=== PATIENT | female | born 1935 | race Caucasian/White ===

== ENCOUNTER 2016-09-06 08:51 | Inpatient (IN) | payer OTHER ==
[2016-09-06 09:07] VITALS: BMI 29.9
--- NOTE | 2016-09-06 09:55 | PDOC ---
History of Present Illness - General Chief Complaint: Shortness of Breath Stated Complaint: DIFFICULTY BREATHING Time Seen by Provider: 09/06/16 09:28 - History of Present Illness Initial Comments: 09/06/16 09:49 CHIEF COMPLAINT: shortness of breath HISTORY OF PRESENT ILLNESS: 81 yo F with hx of afib, CHF, cardiac stent x1, COPD , HTN, HLD, diabetes (now controlled, no meds), and kidney failure who presents to the ED for shortness of breath. Patient reports that she has had more "labored breathing" over the past 2 weeks. She denies any chest pain but reports feeling "some palpitations yesterday." She denies any fever, chills, nausea, vomiting, diarrhea, rectal bleeding. She also notes that she was previously told by her psychiatrist that she was being "underdosed on Zoloft" after having a few panic attacks, and her dosage increased approximately 2 months ago. No recent travel or sick contacts. PAST MEDICAL HISTORY: as per HPI SOCIAL HISTORY: Lives at assisted living home. Former smoker, quit 1998. alcohol, illicit drug use. SURGICAL HISTORY: Denies ALLERGIES: codeine REVIEW OF SYSTEMS General/Constitutional: Denies fever or chills. Denies weakness, weight change. HEENT: Denies change in vision. Denies ear pain or discharge. Denies sore throat. Cardiovascular: Shortness of breath x 2 weeks. Respiratory: Denies cough, wheezing, or hemoptysis. Gastrointestinal: Denies nausea, vomiting, diarrhea or constipation. Denies rectal bleeding. Genitourinary: Denies dysuria, frequency, or change in urination. Musculoskeletal: Denies joint or muscle swelling or pain. Denies neck or back pain. Skin and breasts: Denies rash or easy bruising. Neurologic: Denies headache, vertigo, loss of consciousness, or loss of sensation. Psychiatric: Denies depression or anxiety. PHYSICAL EXAM General Appearance: Well-appearing, appropriately dressed. No apparent distress. HEENT: EOMI, PERRLA, normal ENT inspection, normal voice, TMs normal, pharynx normal. No conjunctival pallor. No photophobia, scleral icterus. Neck: Supple. Trachea midline. No tenderness, rigidity, carotid bruit, stridor , lymphadenopathy, or thyromegaly. Respiratory/Chest: SOB, crackles to bases b/l. No chest tenderness, accessory muscle use. No stridor, wheezing, dullness. Cardiovascular: RRR. S1, S2. No JVD, murmur, bradycardia, tachycardia. Vascular Pulses: Dorsalis-Pedis (R): 2+, Dorsalis-Pedis (L): 2+ Gastrointestinal/Abdominal: Normal bowel sounds. Abdomen soft, non-distended. No tenderness or rebound tenderness. No organomegaly, pulsatile mass, guarding , hernia, hepatomegaly, splenomegaly. Lymphatic: No adenopathy, tenderness. Musculoskeletal/Extremities: Mild erythema to left lower leg. Normal inspection. FROM of all extremities, normal capillary refill. Pelvis Stable. No CVA tenderness. No tenderness to extremities, pedal edema, swelling, erythema or deformity. Integumentary: Appropriate color, dry, warm. 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 Fully oriented, alert. Appropriate mood/affect. Motor strength 5/5. No appreciable EOM palsy, facial droop or sensory deficit. 09/06/16 10:09 Past History - Past Medical History Allergies/Adverse Reactions: Allergies Allergy/AdvReac Type Severity Reaction Status Date / Time codeine AdvReac Intermediate Vaginal Verified 09/07/16 12:56 itch Home Medications: Ambulatory Orders Colchicine [Colcrys] 0.3 mg PO DAILY 01/07/16 Hydrocortisone 2.5% Topical Cr [Anusol-Hc -] 1 applic TP BID 09/06/16 Albuterol Sulfate [Proair Respiclick] 108 mcg IH Q4HWA PRN #0 inh 09/09/16 Albuterol Sulfate [Ventolin -] 2.5 mg PO QID PRN #0 inh 09/09/16 Alprazolam [Xanax] 0.5 mg PO TID PRN #0 tab 09/09/16 Amiodarone HCl 200 mg PO DAILY #0 tab 09/09/16 Apixaban [Eliquis -] 2.5 mg PO BID tablet 09/09/16 Aspirin [ASA -] 81 mg PO DAILY #0 tab 09/09/16 Ferrous Sulfate 325 mg PO DAILY #0 tab 09/09/16 Fluticasone/Salmeterol [Advair 250-50 Diskus] 1 each IH BID #0 inh 09/09/16 Furosemide [Lasix -] 40 mg PO DAILY #0 tab 09/09/16 Omeprazole 20 mg PO DAILY #0 tab 09/09/16 Polyethylene Glycol 3350 [Purelax] 17 gm PO ASDIR PRN #0 bottle 09/09/16 Roflumilast [Daliresp] 500 mcg PO DAILY #0 tab 09/09/16 Sertraline HCl [Zoloft -] 150 mg PO DAILY #0 tab 09/09/16 Simvastatin [Zocor -] 5 mg PO HS #0 tab 09/09/16 Umeclidinium [place] [Incruse Ellipta] 62.5 mcg IH DAILY #0 inh 09/09/16 Zolpidem Tartrate [Ambien] 10 mg PO HS #0 tab 09/09/16 Heparin - 5,000 unit SQ DAILY 09/10/16 Cardiac Disorders: Yes (AFIB) COPD: Yes (EMPHYSEMA) Diabetes: Yes Disorders: Yes (KIDNEY FAILURE) HTN: Yes Hypercholesterolemia: Yes Other medical history: chronic kidney dz - Surgical History Cardiac Surgery: Yes (x1 stent) Cholecystectomy: Yes - Immunization History Immunization Up to Date: Yes - Psycho/Social/Smoking Cessation Hx Anxiety: No Suicidal Ideation: No Smoking Status: Yes Smoking History: Never smoked Have you smoked in the past 12 months: No Number of Cigarettes Smoked Daily: 0 If you are a former smoker, when did you quit?: 2000 Cigars Per Day: 0 Information on smoking cessation initiated: No Hx Alcohol Use: No Drug/Substance Use Hx: No Substance Use Type: None Hx Substance Use Treatment: No *Physical Exam - Vital Signs Last Vital Signs Temp Pulse Resp BP Pulse Ox 97.6 F 70 18 164/65 99 09/06/16 09:04 09/06/16 09:04 09/06/16 09:04 09/06/16 09:04 09/06/16 09:04 ED Treatment Course - LABORATORY CBC & Chemistry Diagram: 09/09/16 05:40 09/09/16 05:40 - RADIOLOGY Radiology Studies Ordered: Category Date Time Status CHEST PA & LAT [RAD] Stat Radiology 09/06/16 09:43 Ordered Medical Decision Making - Medical Decision Making 09/21/16 10:41 81 yo F with hx of afib, CHF, cardiac stent x1, COPD, HTN, HLD, diabetes (now controlled, no meds), and kidney failure who presents to the ED for shortness of breath. -CXR, EKG -CBC, CMP, PT/INR, Mg, BNP, card profile Labs: Creatining 2.1, BNP 5900 Patient admitted for acute CHF exacerbation and MENA. *DC/Admit/Observation/Transfer Diagnosis at time of Disposition: MENA (acute kidney injury) CHF exacerbation Qualifiers: Congestive heart failure type: unspecified congestive heart failure type Qualified Code(s): I50.9 - Heart failure, unspecified - Discharge Dispostion Disposition: ASSISTED LIVING FACILITY Condition at time of disposition: Stable Admit: Yes - Referrals
[2016-09-06 10:35] LABS: BASOPHIL 0.6 % (0-2.0); EOSINOPHIL 1.3 % (0-4.5); MCH 26.4 pg (25.7-33.7); MCHC 31.7 g/dl (32.0-36.0); MEAN CELL VOLUME 83.4 fl (80-96); MEAN PLT VOLUME 7.8 fl (7.5-11.1); NEUTROPHILS 87.8 % (42.8-82.8); PLATELET COUNT 243 K/MM3 (134-434); RDW 16.8 % (11.6-15.6); WHITE BLOOD COUNT 9.2 K/mm3 (4.0-10.0)
[2016-09-06 10:39] LABS: ALBUMIN 2.8 g/dl (3.4-5.0); BILIRUBIN,TOTAL 0.2 mg/dL (0.2-1.0); CALCIUM 8.4 mg/dL (8.5-10.1); CO2 28 mmol/L (21-32); COCKROFT - GAULT 22.95; CREATININE 2.1 mg/dL (0.55-1.02); GLUCOSE,RANDOM 114 mg/dL (74-106); SGPT/ALT 23 U/L (12-78); TOT PROT 6.8 g/dl (6.4-8.2)
[2016-09-06 10:45] LABS: ALK PHOS 84 U/L (45-117); INR 1.09 (0.82-1.09); TROPONIN I < 0.02 ng/ml (0.00-0.05)
[2016-09-06 10:53] LABS: MAGNESIUM 2.4 mg/dL (1.8-2.4); SGOT/AST 26 U/L (15-37)
[2016-09-06 11:03] LABS: ANION GAP 9 (8-16)
[2016-09-06] MEDS ORDERED: FUROSEMIDE 40 MG/4 ML INJECTABLE VIAL IVPUSH ONE (11:20)
[2016-09-06] MEDS ORDERED: FUROSEMIDE 40 MG/4 ML INJECTABLE VIAL ONE ×2 (11:51→13:54)
--- NOTE | 2016-09-06 12:02 | EKG ---
Test Reason : Blood Pressure : / mmHG Vent. Rate : 070 BPM Atrial Rate : 070 BPM P-R Int : 174 ms QRS Dur : 104 ms QT Int : 448 ms P-R-T Axes : 075 002 083 degrees QTc Int : 483 ms NORMAL SINUS RHYTHM SEPTAL INFARCT , AGE UNDETERMINED T WAVE ABNORMALITY, CONSIDER LATERAL ISCHEMIA ABNORMAL ECG WHEN COMPARED WITH ECG OF 06-DEC-2012 17:26, SINUS RHYTHM HAS REPLACED ATRIAL FIBRILLATION VENT. RATE HAS DECREASED BY 54 BPM Confirmed by MD TIN, ABRAM ([id number]) on 09/06/2016 12:02:32 PM Referred By: Confirmed By:ABRAM CASTLE MD
--- NOTE | 2016-09-06 12:49 | HP ---
CHIEF COMPLAINT: PCP: Dr Machuca HISTORY OF PRESENT ILLNESS: 81 y/o F with c/o SOB for 3 weeks, with BARRETT and palpitations. Patient is on home oxygen 3L [place] . Patient lives at a assisted living facility and is reported to be compliant with her medications daily. daughter complains of mother having easy bruising. No h/o frequent falls. ER course was notable for: (1)Lasix (2) non rebreather (3) Recent Travel:no PAST MEDICAL HISTORY:Anxiety, depression, COPD, Emyphysema, CHF, CKD, CAD s/p stent PAST SURGICAL HISTORY: Cholecystectomy, Stent Social History: Smoking: quit 1998 Alcohol:none Drugs: none Family History: Allergies codeine Adverse Reaction (Verified 09/06/16 09:08) Itching HOME MEDICATIONS: Home Medications Medication Instructions Recorded Albuterol Sulfate [Proair 108 mcg IH Q4HWA PRN 01/07/16 Respiclick] Alprazolam [Xanax] 0.5 mg PO TID PRN 01/07/16 Amiodarone HCl 200 mg PO DAILY 01/07/16 Aspirin [ASA -] 81 mg PO DAILY 01/07/16 Colchicine [Colcrys] 0.3 mg PO DAILY 01/07/16 Ferrous Sulfate 325 mg PO DAILY 01/07/16 Fluticasone/Salmeterol [Advair 1 each IH BID 01/07/16 250-50 Diskus] Furosemide [Lasix -] 40 mg PO DAILY 01/07/16 Omeprazole 20 mg PO DAILY 01/07/16 Roflumilast [Daliresp] 500 mcg PO DAILY 01/07/16 Simvastatin [Zocor -] 5 mg PO HS 01/07/16 Umeclidinium [place] [Incruse 62.5 mcg IH DAILY 01/07/16 Ellipta] Zolpidem Tartrate [Ambien] 10 mg PO HS 01/07/16 Albuterol Sulfate [Ventolin -] 2.5 mg PO QID PRN 09/06/16 Hydrocortisone 2.5% Topical Cr 1 applic TP BID 09/06/16 [Anusol-Hc -] Polyethylene Glycol 3350 [Purelax] 17 gm PO ASDIR PRN 09/06/16 Sertraline HCl [Zoloft -] 150 mg PO DAILY 09/06/16 REVIEW OF SYSTEMS CONSTITUTIONAL: weight change, loss of appetite, Absent: fever, chills, diaphoresis, generalized weakness, malaise, HEENT: Absent: rhinorrhea, nasal congestion, throat pain, throat swelling, difficulty swallowing, mouth swelling, ear pain, eye pain, visual changes CARDIOVASCULAR: Absent: chest pain, syncope, palpitations, irregular heart rate, lightheadedness , peripheral edema RESPIRATORY: shortness of breath, dyspnea with exertion Absent: cough, , orthopnea, wheezing, stridor, hemoptysis GASTROINTESTINAL: Absent: abdominal pain, abdominal distension, nausea, vomiting, diarrhea, constipation, melena, hematochezia GENITOURINARY: Absent: dysuria, frequency, urgency, hesitancy, hematuria, flank pain, genital pain MUSCULOSKELETAL: Absent: myalgia, arthralgia, joint swelling, back pain, neck pain SKIN: Absent: rash, itching, pallor HEMATOLOGIC/IMMUNOLOGIC: Absent: easy bleeding, easy bruising, lymphadenopathy, frequent infections ENDOCRINE: Absent: unexplained weight gain, unexplained weight loss, heat intolerance, cold intolerance NEUROLOGIC: Absent: headache, focal weakness or paresthesias, dizziness, unsteady gait, seizure, mental status changes, bladder or bowel incontinence PSYCHIATRIC: Absent: anxiety, depression, suicidal or homicidal ideation, hallucinations. PHYSICAL EXAMINATION Vital Signs - 24 hr 09/06/16 09/06/16 09:04 09:05 Temperature 97.6 F Pulse Rate 70 Respiratory 18 Rate Blood Pressure 164/65 O2 Sat by Pulse 99 99 Oximetry (%) GENERAL: Awake, alert, and fully oriented, in no acute distress. HEAD: Normal with no signs of trauma. EYES: Pupils equal, round and reactive to light, extraocular movements intact, sclera anicteric, conjunctiva clear. No lid lag. EARS, NOSE, THROAT: Ears normal, nares patent, oropharynx clear without exudates. Moist mucous membranes. NECK: Normal range of motion, supple without lymphadenopathy, JVD +, or masses. LUNGS: Breath sounds equal, clear to auscultation bilaterally. No wheezes, and no crackles. No accessory muscle use. HEART: Regular rate and rhythm, normal S1 and S2 , regurgitation murmur mitral area, no rub or gallop. ABDOMEN: Soft, nontender, not distended, normoactive bowel sounds, no guarding, no rebound, no masses. No hepatomegaly or splenomegaly. MUSCULOSKELETAL: Normal range of motion at all joints. No bony deformities or tenderness. No CVA tenderness. UPPER EXTREMITIES: 2+ pulses, warm, well-perfused. No cyanosis. No clubbing. No peripheral edema. LOWER EXTREMITIES: 2+ pulses, warm, well-perfused. No calf tenderness. trace peripheral edema. NEUROLOGICAL: Cranial nerves II-XII intact. Normal speech. Normal gait. PSYCHIATRIC: Cooperative. Good eye contact. Appropriate mood and affect. SKIN: Warm, dry, normal turgor, no rashes or lesions noted, normal capillary refill. ecchymosis on hands Laboratory Results - last 24 hr 09/06/16 09/06/16 09/06/16 10:09 10:09 10:09 WBC RBC Hgb Hct MCV MCHC RDW Plt Count MPV Neutrophils % Lymphocytes % Monocytes % Eosinophils % Basophils % INR 1.09 D D-Dimer Cancelled Sodium 148 H Potassium 4.9 Chloride 111 H Carbon Dioxide 28 Anion Gap 9 BUN 39 H D Creatinine 2.1 H D Creat Clearance w eGFR 22.72 Random Glucose 114 H Calcium 8.4 L Magnesium 2.4 D Total Bilirubin 0.2 D AST 26 D ALT 23 D Alkaline Phosphatase 84 Creatine Kinase 89 Troponin I < 0.02 B-Natriuretic Peptide 5963.47 H Total Protein 6.8 Albumin 2.8 L 09/06/16 10:23 WBC 9.2 RBC 3.94 Hgb 10.4 L Hct 32.9 MCV 83.4 MCHC 31.7 L RDW 16.8 H Plt Count 243 MPV 7.8 Neutrophils % 87.8 H Lymphocytes % 4.8 L D Monocytes % 5.5 Eosinophils % 1.3 D Basophils % 0.6 INR D-Dimer Sodium Potassium Chloride Carbon Dioxide Anion Gap BUN Creatinine Creat Clearance w eGFR Random Glucose Calcium Magnesium Total Bilirubin AST ALT Alkaline Phosphatase Creatine Kinase Troponin I B-Natriuretic Peptide Total Protein Albumin ASSESSMENT/PLAN: CHF exacerbation Lasix 40 mg IVPB daily ECHO Continue home medications MENA or possible CKD Cardiorenal possibly Urine electrolytes Follow AM labs Visit type - Emergency Visit Emergency Visit: Yes ED Registration Date: 09/06/16 Care time: The patient presented to the Emergency Department on the above date and was hospitalized for further evaluation of their emergent condition. - New Patient This patient is new to me today: Yes Date on this admission: 09/25/16 - Critical Care Critical Care patient: No
[2016-09-06] MEDS ORDERED: FUROSEMIDE 40 MG/4 ML INJECTABLE VIAL IVPB ONE (12:50)
[2016-09-06] MEDS ORDERED: ALBUTEROL SO4 2 MG TABLET PO PRN (12:55)
[2016-09-06] MEDS ORDERED: POLYETHYLENE GLYCOL 3350 119 GM BTL PO PRN (12:55)
[2016-09-06 14:20] LABS: URINE APPEARANCE CLEAR; URINE BILIRUBIN NEGATIVE (NEGATIVE); URINE COLOR STRAW; URINE GLUCOSE (UA) NEGATIVE (NEGATIVE); URINE KETONE NEGATIVE (NEGATIVE); URINE LEUK ESTERASE NEGATIVE (NEGATIVE); URINE NITRITE NEGATIVE (NEGATIVE); URINE UROBILINOGEN NEGATIVE E.U./dl (0.2-1.0)
[2016-09-06 14:23] LABS: URINE BLOOD 1+ (NEGATIVE); URINE PROTEIN 2+ (NEGATIVE)
[2016-09-06 14:26] LABS: URINE BACTERIA MODERATE /hpf (NONE SEEN); URINE RBC 4 /hpf (0-3); URINE WBC 16 /hpf (3-5)
--- NOTE | 2016-09-06 15:03 | CON.CARD ---
Consult Consult Specialty:: Cardiology Referred by:: Hospitalist Reason for Consultation:: Cardiac evaluation - History of Present Illness Chief Complaint: Shortness of breath History of Present Illness: Patient is a 81 year old female well known to me with underlying history of oxygen dependent COPD with exacerbation, LV diastolic dysfunction with history of failure, CKD, type 2 diabetes mellitus, hypertension, hypercholesterolemia and paroxysmal atrial fibrillation. She presents to [facility] with increase in shortness of breath worsened over the past 2 weeks. She reports some palpitations. She denies chest pain. She denies paroxysmal nocturnal dyspnea or orthopnea. She denies fever or chills. She denies nausea, vomiting, diarrhea or abdominal pain. She denies headache or lightheadedness. - History Source History Provided By: Patient, Medical Record Limitations to Obtaining History: No Limitations - Past Medical History Cardio/Vascular: Yes: AFIB, HTN, Hyperlipdemia Pulmonary: Yes: COPD, O2 Dependent Renal/: Yes: Renal Inusuff Heme/Onc: Yes: Anemia Endocrine: Yes: Diabetes Mellitus - Alcohol/Substance Use Hx Alcohol Use: No - Smoking History Smoking history: Never smoked Have you smoked in the past 12 months: No Aproximately how many cigarettes per day: 0 If you are a former smoker, when did you quit?: 1999 Home Medications - Allergies Allergies/Adverse Reactions: Allergies Allergy/AdvReac Type Severity Reaction Status Date / Time codeine AdvReac Itching Verified 09/06/16 09:08 - Home Medications Home Medications: Ambulatory Orders Albuterol Sulfate [Proair Respiclick] 108 mcg IH Q4HWA PRN 01/07/16 Alprazolam [Xanax] 0.5 mg PO TID PRN 01/07/16 Amiodarone HCl 200 mg PO DAILY 01/07/16 Aspirin [ASA -] 81 mg PO DAILY 01/07/16 Colchicine [Colcrys] 0.3 mg PO DAILY 01/07/16 Ferrous Sulfate 325 mg PO DAILY 01/07/16 Fluticasone/Salmeterol [Advair 250-50 Diskus] 1 each IH BID 01/07/16 Furosemide [Lasix -] 40 mg PO DAILY 01/07/16 Omeprazole 20 mg PO DAILY 01/07/16 Roflumilast [Daliresp] 500 mcg PO DAILY 01/07/16 Simvastatin [Zocor -] 5 mg PO HS 01/07/16 Umeclidinium [place] [Incruse Ellipta] 62.5 mcg IH DAILY 01/07/16 Zolpidem Tartrate [Ambien] 10 mg PO HS 01/07/16 Albuterol Sulfate [Ventolin -] 2.5 mg PO QID PRN 09/06/16 Hydrocortisone 2.5% Topical Cr [Anusol-Hc -] 1 applic TP BID 09/06/16 Polyethylene Glycol 3350 [Purelax] 17 gm PO ASDIR PRN 09/06/16 Sertraline HCl [Zoloft -] 150 mg PO DAILY 09/06/16 Review of Systems - Review of Systems Constitutional: denies: Chills, Fever Cardiovascular: reports: Palpitations, Shortness of Breath. denies: Chest Pain Respiratory: reports: SOB, SOB on Exertion. denies: Cough, Hemoptysis, Orthopnea, PND Gastrointestinal: denies: Abdominal Pain, Constipation, Diarrhea, Melena, Nausea , Rectal Bleeding, Vomiting Musculoskeletal: denies: Joint Pain Neurological: reports: Weakness. denies: Dizziness, Headache, Numbness, Seizure , Syncope, Tremors Vital Signs: Vital Signs Temperature 97.6 F 09/06/16 09:04 Pulse Rate 68 09/06/16 14:00 Respiratory Rate 18 09/06/16 14:00 Blood Pressure 116/65 09/06/16 14:00 O2 Sat by Pulse Oximetry (%) 100 09/06/16 14:00 HENT: Yes: Atraumatic Neck: Yes: Supple Respiratory: Yes: Diminished, On Nasal O2 Gastrointestinal: Yes: Normal Bowel Sounds, Soft. No: Tenderness Cardiovascular: Yes: Regular Rate and Rhythm JVD: No Carotid Bruit: No PMI: Non-Displaced Heart Sounds: Yes: S1, S2. No: Gallop Murmur: No: Systolic Murmur Edema: No - Other Data Labs, Other Data: INR, PTT INR 1.09 (0.82-1.09) D 09/06/16 10:09 Laboratory Results - last 24 hr 09/06/16 09/06/16 09/06/16 10:09 10:09 10:09 WBC RBC Hgb Hct MCV MCHC RDW Plt Count MPV Neutrophils % Lymphocytes % Monocytes % Eosinophils % Basophils % INR 1.09 D D-Dimer Cancelled Sodium 148 H Potassium 4.9 Chloride 111 H Carbon Dioxide 28 Anion Gap 9 BUN 39 H D Creatinine 2.1 H D Creat Clearance w eGFR 22.72 Random Glucose 114 H Calcium 8.4 L Magnesium 2.4 D Total Bilirubin 0.2 D AST 26 D ALT 23 D Alkaline Phosphatase 84 Creatine Kinase 89 Troponin I < 0.02 B-Natriuretic Peptide 5963.47 H Total Protein 6.8 Albumin 2.8 L Urine Color Urine Appearance Urine pH Ur Specific [place] Urine Protein Urine Glucose (UA) Urine Ketones Urine Blood Urine Nitrite Urine Bilirubin Urine Urobilinogen Ur Leukocyte Esterase Urine RBC Urine WBC Ur Epithelial Cells Urine Bacteria Ur Random Sodium Ur Random Potassium Ur Random Chloride 09/06/16 09/06/16 09/06/16 10:23 12:04 14:10 WBC 9.2 RBC 3.94 Hgb 10.4 L Hct 32.9 MCV 83.4 MCHC 31.7 L RDW 16.8 H Plt Count 243 MPV 7.8 Neutrophils % 87.8 H Lymphocytes % 4.8 L D Monocytes % 5.5 Eosinophils % 1.3 D Basophils % 0.6 INR D-Dimer 539 H Sodium Potassium Chloride Carbon Dioxide Anion Gap BUN Creatinine Creat Clearance w eGFR Random Glucose Calcium Magnesium Total Bilirubin AST ALT Alkaline Phosphatase Creatine Kinase Troponin I B-Natriuretic Peptide Total Protein Albumin Urine Color Straw Urine Appearance Clear Urine pH 5.0 Ur Specific [place] 1.010 Urine Protein 2+ H Urine Glucose (UA) Negative Urine Ketones Negative Urine Blood 1+ H Urine Nitrite Negative Urine Bilirubin Negative Urine Urobilinogen Negative Ur Leukocyte Esterase Negative Urine RBC 4 Urine WBC 16 Ur Epithelial Cells Rare Urine Bacteria Moderate Ur Random Sodium Ur Random Potassium Ur Random Chloride 09/06/16 09/06/16 14:10 20:25 WBC RBC Hgb Hct MCV MCHC RDW Plt Count MPV Neutrophils % Lymphocytes % Monocytes % Eosinophils % Basophils % INR D-Dimer Sodium Potassium Chloride Carbon Dioxide Anion Gap BUN Creatinine Creat Clearance w eGFR Random Glucose Calcium Magnesium Total Bilirubin AST ALT Alkaline Phosphatase Creatine Kinase 44 Troponin I 0.02 B-Natriuretic Peptide Total Protein Albumin Urine Color Urine Appearance Urine pH Ur Specific [place] Urine Protein Urine Glucose (UA) Urine Ketones Urine Blood Urine Nitrite Urine Bilirubin Urine Urobilinogen Ur Leukocyte Esterase Urine RBC Urine WBC Ur Epithelial Cells Urine Bacteria Ur Random Sodium 124 Ur Random Potassium 13.4 Ur Random Chloride 138 Sinus rhythm with T wave abnormality Imaging - Results Chest X-ray: Report Reviewed (Cardiomegaly with congestion) Ultrasound: Report Reviewed (Renal US shows atrophy) EKG: Report Reviewed Problem List - Problems (1) Congestive heart failure with LV diastolic dysfunction, NYHA class 1 Code(s): I50.30 - UNSPECIFIED DIASTOLIC (CONGESTIVE) HEART FAILURE (2) HTN (hypertension) Code(s): I10 - ESSENTIAL (PRIMARY) HYPERTENSION Qualifiers: Hypertension type: essential hypertension Qualified Code(s): I10 - Essential (primary) hypertension (3) Hypercholesterolemia Code(s): E78.00 - PURE HYPERCHOLESTEROLEMIA, UNSPECIFIED (4) CKD (chronic kidney disease) Code(s): N18.9 - CHRONIC KIDNEY DISEASE, UNSPECIFIED (5) PAF (paroxysmal atrial fibrillation) Code(s): I48.0 - PAROXYSMAL ATRIAL FIBRILLATION Assessment/Plan 1. Dyspnea secondary to LV diastolic failure - acute on chronic vs. COPD exacerbation 2. O2 dependent COPD/emphysema 3. Paroxysmal atrial fibrillation currently in sinus rhythm 4. HTN/HCVD 5. Hypercholesterolemia 6. CKD PLAN: 1. Serial cardiac enzymes 2. Transthoracic echocardiography to assess LV and valvular function - compare with previous office records and prior echocardiography 3. Continue Amiodarone with caution. Check Amiodarone level. 4. Continue Statin 5. IV diuretics and monitor I/Os and daily weight. Monitor renal function and electrolytes 6. Currently not on anticoagulation for GI reason. If not contraindicated, anticoagulation is indicated in view of PAF with [id number] of 5. NOAC may be considered if not contraindicated 7. May use Cardizem if need rate control. Further plans are to follow Saurabh Posadas MD
[2016-09-06] MEDS: BUDESONIDE/FORMETEROL FUMARATE 80/4.5 mcg INHALER IH SCH ×2 (16:44→21:13)
[2016-09-06] MEDS ORDERED: ALBUTEROL SO4 2.5/IPRATROPIUM 0.5 INH SOL 3 ML VIAL.NEB. NEB PRN (17:39)
[2016-09-06] MEDS: ALBUTEROL SO4 2.5/IPRATROPIUM 0.5 INH SOL 3 ML VIAL.NEB. NEB SCH (18:55)
[2016-09-06] MEDS ORDERED: ALBUTEROL SO4 6.7 GM HFA INHALER IH PRN (19:13)
[2016-09-06] MEDS: HYDROCORTISONE 2.5% TOPICAL CREAM 30 GM TUBE TP SCH (21:10)
[2016-09-06] MEDS: ATORVASTATIN CA 10 MG TABLET (FP) PO SCH (21:10)
[2016-09-06 21:16] LABS: TROPONIN I 0.02 ng/ml (0.00-0.05)
[2016-09-06] MEDS: ZOLPIDEM TARTRATE 5 MG TABLET PO PRN (21:50)
[2016-09-06] MEDS ORDERED: HEPARIN NA (PORCINE) 5,000 UNITS/ML 1ML VIAL SQ SCH (22:00)
[2016-09-07] MEDS: ALBUTEROL SO4 2.5/IPRATROPIUM 0.5 INH SOL 3 ML VIAL.NEB. NEB SCH ×5 (00:16→23:59)
[2016-09-07] MEDS: ALPRAZolam 0.25 MG TABLET PO PRN ×2 (05:57→21:13)
--- NOTE | 2016-09-07 08:49 | PN ---
Progress Note (short form) - Note Progress Note: Subjective: no fever or chills, cont ot have SOB , but LE edema has improved. reports choosing to go off coumadin due to skin bruising due to supratherapeutic levels denies any h/o GI bleed , or serious internal bleed or ICH Objective: Vital Signs: Last Vital Signs Temp Pulse Resp BP Pulse Ox 98.5 F 87 18 142/82 94 L 09/07/16 06:00 09/07/16 06:00 09/07/16 06:00 09/07/16 06:00 09/06/16 19:54 I&O: Intake & Output 09/04/16 09/05/16 09/06/16 09/07/16 23:59 23:59 23:59 23:59 Intake Total 240 Output Total 200 900 Balance -200 -660 Weight 153 lb 150 lb 3.2 oz Laboratory Results - last 24 hr 09/06/16 09/06/16 09/06/16 10:09 10:09 10:09 WBC RBC Hgb Hct MCV MCHC RDW Plt Count MPV Neutrophils % Lymphocytes % Monocytes % Eosinophils % Basophils % INR 1.09 D D-Dimer Cancelled Sodium 148 H Potassium 4.9 Chloride 111 H Carbon Dioxide 28 Anion Gap 9 BUN 39 H D Creatinine 2.1 H D Creat Clearance w eGFR 22.72 Random Glucose 114 H Calcium 8.4 L Magnesium 2.4 D Total Bilirubin 0.2 D AST 26 D ALT 23 D Alkaline Phosphatase 84 Creatine Kinase 89 Troponin I < 0.02 B-Natriuretic Peptide 5963.47 H Total Protein 6.8 Albumin 2.8 L Urine Color Urine Appearance Urine pH Ur Specific [place] Urine Protein Urine Glucose (UA) Urine Ketones Urine Blood Urine Nitrite Urine Bilirubin Urine Urobilinogen Ur Leukocyte Esterase Urine RBC Urine WBC Ur Epithelial Cells Urine Bacteria Ur Random Sodium Ur Random Potassium Ur Random Chloride 09/06/16 09/06/16 09/06/16 10:23 12:04 14:10 WBC 9.2 RBC 3.94 Hgb 10.4 L Hct 32.9 MCV 83.4 MCHC 31.7 L RDW 16.8 H Plt Count 243 MPV 7.8 Neutrophils % 87.8 H Lymphocytes % 4.8 L D Monocytes % 5.5 Eosinophils % 1.3 D Basophils % 0.6 INR D-Dimer 539 H Sodium Potassium Chloride Carbon Dioxide Anion Gap BUN Creatinine Creat Clearance w eGFR Random Glucose Calcium Magnesium Total Bilirubin AST ALT Alkaline Phosphatase Creatine Kinase Troponin I B-Natriuretic Peptide Total Protein Albumin Urine Color Straw Urine Appearance Clear Urine pH 5.0 Ur Specific [place] 1.010 Urine Protein 2+ H Urine Glucose (UA) Negative Urine Ketones Negative Urine Blood 1+ H Urine Nitrite Negative Urine Bilirubin Negative Urine Urobilinogen Negative Ur Leukocyte Esterase Negative Urine RBC 4 Urine WBC 16 Ur Epithelial Cells Rare Urine Bacteria Moderate Ur Random Sodium Ur Random Potassium Ur Random Chloride 09/06/16 09/06/16 14:10 20:25 WBC RBC Hgb Hct MCV MCHC RDW Plt Count MPV Neutrophils % Lymphocytes % Monocytes % Eosinophils % Basophils % INR D-Dimer Sodium Potassium Chloride Carbon Dioxide Anion Gap BUN Creatinine Creat Clearance w eGFR Random Glucose Calcium Magnesium Total Bilirubin AST ALT Alkaline Phosphatase Creatine Kinase 44 Troponin I 0.02 B-Natriuretic Peptide Total Protein Albumin Urine Color Urine Appearance Urine pH Ur Specific [place] Urine Protein Urine Glucose (UA) Urine Ketones Urine Blood Urine Nitrite Urine Bilirubin Urine Urobilinogen Ur Leukocyte Esterase Urine RBC Urine WBC Ur Epithelial Cells Urine Bacteria Ur Random Sodium 124 Ur Random Potassium 13.4 Ur Random Chloride 138 Current Medications Generic Name Dose Route Start Last Admin Trade Name Freq PRN Reason Stop Dose Admin Albuterol Sulfate 2.5 mg 09/06/16 12:55 Ventolin - PO QID PRN ASTHMA Albuterol Sulfate 2 puff 09/06/16 19:13 Ventolin Hfa Inhaler - IH Q4H PRN ASTHMA Albuterol/Ipratropium 1 amp 09/06/16 17:39 Duoneb - NEB Q4H PRN SHORTNESS OF BREATH Albuterol/Ipratropium 1 amp 09/06/16 18:00 09/07/16 06:48 Duoneb - NEB 1 amp QIDR [facility] Administration Alprazolam 0.5 mg 09/06/16 12:55 09/07/16 05:57 Xanax - PO 0.5 mg TID PRN Administration ANXIETY Amiodarone HCl 200 mg 09/07/16 10:00 Cordarone - PO DAILY [facility] Aspirin 81 mg 09/07/16 10:00 Ecotrin - PO DAILY [facility] Atorvastatin Calcium 10 mg 09/06/16 22:00 09/06/16 21:10 Lipitor - PO 10 mg HS [facility]A Administration Budesonide/Formoterol Fumarate 2 puff 09/06/16 14:00 09/06/16 21:13 Symbicort 80/4.5mcg - IH 2 puff BID [facility]A Administration Ferrous Sulfate 325 mg 09/07/16 10:00 Feosol - PO DAILY [facility] Furosemide 40 mg 09/07/16 10:00 Lasix Injection - IVPUSH DAILY [facility] Heparin Sodium (Porcine) 5,000 unit 09/06/16 22:00 09/06/16 21:12 Heparin - SQ Not Given BID [facility] Hydrocortisone 1 applic 09/06/16 22:00 09/06/16 21:10 Anusol 2.5% Hc Cream - TP Not Given BID [facility] Pantoprazole Sodium 20 mg 09/07/16 10:00 Protonix - PO DAILY [facility] Polyethylene Glycol 17 gm 09/06/16 12:55 Miralax (For Daily Use) - PO DAILY PRN CONSTIPATION Roflumilast 500 mcg 09/07/16 10:00 Daliresp - PO DAILY [facility] Sertraline HCl 150 mg 09/07/16 10:00 Zoloft - PO DAILY [facility] Zolpidem Tartrate 5 mg 09/06/16 21:33 09/06/16 21:50 Ambien - PO 5 mg HS PRN Administration INSOMNIA Exam : NAD , AAox3 MMM, no JVD , wearing NC . CV: RRR, 3/6 SM At base best heard at RUSB. . Lungs: bibasilar crackles. no wheezing. good air entry Abd : soft, Minimal tenderness in RUQ and epigastric area, no rebound tenderness or guarding Ext : no edema over LE or upper ext. bruising on hands Imaging: cxray reviewed. previous echo and hOlter reviewed. Assessment/Plan: 81 y/o pleasant lady with h/o HTN, HLP , D CHF , COPD on 1-3 L of O2 at home, P AFIB, who presented with SOB and was found to have acute D CHF exacerbation 1- Acute D CHF exacerbation: with elevated BNP, congested xray, crackles on exam and LE edema . No evidence of Acute COPD exacerbation as there is no wheezing, and good air entry. has no recent URI. has no PNA . clinically slightly improved , with resolution of LE edema , and slilght improvement in SOB. still needs more diuresis - will give lasix IV 40 mg daily ( home dose 40 po daily ) - monitor I&O ( not acurately reported yesterday as she wa s in ER) - check echo tomorrow - monitor exam. no evidence of ACS . EKG reviewed. 2- P A fib: now in sinus rhythm. she chose to stp Coumadin in past due to supratheraputic INR which resulted in skin bruising. - CHADSVASC 5 . high risk for stroke. - D/W her risks and benefits of AC, she never had GI bleed, ICH, bleed or ICH. she hart snot have recurrent falls. She understands increased risk of bleed with any AC, even spontaneous bleed. She elected to go on AC , but not Coumadin. will start Eliquis 2.5 mg BID due to renal failure and age. - although aspirin with eliquis causes increased risk of bleed , but she has as tent and untreated CAD . - cont Amiodaron - tele reviewed. no events . Sinus rhythm 3- MENA: likely prerenal due to decreased TIMBER FELLER with heart failure - urine electrolytes were done , but will order U crea and urine Urea t o calculate Fe Urea. - expect renal function to improve with diuresis - renal US with no obstruction , but possible evidence of CKD - labs pending today 4- h/o COPD : not active . will cont home O2 and Nebs cont symbicort and daliresp 5- DVT px : eliquis HLOC Visit type - Emergency Visit Emergency Visit: Yes ED Registration Date: 09/06/16 Care time: The patient presented to the Emergency Department on the above date and was hospitalized for further evaluation of their emergent condition. - New Patient This patient is new to me today: No - Critical Care Critical Care patient: No
[2016-09-07 08:57] LABS: MCH 26.1 pg (25.7-33.7); MCHC 31.3 g/dl (32.0-36.0); MEAN CELL VOLUME 83.3 fl (80-96); MEAN PLT VOLUME 7.7 fl (7.5-11.1); PLATELET COUNT 213 K/MM3 (134-434); RDW 16.9 % (11.6-15.6); WHITE BLOOD COUNT 7.7 K/mm3 (4.0-10.0)
[2016-09-07 09:20] LABS: ALBUMIN 2.5 g/dl (3.4-5.0); CALCIUM 8.4 mg/dL (8.5-10.1)
--- NOTE | 2016-09-07 09:21 | PN ---
Progress Note, Physician Chief Complaint: Currently in sinus rhythm with occasional PVC Less SOB History of Present Illness: Patient was seen and examined. Awake and alert. Chart was reviewed Denies chest pain or palpitations at this time, but states that sometimes she gets brief palpitations Less SOB - Current Medication List Current Medications: Active Medications Albuterol/Ipratropium (Duoneb -) 1 amp NEB Q4H PRN PRN Reason: SHORTNESS OF BREATH Albuterol/Ipratropium (Duoneb -) 1 amp NEB QIDR [facility] Last Admin: 09/07/16 06:48 Dose: 1 amp Alprazolam (Xanax -) 0.5 mg PO TID PRN PRN Reason: ANXIETY Last Admin: 09/07/16 05:57 Dose: 0.5 mg Amiodarone HCl (Cordarone -) 200 mg PO DAILY [facility] Apixaban (Eliquis -) 2.5 mg PO BID [facility] Aspirin (Ecotrin -) 81 mg PO DAILY [facility] Atorvastatin Calcium (Lipitor -) 10 mg PO HS [facility] Last Admin: 09/06/16 21:10 Dose: 10 mg Budesonide/Formoterol Fumarate (Symbicort 80/4.5mcg -) 2 puff IH BID [facility] Last Admin: 09/06/16 21:13 Dose: 2 puff Ferrous Sulfate (Feosol -) 325 mg PO DAILY [facility] Furosemide (Lasix Injection -) 40 mg IVPUSH DAILY [facility] Hydrocortisone (Anusol 2.5% Hc Cream -) 1 applic TP BID [facility] Last Admin: 09/06/16 21:10 Dose: Not Given Pantoprazole Sodium (Protonix -) 20 mg PO DAILY [facility] Polyethylene Glycol (Miralax (For Daily Use) -) 17 gm PO DAILY PRN PRN Reason: CONSTIPATION Roflumilast (Daliresp -) 500 mcg PO DAILY [facility] Sertraline HCl (Zoloft -) 150 mg PO DAILY [facility] Zolpidem Tartrate (Ambien -) 5 mg PO HS PRN PRN Reason: INSOMNIA Last Admin: 09/06/16 21:50 Dose: 5 mg - Objective Vital Signs: Vital Signs Temperature 98.5 F 09/07/16 06:00 Pulse Rate 87 09/07/16 06:00 Respiratory Rate 18 09/07/16 06:00 Blood Pressure 142/82 09/07/16 06:00 O2 Sat by Pulse Oximetry (%) 94 L 09/06/16 19:54 HENT: Yes: Atraumatic Neck: Yes: Supple Cardiovascular: Yes: Regular Rate and Rhythm, S1, S2 Respiratory: Yes: Diminished Gastrointestinal: Yes: Normal Bowel Sounds, Soft. No: Tenderness Edema: No Additional Findings/Remarks: - Review of Systems Constitutional: denies: Chills, Fever Cardiovascular: reports: Palpitations, Shortness of Breath. denies: Chest Pain Respiratory: reports: SOB, SOB on Exertion. denies: Cough, Hemoptysis, Orthopnea, PND Gastrointestinal: denies: Abdominal Pain, Constipation, Diarrhea, Melena, Nausea , Rectal Bleeding, Vomiting Musculoskeletal: denies: Joint Pain Neurological: reports: Weakness. denies: Dizziness, Headache, Numbness, Seizure , Syncope, Tremors Labs: CBC, BMP 09/07/16 08:50 INR, PTT INR 1.09 (0.82-1.09) D 09/06/16 10:09 Problem List - Problems (1) Congestive heart failure with LV diastolic dysfunction, NYHA class 1 Code(s): I50.30 - UNSPECIFIED DIASTOLIC (CONGESTIVE) HEART FAILURE (2) HTN (hypertension) Code(s): I10 - ESSENTIAL (PRIMARY) HYPERTENSION Qualifiers: Hypertension type: essential hypertension Qualified Code(s): I10 - Essential (primary) hypertension (3) Hypercholesterolemia Code(s): E78.00 - PURE HYPERCHOLESTEROLEMIA, UNSPECIFIED (4) CKD (chronic kidney disease) Code(s): N18.9 - CHRONIC KIDNEY DISEASE, UNSPECIFIED (5) PAF (paroxysmal atrial fibrillation) Code(s): I48.0 - PAROXYSMAL ATRIAL FIBRILLATION Assessment/Plan 1. Dyspnea secondary to LV diastolic failure - acute on chronic vs. COPD exacerbation 2. O2 dependent COPD/emphysema 3. Paroxysmal atrial fibrillation currently in sinus rhythm 4. HTN/HCVD 5. Hypercholesterolemia 6. CKD PLAN: 1. Serial cardiac enzymes are negative 2. Transthoracic echocardiography to assess LV and valvular function - compare with previous office records and prior echocardiography 3. Continue Amiodarone with caution. Check Amiodarone level. 4. Continue Statin 5. IV diuretics and monitor I/Os and daily weight. Monitor renal function and electrolytes 6. Patient had stopped Coumadin on her own several years ago due to excessive bleed in her skin. She took ASA instead knowing the risk of stroke. She was explained again regarding the risk of stroke as her [id number] score is 5. She is willing to take NOAC - start Eliquis 2.5 mg BID 7. May use Cardizem if need rate control. Further plans are to follow Saurabh Posadas MD
[2016-09-07 09:22] LABS: BILIRUBIN,TOTAL 0.2 mg/dL (0.2-1.0); COCKROFT - GAULT 22.27; CREATININE 2.2 mg/dL (0.55-1.02)
[2016-09-07] MEDS ORDERED: PT OWN MED DRAWER 7, Y5N ONE ×2 (10:25→10:51)
[2016-09-07] MEDS: AMIODARONE HCL 200 MG TABLET (FP) PO SCH (10:47)
[2016-09-07] MEDS: HYDROCORTISONE 2.5% TOPICAL CREAM 30 GM TUBE TP SCH ×2 (10:47→21:12)
[2016-09-07] MEDS: ASPIRIN COATED 81 MG TABLET.EC PO SCH (10:48)
[2016-09-07] MEDS: FUROSEMIDE 40 MG/4 ML INJECTABLE VIAL IVPUSH SCH (10:48)
[2016-09-07] MEDS: APIXABAN 2.5 MG TABLET PO SCH ×2 (10:48→21:13)
[2016-09-07] MEDS: FERROUS SO4 325 MG TABLET (FP) PO SCH (10:48)
[2016-09-07] MEDS: PANTOPRAZOLE 20 MG TABLET (FP) PO SCH (10:49)
[2016-09-07] MEDS: BUDESONIDE/FORMETEROL FUMARATE 80/4.5 mcg INHALER IH SCH ×2 (10:49→21:13)
[2016-09-07] MEDS: SERTRALINE HCL 50 MG TABLET (FP) PO SCH (10:50)
[2016-09-07] MEDS: ROFLUMILAST 500 MCG TABLET PO SCH (10:52)
[2016-09-07] MEDS: ATORVASTATIN CA 10 MG TABLET (FP) PO SCH (21:13)
[2016-09-07] MEDS: ZOLPIDEM TARTRATE 5 MG TABLET PO PRN (21:13)
[2016-09-08] MEDS: ALBUTEROL SO4 2.5/IPRATROPIUM 0.5 INH SOL 3 ML VIAL.NEB. NEB SCH ×3 (06:45→17:42)
[2016-09-08 08:51] LABS: CALCIUM 8.4 mg/dL (8.5-10.1); COCKROFT - GAULT 21.25; CREATININE 2.3 mg/dL (0.55-1.02)
[2016-09-08] MEDS: SERTRALINE HCL 50 MG TABLET (FP) PO SCH (09:20)
[2016-09-08] MEDS: FERROUS SO4 325 MG TABLET (FP) PO SCH (09:20)
[2016-09-08] MEDS: FUROSEMIDE 40 MG/4 ML INJECTABLE VIAL IVPUSH SCH (09:20)
[2016-09-08] MEDS: PANTOPRAZOLE 20 MG TABLET (FP) PO SCH (09:20)
[2016-09-08] MEDS: ASPIRIN COATED 81 MG TABLET.EC PO SCH (09:20)
[2016-09-08] MEDS: APIXABAN 2.5 MG TABLET PO SCH ×2 (09:20→21:38)
[2016-09-08] MEDS: AMIODARONE HCL 200 MG TABLET (FP) PO SCH (09:20)
[2016-09-08] MEDS: HYDROCORTISONE 2.5% TOPICAL CREAM 30 GM TUBE TP SCH (09:21)
[2016-09-08] MEDS: BUDESONIDE/FORMETEROL FUMARATE 80/4.5 mcg INHALER IH SCH ×2 (09:21→22:00)
--- NOTE | 2016-09-08 10:37 | PN ---
Progress Note, Physician Chief Complaint: Currently in sinus rhythm Dyspnea at times History of Present Illness: Patient was seen and examined. Awake and alert. Chart was reviewed Denies chest pain or palpitation, dyspnea persists - Current Medication List Current Medications: Active Medications Albuterol/Ipratropium (Duoneb -) 1 amp NEB Q4H PRN PRN Reason: SHORTNESS OF BREATH Albuterol/Ipratropium (Duoneb -) 1 amp NEB QIDR [facility] Last Admin: 09/08/16 06:45 Dose: 1 amp Alprazolam (Xanax -) 0.5 mg PO TID PRN PRN Reason: ANXIETY Last Admin: 09/07/16 21:13 Dose: 0.5 mg Amiodarone HCl (Cordarone -) 200 mg PO DAILY [facility] Last Admin: 09/08/16 09:20 Dose: 200 mg Apixaban (Eliquis -) 2.5 mg PO BID [facility] Last Admin: 09/08/16 09:20 Dose: 2.5 mg Aspirin (Ecotrin -) 81 mg PO DAILY [facility] Last Admin: 09/08/16 09:20 Dose: 81 mg Atorvastatin Calcium (Lipitor -) 10 mg PO HS [facility] Last Admin: 09/07/16 21:13 Dose: 10 mg Budesonide/Formoterol Fumarate (Symbicort 80/4.5mcg -) 2 puff IH BID [facility] Last Admin: 09/08/16 09:21 Dose: 2 puff Ferrous Sulfate (Feosol -) 325 mg PO DAILY [facility] Last Admin: 09/08/16 09:20 Dose: 325 mg Furosemide (Lasix Injection -) 40 mg IVPUSH DAILY [facility] Last Admin: 09/08/16 09:20 Dose: 40 mg Hydrocortisone (Anusol 2.5% Hc Cream -) 1 applic TP BID [facility] Last Admin: 09/08/16 09:21 Dose: Not Given Pantoprazole Sodium (Protonix -) 20 mg PO DAILY [facility] Last Admin: 09/08/16 09:20 Dose: 20 mg Polyethylene Glycol (Miralax (For Daily Use) -) 17 gm PO DAILY PRN PRN Reason: CONSTIPATION Last Admin: 09/07/16 12:23 Dose: 17 gm Roflumilast (Daliresp -) 500 mcg PO DAILY [facility] Last Admin: 09/07/16 10:52 Dose: 500 mcg Sertraline HCl (Zoloft -) 150 mg PO DAILY [facility] Last Admin: 09/08/16 09:20 Dose: 150 mg Zolpidem Tartrate (Ambien -) 5 mg PO HS PRN PRN Reason: INSOMNIA Last Admin: 09/07/16 21:13 Dose: 5 mg - Objective Vital Signs: Vital Signs Temperature 97.7 F 09/08/16 06:00 Pulse Rate 74 09/08/16 06:00 Respiratory Rate 16 09/08/16 06:00 Blood Pressure 122/78 09/08/16 06:00 O2 Sat by Pulse Oximetry (%) 99 09/07/16 21:00 Neck: Yes: Supple Cardiovascular: Yes: Regular Rate and Rhythm, S1, S2 Respiratory: Yes: Diminished Gastrointestinal: Yes: Normal Bowel Sounds, Soft. No: Tenderness Edema: No Additional Findings/Remarks: - Review of Systems Constitutional: denies: Chills, Fever Cardiovascular: reports: Palpitations, Shortness of Breath. denies: Chest Pain Respiratory: reports: SOB, SOB on Exertion. denies: Cough, Hemoptysis, Orthopnea, PND Gastrointestinal: denies: Abdominal Pain, Constipation, Diarrhea, Melena, Nausea , Rectal Bleeding, Vomiting Musculoskeletal: denies: Joint Pain Neurological: reports: Weakness. denies: Dizziness, Headache, Numbness, Seizure , Syncope, Tremors Labs: CBC, BMP 09/07/16 08:50 09/08/16 05:35 INR, PTT INR 1.09 (0.82-1.09) D 09/06/16 10:09 Problem List - Problems (1) Congestive heart failure with LV diastolic dysfunction, NYHA class 1 Code(s): I50.30 - UNSPECIFIED DIASTOLIC (CONGESTIVE) HEART FAILURE (2) HTN (hypertension) Code(s): I10 - ESSENTIAL (PRIMARY) HYPERTENSION Qualifiers: Hypertension type: essential hypertension Qualified Code(s): I10 - Essential (primary) hypertension (3) Hypercholesterolemia Code(s): E78.00 - PURE HYPERCHOLESTEROLEMIA, UNSPECIFIED (4) CKD (chronic kidney disease) Code(s): N18.9 - CHRONIC KIDNEY DISEASE, UNSPECIFIED (5) PAF (paroxysmal atrial fibrillation) Code(s): I48.0 - PAROXYSMAL ATRIAL FIBRILLATION Assessment/Plan 1. Dyspnea secondary to LV diastolic failure - acute on chronic vs. COPD exacerbation 2. O2 dependent COPD/emphysema 3. Paroxysmal atrial fibrillation currently in sinus rhythm 4. HTN/HCVD 5. Hypercholesterolemia 6. CKD PLAN: 1. Transthoracic echocardiography to assess LV and valvular function - compare with previous office records and prior echocardiography 2. Continue Amiodarone with caution. Check Amiodarone level. 3. Continue Statin 4. IV diuretics and monitor I/Os and daily weight. Monitor renal function and electrolytes 5. Continue Eliquis 2.5 mg BID 6. May use Cardizem if need rate control. Further plans are to follow Saurabh Posadas MD
[2016-09-08] MEDS: ROFLUMILAST 500 MCG TABLET PO SCH (12:27)
--- NOTE | 2016-09-08 13:58 | PN ---
Physical Exam: SUBJECTIVE: Patient seen and examined at bedside. No overnight events. No new complaints. Breathing is better. Denies CP,RODRIGUEZ,palpitations, N/V. OBJECTIVE: Vital Signs Period Temp Pulse Resp BP Sys/Lovelace Pulse Ox Last 24 Hr 97.7 F-99 F 71-77 16-71 99-135/48-80 97-99 GENERAL: AAOx3 NAD HEAD: AT/NC EYES: PERRL, EOMI, sclera anicteric, conjunctiva clear. No ptosis. ENT: moist mucous membranes. NECK: supple no jvd LUNGS:CTAB , wheezing or rhonci HEART:RRR, 3/6 SM RSB ABDOMEN: Soft, nt, nd, bs+ EXTREMITIES: 2+ pulses, warm, well-perfused, no edema. NEUROLOGICAL: resting tremor, cogwheel regidity. PSYCH: Normal mood, normal affect. SKIN: bruising over bilat. upper ext. Laboratory Results - last 24 hr 09/08/16 09/08/16 05:35 07:13 Sodium 149 H Potassium 4.4 Chloride 110 H Carbon Dioxide 28 Anion Gap 11 BUN 40 H Creatinine 2.3 H Random Glucose 88 D Calcium 8.4 L Urine Creatinine 85.6 Active Medications Generic Name Dose Route Start Last Admin Trade Name Freq PRN Reason Stop Dose Admin Albuterol/Ipratropium 1 amp 09/06/16 17:39 Duoneb - NEB Q4H PRN SHORTNESS OF BREATH Albuterol/Ipratropium 1 amp 09/06/16 18:00 09/08/16 11:39 Duoneb - NEB 1 amp QIDR [facility]IRA Administration Alprazolam 0.5 mg 09/06/16 12:55 09/07/16 21:13 Xanax - PO 0.5 mg TID PRN Administration ANXIETY Amiodarone HCl 200 mg 09/07/16 10:00 09/08/16 09:20 Cordarone - PO 200 mg DAILY [facility] Administration Apixaban 2.5 mg 09/07/16 10:00 09/08/16 09:20 Eliquis - PO 2.5 mg BID [facility] Administration Aspirin 81 mg 09/07/16 10:00 09/08/16 09:20 Ecotrin - PO 81 mg DAILY [facility] Administration Atorvastatin Calcium 10 mg 09/06/16 22:00 09/07/16 21:13 Lipitor - PO 10 mg HS [facility] Administration Budesonide/Formoterol Fumarate 2 puff 09/06/16 14:00 09/08/16 09:21 Symbicort 80/4.5mcg - IH 2 puff BID [facility] Administration Ferrous Sulfate 325 mg 09/07/16 10:00 09/08/16 09:20 Feosol - PO 325 mg DAILY [facility] Administration Furosemide 40 mg 09/07/16 10:00 09/08/16 09:20 Lasix Injection - IVPUSH 40 mg DAILY [facility] Administration Hydrocortisone 1 applic 09/06/16 22:00 09/08/16 09:21 Anusol 2.5% Hc Cream - TP Not Given BID [facility] Pantoprazole Sodium 20 mg 09/07/16 10:00 09/08/16 09:20 Protonix - PO 20 mg DAILY [facility] Administration Polyethylene Glycol 17 gm 09/06/16 12:55 09/07/16 12:23 Miralax (For Daily Use) - PO 17 gm DAILY PRN Administration CONSTIPATION Roflumilast 500 mcg 09/07/16 10:00 09/08/16 12:27 Daliresp - PO 500 mcg DAILY [facility] Administration Sertraline HCl 150 mg 09/07/16 10:00 09/08/16 09:20 Zoloft - PO 150 mg DAILY [facility] Administration Zolpidem Tartrate 5 mg 09/06/16 21:33 09/07/16 21:13 Ambien - PO 5 mg HS PRN Administration INSOMNIA ASSESSMENT/PLAN: 81 y/o F with PMHx h/o HTN, HLD , Diastolic CHF , COPD O2 dependent , Parox.AFIB , admitted for acute exacerbation of diastolic CHF. Problem List - Problems (1) Congestive heart failure with LV diastolic dysfunction, NYHA class 1 Assessment/Plan: * Continue lasix 40mg IV daily * Neg fluid balance-1100cc; conitinue to monitor * Echo shows Normal LV size and function, no wma, mod ae, severe MAC, Mod MR, Mod TR, RVSP 50-60, Severe PH, mild , small pericardial effusion (<1cm), functional MS * daily weights. (2) MENA (acute kidney injury) Assessment/Plan: * Fe Urea 37% * Baseline Cr. 2.4 from PCP records 12/2015 * Renal US - no obstruction * continue to monitor. (3) PAF (paroxysmal atrial fibrillation) Assessment/Plan: * continue Eliquis 2.5mg * continue Amiodarone, level pending. * tele show NSR with occasional PVC * Continue to monitor (4) HTN (hypertension) (5) Hypercholesterolemia Assessment/Plan: * Continue Lipitor 10mg PO HS (6) COPD (chronic obstructive pulmonary disease) Assessment/Plan: * Not active. * continue Symbicort and Daliresp * Supplemental O2 maintain SpO2 >90% Visit type - Emergency Visit Emergency Visit: Yes ED Registration Date: 09/06/16 Care time: The patient presented to the Emergency Department on the above date and was hospitalized for further evaluation of their emergent condition. - New Patient This patient is new to me today: Yes Date on this admission: 09/08/16 - Critical Care Critical Care patient: No - Discharge Referral Referred to [facility] Med P.C.: No
--- NOTE | 2016-09-08 16:04 | PN ---
Teaching Attending Note Name of Resident: Shlomo Gregg ATTENDING PHYSICIAN STATEMENT I saw and evaluated the patient. I reviewed the resident's note and discussed the case with the resident. I agree with the resident's findings and plan as documented. SUBJECTIVE: no fever or chills, SOB is better, has tremor . OBJECTIVE: NAD, AAOx3 MMM, no JVD , wearing NC . CV: RRR, 3/6 SM At base best heard at RUSB. Lungs: clear today . no wheezing. good air entry Ext: no edema over LE or upper ext. bruising on hands. course resting tumor. cogwheeling at level of elbows Assessment/Plan: 81 y/o pleasant lady with h/o HTN, HLP , D CHF , COPD on 1-3 L of O2 at home, P AFIB, who presented with SOB and was found to have acute D CHF exacerbation 1- Acute D CHF exacerbation:SOB has improved. I&O net Neg 1100cc yesterday - cont lasix IV 40 mg daily - monitor I&O - echo reviewed. 2- P A fib: now in sinus rhythm. - cont eliquis at 2.5 - cont amio. amio level pending - tele with PVC - monitor Na level 3- MENA: - Fe Urea 37 %, don't know her baseline cr . will obtain labs from PCP's - renal US with no obstruction , but possible evidence of CKD 4- h/o COPD : not active . will cont home O2 and Nebs cont inhalers and Nebs 5- DVT px : eliquis HLOC
[2016-09-08] MEDS: ZOLPIDEM TARTRATE 5 MG TABLET PO PRN (21:38)
[2016-09-08] MEDS: ATORVASTATIN CA 10 MG TABLET (FP) PO SCH (21:38)
[2016-09-08] MEDS: ALPRAZolam 0.25 MG TABLET PO PRN (21:42)
[2016-09-09] MEDS ORDERED: ZOLPIDEM TARTRATE 5 MG TABLET PO ONE (00:42)
[2016-09-09] MEDS: HYDROCORTISONE 2.5% TOPICAL CREAM 30 GM TUBE TP SCH ×2 (01:40→09:42)
[2016-09-09 05:08] VITALS: TEMP 98.1
[2016-09-09] MEDS: ALBUTEROL SO4 2.5/IPRATROPIUM 0.5 INH SOL 3 ML VIAL.NEB. NEB SCH ×3 (06:35→11:30)
[2016-09-09 07:51] LABS: BASOPHIL 0.5 % (0-2.0); MCH 25.8 pg (25.7-33.7); MCHC 31.4 g/dl (32.0-36.0); MEAN CELL VOLUME 82.3 fl (80-96); MEAN PLT VOLUME 8.4 fl (7.5-11.1); NEUTROPHILS 74.3 % (42.8-82.8); PLATELET COUNT 208 K/MM3 (134-434); RDW 16.6 % (11.6-15.6); WHITE BLOOD COUNT 7.5 K/mm3 (4.0-10.0)
[2016-09-09 08:04] VITALS: BP 124/68
[2016-09-09 08:13] LABS: ALBUMIN 2.3 g/dl (3.4-5.0); CALCIUM 8.5 mg/dL (8.5-10.1); COCKROFT - GAULT 19.55; CREATININE 2.5 mg/dL (0.55-1.02)
[2016-09-09 08:15] LABS: BILIRUBIN,TOTAL 0.4 mg/dL (0.2-1.0); TOT PROT 5.4 g/dl (6.4-8.2)
[2016-09-09] MEDS ORDERED: PT OWN MED DRAWER 7, Y5N ONE (08:42)
[2016-09-09] MEDS: FUROSEMIDE 40 MG/4 ML INJECTABLE VIAL IVPUSH SCH (09:40)
[2016-09-09] MEDS: SERTRALINE HCL 50 MG TABLET (FP) PO SCH (09:41)
[2016-09-09] MEDS: FERROUS SO4 325 MG TABLET (FP) PO SCH (09:41)
[2016-09-09] MEDS: PANTOPRAZOLE 20 MG TABLET (FP) PO SCH (09:41)
[2016-09-09] MEDS: AMIODARONE HCL 200 MG TABLET (FP) PO SCH (09:41)
[2016-09-09] MEDS: APIXABAN 2.5 MG TABLET PO SCH (09:41)
[2016-09-09] MEDS: ASPIRIN COATED 81 MG TABLET.EC PO SCH (09:41)
[2016-09-09] MEDS: ROFLUMILAST 500 MCG TABLET PO SCH (09:41)
[2016-09-09] MEDS: BUDESONIDE/FORMETEROL FUMARATE 80/4.5 mcg INHALER IH SCH (09:44)
--- NOTE | 2016-09-09 12:52 | PN ---
Progress Note, Physician Chief Complaint: Currently in sinus rhythm Feels better and tolerating all therapy History of Present Illness: Patient was seen and examined. Awake and alert. Chart was reviewed Denies chest pain or palpitation, dyspnea improved - Current Medication List Current Medications: Active Medications Albuterol/Ipratropium (Duoneb -) 1 amp NEB Q4H PRN PRN Reason: SHORTNESS OF BREATH Albuterol/Ipratropium (Duoneb -) 1 amp NEB QIDR [facility] Last Admin: 09/09/16 11:30 Dose: 1 amp Alprazolam (Xanax -) 0.5 mg PO TID PRN PRN Reason: ANXIETY Last Admin: 09/08/16 21:42 Dose: 0.5 mg Amiodarone HCl (Cordarone -) 200 mg PO DAILY [facility] Last Admin: 09/09/16 09:41 Dose: 200 mg Apixaban (Eliquis -) 2.5 mg PO BID [facility] Last Admin: 09/09/16 09:41 Dose: 2.5 mg Aspirin (Ecotrin -) 81 mg PO DAILY [facility] Last Admin: 09/09/16 09:41 Dose: 81 mg Atorvastatin Calcium (Lipitor -) 10 mg PO HS [facility] Last Admin: 09/08/16 21:38 Dose: 10 mg Budesonide/Formoterol Fumarate (Symbicort 80/4.5mcg -) 2 puff IH BID [facility] Last Admin: 09/09/16 09:44 Dose: 2 puff Ferrous Sulfate (Feosol -) 325 mg PO DAILY [facility] Last Admin: 09/09/16 09:41 Dose: 325 mg Furosemide (Lasix Injection -) 40 mg IVPUSH DAILY [facility] Last Admin: 09/09/16 09:40 Dose: 40 mg Hydrocortisone (Anusol 2.5% Hc Cream -) 1 applic TP BID [facility] Last Admin: 09/09/16 09:42 Dose: Not Given Pantoprazole Sodium (Protonix -) 20 mg PO DAILY [facility] Last Admin: 09/09/16 09:41 Dose: 20 mg Polyethylene Glycol (Miralax (For Daily Use) -) 17 gm PO DAILY PRN PRN Reason: CONSTIPATION Last Admin: 09/07/16 12:23 Dose: 17 gm Roflumilast (Daliresp -) 500 mcg PO DAILY [facility] Last Admin: 09/09/16 09:41 Dose: 500 mcg Sertraline HCl (Zoloft -) 150 mg PO DAILY [facility] Last Admin: 09/09/16 09:41 Dose: 150 mg Zolpidem Tartrate (Ambien -) 5 mg PO HS PRN PRN Reason: INSOMNIA Last Admin: 09/08/16 21:38 Dose: 5 mg - Objective Vital Signs: Vital Signs Temperature 98.1 F 09/09/16 08:01 Pulse Rate 72 09/09/16 08:01 Respiratory Rate 20 09/09/16 08:03 Blood Pressure 124/68 09/09/16 08:01 O2 Sat by Pulse Oximetry (%) 96 09/09/16 08:03 Neck: Yes: Supple Cardiovascular: Yes: Regular Rate and Rhythm, Murmur (Soft SM at apex), S1, S2 Respiratory: Yes: Diminished Gastrointestinal: Yes: Normal Bowel Sounds, Soft. No: Tenderness Edema: No Additional Findings/Remarks: - Review of Systems Constitutional: denies: Chills, Fever Cardiovascular: reports: Palpitations, Shortness of Breath. denies: Chest Pain Respiratory: reports: SOB, SOB on Exertion. denies: Cough, Hemoptysis, Orthopnea, PND Gastrointestinal: denies: Abdominal Pain, Constipation, Diarrhea, Melena, Nausea , Rectal Bleeding, Vomiting Musculoskeletal: denies: Joint Pain Neurological: reports: Weakness. denies: Dizziness, Headache, Numbness, Seizure , Syncope, Tremors Labs: CBC, BMP 09/09/16 05:40 09/09/16 05:40 INR, PTT INR 1.09 (0.82-1.09) D 09/06/16 10:09 Problem List - Problems (1) Congestive heart failure with LV diastolic dysfunction, NYHA class 1 Code(s): I50.30 - UNSPECIFIED DIASTOLIC (CONGESTIVE) HEART FAILURE (2) HTN (hypertension) Code(s): I10 - ESSENTIAL (PRIMARY) HYPERTENSION Qualifiers: Hypertension type: essential hypertension Qualified Code(s): I10 - Essential (primary) hypertension (3) Hypercholesterolemia Code(s): E78.00 - PURE HYPERCHOLESTEROLEMIA, UNSPECIFIED (4) CKD (chronic kidney disease) Code(s): N18.9 - CHRONIC KIDNEY DISEASE, UNSPECIFIED (5) PAF (paroxysmal atrial fibrillation) Code(s): I48.0 - PAROXYSMAL ATRIAL FIBRILLATION (6) Pulmonary hypertension Code(s): I27.2 - OTHER SECONDARY PULMONARY HYPERTENSION (7) Mitral valve regurgitation Code(s): I34.0 - NONRHEUMATIC MITRAL (VALVE) INSUFFICIENCY Qualifiers: Cardiac valve disease etiology: nonrheumatic Qualified Code(s): I34.0 - Nonrheumatic mitral (valve) insufficiency (8) Tricuspid valve regurgitation Code(s): I07.1 - RHEUMATIC TRICUSPID INSUFFICIENCY Qualifiers: Cardiac valve disease etiology: nonrheumatic Qualified Code(s): I36.1 - Nonrheumatic tricuspid (valve) insufficiency Assessment/Plan 1. Dyspnea secondary to LV diastolic failure with the presence of moderate mitral valve and tricuspid valve regurgitation and severe pulmonary hypertenison - acute on chronic LV failure +/- COPD exacerbation 2. O2 dependent COPD/emphysema 3. Paroxysmal atrial fibrillation currently in sinus rhythm 4. HTN/HCVD 5. Hypercholesterolemia 6. CKD PLAN: 1. Transthoracic echocardiography reviewed - also cannot rule out functional mitral valve stenosis due to heavy annular calcification 2. Continue Amiodarone with caution. Check Amiodarone level. 3. Continue Statin 4. IV diuretics and monitor I/Os and daily weight. Monitor renal function and electrolytes 5. Continue Eliquis 2.5 mg BID 6. May use Cardizem if need rate control. Further plans are to follow Saurabh Posadas MD
[2016-09-09 13:10] VITALS: PULSE 93
--- NOTE | 2016-09-09 14:13 | DS ---
Physical Exam: SUBJECTIVE: Patient seen and examined at bedside. No new complaints. No overnight events. Breathing is at baseline. Denies CP, RODRIGUEZ , palpitations, abd.pain, N/V. OBJECTIVE: Vital Signs Period Temp Pulse Resp BP Sys/Lovelace Pulse Ox Last 24 Hr 98 F-99.3 F 69-93 - 102-159/44-76 90-97 PHYSICAL EXAM GENERAL: AAOx3 NAD HEAD: AT/NC EYES: PERRL, EOMI, sclera anicteric, conjunctiva clear. No ptosis. ENT: moist mucous membranes. NECK: supple no jvd LUNGS:CTAB , wheezing or rhonci HEART:RRR, 3/6 SM RSB ABDOMEN: Soft, nt, nd, bs+ EXTREMITIES: 2+ pulses, warm, well-perfused, no edema. NEUROLOGICAL: resting tremor, cogwheel regidity. PSYCH: Normal mood, normal affect. SKIN: bruising over bilat. upper ext. LABS Laboratory Results - last 24 hr 09/09/16 09/09/16 05:40 05:40 WBC 7.5 RBC 3.32 L Hgb 8.6 L Hct 27.3 L MCV 82.3 MCHC 31.4 L RDW 16.6 H Plt Count 208 MPV 8.4 Neutrophils % 74.3 Lymphocytes % 12.9 D Monocytes % 9.3 Eosinophils % 3.0 D Basophils % 0.5 Sodium 148 H * Potassium 3.9 Chloride 109 H Carbon Dioxide 27 Anion Gap 12 BUN 45 H Creatinine 2.5 H Creat Clearance w eGFR 18.58 Random Glucose 91 Calcium 8.5 Total Bilirubin 0.4 D AST 9 L D ALT 16 D Alkaline Phosphatase 67 Total Protein 5.4 L Albumin 2.3 L IMAGING: * Echo shows Normal LV size and function, no wma, mod ae, severe MAC, Mod MR, Mod TR, RVSP 50-60, Severe PH, mild , small pericardial effusion (<1cm), functional MS * RAD/CHEST - PA Chest: Chest pain Since 12/09/2012, again noted is a large heart with sclerotic knob and there is an apical lordotic projection. There are coarse changes compatible some mild congestion and possibly infiltrates at the bases, left greater than right, with some left pleural fluid. Follow-up recommended. Reported By: Jonah Okeefe MD 09/06/16 1105 * US/KIDNEY / RENAL US Renal ultrasound Clinical information: acute kidney injury There is no hydronephrosis. No definite interval change is identified in comparison to a previous ultrasound study of 2012. There is probable mild diffuse bilateral cortical atrophy. The right kidney appears unremarkable in overall size measuring 13.4 cm in length. The left kidney is borderline in size measuring 9 cm. No definite abnormal cortical echogenicity is seen. Several bilateral cortical cysts are noted the most prominent measuring 4 cm in diameter. There is no obvious mass lesion or calculus. No perirenal fluid collection is noted. Impression: No definite interval change is identified. Probable mild diffuse bilateral cortical atrophy. Reported By: Marcus Alcantara MD 09/06/16 5833 HOSPITAL COURSE: 81 y/o F with PMHx h/o HTN, HLD , Diastolic CHF , COPD O2 dependent , Parox.AFIB , admitted for acute exacerbation of diastolic CHF.For HF patient was diuresed with IV lasix and negative fluid balance was achieved. Seen by her coating mixer tender DR. Posadas. Echo was performed results as above show no significant change from previous 3 mo.prior. For paroxysmal afib patient was placed on tele , given her Amiodarone and maintained sinus rhythm throughout admission with occasional PVC's. CHADVASC2 score of 6 and patient started on Eliquis 2.5mg BID. MENA was monitored and renal US showed no obstruction. Patient returned to baseline Cr. Her COPD was not active and patient was given standing and PRN nebulizers. Also her home medications of symbicort and Daliresp were continued. Pre- and Post ambulatory pulse ox indicated need to increase home O2 to 4L. Breathing and clinical condition stabilized. Patient is being discharge back to assisted living facility in stable condition and instructed to follow up with her doctors in one week. Date of Admission:09/06/16 Date of Discharge: 09/09/16 Minutes to complete discharge: 33 Discharge Summary Reason For Visit: ACUTE KIDNEY INJURY, CHF EXACERBATION Current Active Problems CHF exacerbation (Acute) CKD (chronic kidney disease) (Chronic) COPD (chronic obstructive pulmonary disease) (Chronic) Congestive heart failure with LV diastolic dysfunction, NYHA class 1 (Chronic) HTN (hypertension) (Chronic) Hypercholesterolemia (Chronic) Mitral valve regurgitation (Chronic) PAF (paroxysmal atrial fibrillation) (Chronic) Pulmonary hypertension (Chronic) Tricuspid valve regurgitation (Chronic) Condition: Stable - Instructions Diet, Activity, Other Instructions: You have been treated for an acute exacerbation of your Congestive Heart Failure. Please follow up with your Secretary To The Vice President Dr. Posadas in one week. Also keep your appointment to see Dr. Smith your suit maker. Please resume all home medications. Also you have been started on a new blood thinner named ELIQUIS. please keep an eye for any signs of bleeding eg. stool, urine, cough and avoid falls. Low sodium diet and increase activity as tolerated. you can follow with Dr. garcia ( neurology ) to fro your tremors Referrals: Mejia Garcia DO [Staff Physician] - Terri Machuca MD [Primary Care Provider] - Saurabh Posadas MD [Staff Physician] - Disposition: INTERMEDIATE FACILITY - Home Medications Comprehensive Discharge Medication List: Ambulatory Orders Colchicine [Colcrys] 0.3 mg PO DAILY 01/07/16 Hydrocortisone 2.5% Topical Cr [Anusol-Hc -] 1 applic TP BID 09/06/16 Albuterol Sulfate [Proair Respiclick] 108 mcg IH Q4HWA PRN #0 inh 09/09/16 Albuterol Sulfate [Ventolin -] 2.5 mg PO QID PRN #0 inh 09/09/16 Alprazolam [Xanax] 0.5 mg PO TID PRN #0 tab 09/09/16 Amiodarone HCl 200 mg PO DAILY #0 tab 09/09/16 Apixaban [Eliquis -] 2.5 mg PO BID tablet 09/09/16 Aspirin [ASA -] 81 mg PO DAILY #0 tab 09/09/16 Ferrous Sulfate 325 mg PO DAILY #0 tab 09/09/16 Fluticasone/Salmeterol [Advair 250-50 Diskus] 1 each IH BID #0 inh 09/09/16 Furosemide [Lasix -] 40 mg PO DAILY #0 tab 09/09/16 Omeprazole 20 mg PO DAILY #0 tab 09/09/16 Polyethylene Glycol 3350 [Purelax] 17 gm PO ASDIR PRN #0 bottle 09/09/16 Roflumilast [Daliresp] 500 mcg PO DAILY #0 tab 09/09/16 Sertraline HCl [Zoloft -] 150 mg PO DAILY #0 tab 09/09/16 Simvastatin [Zocor -] 5 mg PO HS #0 tab 09/09/16 Umeclidinium [place] [Incruse Ellipta] 62.5 mcg IH DAILY #0 inh 09/09/16 Zolpidem Tartrate [Ambien] 10 mg PO HS #0 tab 09/09/16 Problem List - Problems (1) Congestive heart failure with LV diastolic dysfunction, NYHA class 1 (2) MENA (acute kidney injury) (3) PAF (paroxysmal atrial fibrillation) (4) HTN (hypertension) (5) Hypercholesterolemia (6) COPD (chronic obstructive pulmonary disease) This patient is new to me today: No Emergency Visit: Yes ED Registration Date: 09/06/16 Care time: The patient presented to the Emergency Department on the above date and was hospitalized for further evaluation of their emergent condition. Critical Care patient: No - Discharge Referral Referred to [facility] No
--- NOTE | 2016-09-09 15:26 | PN ---
Teaching Attending Note Name of Resident: Shlomo Gregg ATTENDING PHYSICIAN STATEMENT I saw and evaluated the patient. I reviewed the resident's note and discussed the case with the resident. I agree with the resident's findings and plan as documented. SUBJECTIVE: no fever or chills, no abd pain , SOB at baseline . no CP OBJECTIVE: NAD, AAOx3 MMM, no JVD , wearing NC . CV: RRR, 3/6 SM At base best heard at RUSB. Lungs: clear today. no wheezing. good air entry Ext: no edema over LE or upper ext. bruising on hands. course resting tumor. cogwheeling at level of elbows Assessment/Plan: 81 y/o pleasant lady with h/o HTN, HLP , D CHF , COPD on 1-3 L of O2 at home, P AFIB, who presented with SOB and was found to have acute D CHF exacerbation 1- Acute D CHF exacerbation: SOB has improved. I&O net Neg 600cc in past 24 hr - sx has improved, and cr /Na started to trend up. the patient sx are at base line . will resume her home dose po lasix - f/u with card in 1 week 2- P A fib: now in sinus rhythm. - cont eliquis at 2.5 - cont amio. amio level pending 3- CKD , base line is 2.4 . 4- H/o COPD: not active. will cont home O2 and Nebs pre-poet.
[2016-09-09] MEDS ORDERED: ZOLPIDEM TARTRATE 5 MG TABLET PO PRN (22:00)
[2016-09-10] MEDS ORDERED: FUROSEMIDE 40 MG TABLET (FP) PO SCH (10:00)
[2016-09-10] MEDS ORDERED: COLCHICINE 0.6 MG TABLET (FP) PO SCH (10:00)
[2016-09-10] MEDS ORDERED: ASPIRIN 81 MG CHEWABLE TABLETS PO SCH (10:00)
[2016-09-10] MEDS ORDERED: PATIENT'S OWN MEDICATION (NON-FORMULARY) (Umeclidinium Bromide [Incruse Ellipta] 62.5 MCG) IH SCH (10:00)
== END 2016-09-09 15:43 | disposition home or self-care (01) | DRG 291 ==
LOC: JER 08:51 → JERBED 12:33 → J4W 14:33
PROVIDERS: ADMIT Internal Medicine; ATTEND Internal Medicine
PROC: 3E0F7GC Introduction of Other Therapeutic Substance into Respiratory Tract, Via Natural or Artificial Opening (ICD-10-PCS; principal; 2016-09-06)
DX: I13.0 Hypertensive heart and chronic kidney disease with heart failure and stage 1 through stage 4 chronic kidney disease, or unspecified chronic kidney disease (principal); I50.33 Acute on chronic diastolic (congestive) heart failure; N17.9 Acute kidney failure, unspecified; I48.0 Paroxysmal atrial fibrillation; N18.9 Chronic kidney disease, unspecified; E78.5 Hyperlipidemia, unspecified; I27.2 Other secondary pulmonary hypertension; I34.0 Nonrheumatic mitral (valve) insufficiency; I36.1 Nonrheumatic tricuspid (valve) insufficiency; Z99.81 Dependence on supplemental oxygen; I25.10 Atherosclerotic heart disease of native coronary artery without angina pectoris; Z98.61 Coronary angioplasty status; J44.9 Chronic obstructive pulmonary disease, unspecified
CPT/HCPCS: 36415; 71010-TC; 76775-TC; 80048; 80053; 80299; 81003; 81015; 82436; 82550; 82570; 83735; 83880; 84133; 84300; 84484; 84540; 85025; 85027; 85379; 85610; 93005; 93010; 93306-TC; 94640; 94761; 99283-25

== ENCOUNTER 2016-09-10 12:39 | Emergency (ER) | payer OTHER ==
[2016-09-10 12:49] VITALS: BMI 29.2
--- NOTE | 2016-09-10 13:12 | PDOC ---
History of Present Illness - General History Source: Patient, Old Records Exam Limitations: No Limitations - History of Present Illness Initial Comments: 09/10/16 13:15 The patient is a 81-year-old woman, from [facility], accompanied by her daughter, with a significant past medical history of hypertension, hypercholesterolemia, paroxysmal atrial fibrillation, diastolic congestive heart failure, chronic obstructive pulmonary disease (O2 dependent), renal insufficiency and diabetes mellitus (now diet controlled; not on any medications) who was recently admitted for acute exacerbation of diastolic congestive heart failure discharged yesterday presents to the emergency department today for further evaluation of epistaxis. During admission, she was placed on Telemetry, secondary to her history of paroxysmal atrial fibrillation. She was noted to have occasional PVCs and she was evaluated by Packing Line Operator, Dr. Saurabh Posadas who started the patient on Eliquis (2.5 mg BID). Patient took her Eliquis yesterday and not today. This morning, the patient was getting ready to start her day when she walked to the bathroom sink and noted that she was bleeding from both nares. She initially attempted to stop the bleeding on her own and placed cotton balls and vaseline in both nares. She continues to bleed and EMS was activated. Upon ED arrival, patient's cotton balls were removed with a noted clot. Patient denies experiencing lightheaded, dizziness, weakness, nausea, chest pain, short of breath, throat discomfort, headache, visual changes. Allergies: Codeine Past Surgical History: Cardiac stent placement. Cholecystectomy. Social History: No tobacco, EtOH and recreational drug use. Primary Care Physician: Dr. Christie Machuca <Sena Browning - Last Filed: 09/10/16 14:16> <Augustus Valdez - Last Filed: 09/10/16 14:27> - General Chief Complaint: Nasal Bleeding Stated Complaint: NOSE BLEED Time Seen by Provider: 09/10/16 12:48 Past History <Sena Browning - Last Filed: 09/10/16 14:16> - Past Medical History Cardiac Disorders: Yes (AFIB) COPD: Yes (EMPHYSEMA) Diabetes: Yes Disorders: Yes (KIDNEY FAILURE) HTN: Yes Hypercholesterolemia: Yes - Surgical History Cardiac Surgery: Yes (x1 stent) Cholecystectomy: Yes - Immunization History Immunization Up to Date: Yes - Psycho/Social/Smoking Cessation Hx Anxiety: No Suicidal Ideation: No Smoking Status: Yes Smoking History: Never smoked Have you smoked in the past 12 months: No Number of Cigarettes Smoked Daily: 0 If you are a former smoker, when did you quit?: 2000 Cigars Per Day: 0 Information on smoking cessation initiated: No Hx Alcohol Use: No Drug/Substance Use Hx: No Substance Use Type: None Hx Substance Use Treatment: No <Augustus Valdez - Last Filed: 09/10/16 14:27> - Past Medical History Allergies/Adverse Reactions: Allergies Allergy/AdvReac Type Severity Reaction Status Date / Time codeine AdvReac Intermediate Vaginal Verified 09/10/16 12:44 itch Home Medications: Ambulatory Orders Colchicine [Colcrys] 0.3 mg PO DAILY 01/07/16 Hydrocortisone 2.5% Topical Cr [Anusol-Hc -] 1 applic TP BID 09/06/16 Albuterol Sulfate [Proair Respiclick] 108 mcg IH Q4HWA PRN #0 inh 09/09/16 Albuterol Sulfate [Ventolin -] 2.5 mg PO QID PRN #0 inh 09/09/16 Alprazolam [Xanax] 0.5 mg PO TID PRN #0 tab 09/09/16 Amiodarone HCl 200 mg PO DAILY #0 tab 09/09/16 Apixaban [Eliquis -] 2.5 mg PO BID tablet 09/09/16 Aspirin [ASA -] 81 mg PO DAILY #0 tab 09/09/16 Ferrous Sulfate 325 mg PO DAILY #0 tab 09/09/16 Fluticasone/Salmeterol [Advair 250-50 Diskus] 1 each IH BID #0 inh 09/09/16 Furosemide [Lasix -] 40 mg PO DAILY #0 tab 09/09/16 Omeprazole 20 mg PO DAILY #0 tab 09/09/16 Polyethylene Glycol 3350 [Purelax] 17 gm PO ASDIR PRN #0 bottle 09/09/16 Roflumilast [Daliresp] 500 mcg PO DAILY #0 tab 09/09/16 Sertraline HCl [Zoloft -] 150 mg PO DAILY #0 tab 09/09/16 Simvastatin [Zocor -] 5 mg PO HS #0 tab 09/09/16 Umeclidinium [place] [Incruse Ellipta] 62.5 mcg IH DAILY #0 inh 09/09/16 Zolpidem Tartrate [Ambien] 10 mg PO HS #0 tab 09/09/16 Heparin - 5,000 unit SQ DAILY 09/10/16 Review of Systems - Review of Systems Constitutional: No: Chills, Fever HEENTM: Yes: Nose Bleeding. No: Nose Congestion, Dental Problems, Difficulty Swallowing, Mouth Swelling Respiratory: Yes: Shortness of Breath (chronic). No: Cough Cardiac (ROS): No: Chest Pain Integumentary: No: Bruising <Augustus Valdez - Last Filed: 09/10/16 14:27> *Physical Exam - Vital Signs Last Vital Signs Temp Pulse Resp BP Pulse Ox 98.7 F 71 20 158/64 97 09/10/16 12:45 09/10/16 12:45 09/10/16 12:45 09/10/16 12:45 09/10/16 12:45 - Physical Exam Comments: 09/10/16 13:26 GENERAL: The patient is awake, alert, and fully oriented, in no acute distress. HEAD: Normal with no signs of trauma. EYES: Pupils equal, round and reactive to light, extraocular movements intact, sclera anicteric, conjunctiva clear with no pallor. ENT: Ears normal. Resolving bleeding of the left nare. oropharynx clear without exudates. Dry mucous membranes. NECK: Normal range of motion, supple without lymphadenopathy, JVD, or masses. LUNGS: Breath sounds equal, clear to auscultation bilaterally. No wheeze/ crackles. HEART: Irregularly but regular sheppard and rhythm without murmur or rub. ABDOMEN: Soft/nontender/nondistended. BS wnl. No guarding or rebound. No palpable masses. No hepatosplenomegaly. EXTREMITIES: Normal range of motion, no edema. No clubbing or cyanosis. No cords, erythema, or tenderness. NEUROLOGICAL: Cranial nerves II through XII grossly intact. Normal speech. PSYCH: Normal mood, normal affect. SKIN: Warm, Dry, normal turgor, no rashes or lesions noted. <Sena Browning - Last Filed: 09/10/16 14:16> - Vital Signs Last Vital Signs Temp Pulse Resp BP Pulse Ox 98.7 F 71 20 158/64 97 09/10/16 12:45 09/10/16 12:45 09/10/16 12:45 09/10/16 12:45 09/10/16 12:45 <RoelantoniodionnaAugustus - Last Filed: 09/10/16 14:27> ED Treatment Course - LABORATORY CBC & Chemistry Diagram: 09/10/16 13:12 09/10/16 13:12 <BrowningSena - Last Filed: 09/10/16 14:16> - LABORATORY CBC & Chemistry Diagram: 09/10/16 13:12 09/10/16 13:12 <RoelantoniodionnaAugustus - Last Filed: 09/10/16 14:27> Medical Decision Making - Medical Decision Making 09/10/16 14:[address] Saurabh Posadas. <BrowningSena - Last Filed: 09/10/16 14:16> - Medical Decision Making 09/10/16 13:07 A portion of this note was documented by scribe services under my direction. I have reviewed the details of the note, within reason, and agree with the documentation with the following case summary and management plan written by me. 81-year-old female with multiple medical problems including history of epistaxis just discharged yesterday for CHF exacerbation, started on Eliquis requests for paroxysmal atrial fibrillation presents with atraumatic epistaxis this morning. Resolved after reportedly 2 hours, she placed cotton gauze with Vaseline, and then pressure by EMS. No lightheadedness or syncope, no other bleeding. Vital signs normal. Well-appearing, speaking full sentences, airway patent Resolved bleeding in the left naris, oropharynx clear Skin without extensive bruising or bleeding 81-year-old female with another episode of epistaxis in the setting of recently starting eliquis, resolved after applying pressure. HD stable, airway patent. check platelets and coags monitor, pt requesting discussion with Dr. Posadas reassess/dispo 09/10/16 14:13 Baseline hemoglobin of 9.3, baseline creatinine of 2.3, BUN at baseline 50. Platelets are normal, coags are pending. No further bleeding. Case discussed with Dr. Posadas, recommends continuing Eliquis 2/2 risk, will f/u in office on Thursday. Recommends pt also see ENT , but she has had extensive evaluation with Dr. Dexter. Agrees with d/c plan, will f/u Thursday, understands return criteria. <Augustus Valdez - Last Filed: 09/10/16 14:27> *DC/Admit/Observation/Transfer <Sena Browning - Last Filed: 09/10/16 14:16> <Augustus Valdez - Last Filed: 09/10/16 14:27> Diagnosis at time of Disposition: Epistaxis, PAF (paroxysmal atrial fibrillation) - Discharge Dispostion Disposition: HOME Condition at time of disposition: Stable - Referrals Referrals: Terri Machuca MD [Primary Care Provider] - Saurabh Posadas MD [Staff Physician] - Stanford Piña MD [Staff Physician] - - Patient Instructions Printed Discharge Instructions: DI for Nosebleed Additional Instructions: Activity as tolerated. Stay hydrated. Your blood levels are at your baseline. We discussed your case with Dr. Posadas, and it is still recommended that you take the Eliquis because of the risks associated with your atrial fibrillation. Continue using the humidied oxygen, avoid any foreign body to the nose. Continue your medications as previously prescribed by your physician, inclusing eliquis. You should follow up with Dr. Posadas on Thursday and Dr. Piña as needed regarding today's emergency department visit. Return to the emergency department for any new or concerning symptoms, particularly uncontrollable bleeding from any site, pain or lightheadedness, weakness.
[2016-09-10 13:24] LABS: BASOPHIL 0.5 % (0-2.0); EOSINOPHIL 2.1 % (0-4.5); MCH 25.6 pg (25.7-33.7); MCHC 30.8 g/dl (32.0-36.0); MEAN PLT VOLUME 7.6 fl (7.5-11.1); NEUTROPHILS 80.1 % (42.8-82.8); PLATELET COUNT 222 K/MM3 (134-434); RDW 16.8 % (11.6-15.6); WHITE BLOOD COUNT 7.9 K/mm3 (4.0-10.0)
[2016-09-10 13:42] LABS: INR 1.2 (0.82-1.09); PROTHROMBIN TIME (PATIENT) 13.3 SEC (9.98-11.88)
[2016-09-10 13:55] LABS: ALBUMIN 2.6 g/dl (3.4-5.0); BILIRUBIN,TOTAL 0.2 mg/dL (0.2-1.0); CALCIUM 8.5 mg/dL (8.5-10.1); COCKROFT - GAULT 21.301; CREATININE 2.3 mg/dL (0.55-1.02); TOT PROT 6.2 g/dl (6.4-8.2)
[2016-09-10 14:50] VITALS: BP 160/67; PULSE 90; TEMP 98
== END 2016-09-10 14:50 | disposition home or self-care (01) ==
LOC: JER 12:39
DX: D68.32 Hemorrhagic disorder due to extrinsic circulating anticoagulants (principal); R04.0 Epistaxis; T45.515A Adverse effect of anticoagulants, initial encounter; Y92.128 Other place in nursing home as the place of occurrence of the external cause; I48.0 Paroxysmal atrial fibrillation; Z79.01 Long term (current) use of anticoagulants; I25.10 Atherosclerotic heart disease of native coronary artery without angina pectoris; I13.10 Hypertensive heart and chronic kidney disease without heart failure, with stage 1 through stage 4 chronic kidney disease, or unspecified chronic kidney disease; N18.9 Chronic kidney disease, unspecified; Z95.5 Presence of coronary angioplasty implant and graft; E11.9 Type 2 diabetes mellitus without complications; E78.00 Pure hypercholesterolemia, unspecified; J43.8 Other emphysema
CPT/HCPCS: 36415; 80053; 85025; 85610; 85730; 99283-25

== ENCOUNTER 2016-09-25 08:45 | Inpatient (IN) | payer OTHER ==
--- NOTE | 2016-09-25 09:08 | PDOC ---
History of Present Illness - General History Source: Patient Exam Limitations: No Limitations - History of Present Illness Initial Comments: 09/25/16 10:19 The patient is a 81 year old female, resident of [facility], with a significant past medical history of HTN, HCL, paroxysmal atrial fibrillation, diastolic CHF , COPD (O2 dependent), renal insufficiency, and DM, who presents to the ER with progressive difficulty breathing for six days. Patient reports she is short of breath only on exertion, when she shifts positions or walks. She says she is able to lie flat. Patient reports Dr. Smith recommended patient should continue her 40 mg of Lasix and referred patient to the ER as symptoms persisted. Patient states she has had difficulty breathing since May. Patient states she visited Dr. Leal and Dr. Smith two weeks ago for the shortness of breath and was prescribed an increase dosage of Advair and oxygen to 4L. For the past week, patient noticed her oxygen machine was not putting out enough oxygen. Patient also reports nausea and heaviness in the chest for the past two days. She states she had urinary frequency yesterday and voided 12-15 times. Patient reports she did not eat or take her daily medications this morning. PCP: Dr. Christie Machuca Denies bilateral leg edema Denies vomiting, abdominal pain Denies chest pain, heart palpitations Denies headache <Swapna Astorga - Last Filed: 09/25/16 12:03> - General History Source: Patient Exam Limitations: No Limitations <Madie Rios - Last Filed: 09/25/16 12:55> - General Chief Complaint: Shortness of Breath Stated Complaint: Shortness of Breath Time Seen by Provider: 09/25/16 08:54 Past History <Swapna Astorga - Last Filed: 09/25/16 12:03> - Past Medical History Cardiac Disorders: Yes (AFIB) COPD: Yes (EMPHYSEMA) Diabetes: Yes Disorders: Yes (KIDNEY FAILURE) HTN: Yes Hypercholesterolemia: Yes - Surgical History Cardiac Surgery: Yes (x1 stent) Cholecystectomy: Yes - Immunization History Immunization Up to Date: Yes - Psycho/Social/Smoking Cessation Hx Anxiety: No Suicidal Ideation: No Smoking Status: Yes Smoking History: Never smoked Have you smoked in the past 12 months: No Number of Cigarettes Smoked Daily: 0 If you are a former smoker, when did you quit?: 2000 Cigars Per Day: 0 Information on smoking cessation initiated: No Hx Alcohol Use: No Drug/Substance Use Hx: No Substance Use Type: None Hx Substance Use Treatment: No <Madie Rios - Last Filed: 09/25/16 12:55> - Past Medical History Allergies/Adverse Reactions: Allergies Allergy/AdvReac Type Severity Reaction Status Date / Time codeine AdvReac Intermediate Vaginal Verified 09/10/16 12:44 itch Home Medications: Ambulatory Orders Colchicine [Colcrys] 0.3 mg PO DAILY 01/07/16 Hydrocortisone 2.5% Topical Cr [Anusol-Hc -] 1 applic TP BID 09/06/16 Albuterol Sulfate [Proair Respiclick] 108 mcg IH Q4HWA PRN #0 inh 09/09/16 Albuterol Sulfate [Ventolin -] 2.5 mg PO QID PRN #0 inh 09/09/16 Alprazolam [Xanax] 0.5 mg PO TID PRN #0 tab 09/09/16 Amiodarone HCl 200 mg PO DAILY #0 tab 09/09/16 Apixaban [Eliquis -] 2.5 mg PO BID tablet 09/09/16 Aspirin [ASA -] 81 mg PO DAILY #0 tab 09/09/16 Ferrous Sulfate 325 mg PO DAILY #0 tab 09/09/16 Fluticasone/Salmeterol [Advair 250-50 Diskus] 1 each IH BID #0 inh 09/09/16 Furosemide [Lasix -] 40 mg PO DAILY #0 tab 09/09/16 Omeprazole 20 mg PO DAILY #0 tab 09/09/16 Polyethylene Glycol 3350 [Purelax] 17 gm PO ASDIR PRN #0 bottle 09/09/16 Roflumilast [Daliresp] 500 mcg PO DAILY #0 tab 09/09/16 Sertraline HCl [Zoloft -] 150 mg PO DAILY #0 tab 09/09/16 Simvastatin [Zocor -] 5 mg PO HS #0 tab 09/09/16 Umeclidinium [place] [Incruse Ellipta] 62.5 mcg IH DAILY #0 inh 09/09/16 Zolpidem Tartrate [Ambien] 10 mg PO HS #0 tab 09/09/16 Heparin - 5,000 unit SQ DAILY 09/10/16 Salmeterol/Fluticasone [Advair 500Mcg/50Mcg] 1 inh PO BID 09/25/16 Review of Systems - Review of Systems Able to Perform ROS?: Yes Comments:: 09/25/16 10:19 GENERAL/CONSTITUTIONAL: No: fever, chills, weakness, loss of appetite. HEAD, EYES, EARS, NOSE AND THROAT: No: change in vision, ear pain, discharge, sore throat, throat swelling. CARDIOVASCULAR: No: chest pain, lightheadedness, palpitations, syncope RESPIRATORY: (+) shortness of breath (+) dyspnea on exertion. No: cough, wheezing, hemoptysis, stridor. GASTROINTESTINAL: (+) nausea No: vomiting, abdominal cramping, diarrhea, rectal bleeding, constipation. GENITOURINARY: No: dysuria, hematuria, frequency, urgency, flank pain. MUSCULOSKELETAL: No: back pain, neck pain, joint pain, muscle swelling or pain SKIN AND BREASTS: No: lesions, pallor, rash or easy bruising. NEUROLOGIC: No: headache, vertigo, paresthesias, weakness ENDOCRINE: No: unexplained weight gain or loss HEMATOLOGIC/LYMPHATIC: No: anemia, easy bleeding, swelling nodes <Uts,Swapna - Last Filed: 09/25/16 12:03> *Physical Exam - Vital Signs Last Vital Signs Temp Pulse Resp BP Pulse Ox 98.8 F 78 18 108/59 99 09/25/16 08:48 09/25/16 09:26 09/25/16 08:48 09/25/16 08:48 09/25/16 09:26 - Physical Exam Comments: 09/25/16 10:24 GENERAL: The patient is in no acute distress. HEAD: Normal with no signs of trauma. EYES: PERRLA, EOMI, sclera anicteric, conjunctiva clear. ENT: Ears normal, nares patent, oropharynx clear without exudates. Moist mucous membranes. NECK: Normal range of motion, supple without lymphadenopathy, JVD, or masses. LUNGS: Crackles at the base. No wheezing. HEART:Regular rate and rhythm, normal S1 and S2 without murmur, rub or gallop. ABDOMEN: Soft, nontender, normoactive bowel sounds. No guarding, no rebound. EXTREMITIES: No leg edema. Normal range of motion, no edema. No clubbing or cyanosis. No erythema, or tenderness. NEUROLOGICAL: Cranial nerves II through XII grossly intact. Normal speech. No focal neurological deficits. MUSCULOSKELETAL: Back non-tender to palpation, no CVA tenderness SKIN: Warm, Dry, normal turgor, no rashes or lesions noted. <Swapna Astorga - Last Filed: 09/25/16 12:03> - Vital Signs Last Vital Signs Temp Pulse Resp BP Pulse Ox 98.8 F 80 18 108/59 100 09/25/16 08:48 09/25/16 08:48 09/25/16 08:48 09/25/16 08:48 09/25/16 08:48 <Madie Rios - Last Filed: 09/25/16 12:55> Heart Score/ECG Review #1 ECG reviewed & interpreted by me at: 09:14 09/25/16 09:14 Twelve-lead EKG was performed and reviewed by me. There is normal sinus rhythm with a normal rate of 77 bpm. The axis is normal. The intervals are normal - pr: 162ms, QRS:102ms, QTc:482ms. T wave inversions I, AVL, v4-v6 Prominent ST segments Vi, V2 <Madie Rios - Last Filed: 09/25/16 12:55> ED Treatment Course - LABORATORY CBC & Chemistry Diagram: 09/25/16 09:10 09/25/16 09:10 - ADDITIONAL ORDERS Additional order review: Laboratory Results 09/25/16 09/25/16 09:13 09:10 INR 1.45 H Sodium 142 Potassium 4.1 Chloride 106 Carbon Dioxide 27 Anion Gap 9 BUN 50 H Creatinine 2.4 H Creat Clearance w eGFR 19.47 Random Glucose 90 Calcium 8.2 L Total Bilirubin 0.3 D AST 23 D ALT 24 D Alkaline Phosphatase 72 Creatine Kinase 39 Troponin I 0.11 H B-Natriuretic Peptide 9558.37 H Total Protein 6.4 Albumin 2.6 L 09/25/16 09:10 RBC 3.58 L MCV 81.1 MCHC 31.7 L RDW 16.9 H MPV 8.1 Neutrophils % 79.8 Lymphocytes % 10.2 Monocytes % 9.4 Eosinophils % 0.2 D Basophils % 0.4 - RADIOLOGY Radiograph Interpretation: 09/25/16 12:03 Chest XR impression reported by Dr. Fito Maria: Cardiomegaly, chronic lung disease, and probably mild congestion <RizwanLebrona - Last Filed: 09/25/16 12:03> - LABORATORY CBC & Chemistry Diagram: 09/25/16 09:10 09/25/16 09:10 <Madie Rios - Last Filed: 09/25/16 12:55> Medical Decision Making - Medical Decision Making A portion of this note was documented by scribe services under my direction. I have reviewed the details of the note, within reason, and agree with the documentation with the following case summary and management plan written by me. Nursing documentation reviewed and incorporated into medical decision making 09/25/16 09:08 81 y/o F with PMHx h/o HTN, HLD , Diastolic CHF , COPD O2 dependent , Parox.AFIB , recently admitted for acute exacerbation of diastolic CHF. After leaving the hospital, she noted that she felt a bit better for 2 days but then her symptoms resumed Pt states that she has noted a gradual worsening of her shortness of breath She is well when she is not exerting herself, but with any exertion, she notes profound dyspnea A few days ago, she developed chest tightness/heaviness This resolve Over the past 3 days, she had had nausea No diaphoresis No fevers or chills Differential includes cardiac ischemia, pe, asthma exacerbation, pneumonia, pneumothorax, pleural effusion will do labs will do portable cxr Will re assess 09/25/16 10:43 Laboratory Tests 09/10/16 09/25/16 09/25/16 13:12 09:10 09:10 WBC 7.9 6.2 Hgb 9.3 L 9.2 L Plt Count 222 168 D Creatine Kinase 39 Troponin I 0.11 H B-Natriuretic Peptide 9558.37 H 09/25/16 10:47 CXR: cardiomegaly, mild congestion 09/25/16 11:04 Awaiting call back from Dr Posadas 09/25/16 12:36 Pt being seen in the ER now by Dr Posadas 09/25/16 12:50 Will admit to telemetry Given Lasix 40mg IV now Case reviewed with dr Kelley who is on service today <Madie Rios - Last Filed: 09/25/16 12:55> *DC/Admit/Observation/Transfer - Attestations Scribe Attestion: 09/25/16 10:25 Documentation prepared by Swapna Astorga, acting as certified medical coder for Madie Rios MD. <Swapna Astorga - Last Filed: 09/25/16 12:03> - Discharge Dispostion Admit: Yes <Madie Rios - Last Filed: 09/25/16 12:55> Diagnosis at time of Disposition: Congestive heart failure Qualifiers: Congestive heart failure type: unspecified congestive heart failure type Congestive heart failure chronicity: unspecified congestive heart failure chronicity Qualified Code(s): I50.9 - Heart failure, unspecified - Discharge Dispostion Condition at time of disposition: Stable - Referrals Referrals: Terri Machuca MD [Primary Care Provider] -
[2016-09-25 09:33] LABS: BASOPHIL 0.4 % (0-2.0); EOSINOPHIL 0.2 % (0-4.5); MCH 25.7 pg (25.7-33.7); MCHC 31.7 g/dl (32.0-36.0); MEAN CELL VOLUME 81.1 fl (80-96); MEAN PLT VOLUME 8.1 fl (7.5-11.1); NEUTROPHILS 79.8 % (42.8-82.8); PLATELET COUNT 168 K/MM3 (134-434); RDW 16.9 % (11.6-15.6); WHITE BLOOD COUNT 6.2 K/mm3 (4.0-10.0)
[2016-09-25 09:46] LABS: ALBUMIN 2.6 g/dl (3.4-5.0); BILIRUBIN,TOTAL 0.3 mg/dL (0.2-1.0); CALCIUM 8.2 mg/dL (8.5-10.1); COCKROFT - GAULT 20.4085; CREATININE 2.4 mg/dL (0.55-1.02); TOT PROT 6.4 g/dl (6.4-8.2)
[2016-09-25 09:48] LABS: TROPONIN I 0.11 ng/ml (0.00-0.05)
[2016-09-25 09:52] LABS: INR 1.45 (0.82-1.09); PROTHROMBIN TIME (PATIENT) 16.1 SEC (9.98-11.88)
--- NOTE | 2016-09-25 10:28 | EKG ---
Test Reason : Blood Pressure : / mmHG Vent. Rate : 077 BPM Atrial Rate : 077 BPM P-R Int : 162 ms QRS Dur : 102 ms QT Int : 426 ms P-R-T Axes : 061 020 110 degrees QTc Int : 482 ms NORMAL SINUS RHYTHM T WAVE ABNORMALITY, CONSIDER LATERAL ISCHEMIA PROLONGED QT ABNORMAL ECG WHEN COMPARED WITH ECG OF 06-SEP-2016 10:24, CRITERIA FOR SEPTAL INFARCT ARE NO LONGER PRESENT T WAVE INVERSION MORE EVIDENT IN LATERAL LEADS Confirmed by DIANE RAGLAND MD ([id number]) on 09/25/2016 10:28:32 AM Referred By: Confirmed By:DIANE RAGLAND MD
[2016-09-25] MEDS ORDERED: FUROSEMIDE 40 MG/4 ML INJECTABLE VIAL IVPB ONE (12:38)
[2016-09-25] MEDS ORDERED: FUROSEMIDE 40 MG/4 ML INJECTABLE VIAL ONE (12:42)
--- NOTE | 2016-09-25 12:46 | CON.CARD ---
Consult Consult Specialty:: Cardiology Referred by:: Dr. Rios in ER Reason for Consultation:: Cardiac evaluation - History of Present Illness Chief Complaint: Shortness of breath History of Present Illness: Patient is a 81 year old female well known to me with underlying history of oxygen dependent COPD with history of exacerbation, LV diastolic dysfunction with history of failure, CAD with history of PCI, CKD, type 2 diabetes mellitus , hypertension, hypercholesterolemia, PAF who presents with increase in shortness of breath. She denies fever or chills. She denies headache or lightheadedness. She denies nausea, vomiting, diarrhea or abdominal pain. She was recently hospitalized in end of August and was seen in the office for a follow up. - History Source History Provided By: Patient, Medical Record Limitations to Obtaining History: No Limitations - Past Medical History Cardio/Vascular: Yes: AFIB, CAD, HTN, Hyperlipdemia Pulmonary: Yes: COPD, O2 Dependent Renal/: Yes: Renal Inusuff Endocrine: Yes: Diabetes Mellitus - Past Surgical History Past Surgical History: Yes: Stent - Alcohol/Substance Use Hx Alcohol Use: No - Smoking History Smoking history: Never smoked Have you smoked in the past 12 months: No Aproximately how many cigarettes per day: 0 If you are a former smoker, when did you quit?: 1999 Home Medications - Allergies Allergies/Adverse Reactions: Allergies Allergy/AdvReac Type Severity Reaction Status Date / Time codeine AdvReac Intermediate Vaginal Verified 09/10/16 12:44 itch - Home Medications Home Medications: Ambulatory Orders Colchicine [Colcrys] 0.3 mg PO DAILY 01/07/16 Hydrocortisone 2.5% Topical Cr [Anusol-Hc -] 1 applic TP BID 09/06/16 Albuterol Sulfate [Proair Respiclick] 108 mcg IH Q4HWA PRN #0 inh 09/09/16 Albuterol Sulfate [Ventolin -] 2.5 mg PO QID PRN #0 inh 09/09/16 Alprazolam [Xanax] 0.5 mg PO TID PRN #0 tab 09/09/16 Amiodarone HCl 200 mg PO DAILY #0 tab 09/09/16 Apixaban [Eliquis -] 2.5 mg PO BID tablet 09/09/16 Aspirin [ASA -] 81 mg PO DAILY #0 tab 09/09/16 Ferrous Sulfate 325 mg PO DAILY #0 tab 09/09/16 Fluticasone/Salmeterol [Advair 250-50 Diskus] 1 each IH BID #0 inh 09/09/16 Furosemide [Lasix -] 40 mg PO DAILY #0 tab 09/09/16 Omeprazole 20 mg PO DAILY #0 tab 09/09/16 Polyethylene Glycol 3350 [Purelax] 17 gm PO ASDIR PRN #0 bottle 09/09/16 Roflumilast [Daliresp] 500 mcg PO DAILY #0 tab 09/09/16 Sertraline HCl [Zoloft -] 150 mg PO DAILY #0 tab 09/09/16 Simvastatin [Zocor -] 5 mg PO HS #0 tab 09/09/16 Umeclidinium [place] [Incruse Ellipta] 62.5 mcg IH DAILY #0 inh 09/09/16 Zolpidem Tartrate [Ambien] 10 mg PO HS #0 tab 09/09/16 Heparin - 5,000 unit SQ DAILY 09/10/16 Salmeterol/Fluticasone [Advair 500Mcg/50Mcg] 1 inh PO BID 09/25/16 Review of Systems - Review of Systems Constitutional: denies: Chills, Fever Cardiovascular: reports: Shortness of Breath. denies: Chest Pain, Palpitations Respiratory: reports: Cough, SOB, SOB on Exertion. denies: Hemoptysis, Orthopnea, PND, Wheezing Gastrointestinal: denies: Abdominal Pain, Constipation, Diarrhea, Melena, Nausea , Rectal Bleeding, Vomiting Musculoskeletal: denies: Joint Pain Neurological: denies: Dizziness, Headache, Seizure, Syncope Vital Signs: Vital Signs Temperature 98.8 F 09/25/16 08:48 Pulse Rate 78 09/25/16 09:26 Respiratory Rate 18 09/25/16 08:48 Blood Pressure 108/59 09/25/16 08:48 O2 Sat by Pulse Oximetry (%) 99 09/25/16 09:26 Neck: Yes: Supple Respiratory: Yes: Diminished, Rhonchi Gastrointestinal: Yes: Normal Bowel Sounds, Soft. No: Tenderness Cardiovascular: Yes: Regular Rate and Rhythm JVD: No Carotid Bruit: No PMI: Non-Displaced Heart Sounds: Yes: S1, S2 Murmur: No: Systolic Murmur Edema: No - Other Data Labs, Other Data: CBC, BMP 09/25/16 09:10 09/25/16 09:10 INR, PTT INR 1.45 (0.82-1.09) H 09/25/16 09:13 Troponin, BNP 09/25/16 09:10 Troponin I 0.11 H B-Natriuretic Peptide 9558.37 H NSR, T abnormality lateral leads Imaging - Results Chest X-ray: Report Reviewed (Cardiomegaly, chronic lung disease) EKG: Report Reviewed Problem List - Problems (1) Acute on chronic diastolic heart failure Code(s): I50.33 - ACUTE ON CHRONIC DIASTOLIC (CONGESTIVE) HEART FAILURE (2) Acute on chronic respiratory failure with hypoxemia Code(s): J96.21 - ACUTE AND CHRONIC RESPIRATORY FAILURE WITH HYPOXIA (3) [id number] kidney injury Code(s): N17.9 - ACUTE KIDNEY FAILURE, UNSPECIFIED N18.9 - CHRONIC KIDNEY DISEASE, UNSPECIFIED Qualifiers: Acute renal failure type: unspecified Chronic kidney disease stage: stage 3 (moderate) Qualified Code(s): N17.9 - Acute kidney failure, unspecified; N18.9 - Chronic kidney disease, unspecified (4) CHF (congestive heart failure) Code(s): I50.9 - HEART FAILURE, UNSPECIFIED Qualifiers: Congestive heart failure type: unspecified congestive heart failure type Congestive heart failure chronicity: unspecified congestive heart failure chronicity Qualified Code(s): I50.9 - Heart failure, unspecified (5) Dyspnea Code(s): R06.00 - DYSPNEA, UNSPECIFIED Qualifiers: Dyspnea type: unspecified Qualified Code(s): R06.00 - Dyspnea, unspecified (6) History of amiodarone therapy Code(s): Z92.29 - PERSONAL HISTORY OF OTHER DRUG THERAPY (7) Epistaxis Code(s): R04.0 - EPISTAXIS (8) COPD (chronic obstructive pulmonary disease) Code(s): J44.9 - CHRONIC OBSTRUCTIVE PULMONARY DISEASE, UNSPECIFIED Qualifiers : COPD type: unspecified COPD Qualified Code(s): J44.9 - Chronic obstructive pulmonary disease, unspecified (9) HTN (hypertension) Code(s): I10 - ESSENTIAL (PRIMARY) HYPERTENSION Qualifiers: Hypertension type: essential hypertension Qualified Code(s): I10 - Essential (primary) hypertension (10) Hypercholesterolemia Code(s): E78.00 - PURE HYPERCHOLESTEROLEMIA, UNSPECIFIED (11) Mitral valve regurgitation Code(s): I34.0 - NONRHEUMATIC MITRAL (VALVE) INSUFFICIENCY Qualifiers: Cardiac valve disease etiology: nonrheumatic Qualified Code(s): I34.0 - Nonrheumatic mitral (valve) insufficiency (12) PAF (paroxysmal atrial fibrillation) Code(s): I48.0 - PAROXYSMAL ATRIAL FIBRILLATION (13) Pulmonary hypertension Code(s): I27.2 - OTHER SECONDARY PULMONARY HYPERTENSION (14) Tricuspid valve regurgitation Code(s): I07.1 - RHEUMATIC TRICUSPID INSUFFICIENCY Qualifiers: Cardiac valve disease etiology: nonrheumatic Qualified Code(s): I36.1 - Nonrheumatic tricuspid (valve) insufficiency Assessment/Plan 1. Dyspnea secondary to acute on chronic LV diastolic failure, further etiology to be determined 2. CAD post PCI/stent angina pectoris rule out demand ischemic injury 3. O2 dependent COPD/emphysema 4. Rule out Amiodarone-associated pulmonary toxicity 5. Paroxysmal atrial fibrillation currently in sinus rhythm 6. HTN/HCVD 7. Hypercholesterolemia 8. Moderate mitral valve and tricuspid valve regurgitation with severe pulmonary hypertension 9. Acute on CKD 10. Anemia PLAN: 1. Continue Eliquis as tolerated 2. Continue Toprol XL with caution. Serial cardiac enzymes 3. Continue Imdur and Ranexa 4. Continue Zocor 5. Bronchodilators, Daliresp and steroids 6. Further cardiac evaluation to be determined Further plans are to follow Saurabh Posadas MD
[2016-09-25 13:29] VITALS: BMI 28.3
--- NOTE | 2016-09-25 22:11 | HP ---
Admitting History and Physical - Admission History of Present Illness: Pt is a 81 y/o female w/ PMH significant for HTN, HCL, paroxysmal atrial fibrillation, diastolic CHF , COPD (O2 dependent), renal insufficiency, and diabetes. Pt presented to the ER with progressive dyspnea for the past 6 days. The dyspnea is mostly on exertion. For the past week, patient noticed her oxygen machine was not putting out enough oxygen. - Past Medical History Cardiovascular: Yes: AFIB, HTN, Hyperlipdemia Pulmonary: Yes: COPD, O2 Dependent Renal/: Yes: Renal Inusuff ...: No Heme/Onc: Yes: Anemia Endocrine: Yes: Diabetes Mellitus - Advance Directives Advance Directives: Yes: Health Care Proxy - Smoking History Smoking history: Former smoker Have you smoked in the past 12 months: No Aproximately how many cigarettes per day: 0 If you are a former smoker, when did you quit?: 1999 - Alcohol/Substance Use Hx Alcohol Use: No Home Medications - Allergies Allergies/Adverse Reactions: Allergies Allergy/AdvReac Type Severity Reaction Status Date / Time codeine AdvReac Intermediate Vaginal Verified 09/10/16 12:44 itch - Home Medications Home Medications: Ambulatory Orders Colchicine [Colcrys] 0.3 mg PO DAILY 01/07/16 Hydrocortisone 2.5% Topical Cr [Anusol-Hc -] 1 applic TP BID 09/06/16 Albuterol Sulfate [Proair Respiclick] 108 mcg IH Q4HWA PRN #0 inh 09/09/16 Albuterol Sulfate [Ventolin -] 2.5 mg PO QID PRN #0 inh 09/09/16 Alprazolam [Xanax] 0.5 mg PO TID PRN #0 tab 09/09/16 Amiodarone HCl 200 mg PO DAILY #0 tab 09/09/16 Apixaban [Eliquis -] 2.5 mg PO BID tablet 09/09/16 Aspirin [ASA -] 81 mg PO DAILY #0 tab 09/09/16 Ferrous Sulfate 325 mg PO DAILY #0 tab 09/09/16 Fluticasone/Salmeterol [Advair 250-50 Diskus] 1 each IH BID #0 inh 09/09/16 Furosemide [Lasix -] 40 mg PO DAILY #0 tab 09/09/16 Omeprazole 20 mg PO DAILY #0 tab 09/09/16 Polyethylene Glycol 3350 [Purelax] 17 gm PO ASDIR PRN #0 bottle 09/09/16 Roflumilast [Daliresp] 500 mcg PO DAILY #0 tab 09/09/16 Sertraline HCl [Zoloft -] 150 mg PO DAILY #0 tab 09/09/16 Simvastatin [Zocor -] 5 mg PO HS #0 tab 09/09/16 Umeclidinium [place] [Incruse Ellipta] 62.5 mcg IH DAILY #0 inh 09/09/16 Zolpidem Tartrate [Ambien] 10 mg PO HS #0 tab 09/09/16 Heparin - 5,000 unit SQ DAILY 09/10/16 Salmeterol/Fluticasone [Advair 500Mcg/50Mcg] 1 inh PO BID 09/25/16 Family Disease History - Family Disease History Family History: Unremarkable Review of Systems - Review of Systems Constitutional: reports: Weakness Eyes: reports: No Symptoms HENT: reports: No Symptoms Neck: reports: No Symptoms Cardiovascular: reports: Shortness of Breath Respiratory: reports: No Symptoms, Orthopnea, SOB on Exertion Gastrointestinal: reports: Nausea Genitourinary: reports: No Symptoms Physical Examination Vital Signs: Vital Signs Temperature 98.5 F 09/25/16 21:01 Pulse Rate 68 09/25/16 21:01 Respiratory Rate 20 09/25/16 21:01 Blood Pressure 136/61 09/25/16 21:01 O2 Sat by Pulse Oximetry (%) 94 L 09/25/16 21:00 Constitutional: Yes: Well Nourished Eyes: Yes: WNL HENT: Yes: WNL Neck: Yes: Supple Cardiovascular: Yes: WNL, Regular Rate and Rhythm Respiratory: Yes: Rales Gastrointestinal: Yes: WNL, Normal Bowel Sounds, Soft Breast(s): Yes: WNL Musculoskeletal: Yes: WNL Edema: Yes Edema: LLE: 1+, RLE: 1+ Neurological: Yes: WNL, Alert, Oriented ...Motor Strength: WNL Problem List - Problems (1) Dyspnea Assessment/Plan: COPD vs CHF Monitor on tele Cardio/pulmonary consults Code(s): R06.00 - DYSPNEA, UNSPECIFIED (2) COPD (chronic obstructive pulmonary disease) Assessment/Plan: COPD exacerbation Cont IV steroids Cont inhalers Code(s): J44.9 - CHRONIC OBSTRUCTIVE PULMONARY DISEASE, UNSPECIFIED Qualifiers : COPD type: unspecified COPD Qualified Code(s): J44.9 - Chronic obstructive pulmonary disease, unspecified (3) Acute on chronic diastolic heart failure Assessment/Plan: Cont IV lasix Check Echo Serial cpk/troponin to r/o ACS Monitor electrolytes Code(s): I50.33 - ACUTE ON CHRONIC DIASTOLIC (CONGESTIVE) HEART FAILURE (4) [id number] kidney injury Assessment/Plan: Cont to monitor labs Code(s): N17.9 - ACUTE KIDNEY FAILURE, UNSPECIFIED N18.9 - CHRONIC KIDNEY DISEASE, UNSPECIFIED Qualifiers: Acute renal failure type: unspecified Chronic kidney disease stage: stage 3 (moderate) Qualified Code(s): N17.9 - Acute kidney failure, unspecified; N18.9 - Chronic kidney disease, unspecified (5) Anemia Code(s): D64.9 - ANEMIA, UNSPECIFIED Qualifiers: Anemia type: due to chronic kidney disease (6) HTN (hypertension) Code(s): I10 - ESSENTIAL (PRIMARY) HYPERTENSION Qualifiers: Hypertension type: essential hypertension Qualified Code(s): I10 - Essential (primary) hypertension (7) Hypercholesterolemia Code(s): E78.00 - PURE HYPERCHOLESTEROLEMIA, UNSPECIFIED (8) PAF (paroxysmal atrial fibrillation) Code(s): I48.0 - PAROXYSMAL ATRIAL FIBRILLATION
[2016-09-25] MEDS: ALPRAZolam 0.25 MG TABLET PO PRN (23:25)
[2016-09-25] MEDS: ZOLPIDEM TARTRATE 5 MG TABLET PO PRN (23:25)
[2016-09-25] MEDS: ALBUTEROL SO4 2.5/IPRATROPIUM 0.5 INH SOL 3 ML VIAL.NEB. NEB PRN (23:27)
[2016-09-25] MEDS: APIXABAN 2.5 MG TABLET PO SCH (23:33)
[2016-09-26 00:41] LABS: TROPONIN I 0.26 ng/ml (0.00-0.05)
[2016-09-26] MEDS: ALBUTEROL SO4 2.5/IPRATROPIUM 0.5 INH SOL 3 ML VIAL.NEB. NEB PRN (06:50)
[2016-09-26 07:40] LABS: BASOPHIL 0.6 % (0-2.0); EOSINOPHIL 1.5 % (0-4.5); MCH 25.3 pg (25.7-33.7); MCHC 31.2 g/dl (32.0-36.0); MEAN PLT VOLUME 8.5 fl (7.5-11.1); NEUTROPHILS 69.5 % (42.8-82.8); PLATELET COUNT 166 K/MM3 (134-434); RDW 17.3 % (11.6-15.6); WHITE BLOOD COUNT 5.4 K/mm3 (4.0-10.0)
[2016-09-26 08:01] LABS: CALCIUM 7.9 mg/dL (8.5-10.1)
[2016-09-26 08:06] LABS: TROPONIN I 0.17 ng/ml (0.00-0.05)
[2016-09-26 08:07] LABS: ALBUMIN 2.4 g/dl (3.4-5.0); BILIRUBIN,TOTAL 0.2 mg/dL (0.2-1.0); CREATININE 2.7 mg/dL (0.55-1.02); TOT PROT 5.7 g/dl (6.4-8.2)
[2016-09-26 08:22] LABS: COCKROFT - GAULT 17.5865
[2016-09-26] MEDS ORDERED: APIXABAN 2.5 MG TABLET PO SCH (10:00)
[2016-09-26] MEDS ORDERED: AMIODARONE HCL 200 MG TABLET (FP) PO SCH (10:00)
[2016-09-26] MEDS ORDERED: PATIENT'S OWN MEDICATION (NON-FORMULARY) (Salmeterol/Fluticasone [Advair 500mcg/50mcg -] 1 PO SCH (10:00)
[2016-09-26] MEDS ORDERED: ASPIRIN 81 MG CHEWABLE TABLETS PO SCH (10:00)
[2016-09-26] MEDS ORDERED: PATIENT'S OWN MEDICATION (NON-FORMULARY) (Umeclidinium Bromide [Incruse Ellipta] 62.5 MCG) IH SCH (10:00)
[2016-09-26] MEDS: APIXABAN 2.5 MG TABLET PO SCH ×2 (10:38→22:13)
[2016-09-26] MEDS: PANTOPRAZOLE 20 MG TABLET (FP) PO SCH (10:38)
[2016-09-26] MEDS: SERTRALINE HCL 50 MG TABLET (FP) PO SCH (10:38)
[2016-09-26] MEDS: FERROUS SO4 325 MG TABLET (FP) PO SCH (10:39)
[2016-09-26] MEDS: ALPRAZolam 0.25 MG TABLET PO PRN ×2 (10:39→22:15)
[2016-09-26] MEDS: ROFLUMILAST 500 MCG TABLET PO SCH (10:39)
[2016-09-26] MEDS: FUROSEMIDE 40 MG/4 ML INJECTABLE VIAL IVPUSH SCH (10:39)
--- NOTE | 2016-09-26 11:33 | PN ---
Progress Note, Physician History of Present Illness: Continued dyspnea on exertion, orthopnea, maintained in SR. - Current Medication List Current Medications: Active Medications Albuterol/Ipratropium (Duoneb -) 1 amp NEB Q6H PRN PRN Reason: SHORTNESS OF BREATH Last Admin: 09/26/16 06:50 Dose: 1 amp Alprazolam (Xanax -) 0.5 mg PO Q8H PRN PRN Reason: ANXIETY Last Admin: 09/26/16 10:39 Dose: 0.5 mg Amiodarone HCl (Cordarone -) 200 mg PO DAILY [facility] Last Admin: 09/26/16 10:39 Dose: 200 mg Apixaban (Eliquis -) 2.5 mg PO BID [facility] Last Admin: 09/26/16 10:38 Dose: 2.5 mg Aspirin (Asa -) 81 mg PO DAILY [facility] Last Admin: 09/26/16 10:39 Dose: 81 mg Ferrous Sulfate (Feosol -) 325 mg PO DAILY [facility] Last Admin: 09/26/16 10:39 Dose: 325 mg Furosemide (Lasix Injection -) 40 mg IVPUSH DAILY [facility] Last Admin: 09/26/16 10:39 Dose: 40 mg Non-Formulary Medication (Fluticasone/Salmeterol [Advair 250-50 Diskus]) 1 each IH BID [facility] Non-Formulary Medication (Polyethylene Glycol 3350 [Purelax]) 17 gm PO ASDIR PRN PRN Reason: CONSTIPATION Non-Formulary Medication (Salmeterol/Fluticasone [Advair 500mcg/50mcg -]) 1 inh PO BID [facility] Non-Formulary Medication (Simvastatin) 5 mg PO HS [facility] Non-Formulary Medication (Umeclidinium [place] [Incruse Ellipta]) 62.5 mcg IH DAILY [facility] Pantoprazole Sodium (Protonix -) 20 mg PO DAILY [facility] Last Admin: 09/26/16 10:38 Dose: 20 mg Roflumilast (Daliresp -) 500 mcg PO DAILY [facility] Last Admin: 09/26/16 10:39 Dose: 500 mcg Sertraline HCl (Zoloft -) 150 mg PO DAILY [facility] Last Admin: 09/26/16 10:38 Dose: 150 mg Zolpidem Tartrate (Ambien -) 5 mg PO HS PRN Last Admin: 09/25/16 23:25 Dose: 5 mg - Objective Vital Signs: Vital Signs Temperature 98 F 09/26/16 05:57 Pulse Rate 77 09/26/16 09:59 Respiratory Rate 20 09/26/16 05:57 Blood Pressure 111/45 09/26/16 05:57 O2 Sat by Pulse Oximetry (%) 97 09/26/16 09:59 Constitutional: Yes: No Distress, Calm, Thin Neck: Yes: Supple Cardiovascular: Yes: Regular Rate and Rhythm Respiratory: Yes: Regular, On Nasal O2, Rales Gastrointestinal: Yes: Normal Bowel Sounds, Soft, Abdomen, Obese Edema: No Labs: CBC, BMP 09/26/16 05:38 09/26/16 05:38 INR, PTT INR 1.45 (0.82-1.09) H 09/25/16 09:13 - ....Imaging Chest X-ray: Report Reviewed (Mild congestion) EKG: Report Reviewed (SR @ 77) Problem List - Problems (1) COPD (chronic obstructive pulmonary disease) Code(s): J44.9 - CHRONIC OBSTRUCTIVE PULMONARY DISEASE, UNSPECIFIED Qualifiers : COPD type: unspecified COPD Qualified Code(s): J44.9 - Chronic obstructive pulmonary disease, unspecified (2) HTN (hypertension) Code(s): I10 - ESSENTIAL (PRIMARY) HYPERTENSION Qualifiers: Hypertension type: essential hypertension Qualified Code(s): I10 - Essential (primary) hypertension (3) Hypercholesterolemia Code(s): E78.00 - PURE HYPERCHOLESTEROLEMIA, UNSPECIFIED (4) PAF (paroxysmal atrial fibrillation) Code(s): I48.0 - PAROXYSMAL ATRIAL FIBRILLATION (5) Pulmonary hypertension Code(s): I27.2 - OTHER SECONDARY PULMONARY HYPERTENSION (6) Kystj-pq-pvqxbah kidney injury Code(s): N17.9 - ACUTE KIDNEY FAILURE, UNSPECIFIED N18.9 - CHRONIC KIDNEY DISEASE, UNSPECIFIED Qualifiers: Acute renal failure type: unspecified Chronic kidney disease stage: stage 3 (moderate) Qualified Code(s): N17.9 - Acute kidney failure, unspecified; N18.9 - Chronic kidney disease, unspecified (7) Acute on chronic diastolic heart failure Code(s): I50.33 - ACUTE ON CHRONIC DIASTOLIC (CONGESTIVE) HEART FAILURE (8) History of amiodarone therapy Code(s): Z92.29 - PERSONAL HISTORY OF OTHER DRUG THERAPY (9) Anemia Code(s): D64.9 - ANEMIA, UNSPECIFIED Qualifiers: Anemia type: due to chronic kidney disease Assessment/Plan 09/08/2016 Normal LV size and fxn, mod LAE, mild HERNANDEZ, mod MR, TR, RVSP 50-60 mmHg , 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 Dyspnea secondary to acute on chronic LV diastolic failure and subendocardial ischemia with the presence of moderate mitral valve and tricuspid valve regurgitation and severe pulmonary hypertension 2. O2 dependent COPD/emphysema, r/o amiodarone-associated pulm toxicity 3. Paroxysmal atrial fibrillation currently in sinus rhythm 4. HTN/HCVD 5. Hypercholesterolemia 6. Acute on CKD 7. Anemia PLAN: 1. D/c Amiodarone 200 qd, start Cardizem CD 120 qd, Zocor 5 qhs 2. IV diuretics with monitor diuretic response, renal function and electrolytes 3. Continue Eliquis 2.5 mg BID, d/c ASA 81 qd 4. BD, Daliresp, O2 as needed, trial of steroids, f/u chest CT, repeat echo, outpatient PFTs
--- NOTE | 2016-09-26 12:05 | PN ---
Progress Note (short form) - Note Progress Note: PULMONARY CONSULTATION DICTATED 09/26/16 IMP ACUTE ON CHRONIC HYPOXEMIC RESPIRATORY FAILURE DECOMPENSATED CHF DIASTOLIC COPD EXACERBATION R/O AMIODARONE LUNG TOXICITY PULMONARY HTN MITRAL STENOSIS ASHD S/P STENT PAF ACUTE ON CHRONIC RENAL FAILURE DM HTN PLAN LASIX INHALED BRONCHODILATORS SUPPLEMENTAL O2 SHORT COURSE OF STEROIDS CHEST CT DAILY [facility] MONITOR LYTES ECHO DR GAITAN Problem List - Problems (1) Acute on chronic diastolic heart failure Code(s): I50.33 - ACUTE ON CHRONIC DIASTOLIC (CONGESTIVE) HEART FAILURE (2) Rtulg-vw-hkmxpuw kidney injury Code(s): N17.9 - ACUTE KIDNEY FAILURE, UNSPECIFIED N18.9 - CHRONIC KIDNEY DISEASE, UNSPECIFIED Qualifiers: Acute renal failure type: unspecified Chronic kidney disease stage: stage 3 (moderate) Qualified Code(s): N17.9 - Acute kidney failure, unspecified; N18.9 - Chronic kidney disease, unspecified (3) CHF (congestive heart failure) Code(s): I50.9 - HEART FAILURE, UNSPECIFIED Qualifiers: Congestive heart failure type: unspecified congestive heart failure type Congestive heart failure chronicity: unspecified congestive heart failure chronicity Qualified Code(s): I50.9 - Heart failure, unspecified (4) History of amiodarone therapy Code(s): Z92.29 - PERSONAL HISTORY OF OTHER DRUG THERAPY (5) CHF exacerbation Code(s): I50.9 - HEART FAILURE, UNSPECIFIED Qualifiers: Congestive heart failure type: unspecified congestive heart failure type Qualified Code(s): I50.9 - Heart failure, unspecified (6) COPD (chronic obstructive pulmonary disease) Code(s): J44.9 - CHRONIC OBSTRUCTIVE PULMONARY DISEASE, UNSPECIFIED Qualifiers : COPD type: unspecified COPD Qualified Code(s): J44.9 - Chronic obstructive pulmonary disease, unspecified (7) HTN (hypertension) Code(s): I10 - ESSENTIAL (PRIMARY) HYPERTENSION Qualifiers: Hypertension type: essential hypertension Qualified Code(s): I10 - Essential (primary) hypertension (8) Hypercholesterolemia Code(s): E78.00 - PURE HYPERCHOLESTEROLEMIA, UNSPECIFIED (9) PAF (paroxysmal atrial fibrillation) Code(s): I48.0 - PAROXYSMAL ATRIAL FIBRILLATION (10) Pulmonary hypertension Code(s): I27.2 - OTHER SECONDARY PULMONARY HYPERTENSION (11) Acute on chronic respiratory failure with hypoxemia Code(s): J96.21 - ACUTE AND CHRONIC RESPIRATORY FAILURE WITH HYPOXIA
[2016-09-26] MEDS: methylPREDNISolone NA SUCC 40 MG/1 ML VIAL IVPB SCH ×2 (12:35→17:15)
[2016-09-26] MEDS: BUDESONIDE/FORMETEROL FUMARATE 160/4.5 mcg INHALER IH SCH ×2 (13:03→22:12)
[2016-09-26] MEDS: TIOTROPIUM BROMIDE 18 MCG/INH (DEVICE W/ 5 CAPSULES) IH SCH (13:03)
[2016-09-26] MEDS: ALBUTEROL SO4 0.083% IH SOL 2.5 MG/3 ML VIAL.NEB. NEB PRN ×2 (14:18→21:38)
[2016-09-26] MEDS ORDERED: FUROSEMIDE 40 MG/4 ML INJECTABLE VIAL IVPB ONE (18:00)
--- NOTE | 2016-09-26 20:01 | PN ---
Progress Note, Physician - Current Medication List Current Medications: Active Medications Albuterol Sulfate (Ventolin 0.083% Nebulizer Soln -) 1 amp NEB Q4H PRN PRN Reason: SHORT OF BREATH/WHEEZING Last Admin: 09/26/16 14:18 Dose: 1 amp Alprazolam (Xanax -) 0.5 mg PO Q8H PRN PRN Reason: ANXIETY Last Admin: 09/26/16 10:39 Dose: 0.5 mg Apixaban (Eliquis -) 2.5 mg PO BID [facility] Last Admin: 09/26/16 10:38 Dose: 2.5 mg Budesonide/Formoterol Fumarate (Symbicort 160/4.5mcg -) 2 puff IH BID [facility] Last Admin: 09/26/16 13:03 Dose: 2 puff Diltiazem HCl (Cardizem Cd -) 120 mg PO DAILY [facility] Last Admin: 09/26/16 14:19 Dose: 120 mg Ferrous Sulfate (Feosol -) 325 mg PO DAILY [facility] Last Admin: 09/26/16 10:39 Dose: 325 mg Furosemide (Lasix Injection -) 40 mg IVPUSH DAILY [facility] Last Admin: 09/26/16 10:39 Dose: 40 mg Methylprednisolone Sodium Succinate (Solu-Medrol -) 40 mg IVPB Q8H-IV [facility] Last Admin: 09/26/16 17:15 Dose: 40 mg Non-Formulary Medication (Polyethylene Glycol 3350 [Purelax]) 17 gm PO ASDIR PRN PRN Reason: CONSTIPATION Non-Formulary Medication (Simvastatin) 5 mg PO HS [facility] Pantoprazole Sodium (Protonix -) 20 mg PO DAILY [facility] Last Admin: 09/26/16 10:38 Dose: 20 mg Roflumilast (Daliresp -) 500 mcg PO DAILY [facility] Last Admin: 09/26/16 10:39 Dose: 500 mcg Sertraline HCl (Zoloft -) 150 mg PO DAILY [facility] Last Admin: 09/26/16 10:38 Dose: 150 mg Tiotropium [place] (Spiriva -) 1 puff IH DAILY [facility] Last Admin: 09/26/16 13:03 Dose: 1 puff Zolpidem Tartrate (Ambien -) 5 mg PO HS PRN Last Admin: 09/25/16 23:25 Dose: 5 mg - Objective Vital Signs: Vital Signs Temperature 98.5 F 09/26/16 18:00 Pulse Rate 80 09/26/16 18:00 Respiratory Rate 20 09/26/16 18:00 Blood Pressure 120/61 09/26/16 18:00 O2 Sat by Pulse Oximetry (%) 95 09/26/16 10:00 Constitutional: Yes: Well Nourished Eyes: Yes: WNL Neck: Yes: Supple Cardiovascular: Yes: WNL, Regular Rate and Rhythm Respiratory: Yes: Diminished Gastrointestinal: Yes: WNL, Normal Bowel Sounds, Soft Labs: CBC, BMP 09/26/16 05:38 09/26/16 05:38 INR, PTT INR 1.45 (0.82-1.09) H 09/25/16 09:13 Problem List - Problems (1) Acute on chronic diastolic heart failure Assessment/Plan: Cont IV lasix Monitor electrolytes Code(s): I50.33 - ACUTE ON CHRONIC DIASTOLIC (CONGESTIVE) HEART FAILURE (2) COPD (chronic obstructive pulmonary disease) Assessment/Plan: COPD exacerbation Cont IV steroids Cont inhalers Code(s): J44.9 - CHRONIC OBSTRUCTIVE PULMONARY DISEASE, UNSPECIFIED Qualifiers : COPD type: unspecified COPD Qualified Code(s): J44.9 - Chronic obstructive pulmonary disease, unspecified (3) Pshrw-bv-hcszvqu kidney injury Code(s): N17.9 - ACUTE KIDNEY FAILURE, UNSPECIFIED N18.9 - CHRONIC KIDNEY DISEASE, UNSPECIFIED Qualifiers: Acute renal failure type: unspecified Chronic kidney disease stage: stage 3 (moderate) Qualified Code(s): N17.9 - Acute kidney failure, unspecified; N18.9 - Chronic kidney disease, unspecified (4) Anemia Code(s): D64.9 - ANEMIA, UNSPECIFIED Qualifiers: Anemia type: due to chronic kidney disease (5) HTN (hypertension) Code(s): I10 - ESSENTIAL (PRIMARY) HYPERTENSION Qualifiers: Hypertension type: essential hypertension Qualified Code(s): I10 - Essential (primary) hypertension (6) Hypercholesterolemia Code(s): E78.00 - PURE HYPERCHOLESTEROLEMIA, UNSPECIFIED
[2016-09-26] MEDS: ZOLPIDEM TARTRATE 5 MG TABLET PO PRN (22:15)
[2016-09-27] MEDS: methylPREDNISolone NA SUCC 40 MG/1 ML VIAL IVPB SCH ×3 (02:37→17:25)
[2016-09-27] MEDS: ALBUTEROL SO4 0.083% IH SOL 2.5 MG/3 ML VIAL.NEB. NEB PRN ×3 (06:15→22:00)
--- NOTE | 2016-09-27 07:22 | CONS ---
DATE OF CONSULTATION: 09/26/2016 REFERRING PHYSICIAN: Archana Kelley MD HISTORY: The patient is a 81-year-old white female with a past medical history of advanced COPD on home O2 for many years, history of paroxysmal atrial fibrillation, diastolic heart failure, hypertension, chronic kidney disease, diabetes, history of mitral stenosis admitted to [facility] with complaint of a [id number] of increasing shortness of breath and dyspnea on exertion. The patient says for the past couple of weeks she started noticing increasing shortness of breath. At the time, she states that she get short of breath walking minimal distance as well as shifting positions. She states that her symptoms are less when she sits up and has been having increasing orthopnea. She apparently started on an increasing dose of Lasix without any improvement. She was also advised to have increased O2 flow rate to 2 L. The patient's symptoms continued to worsen at which time she presented to the emergency room. On admission, she was felt to have possible CHF, COPD. She was admitted to the telemetry unit and started on diuretics without any significant improvement. She denies any chest pain, nausea, vomiting, or diaphoresis. She does have a cough productive of yellow-green sputum. Denies hemoptysis. Denies any recent travel. There is no history of occupational exposure or chemicals of abuse. Of note, she has been on amiodarone for approximately 5 years. She denies any chest pain, although complains of chest heaviness. PAST MEDICAL HISTORY: Again includes paroxysmal atrial fibrillation, COPD on home O2, chronic kidney disease, ASHD status post stent, cholecystectomy, diabetes mellitus, mitral stenosis, hypertension, hypercholesterolemia. REVIEW OF SYSTEMS: Positive orthopnea, positive dyspnea, positive cough, positive chest heaviness. No chest pain. Positive palpitations. No fever, no chills, no hemoptysis, no abdominal pain, no lower extremity edema. CURRENT MEDICATIONS: Include Advair, , Incruse Ellipta, Eliquis, Zoloft, Ambien, Xanax, DuoNeb, Cardizem CD, Theosol, Lasix, Protonix, Daliresp. PHYSICAL EXAMINATION: General: The patient is an elderly white female. Well developed, well nourished, awake, alert. Mildly dyspneic but in no acute distress. Vital Signs: She is currently afebrile. Blood pressure 111/45, respiratory rate 20, O2 saturation 97% on 4 L. HEENT: Normocephalic and atraumatic. Neck: Supple. Heart: Irregular with normal S1, S2. Chest: Bilateral crackles. Abdomen: Soft. Bowel sounds are positive. Extremities: No cyanosis or edema. LABORATORIES: BUN 62, creatinine 2.7, BNP 9558. WBC 5.4, hemoglobin 8.7, hematocrit 28, platelet count 166,000, INR 1.45. DIAGNOSTIC DATA: Chest x-ray reveals cardiomegaly with chronic changes bilaterally probably mild congestion. IMPRESSION: 1. Acute on chronic hypoxemic respiratory failure, multiple factors, rule out possible mild decompensated congestive heart failure. 2. Likely underlying chronic obstructive pulmonary disease exacerbation. 3. Progressive dyspnea secondary to rule out possible amiodarone-induced lung toxicity. 4. Chronic kidney disease. 5. Hypertension. 6. Mitral stenosis. 7. Arteriosclerotic heart disease status post stents. 8. Diabetes. PLAN: Continue Lasix, supplemental O2, inhaled bronchodilators. Discontinue amiodarone. Obtain CT scan of the chest to further evaluate pulmonary parenchyma. A short course of steroids in 24-48 hours. Daily weights. Follow up echocardiogram. Thank you. We will follow with you. REYNA GAITAN M.D. [facility]/[id number]
[2016-09-27] MEDS ORDERED: PT OWN MED DRAWER 7, Y5N ONE (08:11)
[2016-09-27] MEDS: FUROSEMIDE 40 MG/4 ML INJECTABLE VIAL IVPUSH SCH (09:08)
[2016-09-27] MEDS: ROFLUMILAST 500 MCG TABLET PO SCH (09:13)
[2016-09-27] MEDS: ALPRAZolam 0.25 MG TABLET PO PRN ×2 (09:13→21:19)
[2016-09-27] MEDS: SERTRALINE HCL 50 MG TABLET (FP) PO SCH (09:13)
[2016-09-27] MEDS: FERROUS SO4 325 MG TABLET (FP) PO SCH (09:14)
[2016-09-27] MEDS: BUDESONIDE/FORMETEROL FUMARATE 160/4.5 mcg INHALER IH SCH ×2 (09:14→21:15)
[2016-09-27] MEDS: APIXABAN 2.5 MG TABLET PO SCH ×2 (09:14→21:15)
[2016-09-27] MEDS: PANTOPRAZOLE 20 MG TABLET (FP) PO SCH (09:14)
[2016-09-27] MEDS: TIOTROPIUM BROMIDE 18 MCG/INH (DEVICE W/ 5 CAPSULES) IH SCH (09:15)
--- NOTE | 2016-09-27 13:20 | PN ---
Progress Note (short form) - Note Progress Note: PULMONARY Breathing slightly improving but still dyspneic with minimal exertion. Some anterior chest soreness. Last Vital Signs Temp Pulse Resp BP Pulse Ox 97.8 F 72 18 130/55 93 L 09/27/16 10:00 09/27/16 10:00 09/27/16 10:00 09/27/16 10:00 09/27/16 10:00 Gen: tachypneic at rest Heart: RRR, +systolic murmur RUSB, base Lung: bibasilar rales Abd: soft, nontender Ext: no edema CBC, BMP 09/26/16 05:38 09/26/16 05:38 Active Medications Albuterol Sulfate (Ventolin 0.083% Nebulizer Soln -) 1 amp NEB Q4H PRN PRN Reason: SHORT OF BREATH/WHEEZING Last Admin: 09/27/16 06:15 Dose: 1 amp Alprazolam (Xanax -) 0.5 mg PO Q8H PRN PRN Reason: ANXIETY Last Admin: 09/27/16 09:13 Dose: 0.5 mg Apixaban (Eliquis -) 2.5 mg PO BID [facility] Last Admin: 09/27/16 09:14 Dose: 2.5 mg Budesonide/Formoterol Fumarate (Symbicort 160/4.5mcg -) 2 puff IH BID [facility] Last Admin: 09/27/16 09:14 Dose: 2 puff Diltiazem HCl (Cardizem Cd -) 120 mg PO DAILY [facility] Last Admin: 09/27/16 09:14 Dose: 120 mg Ferrous Sulfate (Feosol -) 325 mg PO DAILY [facility] Last Admin: 09/27/16 09:14 Dose: 325 mg Furosemide (Lasix Injection -) 40 mg IVPUSH DAILY [facility] Last Admin: 09/27/16 09:08 Dose: 40 mg Methylprednisolone Sodium Succinate (Solu-Medrol -) 40 mg IVPB Q8H-IV [facility] Last Admin: 09/27/16 09:07 Dose: 40 mg Non-Formulary Medication (Polyethylene Glycol 3350 [Purelax]) 17 gm PO ASDIR PRN PRN Reason: CONSTIPATION Non-Formulary Medication (Simvastatin) 5 mg PO HS [facility] Pantoprazole Sodium (Protonix -) 20 mg PO DAILY [facility] Last Admin: 09/27/16 09:14 Dose: 20 mg Roflumilast (Daliresp -) 500 mcg PO DAILY [facility] Last Admin: 09/27/16 09:13 Dose: 500 mcg Sertraline HCl (Zoloft -) 150 mg PO DAILY [facility] Last Admin: 09/27/16 09:13 Dose: 150 mg Tiotropium [place] (Spiriva -) 1 puff IH DAILY [facility] Last Admin: 09/27/16 09:15 Dose: 1 puff Zolpidem Tartrate (Ambien -) 5 mg PO HS [facility]N Last Admin: 09/26/16 22:15 Dose: 5 mg A/P Acute on Chronic Diastolic heart Failure Mitral Regurgitation Pulmonary HTN COPD Chronic Hypoxic Respiratory Failure Paroxysmal Atrial Fibrillation HTN Acute on Chronic Renal Failure - continue lasix - monitor urine output, creatinine - daily weights, I/Os - inhaled bronchodilators - can taper medrol, less likely COPD exacerbation - O2 to keep SpO2 >90% - rate controlled - continue anticoagulation - offered BiPAP to assist in work of breathing but pt declining at this time
--- NOTE | 2016-09-27 14:16 | PN ---
Progress Note (short form) - Note Progress Note: Chief Complaint: Events noted, notes reviewed, complaining of persistent dyspnea and chest discomfort which is exacerbated with physical exertion History of Present Illness: Seen and examined on telemetry. Events noted, notes reviewed, complaining of persistent dyspnea and chest discomfort which is exacerbated with physical exertion Echocardiography dated 09/08/2016 revealed normal LV size and function, mod LAE, mild HERNANDEZ, mod MR and TR with RVSP 50-60 mmHg, functional MS due to MAC - Current Medication List Current Medications Albuterol Sulfate (Ventolin 0.083% Nebulizer Soln -) 1 amp NEB Q4H PRN PRN Reason: SHORT OF BREATH/WHEEZING Last Admin: 09/27/16 06:15 Dose: 1 amp Alprazolam (Xanax -) 0.5 mg PO Q8H PRN PRN Reason: ANXIETY Last Admin: 09/27/16 09:13 Dose: 0.5 mg Apixaban (Eliquis -) 2.5 mg PO BID [facility] Last Admin: 09/27/16 09:14 Dose: 2.5 mg Budesonide/Formoterol Fumarate (Symbicort 160/4.5mcg -) 2 puff IH BID [facility] Last Admin: 09/27/16 09:14 Dose: 2 puff Diltiazem HCl (Cardizem Cd -) 120 mg PO DAILY [facility] Last Admin: 09/27/16 09:14 Dose: 120 mg Ferrous Sulfate (Feosol -) 325 mg PO DAILY [facility] Last Admin: 09/27/16 09:14 Dose: 325 mg Furosemide (Lasix Injection -) 40 mg IVPUSH DAILY [facility] Last Admin: 09/27/16 09:08 Dose: 40 mg Methylprednisolone Sodium Succinate (Solu-Medrol -) 40 mg IVPB Q8H-IV [facility] Last Admin: 09/27/16 09:07 Dose: 40 mg Non-Formulary Medication (Polyethylene Glycol 3350 [Purelax]) 17 gm PO ASDIR PRN PRN Reason: CONSTIPATION Non-Formulary Medication (Simvastatin) 5 mg PO HS [facility] Pantoprazole Sodium (Protonix -) 20 mg PO DAILY [facility] Last Admin: 09/27/16 09:14 Dose: 20 mg Roflumilast (Daliresp -) 500 mcg PO DAILY [facility] Last Admin: 09/27/16 09:13 Dose: 500 mcg Sertraline HCl (Zoloft -) 150 mg PO DAILY [facility] Last Admin: 09/27/16 09:13 Dose: 150 mg Tiotropium [place] (Spiriva -) 1 puff IH DAILY [facility] Last Admin: 09/27/16 09:15 Dose: 1 puff Zolpidem Tartrate (Ambien -) 5 mg PO HS PRN Last Admin: 09/26/16 22:15 Dose: 5 mg - Objective Vital Signs: Last Vital Signs Temp Pulse Resp BP Pulse Ox 97.8 F 72 18 130/55 93 L 09/27/16 10:00 09/27/16 10:00 09/27/16 10:00 09/27/16 10:00 09/27/16 10:00 Constitutional: No Distress, Calm, Thin Neck: Supple Negative JVD No Bruit Cardiovascular: S1 S2 Regular Rate and Rhythm Respiratory: Bilateral Scattered Gastrointestinal: Soft Benign Normal Bowel Sounds Ext: No Edema Labs: CBC, BMP 09/26/16 05:38 09/26/16 05:38 Assessment/Plan ASSESSMENT: 1. Dyspnea secondary to acute on chronic LV diastolic failure and sub- endocardial ischemia 2. CAD post PCI/stent angina pectoris with evidence of demand ischemic injury 3. O2 dependent COPD/emphysema 4. R/O Amiodarone-associated pulmonary toxicity 5. Paroxysmal atrial fibrillation currently in sinus rhythm 6. HTN/HCVD 7. Hypercholesterolemia 8. Moderate mitral valve and tricuspid valve regurgitation with severe pulmonary hypertension 9. Acute on CKD 10. Anemia PLAN: 1. Continue Eliquis 2. Attempt B-Blockers with caution 3. D/C Cardizem CD 4. Attempt Ranexa +/- Nitrates 5. Continue Zocor 6. Bronchodilators, Daliresp and steroids as per the primary team Mayur Prasad MD
--- NOTE | 2016-09-27 15:38 | PN ---
Progress Note, Physician History of Present Illness: No new complaints - Current Medication List Current Medications: Active Medications Albuterol Sulfate (Ventolin 0.083% Nebulizer Soln -) 1 amp NEB Q4H PRN PRN Reason: SHORT OF BREATH/WHEEZING Last Admin: 09/27/16 06:15 Dose: 1 amp Alprazolam (Xanax -) 0.5 mg PO Q8H PRN PRN Reason: ANXIETY Last Admin: 09/27/16 09:13 Dose: 0.5 mg Apixaban (Eliquis -) 2.5 mg PO BID [facility] Last Admin: 09/27/16 09:14 Dose: 2.5 mg Budesonide/Formoterol Fumarate (Symbicort 160/4.5mcg -) 2 puff IH BID [facility] Last Admin: 09/27/16 09:14 Dose: 2 puff Ferrous Sulfate (Feosol -) 325 mg PO DAILY [facility] Last Admin: 09/27/16 09:14 Dose: 325 mg Furosemide (Lasix Injection -) 40 mg IVPUSH DAILY [facility] Last Admin: 09/27/16 09:08 Dose: 40 mg Isosorbide Mononitrate (Imdur -) 30 mg PO DAILY [facility] Methylprednisolone Sodium Succinate (Solu-Medrol -) 40 mg IVPB Q8H-IV [facility] Last Admin: 09/27/16 09:07 Dose: 40 mg Metoprolol Succinate (Toprol Xl -) 25 mg PO DAILY [facility] Non-Formulary Medication (Polyethylene Glycol 3350 [Purelax]) 17 gm PO ASDIR PRN PRN Reason: CONSTIPATION Non-Formulary Medication (Simvastatin) 5 mg PO HS [facility] Pantoprazole Sodium (Protonix -) 20 mg PO DAILY [facility] Last Admin: 09/27/16 09:14 Dose: 20 mg Ranolazine (Ranexa -) 500 mg PO BID [facility] Roflumilast (Daliresp -) 500 mcg PO DAILY [facility] Last Admin: 09/27/16 09:13 Dose: 500 mcg Sertraline HCl (Zoloft -) 150 mg PO DAILY [facility] Last Admin: 09/27/16 09:13 Dose: 150 mg Tiotropium [place] (Spiriva -) 1 puff IH DAILY [facility] Last Admin: 09/27/16 09:15 Dose: 1 puff Zolpidem Tartrate (Ambien -) 5 mg PO HS PRN Last Admin: 09/26/16 22:15 Dose: 5 mg - Objective Vital Signs: Vital Signs Temperature 97.8 F 09/27/16 10:00 Pulse Rate 72 09/27/16 10:00 Respiratory Rate 18 09/27/16 10:00 Blood Pressure 130/55 09/27/16 10:00 O2 Sat by Pulse Oximetry (%) 93 L 09/27/16 10:00 Constitutional: Yes: Well Nourished HENT: Yes: WNL Neck: Yes: Supple Cardiovascular: Yes: WNL, Regular Rate and Rhythm Respiratory: Yes: WNL, Regular, CTA Bilaterally Gastrointestinal: Yes: WNL, Normal Bowel Sounds, Soft Labs: CBC, BMP 09/26/16 05:38 09/26/16 05:38 INR, PTT INR 1.45 (0.82-1.09) H 09/25/16 09:13 Problem List - Problems (1) Acute on chronic diastolic heart failure Code(s): I50.33 - ACUTE ON CHRONIC DIASTOLIC (CONGESTIVE) HEART FAILURE (2) Iaspg-cf-nshyfbi kidney injury Code(s): N17.9 - ACUTE KIDNEY FAILURE, UNSPECIFIED N18.9 - CHRONIC KIDNEY DISEASE, UNSPECIFIED Qualifiers: Acute renal failure type: unspecified Chronic kidney disease stage: stage 3 (moderate) Qualified Code(s): N17.9 - Acute kidney failure, unspecified; N18.9 - Chronic kidney disease, unspecified (3) Anemia Code(s): D64.9 - ANEMIA, UNSPECIFIED Qualifiers: Anemia type: due to chronic kidney disease (4) COPD (chronic obstructive pulmonary disease) Code(s): J44.9 - CHRONIC OBSTRUCTIVE PULMONARY DISEASE, UNSPECIFIED Qualifiers : COPD type: unspecified COPD Qualified Code(s): J44.9 - Chronic obstructive pulmonary disease, unspecified (5) HTN (hypertension) Code(s): I10 - ESSENTIAL (PRIMARY) HYPERTENSION Qualifiers: Hypertension type: essential hypertension Qualified Code(s): I10 - Essential (primary) hypertension (6) Hypercholesterolemia Code(s): E78.00 - PURE HYPERCHOLESTEROLEMIA, UNSPECIFIED (7) PAF (paroxysmal atrial fibrillation) Code(s): I48.0 - PAROXYSMAL ATRIAL FIBRILLATION
[2016-09-27] MEDS: RANOLAZINE E.R. 500 MG TABLET (FP) PO SCH (21:15)
[2016-09-27] MEDS: ZOLPIDEM TARTRATE 5 MG TABLET PO PRN (21:19)
[2016-09-28] MEDS: methylPREDNISolone NA SUCC 40 MG/1 ML VIAL IVPB SCH ×3 (01:56→17:10)
[2016-09-28] MEDS: SERTRALINE HCL 50 MG TABLET (FP) PO SCH (09:26)
[2016-09-28] MEDS: ROFLUMILAST 500 MCG TABLET PO SCH (09:26)
[2016-09-28] MEDS: ISOSORBIDE MONONITRATE 30 MG TAB.SR.24H (FP) PO SCH (09:26)
[2016-09-28] MEDS: METOPROLOL SUCCINATE 25 MG TAB.SR.24H (FP) PO SCH (09:26)
[2016-09-28] MEDS: RANOLAZINE E.R. 500 MG TABLET (FP) PO SCH ×2 (09:26→21:32)
[2016-09-28] MEDS: APIXABAN 2.5 MG TABLET PO SCH ×2 (09:26→21:31)
[2016-09-28] MEDS: PANTOPRAZOLE 20 MG TABLET (FP) PO SCH (09:26)
[2016-09-28] MEDS: BUDESONIDE/FORMETEROL FUMARATE 160/4.5 mcg INHALER IH SCH ×2 (09:27→21:32)
[2016-09-28] MEDS: FUROSEMIDE 40 MG/4 ML INJECTABLE VIAL IVPUSH SCH (09:27)
[2016-09-28] MEDS: TIOTROPIUM BROMIDE 18 MCG/INH (DEVICE W/ 5 CAPSULES) IH SCH (09:27)
[2016-09-28] MEDS: FERROUS SO4 325 MG TABLET (FP) PO SCH (09:29)
[2016-09-28] MEDS: ALBUTEROL SO4 0.083% IH SOL 2.5 MG/3 ML VIAL.NEB. NEB PRN ×2 (11:52→15:52)
--- NOTE | 2016-09-28 12:27 | PN ---
Progress Note (short form) - Note Progress Note: Chief Complaint: Events noted, notes reviewed, continues to complain of persistent dyspnea and chest discomfort which is exacerbated with physical exertion History of Present Illness: Seen and examined on telemetry. 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 - Current Medication List Current Medications Albuterol Sulfate (Ventolin 0.083% Nebulizer Soln -) 1 amp NEB Q4H PRN PRN Reason: SHORT OF BREATH/WHEEZING Last Admin: 09/28/16 11:52 Dose: 1 amp Alprazolam (Xanax -) 0.5 mg PO Q8H PRN PRN Reason: ANXIETY Last Admin: 09/27/16 21:19 Dose: 0.5 mg Apixaban (Eliquis -) 2.5 mg PO BID [facility] Last Admin: 09/28/16 09:26 Dose: 2.5 mg Atorvastatin Calcium (Lipitor -) 10 mg PO [facility] Budesonide/Formoterol Fumarate (Symbicort 160/4.5mcg -) 2 puff IH BID [facility] Last Admin: 09/28/16 09:27 Dose: 2 puff Ferrous Sulfate (Feosol -) 325 mg PO DAILY [facility] Last Admin: 09/28/16 09:29 Dose: 325 mg Furosemide (Lasix Injection -) 40 mg IVPUSH DAILY [facility] Last Admin: 09/28/16 09:27 Dose: 40 mg Isosorbide Mononitrate (Imdur -) 30 mg PO DAILY [facility] Last Admin: 09/28/16 09:26 Dose: 30 mg Methylprednisolone Sodium Succinate (Solu-Medrol -) 40 mg IVPB Q8H-IV [facility] Last Admin: 09/28/16 09:26 Dose: 40 mg Metoprolol Succinate (Toprol Xl -) 25 mg PO DAILY [facility] Last Admin: 09/28/16 09:26 Dose: 25 mg Pantoprazole Sodium (Protonix -) 20 mg PO DAILY [facility] Last Admin: 09/28/16 09:26 Dose: 20 mg Polyethylene Glycol (Miralax (For Daily Use) -) 17 gm PO DAILY PRN PRN Reason: CONSTIPATION Ranolazine (Ranexa -) 500 mg PO BID [facility] Last Admin: 09/28/16 09:26 Dose: 500 mg Roflumilast (Daliresp -) 500 mcg PO DAILY [facility] Last Admin: 09/28/16 09:26 Dose: 500 mcg Sertraline HCl (Zoloft -) 150 mg PO DAILY [facility] Last Admin: 09/28/16 09:26 Dose: 150 mg Tiotropium [place] (Spiriva -) 1 puff IH DAILY [facility] Last Admin: 09/28/16 09:27 Dose: 1 puff Zolpidem Tartrate (Ambien -) 5 mg PO HS PRN Last Admin: 09/27/16 21:19 Dose: 5 mg Review of Systems Cardiovascular: As noted above Respiratory: denies: Cough or Sputum Production Gastrointestinal: denies: Nausea, Vomiting, Diarrhea, Constipation or Abdominal Discomfort Musculoskeletal: No symptoms reported Genitourinary: No symptoms reported - Objective Vital Signs: Last Vital Signs Temp Pulse Resp BP Pulse Ox 98 F 65 22 116/50 96 09/28/16 10:00 09/28/16 10:00 09/28/16 10:00 09/28/16 10:00 09/28/16 09:00 Constitutional: No Distress, Calm, Thin Neck: Supple Negative JVD No Bruit Cardiovascular: S1 S2 Regular Rate and Rhythm Respiratory: Bilateral Scattered Rhonchi Gastrointestinal: Soft Benign Normal Bowel Sounds Ext: No Edema Labs: CBC, BMP 09/26/16 05:38 09/26/16 05:38 Assessment/Plan ASSESSMENT: 1. Dyspnea secondary to acute on chronic LV diastolic failure, resolving 2. CAD post PCI/stent angina pectoris with evidence of demand ischemic injury 3. O2 dependent COPD/emphysema 4. R/O Amiodarone-associated pulmonary toxicity 5. Paroxysmal atrial fibrillation currently in sinus rhythm 6. HTN/HCVD 7. Hypercholesterolemia 8. Moderate mitral valve and tricuspid valve regurgitation with severe pulmonary hypertension 9. Acute on CKD 10. Anemia PLAN: 1. Continue Eliquis 2. Continue Toprol XL with caution 3. Continue Imdur 4. Continue Ranexa 5. Continue Zocor 6. Bronchodilators, Daliresp and steroids as per the primary team 7. Additional cardiovascular evaluation is recommended pending resolution of CHF and COPD exacerbation including MPI study if not performed recently Mayur Prasad MD
[2016-09-28] MEDS: POLYETHYLENE GLYCOL 3350 119 GM BTL PO PRN (12:38)
--- NOTE | 2016-09-28 14:09 | PN ---
Progress Note (short form) - Note Progress Note: PULMONARY Breathing slightly improving but still dyspneic with minimal exertion. Last Vital Signs Temp Pulse Resp BP Pulse Ox 98 F 65 22 116/50 96 09/28/16 10:00 09/28/16 10:00 09/28/16 10:00 09/28/16 10:00 09/28/16 09:00 Gen: tachypneic at rest Heart: RRR, +systolic murmur RUSB, base Lung: bibasilar rales Abd: soft, nontender Ext: no edema CBC, BMP 09/26/16 05:38 09/26/16 05:38 Active Medications Albuterol Sulfate (Ventolin 0.083% Nebulizer Soln -) 1 amp NEB Q4H PRN PRN Reason: SHORT OF BREATH/WHEEZING Last Admin: 09/28/16 11:52 Dose: 1 amp Alprazolam (Xanax -) 0.5 mg PO Q8H PRN PRN Reason: ANXIETY Last Admin: 09/27/16 21:19 Dose: 0.5 mg Apixaban (Eliquis -) 2.5 mg PO BID [facility] Last Admin: 09/28/16 09:26 Dose: 2.5 mg Atorvastatin Calcium (Lipitor -) 10 mg PO HS [facility] Budesonide/Formoterol Fumarate (Symbicort 160/4.5mcg -) 2 puff IH BID [facility] Last Admin: 09/28/16 09:27 Dose: 2 puff Ferrous Sulfate (Feosol -) 325 mg PO DAILY [facility] Last Admin: 09/28/16 09:29 Dose: 325 mg Furosemide (Lasix Injection -) 40 mg IVPUSH DAILY [facility] Last Admin: 09/28/16 09:27 Dose: 40 mg Isosorbide Mononitrate (Imdur -) 30 mg PO DAILY [facility] Last Admin: 09/28/16 09:26 Dose: 30 mg Methylprednisolone Sodium Succinate (Solu-Medrol -) 40 mg IVPB Q8H-IV [facility] Last Admin: 09/28/16 09:26 Dose: 40 mg Metoprolol Succinate (Toprol Xl -) 25 mg PO DAILY [facility] Last Admin: 09/28/16 09:26 Dose: 25 mg Pantoprazole Sodium (Protonix -) 20 mg PO DAILY [facility] Last Admin: 09/28/16 09:26 Dose: 20 mg Polyethylene Glycol (Miralax (For Daily Use) -) 17 gm PO DAILY PRN PRN Reason: CONSTIPATION Last Admin: 09/28/16 12:38 Dose: 17 gm Ranolazine (Ranexa -) 500 mg PO BID [facility] Last Admin: 09/28/16 09:26 Dose: 500 mg Roflumilast (Daliresp -) 500 mcg PO DAILY [facility] Last Admin: 09/28/16 09:26 Dose: 500 mcg Sertraline HCl (Zoloft -) 150 mg PO DAILY [facility] Last Admin: 09/28/16 09:26 Dose: 150 mg Tiotropium [place] (Spiriva -) 1 puff IH DAILY [facility] Last Admin: 09/28/16 09:27 Dose: 1 puff Zolpidem Tartrate (Ambien -) 5 mg PO HS PRN Last Admin: 09/27/16 21:19 Dose: 5 mg A/P Acute on Chronic Diastolic heart Failure Mitral Regurgitation Pulmonary HTN COPD Chronic Hypoxic Respiratory Failure Paroxysmal Atrial Fibrillation HTN Acute on Chronic Renal Failure - continue lasix - monitor urine output, creatinine - daily weights, I/Os - inhaled bronchodilators - can taper medrol, less likely COPD exacerbation - O2 to keep SpO2 >90% - rate controlled - continue anticoagulation - offered BiPAP to assist in work of breathing but pt declining at this time
--- NOTE | 2016-09-28 17:51 | PN ---
Progress Note, Physician History of Present Illness: No new complaints - Current Medication List Current Medications: Active Medications Albuterol Sulfate (Ventolin 0.083% Nebulizer Soln -) 1 amp NEB Q4H PRN PRN Reason: SHORT OF BREATH/WHEEZING Last Admin: 09/28/16 15:52 Dose: 1 amp Alprazolam (Xanax -) 0.5 mg PO Q8H PRN PRN Reason: ANXIETY Last Admin: 09/27/16 21:19 Dose: 0.5 mg Apixaban (Eliquis -) 2.5 mg PO BID [facility] Last Admin: 09/28/16 09:26 Dose: 2.5 mg Atorvastatin Calcium (Lipitor -) 10 mg PO HS [facility] Budesonide/Formoterol Fumarate (Symbicort 160/4.5mcg -) 2 puff IH BID [facility] Last Admin: 09/28/16 09:27 Dose: 2 puff Ferrous Sulfate (Feosol -) 325 mg PO DAILY [facility] Last Admin: 09/28/16 09:29 Dose: 325 mg Furosemide (Lasix Injection -) 40 mg IVPUSH DAILY [facility] Last Admin: 09/28/16 09:27 Dose: 40 mg Isosorbide Mononitrate (Imdur -) 30 mg PO DAILY [facility] Last Admin: 09/28/16 09:26 Dose: 30 mg Methylprednisolone Sodium Succinate (Solu-Medrol -) 40 mg IVPB Q8H-IV [facility] Last Admin: 09/28/16 17:10 Dose: 40 mg Metoprolol Succinate (Toprol Xl -) 25 mg PO DAILY [facility] Last Admin: 09/28/16 09:26 Dose: 25 mg Pantoprazole Sodium (Protonix -) 20 mg PO DAILY [facility] Last Admin: 09/28/16 09:26 Dose: 20 mg Polyethylene Glycol (Miralax (For Daily Use) -) 17 gm PO DAILY PRN PRN Reason: CONSTIPATION Last Admin: 09/28/16 12:38 Dose: 17 gm Ranolazine (Ranexa -) 500 mg PO BID [facility] Last Admin: 09/28/16 09:26 Dose: 500 mg Roflumilast (Daliresp -) 500 mcg PO DAILY [facility] Last Admin: 09/28/16 09:26 Dose: 500 mcg Sertraline HCl (Zoloft -) 150 mg PO DAILY [facility] Last Admin: 09/28/16 09:26 Dose: 150 mg Tiotropium [place] (Spiriva -) 1 puff IH DAILY [facility] Last Admin: 09/28/16 09:27 Dose: 1 puff Zolpidem Tartrate (Ambien -) 5 mg PO HS PRN Last Admin: 09/27/16 21:19 Dose: 5 mg - Objective Vital Signs: Vital Signs Temperature 98.2 F 09/28/16 14:38 Pulse Rate 70 09/28/16 14:38 Respiratory Rate 19 09/28/16 14:38 Blood Pressure 135/56 09/28/16 14:38 O2 Sat by Pulse Oximetry (%) 96 09/28/16 09:00 Eyes: Yes: WNL HENT: Yes: WNL Neck: Yes: Supple Cardiovascular: Yes: WNL, Regular Rate and Rhythm Respiratory: Yes: Diminished Gastrointestinal: Yes: WNL, Normal Bowel Sounds, Soft Labs: CBC, BMP 09/26/16 05:38 09/26/16 05:38 INR, PTT INR 1.45 (0.82-1.09) H 09/25/16 09:13 Problem List - Problems (1) Acute on chronic diastolic heart failure Code(s): I50.33 - ACUTE ON CHRONIC DIASTOLIC (CONGESTIVE) HEART FAILURE (2) Xghzw-do-krilkps kidney injury Code(s): N17.9 - ACUTE KIDNEY FAILURE, UNSPECIFIED N18.9 - CHRONIC KIDNEY DISEASE, UNSPECIFIED Qualifiers: Acute renal failure type: unspecified Chronic kidney disease stage: stage 3 (moderate) Qualified Code(s): N17.9 - Acute kidney failure, unspecified; N18.9 - Chronic kidney disease, unspecified (3) Anemia Code(s): D64.9 - ANEMIA, UNSPECIFIED Qualifiers: Anemia type: due to chronic kidney disease (4) Dyspnea Code(s): R06.00 - DYSPNEA, UNSPECIFIED (5) COPD (chronic obstructive pulmonary disease) Code(s): J44.9 - CHRONIC OBSTRUCTIVE PULMONARY DISEASE, UNSPECIFIED Qualifiers : COPD type: unspecified COPD Qualified Code(s): J44.9 - Chronic obstructive pulmonary disease, unspecified (6) HTN (hypertension) Code(s): I10 - ESSENTIAL (PRIMARY) HYPERTENSION Qualifiers: Hypertension type: essential hypertension Qualified Code(s): I10 - Essential (primary) hypertension (7) Hypercholesterolemia Code(s): E78.00 - PURE HYPERCHOLESTEROLEMIA, UNSPECIFIED (8) PAF (paroxysmal atrial fibrillation) Code(s): I48.0 - PAROXYSMAL ATRIAL FIBRILLATION
[2016-09-28] MEDS: ATORVASTATIN CA 10 MG TABLET (FP) PO SCH (21:31)
[2016-09-28] MEDS: ZOLPIDEM TARTRATE 5 MG TABLET PO PRN (21:34)
[2016-09-28] MEDS: ALPRAZolam 0.25 MG TABLET PO PRN (21:35)
[2016-09-29] MEDS: methylPREDNISolone NA SUCC 40 MG/1 ML VIAL IVPB SCH ×3 (01:00→17:23)
[2016-09-29] MEDS: ALBUTEROL SO4 0.083% IH SOL 2.5 MG/3 ML VIAL.NEB. NEB PRN ×4 (05:42→21:29)
[2016-09-29] MEDS ORDERED: PT OWN MED DRAWER 7, Y5N ONE (08:52)
[2016-09-29] MEDS: METOPROLOL SUCCINATE 25 MG TAB.SR.24H (FP) PO SCH (09:13)
[2016-09-29] MEDS: APIXABAN 2.5 MG TABLET PO SCH ×2 (09:13→21:39)
[2016-09-29] MEDS: FERROUS SO4 325 MG TABLET (FP) PO SCH (09:13)
[2016-09-29] MEDS: FUROSEMIDE 40 MG/4 ML INJECTABLE VIAL IVPUSH SCH (09:13)
[2016-09-29] MEDS: ROFLUMILAST 500 MCG TABLET PO SCH (09:13)
[2016-09-29] MEDS: ISOSORBIDE MONONITRATE 30 MG TAB.SR.24H (FP) PO SCH (09:13)
[2016-09-29] MEDS: SERTRALINE HCL 50 MG TABLET (FP) PO SCH (09:13)
[2016-09-29] MEDS: RANOLAZINE E.R. 500 MG TABLET (FP) PO SCH ×2 (09:13→21:39)
[2016-09-29] MEDS: PANTOPRAZOLE 20 MG TABLET (FP) PO SCH (09:14)
[2016-09-29] MEDS: TIOTROPIUM BROMIDE 18 MCG/INH (DEVICE W/ 5 CAPSULES) IH SCH (09:14)
[2016-09-29] MEDS: BUDESONIDE/FORMETEROL FUMARATE 160/4.5 mcg INHALER IH SCH ×2 (09:14→21:39)
--- NOTE | 2016-09-29 10:53 | PN ---
Progress Note, Physician Chief Complaint: Events noted Dyspnea persists and appears worsened today History of Present Illness: Patient was seen and examined. Awake and alert. Chart was reviewed Persistent dyspnea and cough Denies chest pain - Current Medication List Current Medications: Active Medications Albuterol Sulfate (Ventolin 0.083% Nebulizer Soln -) 1 amp NEB Q4H PRN PRN Reason: SHORT OF BREATH/WHEEZING Last Admin: 09/29/16 05:42 Dose: 1 amp Apixaban (Eliquis -) 2.5 mg PO BID [facility] Last Admin: 09/29/16 09:13 Dose: 2.5 mg Atorvastatin Calcium (Lipitor -) 10 mg PO HS [facility] Last Admin: 09/28/16 21:31 Dose: 10 mg Budesonide/Formoterol Fumarate (Symbicort 160/4.5mcg -) 2 puff IH BID [facility] Last Admin: 09/29/16 09:14 Dose: 2 puff Ferrous Sulfate (Feosol -) 325 mg PO DAILY [facility] Last Admin: 09/29/16 09:13 Dose: 325 mg Furosemide (Lasix Injection -) 40 mg IVPUSH DAILY [facility] Last Admin: 09/29/16 09:13 Dose: 40 mg Isosorbide Mononitrate (Imdur -) 30 mg PO DAILY [facility] Last Admin: 09/29/16 09:13 Dose: 30 mg Methylprednisolone Sodium Succinate (Solu-Medrol -) 40 mg IVPB Q8H-IV [facility] Last Admin: 09/29/16 09:13 Dose: 40 mg Metoprolol Succinate (Toprol Xl -) 25 mg PO DAILY [facility] Last Admin: 09/29/16 09:13 Dose: 25 mg Pantoprazole Sodium (Protonix -) 20 mg PO DAILY [facility] Last Admin: 09/29/16 09:14 Dose: 20 mg Polyethylene Glycol (Miralax (For Daily Use) -) 17 gm PO DAILY PRN PRN Reason: CONSTIPATION Last Admin: 09/28/16 12:38 Dose: 17 gm Ranolazine (Ranexa -) 500 mg PO BID [facility] Last Admin: 09/29/16 09:13 Dose: 500 mg Roflumilast (Daliresp -) 500 mcg PO DAILY [facility] Last Admin: 09/29/16 09:13 Dose: 500 mcg Sertraline HCl (Zoloft -) 150 mg PO DAILY [facility] Last Admin: 09/29/16 09:13 Dose: 150 mg Tiotropium [place] (Spiriva -) 1 puff IH DAILY [facility] Last Admin: 09/29/16 09:14 Dose: 1 puff - Objective Vital Signs: Vital Signs Temperature 98 F 09/29/16 08:24 Pulse Rate 77 09/29/16 08:24 Respiratory Rate 22 09/29/16 08:24 Blood Pressure 132/66 09/29/16 08:24 O2 Sat by Pulse Oximetry (%) 95 09/28/16 21:00 Neck: Yes: Supple Cardiovascular: Yes: Regular Rate and Rhythm, S1, S2. No: Murmur Respiratory: Yes: Diminished, Rhonchi (Scattered) Gastrointestinal: Yes: Normal Bowel Sounds, Soft. No: Tenderness Edema: No Additional Findings/Remarks: Review of Systems Cardiovascular: As noted above Respiratory: (+) shortness of breath, Cough (-) Sputum Production Gastrointestinal: denies: Nausea, Vomiting, Diarrhea, Constipation or Abdominal Discomfort Musculoskeletal: No symptoms reported Genitourinary: No symptoms reported Problem List - Problems (1) Acute on chronic diastolic heart failure Code(s): I50.33 - ACUTE ON CHRONIC DIASTOLIC (CONGESTIVE) HEART FAILURE (2) Acute on chronic respiratory failure with hypoxemia Code(s): J96.21 - ACUTE AND CHRONIC RESPIRATORY FAILURE WITH HYPOXIA (3) Pmsuy-eu-exgdram kidney injury Code(s): N17.9 - ACUTE KIDNEY FAILURE, UNSPECIFIED N18.9 - CHRONIC KIDNEY DISEASE, UNSPECIFIED Qualifiers: Acute renal failure type: unspecified Chronic kidney disease stage: stage 3 (moderate) Qualified Code(s): N17.9 - Acute kidney failure, unspecified; N18.9 - Chronic kidney disease, unspecified (4) Anemia Code(s): D64.9 - ANEMIA, UNSPECIFIED Qualifiers: Anemia type: due to chronic kidney disease (5) History of amiodarone therapy Code(s): Z92.29 - PERSONAL HISTORY OF OTHER DRUG THERAPY (6) Epistaxis Code(s): R04.0 - EPISTAXIS (7) HTN (hypertension) Code(s): I10 - ESSENTIAL (PRIMARY) HYPERTENSION Qualifiers: Hypertension type: essential hypertension Qualified Code(s): I10 - Essential (primary) hypertension (8) Hypercholesterolemia Code(s): E78.00 - PURE HYPERCHOLESTEROLEMIA, UNSPECIFIED (9) Mitral valve regurgitation Code(s): I34.0 - NONRHEUMATIC MITRAL (VALVE) INSUFFICIENCY Qualifiers: Cardiac valve disease etiology: nonrheumatic Qualified Code(s): I34.0 - Nonrheumatic mitral (valve) insufficiency (10) PAF (paroxysmal atrial fibrillation) Code(s): I48.0 - PAROXYSMAL ATRIAL FIBRILLATION (11) Pulmonary hypertension Code(s): I27.2 - OTHER SECONDARY PULMONARY HYPERTENSION (12) Tricuspid valve regurgitation Code(s): I07.1 - RHEUMATIC TRICUSPID INSUFFICIENCY Qualifiers: Cardiac valve disease etiology: nonrheumatic Qualified Code(s): I36.1 - Nonrheumatic tricuspid (valve) insufficiency Assessment/Plan 1. Dyspnea secondary to acute on chronic LV diastolic failure 2. CAD post PCI/stent angina pectoris with evidence of demand ischemic injury 3. O2 dependent COPD/emphysema 4. Rule out Amiodarone-associated pulmonary toxicity 5. Paroxysmal atrial fibrillation currently in sinus rhythm 6. HTN/HCVD 7. Hypercholesterolemia 8. Moderate mitral valve and tricuspid valve regurgitation with severe pulmonary hypertension 9. Acute on CKD 10. Anemia PLAN: 1. Continue Eliquis as tolerated 2. Continue Toprol XL with caution 3. Continue Imdur and Ranexa 4. Continue Zocor 5. Bronchodilators, Daliresp and steroids 6. Further cardiac evaluation is to be considered (i.e. Nuclear perfusion imaging or cardiac catheterization) once patient is hemodyamically and clinically stable Further plans are to follow Saurabh Posadas MD
--- NOTE | 2016-09-29 12:58 | PN ---
Progress Note, Physician History of Present Illness: PULMONARY ALERT,C/O INCREASED SOB,ON VENTI-MASK - Current Medication List Current Medications: Active Medications Albuterol Sulfate (Ventolin 0.083% Nebulizer Soln -) 1 amp NEB Q4H PRN PRN Reason: SHORT OF BREATH/WHEEZING Last Admin: 09/29/16 05:42 Dose: 1 amp Apixaban (Eliquis -) 2.5 mg PO BID [facility] Last Admin: 09/29/16 09:13 Dose: 2.5 mg Atorvastatin Calcium (Lipitor -) 10 mg PO HS [facility] Last Admin: 09/28/16 21:31 Dose: 10 mg Budesonide/Formoterol Fumarate (Symbicort 160/4.5mcg -) 2 puff IH BID [facility] Last Admin: 09/29/16 09:14 Dose: 2 puff Ferrous Sulfate (Feosol -) 325 mg PO DAILY [facility] Last Admin: 09/29/16 09:13 Dose: 325 mg Furosemide (Lasix Injection -) 40 mg IVPUSH DAILY [facility] Last Admin: 09/29/16 09:13 Dose: 40 mg Isosorbide Mononitrate (Imdur -) 30 mg PO DAILY [facility] Last Admin: 09/29/16 09:13 Dose: 30 mg Methylprednisolone Sodium Succinate (Solu-Medrol -) 40 mg IVPB Q8H-IV [facility] Last Admin: 09/29/16 09:13 Dose: 40 mg Metoprolol Succinate (Toprol Xl -) 25 mg PO DAILY [facility] Last Admin: 09/29/16 09:13 Dose: 25 mg Pantoprazole Sodium (Protonix -) 20 mg PO DAILY [facility] Last Admin: 09/29/16 09:14 Dose: 20 mg Polyethylene Glycol (Miralax (For Daily Use) -) 17 gm PO DAILY PRN PRN Reason: CONSTIPATION Last Admin: 09/28/16 12:38 Dose: 17 gm Ranolazine (Ranexa -) 500 mg PO BID [facility] Last Admin: 09/29/16 09:13 Dose: 500 mg Roflumilast (Daliresp -) 500 mcg PO DAILY [facility] Last Admin: 09/29/16 09:13 Dose: 500 mcg Sertraline HCl (Zoloft -) 150 mg PO DAILY [facility] Last Admin: 09/29/16 09:13 Dose: 150 mg Tiotropium [place] (Spiriva -) 1 puff IH DAILY [facility] Last Admin: 09/29/16 09:14 Dose: 1 puff - Objective Vital Signs: Vital Signs Temperature 98 F 09/29/16 08:24 Pulse Rate 77 09/29/16 08:24 Respiratory Rate 22 09/29/16 08:24 Blood Pressure 132/66 09/29/16 08:24 O2 Sat by Pulse Oximetry (%) 97 09/29/16 08:00 Constitutional: Yes: Well Nourished, Mild Distress Eyes: Yes: WNL HENT: Yes: WNL Neck: Yes: WNL Cardiovascular: Yes: Pulse Irregular, S1, S2 Respiratory: Yes: Rhonchi (BILATERAL RHONCHI) Gastrointestinal: Yes: Normal Bowel Sounds, Soft Extremities: Yes: WNL Edema: No Labs: CBC, BMP 09/26/16 05:38 09/26/16 05:38 INR, PTT INR 1.45 (0.82-1.09) H 09/25/16 09:13 - ....Imaging Chest X-ray: Report Reviewed, Image Reviewed Problem List - Problems (1) Acute on chronic diastolic heart failure Code(s): I50.33 - ACUTE ON CHRONIC DIASTOLIC (CONGESTIVE) HEART FAILURE (2) Ixres-bl-lsaygrf kidney injury Code(s): N17.9 - ACUTE KIDNEY FAILURE, UNSPECIFIED N18.9 - CHRONIC KIDNEY DISEASE, UNSPECIFIED Qualifiers: Acute renal failure type: unspecified Chronic kidney disease stage: stage 3 (moderate) Qualified Code(s): N17.9 - Acute kidney failure, unspecified; N18.9 - Chronic kidney disease, unspecified (3) CHF (congestive heart failure) Code(s): I50.9 - HEART FAILURE, UNSPECIFIED Qualifiers: Congestive heart failure type: unspecified congestive heart failure type Congestive heart failure chronicity: unspecified congestive heart failure chronicity Qualified Code(s): I50.9 - Heart failure, unspecified (4) History of amiodarone therapy Code(s): Z92.29 - PERSONAL HISTORY OF OTHER DRUG THERAPY (5) CHF exacerbation Code(s): I50.9 - HEART FAILURE, UNSPECIFIED Qualifiers: Congestive heart failure type: unspecified congestive heart failure type Qualified Code(s): I50.9 - Heart failure, unspecified (6) COPD (chronic obstructive pulmonary disease) Code(s): J44.9 - CHRONIC OBSTRUCTIVE PULMONARY DISEASE, UNSPECIFIED Qualifiers : COPD type: unspecified COPD Qualified Code(s): J44.9 - Chronic obstructive pulmonary disease, unspecified (7) HTN (hypertension) Code(s): I10 - ESSENTIAL (PRIMARY) HYPERTENSION Qualifiers: Hypertension type: essential hypertension Qualified Code(s): I10 - Essential (primary) hypertension (8) Hypercholesterolemia Code(s): E78.00 - PURE HYPERCHOLESTEROLEMIA, UNSPECIFIED (9) PAF (paroxysmal atrial fibrillation) Code(s): I48.0 - PAROXYSMAL ATRIAL FIBRILLATION (10) Pulmonary hypertension Code(s): I27.2 - OTHER SECONDARY PULMONARY HYPERTENSION (11) Acute on chronic respiratory failure with hypoxemia Code(s): J96.21 - ACUTE AND CHRONIC RESPIRATORY FAILURE WITH HYPOXIA Assessment/Plan IMP ACUTE ON CHRONIC HYPOXEMIC RESPIRATORY FAILURE DECOMPENSATED CHF DIASTOLIC COPD EXACERBATION R/O AMIODARONE LUNG TOXICITY PULMONARY HTN MITRAL STENOSIS ASHD S/P STENT PAF ACUTE ON CHRONIC RENAL FAILURE DM HTN PLAN LASIX IV INHALED BRONCHODILATORS SUPPLEMENTAL O2 STEROIDS DAILY WTS MONITOR LYTES BIPAP IF PT ALLOWED DR GAITAN Problem List - Problems (1) Acute on chronic diastolic heart failure Code(s): I50.33 - ACUTE ON CHRONIC DIASTOLIC (CONGESTIVE) HEART FAILURE (2) Qqdfx-rm-immmlnv kidney injury Code(s): N17.9 - ACUTE KIDNEY FAILURE, UNSPECIFIED N18.9 - CHRONIC KIDNEY DISEASE, UNSPECIFIED Qualifiers: Acute renal failure type: unspecified Chronic kidney disease stage: stage 3 (moderate) Qualified Code(s): N17.9 - Acute kidney failure, unspecified; N18.9 - Chronic kidney disease, unspecified (3) CHF (congestive heart failure) Code(s): I50.9 - HEART FAILURE, UNSPECIFIED Qualifiers: Congestive heart failure type: unspecified congestive heart failure type Congestive heart failure chronicity: unspecified congestive heart failure chronicity Qualified Code(s): I50.9 - Heart failure, unspecified (4) History of amiodarone therapy Code(s): Z92.29 - PERSONAL HISTORY OF OTHER DRUG THERAPY (5) CHF exacerbation Code(s): I50.9 - HEART FAILURE, UNSPECIFIED Qualifiers: Congestive heart failure type: unspecified congestive heart failure type Qualified Code(s): I50.9 - Heart failure, unspecified (6) COPD (chronic obstructive pulmonary disease) Code(s): J44.9 - CHRONIC OBSTRUCTIVE PULMONARY DISEASE, UNSPECIFIED Qualifiers : COPD type: unspecified COPD Qualified Code(s): J44.9 - Chronic obstructive pulmonary disease, unspecified (7) HTN (hypertension) Code(s): I10 - ESSENTIAL (PRIMARY) HYPERTENSION Qualifiers: Hypertension type: essential hypertension Qualified Code(s): I10 - Essential (primary) hypertension (8) Hypercholesterolemia Code(s): E78.00 - PURE HYPERCHOLESTEROLEMIA, UNSPECIFIED (9) PAF (paroxysmal atrial fibrillation) Code(s): I48.0 - PAROXYSMAL ATRIAL FIBRILLATION (10) Pulmonary hypertension Code(s): I27.2 - OTHER SECONDARY PULMONARY HYPERTENSION (11) Acute on chronic respiratory failure with hypoxemia Code(s): J96.21 - ACUTE AND CHRONIC RESPIRATORY FAILURE WITH HYPOXIA
[2016-09-29 14:35] LABS: MCH 24.7 pg (25.7-33.7); MCHC 30.6 g/dl (32.0-36.0); MEAN PLT VOLUME 8.1 fl (7.5-11.1); NEUTROPHILS 95.3 % (42.8-82.8); PLATELET COUNT 201 K/MM3 (134-434); RDW 16.9 % (11.6-15.6); WHITE BLOOD COUNT 14.8 K/mm3 (4.0-10.0)
[2016-09-29 14:59] LABS: CALCIUM 8.2 mg/dL (8.5-10.1)
[2016-09-29 15:05] LABS: ALBUMIN 2.5 g/dl (3.4-5.0); BILIRUBIN,TOTAL 0.4 mg/dL (0.2-1.0); COCKROFT - GAULT 16.388; CREATININE 2.9 mg/dL (0.55-1.02); TOT PROT 5.9 g/dl (6.4-8.2)
[2016-09-29] MEDS: ATORVASTATIN CA 10 MG TABLET (FP) PO SCH (21:39)
--- NOTE | 2016-09-29 23:11 | PN ---
Progress Note, Physician History of Present Illness: Pt was SOB today and using ventimask - Current Medication List Current Medications: Active Medications Albuterol Sulfate (Ventolin 0.083% Nebulizer Soln -) 1 amp NEB Q4H PRN PRN Reason: SHORT OF BREATH/WHEEZING Last Admin: 09/29/16 21:29 Dose: 1 amp Apixaban (Eliquis -) 2.5 mg PO BID [facility] Last Admin: 09/29/16 21:39 Dose: 2.5 mg Atorvastatin Calcium (Lipitor -) 10 mg PO HS [facility] Last Admin: 09/29/16 21:39 Dose: 10 mg Budesonide/Formoterol Fumarate (Symbicort 160/4.5mcg -) 2 puff IH BID [facility] Last Admin: 09/29/16 21:39 Dose: 2 puff Ferrous Sulfate (Feosol -) 325 mg PO DAILY [facility] Last Admin: 09/29/16 09:13 Dose: 325 mg Furosemide (Lasix Injection -) 40 mg IVPUSH DAILY [facility] Last Admin: 09/29/16 09:13 Dose: 40 mg Isosorbide Mononitrate (Imdur -) 30 mg PO DAILY [facility] Last Admin: 09/29/16 09:13 Dose: 30 mg Methylprednisolone Sodium Succinate (Solu-Medrol -) 40 mg IVPB Q8H-IV [facility] Last Admin: 09/29/16 17:23 Dose: 40 mg Metoprolol Succinate (Toprol Xl -) 25 mg PO DAILY [facility] Last Admin: 09/29/16 09:13 Dose: 25 mg Pantoprazole Sodium (Protonix -) 20 mg PO DAILY [facility] Last Admin: 09/29/16 09:14 Dose: 20 mg Polyethylene Glycol (Miralax (For Daily Use) -) 17 gm PO DAILY PRN PRN Reason: CONSTIPATION Last Admin: 09/28/16 12:38 Dose: 17 gm Ranolazine (Ranexa -) 500 mg PO BID [facility] Last Admin: 09/29/16 21:39 Dose: 500 mg Roflumilast (Daliresp -) 500 mcg PO DAILY [facility] Last Admin: 09/29/16 09:13 Dose: 500 mcg Sertraline HCl (Zoloft -) 150 mg PO DAILY [facility] Last Admin: 09/29/16 09:13 Dose: 150 mg Tiotropium [place] (Spiriva -) 1 puff IH DAILY [facility] Last Admin: 09/29/16 09:14 Dose: 1 puff - Objective Vital Signs: Vital Signs Temperature 98.3 F 09/29/16 18:00 Pulse Rate 63 09/29/16 18:00 Respiratory Rate 20 09/29/16 18:00 Blood Pressure 136/43 09/29/16 18:00 O2 Sat by Pulse Oximetry (%) 97 09/29/16 10:25 Constitutional: Yes: Well Nourished HENT: Yes: WNL Neck: Yes: Supple Cardiovascular: Yes: WNL, Regular Rate and Rhythm Respiratory: Yes: Diminished Gastrointestinal: Yes: WNL, Normal Bowel Sounds, Soft Labs: CBC, BMP 09/29/16 14:15 09/29/16 14:15 INR, PTT INR 1.45 (0.82-1.09) H 09/25/16 09:13 Problem List - Problems (1) Acute on chronic diastolic heart failure Assessment/Plan: Cont IV lasix Monitor electrolytes Further w/u as per cardio Possible stress test once more stable Code(s): I50.33 - ACUTE ON CHRONIC DIASTOLIC (CONGESTIVE) HEART FAILURE (2) COPD (chronic obstructive pulmonary disease) Assessment/Plan: COPD exacerbation Pt still requiring same dose of IV steroids Cont inhalers/nebulizers BIPAP wc pt has been refusing Code(s): J44.9 - CHRONIC OBSTRUCTIVE PULMONARY DISEASE, UNSPECIFIED Qualifiers : COPD type: unspecified COPD Qualified Code(s): J44.9 - Chronic obstructive pulmonary disease, unspecified (3) [id number]-wtxlsik kidney injury Assessment/Plan: Cont to monitor labs Will get renal consult Check renal US Cont ranexa Code(s): N17.9 - ACUTE KIDNEY FAILURE, UNSPECIFIED N18.9 - CHRONIC KIDNEY DISEASE, UNSPECIFIED Qualifiers: Acute renal failure type: unspecified Chronic kidney disease stage: stage 3 (moderate) Qualified Code(s): N17.9 - Acute kidney failure, unspecified; N18.9 - Chronic kidney disease, unspecified (4) Anemia Assessment/Plan: Multifactorial Cont feso4 Code(s): D64.9 - ANEMIA, UNSPECIFIED Qualifiers: Anemia type: due to chronic kidney disease (5) HTN (hypertension) Assessment/Plan: BP stable Cont toprol/imdur Code(s): I10 - ESSENTIAL (PRIMARY) HYPERTENSION Qualifiers: Hypertension type: essential hypertension Qualified Code(s): I10 - Essential (primary) hypertension (6) Hypercholesterolemia Assessment/Plan: Cont lipitor Code(s): E78.00 - PURE HYPERCHOLESTEROLEMIA, UNSPECIFIED (7) PAF (paroxysmal atrial fibrillation) Assessment/Plan: Cont eliquis Heart rate controlled Code(s): I48.0 - PAROXYSMAL ATRIAL FIBRILLATION (8) Dyspnea Code(s): R06.00 - DYSPNEA, UNSPECIFIED
[2016-09-30] MEDS: ALBUTEROL SO4 0.083% IH SOL 2.5 MG/3 ML VIAL.NEB. NEB PRN ×4 (02:00→22:45)
[2016-09-30] MEDS: methylPREDNISolone NA SUCC 40 MG/1 ML VIAL IVPB SCH ×3 (02:30→17:35)
[2016-09-30 06:58] LABS: BASOPHIL 0.1 % (0-2.0); MCH 25.1 pg (25.7-33.7); MEAN PLT VOLUME 8.6 fl (7.5-11.1); NEUTROPHILS 95.1 % (42.8-82.8); PLATELET COUNT 207 K/MM3 (134-434); RDW 17.1 % (11.6-15.6); WHITE BLOOD COUNT 11.6 K/mm3 (4.0-10.0)
[2016-09-30 07:34] LABS: ALBUMIN 2.5 g/dl (3.4-5.0)
[2016-09-30 07:38] LABS: BILIRUBIN,TOTAL 0.3 mg/dL (0.2-1.0)
[2016-09-30 07:45] LABS: COCKROFT - GAULT 26.4945
[2016-09-30] MEDS: ISOSORBIDE MONONITRATE 30 MG TAB.SR.24H (FP) PO SCH (09:40)
[2016-09-30] MEDS: FUROSEMIDE 40 MG/4 ML INJECTABLE VIAL IVPUSH SCH (09:40)
[2016-09-30] MEDS: METOPROLOL SUCCINATE 25 MG TAB.SR.24H (FP) PO SCH (09:40)
[2016-09-30] MEDS: FERROUS SO4 325 MG TABLET (FP) PO SCH (09:40)
[2016-09-30] MEDS: APIXABAN 2.5 MG TABLET PO SCH ×2 (09:40→22:03)
[2016-09-30] MEDS: SERTRALINE HCL 50 MG TABLET (FP) PO SCH (09:40)
[2016-09-30] MEDS: RANOLAZINE E.R. 500 MG TABLET (FP) PO SCH ×2 (09:40→22:04)
[2016-09-30] MEDS: PANTOPRAZOLE 20 MG TABLET (FP) PO SCH (09:40)
[2016-09-30] MEDS: BUDESONIDE/FORMETEROL FUMARATE 160/4.5 mcg INHALER IH SCH ×2 (09:43→22:03)
[2016-09-30] MEDS: TIOTROPIUM BROMIDE 18 MCG/INH (DEVICE W/ 5 CAPSULES) IH SCH (09:43)
[2016-09-30] MEDS: POLYETHYLENE GLYCOL 3350 119 GM BTL PO PRN (09:43)
[2016-09-30] MEDS: ROFLUMILAST 500 MCG TABLET PO SCH (09:43)
--- NOTE | 2016-09-30 11:17 | PN ---
Progress Note, Physician History of Present Illness: PULMONARY ALERT,STILL DYSPNEIC,COGESTED,+ COUGH - Current Medication List Current Medications: Active Medications Albuterol Sulfate (Ventolin 0.083% Nebulizer Soln -) 1 amp NEB Q4H PRN PRN Reason: SHORT OF BREATH/WHEEZING Last Admin: 09/30/16 06:35 Dose: 1 amp Apixaban (Eliquis -) 2.5 mg PO BID [facility] Last Admin: 09/30/16 09:40 Dose: 2.5 mg Atorvastatin Calcium (Lipitor -) 10 mg PO HS [facility] Last Admin: 09/29/16 21:39 Dose: 10 mg Budesonide/Formoterol Fumarate (Symbicort 160/4.5mcg -) 2 puff IH BID [facility] Last Admin: 09/30/16 09:43 Dose: 2 puff Ferrous Sulfate (Feosol -) 325 mg PO DAILY [facility] Last Admin: 09/30/16 09:40 Dose: 325 mg Furosemide (Lasix Injection -) 40 mg IVPUSH DAILY [facility] Last Admin: 09/30/16 09:40 Dose: 40 mg Isosorbide Mononitrate (Imdur -) 30 mg PO DAILY [facility] Last Admin: 09/30/16 09:40 Dose: 30 mg Methylprednisolone Sodium Succinate (Solu-Medrol -) 40 mg IVPB Q8H-IV [facility] Last Admin: 09/30/16 09:40 Dose: 40 mg Metoprolol Succinate (Toprol Xl -) 25 mg PO DAILY [facility] Last Admin: 09/30/16 09:40 Dose: 25 mg Pantoprazole Sodium (Protonix -) 20 mg PO DAILY [facility] Last Admin: 09/30/16 09:40 Dose: 20 mg Polyethylene Glycol (Miralax (For Daily Use) -) 17 gm PO DAILY PRN PRN Reason: CONSTIPATION Last Admin: 09/30/16 09:43 Dose: 17 gm Ranolazine (Ranexa -) 500 mg PO BID [facility] Last Admin: 09/30/16 09:40 Dose: 500 mg Roflumilast (Daliresp -) 500 mcg PO DAILY [facility] Last Admin: 09/30/16 09:43 Dose: 500 mcg Sertraline HCl (Zoloft -) 150 mg PO DAILY [facility] Last Admin: 09/30/16 09:40 Dose: 150 mg Tiotropium [place] (Spiriva -) 1 puff IH DAILY [facility] Last Admin: 09/30/16 09:43 Dose: 1 puff - Objective Vital Signs: Vital Signs Temperature 98 F 09/30/16 08:10 Pulse Rate 68 09/30/16 08:10 Respiratory Rate 20 09/30/16 08:10 Blood Pressure 157/68 09/30/16 08:10 O2 Sat by Pulse Oximetry (%) 100 09/29/16 21:00 Constitutional: Yes: Well Nourished, Calm Eyes: Yes: WNL HENT: Yes: WNL Neck: Yes: WNL Cardiovascular: Yes: Pulse Irregular, S1, S2 Respiratory: Yes: Rhonchi (SCATTERED MAICOL RHONCHI) Extremities: Yes: WNL Edema: Yes Labs: CBC, BMP 09/30/16 05:35 09/30/16 05:35 INR, PTT INR 1.45 (0.82-1.09) H 09/25/16 09:13 Problem List - Problems (1) Acute on chronic diastolic heart failure Code(s): I50.33 - ACUTE ON CHRONIC DIASTOLIC (CONGESTIVE) HEART FAILURE (2) Jfbil-ya-vkqliag kidney injury Code(s): N17.9 - ACUTE KIDNEY FAILURE, UNSPECIFIED N18.9 - CHRONIC KIDNEY DISEASE, UNSPECIFIED Qualifiers: Acute renal failure type: unspecified Chronic kidney disease stage: stage 3 (moderate) Qualified Code(s): N17.9 - Acute kidney failure, unspecified; N18.9 - Chronic kidney disease, unspecified (3) CHF (congestive heart failure) Code(s): I50.9 - HEART FAILURE, UNSPECIFIED Qualifiers: Congestive heart failure type: unspecified congestive heart failure type Congestive heart failure chronicity: unspecified congestive heart failure chronicity Qualified Code(s): I50.9 - Heart failure, unspecified (4) History of amiodarone therapy Code(s): Z92.29 - PERSONAL HISTORY OF OTHER DRUG THERAPY (5) CHF exacerbation Code(s): I50.9 - HEART FAILURE, UNSPECIFIED Qualifiers: Congestive heart failure type: unspecified congestive heart failure type Qualified Code(s): I50.9 - Heart failure, unspecified (6) COPD (chronic obstructive pulmonary disease) Code(s): J44.9 - CHRONIC OBSTRUCTIVE PULMONARY DISEASE, UNSPECIFIED Qualifiers : COPD type: unspecified COPD Qualified Code(s): J44.9 - Chronic obstructive pulmonary disease, unspecified (7) HTN (hypertension) Code(s): I10 - ESSENTIAL (PRIMARY) HYPERTENSION Qualifiers: Hypertension type: essential hypertension Qualified Code(s): I10 - Essential (primary) hypertension (8) Hypercholesterolemia Code(s): E78.00 - PURE HYPERCHOLESTEROLEMIA, UNSPECIFIED (9) PAF (paroxysmal atrial fibrillation) Code(s): I48.0 - PAROXYSMAL ATRIAL FIBRILLATION (10) Pulmonary hypertension Code(s): I27.2 - OTHER SECONDARY PULMONARY HYPERTENSION (11) Acute on chronic respiratory failure with hypoxemia Code(s): J96.21 - ACUTE AND CHRONIC RESPIRATORY FAILURE WITH HYPOXIA Assessment/Plan IMP ACUTE ON CHRONIC HYPOXEMIC RESPIRATORY FAILURE DECOMPENSATED CHF DIASTOLIC COPD EXACERBATION R/O AMIODARONE LUNG TOXICITY PULMONARY HTN MITRAL STENOSIS ASHD S/P STENT PAF ACUTE ON CHRONIC RENAL FAILURE DM HTN PLAN LASIX IV INHALED BRONCHODILATORS SUPPLEMENTAL O2 STEROIDS SAME DOSE DAILY WTS MONITOR STEVEN GAITAN Problem List - Problems (1) Acute on chronic diastolic heart failure Code(s): I50.33 - ACUTE ON CHRONIC DIASTOLIC (CONGESTIVE) HEART FAILURE (2) Vkcfb-zl-gvggoip kidney injury Code(s): N17.9 - ACUTE KIDNEY FAILURE, UNSPECIFIED N18.9 - CHRONIC KIDNEY DISEASE, UNSPECIFIED Qualifiers: Acute renal failure type: unspecified Chronic kidney disease stage: stage 3 (moderate) Qualified Code(s): N17.9 - Acute kidney failure, unspecified; N18.9 - Chronic kidney disease, unspecified (3) CHF (congestive heart failure) Code(s): I50.9 - HEART FAILURE, UNSPECIFIED Qualifiers: Congestive heart failure type: unspecified congestive heart failure type Congestive heart failure chronicity: unspecified congestive heart failure chronicity Qualified Code(s): I50.9 - Heart failure, unspecified (4) History of amiodarone therapy Code(s): Z92.29 - PERSONAL HISTORY OF OTHER DRUG THERAPY (5) CHF exacerbation Code(s): I50.9 - HEART FAILURE, UNSPECIFIED Qualifiers: Congestive heart failure type: unspecified congestive heart failure type Qualified Code(s): I50.9 - Heart failure, unspecified (6) COPD (chronic obstructive pulmonary disease) Code(s): J44.9 - CHRONIC OBSTRUCTIVE PULMONARY DISEASE, UNSPECIFIED Qualifiers : COPD type: unspecified COPD Qualified Code(s): J44.9 - Chronic obstructive pulmonary disease, unspecified (7) HTN (hypertension) Code(s): I10 - ESSENTIAL (PRIMARY) HYPERTENSION Qualifiers: Hypertension type: essential hypertension Qualified Code(s): I10 - Essential (primary) hypertension (8) Hypercholesterolemia Code(s): E78.00 - PURE HYPERCHOLESTEROLEMIA, UNSPECIFIED (9) PAF (paroxysmal atrial fibrillation) Code(s): I48.0 - PAROXYSMAL ATRIAL FIBRILLATION (10) Pulmonary hypertension Code(s): I27.2 - OTHER SECONDARY PULMONARY HYPERTENSION (11) Acute on chronic respiratory failure with hypoxemia Code(s): J96.21 - ACUTE AND CHRONIC RESPIRATORY FAILURE WITH HYPOXIA
--- NOTE | 2016-09-30 12:11 | PN ---
Progress Note (short form) - Note Progress Note: Chief Complaint: Events noted, notes reviewed, continues to complain of persistent dyspnea and chest discomfort which is exacerbated with physical exertion although severity has decreased History of Present Illness: Seen and examined on telemetry. 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 - Current Medication List Current Medications Albuterol Sulfate (Ventolin 0.083% Nebulizer Soln -) 1 amp NEB Q4H PRN PRN Reason: SHORT OF BREATH/WHEEZING Last Admin: 09/30/16 06:35 Dose: 1 amp Apixaban (Eliquis -) 2.5 mg PO BID [facility] Last Admin: 09/30/16 09:40 Dose: 2.5 mg Atorvastatin Calcium (Lipitor -) 10 mg PO HS [facility] Last Admin: 09/29/16 21:39 Dose: 10 mg Budesonide/Formoterol Fumarate (Symbicort 160/4.5mcg -) 2 puff IH BID [facility] Last Admin: 09/30/16 09:43 Dose: 2 puff Ferrous Sulfate (Feosol -) 325 mg PO DAILY [facility] Last Admin: 09/30/16 09:40 Dose: 325 mg Furosemide (Lasix Injection -) 40 mg IVPUSH DAILY [facility] Last Admin: 09/30/16 09:40 Dose: 40 mg Isosorbide Mononitrate (Imdur -) 30 mg PO DAILY [facility] Last Admin: 09/30/16 09:40 Dose: 30 mg Methylprednisolone Sodium Succinate (Solu-Medrol -) 40 mg IVPB Q8H-IV [facility] Last Admin: 09/30/16 09:40 Dose: 40 mg Metoprolol Succinate (Toprol Xl -) 25 mg PO DAILY [facility] Last Admin: 09/30/16 09:40 Dose: 25 mg Pantoprazole Sodium (Protonix -) 20 mg PO DAILY [facility] Last Admin: 09/30/16 09:40 Dose: 20 mg Polyethylene Glycol (Miralax (For Daily Use) -) 17 gm PO DAILY PRN PRN Reason: CONSTIPATION Last Admin: 09/30/16 09:43 Dose: 17 gm Ranolazine (Ranexa -) 500 mg PO BID [facility] Last Admin: 09/30/16 09:40 Dose: 500 mg Roflumilast (Daliresp -) 500 mcg PO DAILY [facility] Last Admin: 09/30/16 09:43 Dose: 500 mcg Sertraline HCl (Zoloft -) 150 mg PO DAILY [facility] Last Admin: 09/30/16 09:40 Dose: 150 mg Tiotropium [place] (Spiriva -) 1 puff IH DAILY [facility] Last Admin: 09/30/16 09:43 Dose: 1 puff Review of Systems Cardiovascular: As noted above Respiratory: denies: Cough or Sputum Production Gastrointestinal: denies: Nausea, Vomiting, Diarrhea, Constipation or Abdominal Discomfort Musculoskeletal: No symptoms reported Genitourinary: No symptoms reported - Objective Vital Signs: Last Vital Signs Temp Pulse Resp BP Pulse Ox 98 F 68 20 157/68 96 09/30/16 08:10 09/30/16 08:10 09/30/16 08:10 09/30/16 08:10 09/30/16 08:00 Constitutional: No Distress, Calm, Thin Neck: Supple Negative JVD No Bruit Cardiovascular: S1 S2 Regular Rate and Rhythm Respiratory: Bilateral Scattered Rhonchi Gastrointestinal: Soft Benign Normal Bowel Sounds Ext: No Edema Labs: CBC, BMP 09/30/16 05:35 09/30/16 05:35 Assessment/Plan ASSESSMENT: 1. Dyspnea secondary to acute on chronic LV diastolic failure, resolving 2. CAD post PCI/stent angina pectoris with evidence of demand ischemic injury, persistent exertional chest discomfort 3. Oxygen dependent COPD/emphysema 4. R/O Amiodarone-associated pulmonary toxicity 5. Paroxysmal atrial fibrillation currently in sinus rhythm 6. HTN 7. Hypercholesterolemia 8. Moderate mitral valve and tricuspid valve regurgitation with severe pulmonary hypertension 9. Acute on CKD 10. Anemia PLAN: 1. Continue Eliquis 2. Continue Toprol XL with caution 3. Continue Imdur 4. Continue Ranexa 5. Continue Zocor 6. Bronchodilators, Daliresp and steroids as per the primary team 7. As outlined in prior note additional cardiovascular evaluation is recommended pending resolution of CHF and COPD exacerbation including MPI study if not performed recently (attempt to defer left heart cardiac catheterization coronary angiography considering the above-noted progressive renal insufficiency ) Mayur Prasad MD
--- NOTE | 2016-09-30 16:33 | CONSULT ---
Consult - text type - Consultation Consultation Note: Renal Consult for MENA on CKD This is a 81 year old woman with PMhx of CKD (baseline Cr unclear, in 2012 Cr peaked at 3.7 but was discharged with Cr of 1.3), DM2, COPD, CAD s/p Stenting, Afib not on Coumadin (pt decision) who presented with SOB and found to have acute diastolic HF with worsening of renal function with diuresis. Pt states that she has known about her CKD for some time. Denies any CP now, SOB persists but is improved, no LE edema. No N/V/D. Reports good urine output. No flank pain. PMhx: as above Allergies: NKDA Family hx: [place] Social Hx: former smoker ROS: as per HPI, all other pertinent ros negative Home Meds: Home Medications Medication Instructions Recorded Colchicine [Colcrys] 0.3 mg PO DAILY 01/07/16 Hydrocortisone 2.5% Topical Cr 1 applic TP BID 09/06/16 [Anusol-Hc -] Albuterol Sulfate [Proair 108 mcg IH Q4HWA PRN #0 inh 09/09/16 Respiclick] Albuterol Sulfate [Ventolin -] 2.5 mg PO QID PRN #0 inh 09/09/16 Alprazolam [Xanax] 0.5 mg PO TID PRN #0 tab 09/09/16 Amiodarone HCl 200 mg PO DAILY #0 tab 09/09/16 Apixaban [Eliquis -] 2.5 mg PO BID tablet 09/09/16 Aspirin [ASA -] 81 mg PO DAILY #0 tab 09/09/16 Ferrous Sulfate 325 mg PO DAILY #0 tab 09/09/16 Fluticasone/Salmeterol [Advair 1 each IH BID #0 inh 09/09/16 250-50 Diskus] Furosemide [Lasix -] 40 mg PO DAILY #0 tab 09/09/16 Omeprazole 20 mg PO DAILY #0 tab 09/09/16 Polyethylene Glycol 3350 [Purelax] 17 gm PO ASDIR PRN #0 bottle 09/09/16 Roflumilast [Daliresp] 500 mcg PO DAILY #0 tab 09/09/16 Sertraline HCl [Zoloft -] 150 mg PO DAILY #0 tab 09/09/16 Simvastatin [Zocor -] 5 mg PO HS #0 tab 09/09/16 Umeclidinium [place] [Incruse 62.5 mcg IH DAILY #0 inh 09/09/16 Ellipta] Zolpidem Tartrate [Ambien] 10 mg PO HS #0 tab 09/09/16 Heparin - 5,000 unit SQ DAILY 09/10/16 Salmeterol/Fluticasone [Advair 1 inh PO BID 09/25/16 500Mcg/50Mcg] Vital Signs Temperature 98.0 F 09/30/16 15:00 Pulse Rate 62 09/30/16 15:00 Respiratory Rate 20 09/30/16 15:00 Blood Pressure 137/59 09/30/16 15:00 O2 Sat by Pulse Oximetry (%) 96 09/30/16 08:00 Intake & Output 09/27/16 09/28/16 09/29/16 09/30/16 23:59 23:59 23:59 23:59 Intake Total 670 700 720 500 Output Total 9233 856 6076 50 Balance -430 0 -530 450 Weight 141 lb 145 lb 8 oz 243 lb 6 oz Gen: NAD, on NC HEENT: NC/AT, MMM, No JVD CVS: irregular, No M/R Lungs: Dec BS throughout the lugn gilbert Ext: No edema, clubbing or cyanosis : No bladder distension CBC, BMP 09/30/16 05:35 09/30/16 05:35 Current Medications Albuterol Sulfate (Ventolin 0.083% Nebulizer Soln -) 1 amp NEB Q4H PRN PRN Reason: SHORT OF BREATH/WHEEZING Last Admin: 09/30/16 06:35 Dose: 1 amp Apixaban (Eliquis -) 2.5 mg PO BID [facility] Last Admin: 09/30/16 09:40 Dose: 2.5 mg Atorvastatin Calcium (Lipitor -) 10 mg PO HS [facility] Last Admin: 09/29/16 21:39 Dose: 10 mg Budesonide/Formoterol Fumarate (Symbicort 160/4.5mcg -) 2 puff IH BID [facility] Last Admin: 09/30/16 09:43 Dose: 2 puff Ferrous Sulfate (Feosol -) 325 mg PO DAILY [facility] Last Admin: 09/30/16 09:40 Dose: 325 mg Furosemide (Lasix Injection -) 40 mg IVPUSH DAILY [facility] Last Admin: 09/30/16 09:40 Dose: 40 mg Isosorbide Mononitrate (Imdur -) 30 mg PO DAILY [facility] Last Admin: 09/30/16 09:40 Dose: 30 mg Methylprednisolone Sodium Succinate (Solu-Medrol -) 40 mg IVPB Q8H-IV [facility] Last Admin: 09/30/16 09:40 Dose: 40 mg Metoprolol Succinate (Toprol Xl -) 25 mg PO DAILY [facility] Last Admin: 09/30/16 09:40 Dose: 25 mg Pantoprazole Sodium (Protonix -) 20 mg PO DAILY [facility] Last Admin: 09/30/16 09:40 Dose: 20 mg Polyethylene Glycol (Miralax (For Daily Use) -) 17 gm PO DAILY PRN PRN Reason: CONSTIPATION Last Admin: 09/30/16 09:43 Dose: 17 gm Ranolazine (Ranexa -) 500 mg PO BID [facility] Last Admin: 09/30/16 09:40 Dose: 500 mg Roflumilast (Daliresp -) 500 mcg PO DAILY [facility] Last Admin: 09/30/16 09:43 Dose: 500 mcg Sertraline HCl (Zoloft -) 150 mg PO DAILY [facility] Last Admin: 09/30/16 09:40 Dose: 150 mg Tiotropium [place] (Spiriva -) 1 puff IH DAILY [facility] Last Admin: 09/30/16 09:43 Dose: 1 puff A/P 81 year old woman with PMhx of CKD (baseline Cr unclear, in 2012 Cr peaked at 3.7 but was discharged with Cr of 1.3), DM2, COPD, CAD s/p Stenting, Afib not on Coumadin (pt decision) who presented with SOB and found to have acute diastolic HF with worsening of renal function with diuresis #MENA on CKD likely secondary to intravascular volume depletion in setting of diuresis check FeUrea, UA, UPCR Renal Us showed atrophic kidneys w/o evidence of obstruction no acute indication for COORDINATOR OF EVALUATION if BUN/Cr continues to rise would consider holding/decreasing lasix Trend BUN/Cr will need to obtain outpatient labs for baseline renal function #Diastolic HF Cardiology following titrate diuretics to achieve evolemia low salt diet #COPD Continue Nebs and supplemental O2 Pulmonary follow up #Afib on Eliquis #Anemia Check iron stuides no acute indication for transfusion #Hypernatremia free water intake as tolerated thank you Andrew Mcclellan DO
--- NOTE | 2016-09-30 20:32 | PN ---
Progress Note, Physician - Current Medication List Current Medications: Active Medications Albuterol Sulfate (Ventolin 0.083% Nebulizer Soln -) 1 amp NEB Q4H PRN PRN Reason: SHORT OF BREATH/WHEEZING Last Admin: 09/30/16 17:15 Dose: 1 amp Apixaban (Eliquis -) 2.5 mg PO BID [facility] Last Admin: 09/30/16 09:40 Dose: 2.5 mg Atorvastatin Calcium (Lipitor -) 10 mg PO HS [facility] Last Admin: 09/29/16 21:39 Dose: 10 mg Budesonide/Formoterol Fumarate (Symbicort 160/4.5mcg -) 2 puff IH BID [facility] Last Admin: 09/30/16 09:43 Dose: 2 puff Ferrous Sulfate (Feosol -) 325 mg PO DAILY [facility] Last Admin: 09/30/16 09:40 Dose: 325 mg Furosemide (Lasix Injection -) 40 mg IVPUSH DAILY [facility] Last Admin: 09/30/16 09:40 Dose: 40 mg Isosorbide Mononitrate (Imdur -) 30 mg PO DAILY [facility] Last Admin: 09/30/16 09:40 Dose: 30 mg Methylprednisolone Sodium Succinate (Solu-Medrol -) 40 mg IVPB Q8H-IV [facility] Last Admin: 09/30/16 17:35 Dose: 40 mg Metoprolol Succinate (Toprol Xl -) 25 mg PO DAILY [facility] Last Admin: 09/30/16 09:40 Dose: 25 mg Pantoprazole Sodium (Protonix -) 20 mg PO DAILY [facility] Last Admin: 09/30/16 09:40 Dose: 20 mg Polyethylene Glycol (Miralax (For Daily Use) -) 17 gm PO DAILY PRN PRN Reason: CONSTIPATION Last Admin: 09/30/16 09:43 Dose: 17 gm Ranolazine (Ranexa -) 500 mg PO BID [facility] Last Admin: 09/30/16 09:40 Dose: 500 mg Roflumilast (Daliresp -) 500 mcg PO DAILY [facility] Last Admin: 09/30/16 09:43 Dose: 500 mcg Sertraline HCl (Zoloft -) 150 mg PO DAILY [facility] Last Admin: 09/30/16 09:40 Dose: 150 mg Tiotropium [place] (Spiriva -) 1 puff IH DAILY [facility] Last Admin: 09/30/16 09:43 Dose: 1 puff - Objective Vital Signs: Vital Signs Temperature 98.0 F 09/30/16 17:00 Pulse Rate 71 09/30/16 17:15 Respiratory Rate 20 09/30/16 17:00 Blood Pressure 144/60 09/30/16 17:00 O2 Sat by Pulse Oximetry (%) 97 09/30/16 17:15 Labs: CBC, BMP 09/30/16 05:35 09/30/16 05:35 INR, PTT INR 1.45 (0.82-1.09) H 09/25/16 09:13 Problem List - Problems (1) Acute on chronic diastolic heart failure Code(s): I50.33 - ACUTE ON CHRONIC DIASTOLIC (CONGESTIVE) HEART FAILURE (2) COPD (chronic obstructive pulmonary disease) Code(s): J44.9 - CHRONIC OBSTRUCTIVE PULMONARY DISEASE, UNSPECIFIED Qualifiers : COPD type: unspecified COPD Qualified Code(s): J44.9 - Chronic obstructive pulmonary disease, unspecified (3) Evoom-zb-hvduceo kidney injury Code(s): N17.9 - ACUTE KIDNEY FAILURE, UNSPECIFIED N18.9 - CHRONIC KIDNEY DISEASE, UNSPECIFIED Qualifiers: Acute renal failure type: unspecified Chronic kidney disease stage: stage 3 (moderate) Qualified Code(s): N17.9 - Acute kidney failure, unspecified; N18.9 - Chronic kidney disease, unspecified (4) Anemia Code(s): D64.9 - ANEMIA, UNSPECIFIED Qualifiers: Anemia type: due to chronic kidney disease (5) HTN (hypertension) Code(s): I10 - ESSENTIAL (PRIMARY) HYPERTENSION Qualifiers: Hypertension type: essential hypertension Qualified Code(s): I10 - Essential (primary) hypertension (6) Hypercholesterolemia Code(s): E78.00 - PURE HYPERCHOLESTEROLEMIA, UNSPECIFIED (7) PAF (paroxysmal atrial fibrillation) Code(s): I48.0 - PAROXYSMAL ATRIAL FIBRILLATION (8) Dyspnea Code(s): R06.00 - DYSPNEA, UNSPECIFIED Qualifiers: Dyspnea type: unspecified Qualified Code(s): R06.00 - Dyspnea, unspecified
[2016-09-30] MEDS: ATORVASTATIN CA 10 MG TABLET (FP) PO SCH (22:03)
[2016-10-01 00:18] LABS: URINE APPEARANCE CLEAR; URINE BILIRUBIN NEGATIVE (NEGATIVE); URINE COLOR LTYELLOW; URINE GLUCOSE (UA) 1+ (NEGATIVE); URINE KETONE NEGATIVE (NEGATIVE); URINE LEUK ESTERASE NEGATIVE (NEGATIVE); URINE NITRITE NEGATIVE (NEGATIVE); URINE UROBILINOGEN NEGATIVE E.U./dl (0.2-1.0)
[2016-10-01 00:21] LABS: URINE BLOOD 1+ (NEGATIVE); URINE PROTEIN 3+ (NEGATIVE)
[2016-10-01 00:23] LABS: URINE BACTERIA MODERATE /hpf (NONE SEEN); URINE HYALINE CAST 3 /lpf; URINE MUCUS RARE; URINE RBC <1 /hpf (0-3); URINE WBC 4 /hpf (3-5)
[2016-10-01] MEDS: methylPREDNISolone NA SUCC 40 MG/1 ML VIAL IVPB SCH ×3 (03:05→17:06)
[2016-10-01] MEDS: ALBUTEROL SO4 0.083% IH SOL 2.5 MG/3 ML VIAL.NEB. NEB PRN ×4 (06:15→22:20)
[2016-10-01 07:32] LABS: BASOPHIL 0.1 % (0-2.0); MCHC 30.8 g/dl (32.0-36.0); MEAN CELL VOLUME 80.9 fl (80-96); MEAN PLT VOLUME 8.6 fl (7.5-11.1); NEUTROPHILS 93.7 % (42.8-82.8); PLATELET COUNT 252 K/MM3 (134-434); RDW 16.8 % (11.6-15.6); WHITE BLOOD COUNT 11.5 K/mm3 (4.0-10.0)
[2016-10-01 08:17] LABS: ALBUMIN 2.7 g/dl (3.4-5.0); BILIRUBIN,TOTAL 0.4 mg/dL (0.2-1.0); CALCIUM 8.1 mg/dL (8.5-10.1); COCKROFT - GAULT 16.218; CREATININE 2.9 mg/dL (0.55-1.02); FERRITIN 136.956 ng/ml (6.9-282.5); MAGNESIUM 2.6 mg/dL (1.8-2.4); TOT PROT 6.2 g/dl (6.4-8.2)
--- NOTE | 2016-10-01 09:20 | PN ---
Progress Note, Physician History of Present Illness: Continued dyspnea on exertion, maintained in SR. - Current Medication List Current Medications: Active Medications Albuterol Sulfate (Ventolin 0.083% Nebulizer Soln -) 1 amp NEB Q4H PRN PRN Reason: SHORT OF BREATH/WHEEZING Last Admin: 10/01/16 06:15 Dose: 1 amp Apixaban (Eliquis -) 2.5 mg PO BID [facility] Last Admin: 09/30/16 22:03 Dose: 2.5 mg Atorvastatin Calcium (Lipitor -) 10 mg PO HS [facility] Last Admin: 09/30/16 22:03 Dose: 10 mg Budesonide/Formoterol Fumarate (Symbicort 160/4.5mcg -) 2 puff IH BID [facility] Last Admin: 09/30/16 22:03 Dose: 2 puff Ferrous Sulfate (Feosol -) 325 mg PO DAILY [facility] Last Admin: 09/30/16 09:40 Dose: 325 mg Furosemide (Lasix Injection -) 40 mg IVPUSH DAILY [facility] Last Admin: 09/30/16 09:40 Dose: 40 mg Isosorbide Mononitrate (Imdur -) 30 mg PO DAILY [facility] Last Admin: 09/30/16 09:40 Dose: 30 mg Methylprednisolone Sodium Succinate (Solu-Medrol -) 40 mg IVPB Q8H-IV [facility] Last Admin: 10/01/16 03:05 Dose: 40 mg Metoprolol Succinate (Toprol Xl -) 25 mg PO DAILY [facility] Last Admin: 09/30/16 09:40 Dose: 25 mg Pantoprazole Sodium (Protonix -) 20 mg PO DAILY [facility] Last Admin: 09/30/16 09:40 Dose: 20 mg Polyethylene Glycol (Miralax (For Daily Use) -) 17 gm PO DAILY PRN PRN Reason: CONSTIPATION Last Admin: 09/30/16 09:43 Dose: 17 gm Ranolazine (Ranexa -) 500 mg PO BID [facility] Last Admin: 09/30/16 22:04 Dose: 500 mg Roflumilast (Daliresp -) 500 mcg PO DAILY [facility] Last Admin: 09/30/16 09:43 Dose: 500 mcg Sertraline HCl (Zoloft -) 150 mg PO DAILY [facility] Last Admin: 09/30/16 09:40 Dose: 150 mg Tiotropium [place] (Spiriva -) 1 puff IH DAILY [facility] Last Admin: 09/30/16 09:43 Dose: 1 puff - Objective Vital Signs: Vital Signs Temperature 98 F 10/01/16 06:00 Pulse Rate 71 10/01/16 06:00 Respiratory Rate 20 10/01/16 06:00 Blood Pressure 149/63 10/01/16 06:00 O2 Sat by Pulse Oximetry (%) 97 09/30/16 21:00 Constitutional: Yes: No Distress, Calm Neck: Yes: Supple Cardiovascular: Yes: Regular Rate and Rhythm Respiratory: Yes: Regular, On Nasal O2 Gastrointestinal: Yes: Normal Bowel Sounds, Soft Edema: No Labs: CBC, BMP 10/01/16 05:10 10/01/16 05:10 INR, PTT INR 1.45 (0.82-1.09) H 09/25/16 09:13 - ....Imaging EKG: Report Reviewed (Tele: NSR) Problem List - Problems (1) COPD (chronic obstructive pulmonary disease) Code(s): J44.9 - CHRONIC OBSTRUCTIVE PULMONARY DISEASE, UNSPECIFIED Qualifiers : COPD type: unspecified COPD Qualified Code(s): J44.9 - Chronic obstructive pulmonary disease, unspecified (2) HTN (hypertension) Code(s): I10 - ESSENTIAL (PRIMARY) HYPERTENSION Qualifiers: Hypertension type: essential hypertension Qualified Code(s): I10 - Essential (primary) hypertension (3) Hypercholesterolemia Code(s): E78.00 - PURE HYPERCHOLESTEROLEMIA, UNSPECIFIED (4) PAF (paroxysmal atrial fibrillation) Code(s): I48.0 - PAROXYSMAL ATRIAL FIBRILLATION (5) Pulmonary hypertension Code(s): I27.2 - OTHER SECONDARY PULMONARY HYPERTENSION (6) Hyird-hz-mloosfr kidney injury Code(s): N17.9 - ACUTE KIDNEY FAILURE, UNSPECIFIED N18.9 - CHRONIC KIDNEY DISEASE, UNSPECIFIED Qualifiers: Acute renal failure type: unspecified Chronic kidney disease stage: stage 3 (moderate) Qualified Code(s): N17.9 - Acute kidney failure, unspecified; N18.9 - Chronic kidney disease, unspecified (7) Acute on chronic diastolic heart failure Code(s): I50.33 - ACUTE ON CHRONIC DIASTOLIC (CONGESTIVE) HEART FAILURE (8) History of amiodarone therapy Code(s): Z92.29 - PERSONAL HISTORY OF OTHER DRUG THERAPY (9) Anemia Code(s): D64.9 - ANEMIA, UNSPECIFIED Qualifiers: Anemia type: due to chronic kidney disease Assessment/Plan Echocardiography dated 09/08/2016 revealed normal LV size and function, mod LAE, mild HERNANDEZ, mod MR and TR with RVSP 50-60 mmHg, 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 Dyspnea secondary to acute on chronic LV diastolic failure 2. CAD post PCI/stent angina pectoris with evidence of demand ischemic injury, persistent exertional chest discomfort 3. Oxygen dependent COPD/emphysema 4. R/O Amiodarone-associated pulmonary toxicity 5. Paroxysmal atrial fibrillation currently in sinus rhythm 6. HTN 7. Hypercholesterolemia 8. Moderate mitral valve and tricuspid valve regurgitation with severe pulmonary hypertension 9. Acute on CKD 10. Anemia PLAN: 1. Continue Eliquis 2.5 bid 2. Continue Toprol XL 25 qd 3. Continue Imdur 30 qd 4. Continue Ranexa 500 bid 5. Continue Lipitor 10 qhs 6. IV diuresis with monitor diuretic response, renal fxn and electrolytes 7 .Bronchodilators, Daliresp and IV steroids with GI protection as per the primary team 8. As outlined in prior note additional cardiovascular evaluation is recommended pending resolution of CHF and COPD exacerbation including MPI study if not performed recently (attempt to defer left heart cardiac catheterization coronary angiography considering the above-noted progressive renal insufficiency )
[2016-10-01] MEDS: FERROUS SO4 325 MG TABLET (FP) PO SCH (09:40)
[2016-10-01] MEDS: ISOSORBIDE MONONITRATE 30 MG TAB.SR.24H (FP) PO SCH (09:40)
[2016-10-01] MEDS: PANTOPRAZOLE 20 MG TABLET (FP) PO SCH (09:40)
[2016-10-01] MEDS: APIXABAN 2.5 MG TABLET PO SCH ×2 (09:40→21:24)
[2016-10-01] MEDS: TIOTROPIUM BROMIDE 18 MCG/INH (DEVICE W/ 5 CAPSULES) IH SCH (09:40)
[2016-10-01] MEDS: RANOLAZINE E.R. 500 MG TABLET (FP) PO SCH ×2 (09:40→21:24)
[2016-10-01] MEDS: SERTRALINE HCL 50 MG TABLET (FP) PO SCH (09:40)
[2016-10-01] MEDS: FUROSEMIDE 40 MG/4 ML INJECTABLE VIAL IVPUSH SCH (09:40)
[2016-10-01] MEDS: METOPROLOL SUCCINATE 25 MG TAB.SR.24H (FP) PO SCH (09:40)
[2016-10-01] MEDS: BUDESONIDE/FORMETEROL FUMARATE 160/4.5 mcg INHALER IH SCH ×2 (09:41→21:24)
[2016-10-01] MEDS: ROFLUMILAST 500 MCG TABLET PO SCH (09:41)
--- NOTE | 2016-10-01 10:58 | PN ---
Progress Note, Physician History of Present Illness: pulmonary alert,c/o sob,+cough,-cp - Current Medication List Current Medications: Active Medications Albuterol Sulfate (Ventolin 0.083% Nebulizer Soln -) 1 amp NEB Q4H PRN PRN Reason: SHORT OF BREATH/WHEEZING Last Admin: 10/01/16 10:16 Dose: 1 amp Apixaban (Eliquis -) 2.5 mg PO BID [facility] Last Admin: 10/01/16 09:40 Dose: 2.5 mg Atorvastatin Calcium (Lipitor -) 10 mg PO HS [facility] Last Admin: 09/30/16 22:03 Dose: 10 mg Budesonide/Formoterol Fumarate (Symbicort 160/4.5mcg -) 2 puff IH BID [facility] Last Admin: 10/01/16 09:41 Dose: 2 puff Ferrous Sulfate (Feosol -) 325 mg PO DAILY [facility] Last Admin: 10/01/16 09:40 Dose: 325 mg Furosemide (Lasix Injection -) 40 mg IVPUSH DAILY [facility] Last Admin: 10/01/16 09:40 Dose: 40 mg Furosemide (Lasix Injection -) 80 mg IVPB ONCE ONE Stop: 10/01/16 18:01 Isosorbide Mononitrate (Imdur -) 30 mg PO DAILY [facility] Last Admin: 10/01/16 09:40 Dose: 30 mg Methylprednisolone Sodium Succinate (Solu-Medrol -) 40 mg IVPB Q8H-IV [facility] Last Admin: 10/01/16 09:40 Dose: 40 mg Metoprolol Succinate (Toprol Xl -) 25 mg PO DAILY [facility] Last Admin: 10/01/16 09:40 Dose: 25 mg Pantoprazole Sodium (Protonix -) 20 mg PO DAILY [facility] Last Admin: 10/01/16 09:40 Dose: 20 mg Polyethylene Glycol (Miralax (For Daily Use) -) 17 gm PO DAILY PRN PRN Reason: CONSTIPATION Last Admin: 09/30/16 09:43 Dose: 17 gm Ranolazine (Ranexa -) 500 mg PO BID [facility] Last Admin: 10/01/16 09:40 Dose: 500 mg Roflumilast (Daliresp -) 500 mcg PO DAILY [facility] Last Admin: 10/01/16 09:41 Dose: 500 mcg Sertraline HCl (Zoloft -) 150 mg PO DAILY [facility] Last Admin: 10/01/16 09:40 Dose: 150 mg Tiotropium [place] (Spiriva -) 1 puff IH DAILY [facility] Last Admin: 10/01/16 09:40 Dose: 1 puff - Objective Vital Signs: Vital Signs Temperature 98.0 F 10/01/16 08:00 Pulse Rate 70 10/01/16 10:16 Respiratory Rate 20 10/01/16 08:00 Blood Pressure 156/74 10/01/16 08:00 O2 Sat by Pulse Oximetry (%) 99 10/01/16 10:16 Constitutional: Yes: Well Nourished, Calm Eyes: Yes: WNL HENT: Yes: WNL Neck: Yes: WNL Cardiovascular: Yes: Regular Rate and Rhythm, S1, S2 Respiratory: Yes: Rhonchi (few scattered hallie rhonchi) Gastrointestinal: Yes: Normal Bowel Sounds, Soft Extremities: Yes: WNL Edema: No Labs: CBC, BMP 10/01/16 05:10 10/01/16 05:10 INR, PTT INR 1.45 (0.82-1.09) H 09/25/16 09:13 Problem List - Problems (1) Acute on chronic diastolic heart failure Code(s): I50.33 - ACUTE ON CHRONIC DIASTOLIC (CONGESTIVE) HEART FAILURE (2) Rxfho-bo-tmontvq kidney injury Code(s): N17.9 - ACUTE KIDNEY FAILURE, UNSPECIFIED N18.9 - CHRONIC KIDNEY DISEASE, UNSPECIFIED Qualifiers: Acute renal failure type: unspecified Chronic kidney disease stage: stage 3 (moderate) Qualified Code(s): N17.9 - Acute kidney failure, unspecified; N18.9 - Chronic kidney disease, unspecified (3) CHF (congestive heart failure) Code(s): I50.9 - HEART FAILURE, UNSPECIFIED Qualifiers: Congestive heart failure type: unspecified congestive heart failure type Congestive heart failure chronicity: unspecified congestive heart failure chronicity Qualified Code(s): I50.9 - Heart failure, unspecified (4) History of amiodarone therapy Code(s): Z92.29 - PERSONAL HISTORY OF OTHER DRUG THERAPY (5) CHF exacerbation Code(s): I50.9 - HEART FAILURE, UNSPECIFIED Qualifiers: Congestive heart failure type: unspecified congestive heart failure type Qualified Code(s): I50.9 - Heart failure, unspecified (6) COPD (chronic obstructive pulmonary disease) Code(s): J44.9 - CHRONIC OBSTRUCTIVE PULMONARY DISEASE, UNSPECIFIED Qualifiers : COPD type: unspecified COPD Qualified Code(s): J44.9 - Chronic obstructive pulmonary disease, unspecified (7) HTN (hypertension) Code(s): I10 - ESSENTIAL (PRIMARY) HYPERTENSION Qualifiers: Hypertension type: essential hypertension Qualified Code(s): I10 - Essential (primary) hypertension (8) Hypercholesterolemia Code(s): E78.00 - PURE HYPERCHOLESTEROLEMIA, UNSPECIFIED (9) PAF (paroxysmal atrial fibrillation) Code(s): I48.0 - PAROXYSMAL ATRIAL FIBRILLATION (10) Pulmonary hypertension Code(s): I27.2 - OTHER SECONDARY PULMONARY HYPERTENSION (11) Acute on chronic respiratory failure with hypoxemia Code(s): J96.21 - ACUTE AND CHRONIC RESPIRATORY FAILURE WITH HYPOXIA Assessment/Plan IMP ACUTE ON CHRONIC HYPOXEMIC RESPIRATORY FAILURE DECOMPENSATED CHF DIASTOLIC COPD EXACERBATION R/O AMIODARONE LUNG TOXICITY PULMONARY HTN MITRAL STENOSIS ASHD S/P STENT PAF ACUTE ON CHRONIC RENAL FAILURE DM HTN PLAN LASIX IV INHALED BRONCHODILATORS SUPPLEMENTAL O2 CONT STEROIDS SAME DOSE DAILY WTS MONITOR LYTES,RENAL FUNCTION DR GAITAN Problem List - Problems (1) Acute on chronic diastolic heart failure Code(s): I50.33 - ACUTE ON CHRONIC DIASTOLIC (CONGESTIVE) HEART FAILURE (2) Ngrnj-dr-bsdqpqn kidney injury Code(s): N17.9 - ACUTE KIDNEY FAILURE, UNSPECIFIED N18.9 - CHRONIC KIDNEY DISEASE, UNSPECIFIED Qualifiers: Acute renal failure type: unspecified Chronic kidney disease stage: stage 3 (moderate) Qualified Code(s): N17.9 - Acute kidney failure, unspecified; N18.9 - Chronic kidney disease, unspecified (3) CHF (congestive heart failure) Code(s): I50.9 - HEART FAILURE, UNSPECIFIED Qualifiers: Congestive heart failure type: unspecified congestive heart failure type Congestive heart failure chronicity: unspecified congestive heart failure chronicity Qualified Code(s): I50.9 - Heart failure, unspecified (4) History of amiodarone therapy Code(s): Z92.29 - PERSONAL HISTORY OF OTHER DRUG THERAPY (5) CHF exacerbation Code(s): I50.9 - HEART FAILURE, UNSPECIFIED Qualifiers: Congestive heart failure type: unspecified congestive heart failure type Qualified Code(s): I50.9 - Heart failure, unspecified (6) COPD (chronic obstructive pulmonary disease) Code(s): J44.9 - CHRONIC OBSTRUCTIVE PULMONARY DISEASE, UNSPECIFIED Qualifiers : COPD type: unspecified COPD Qualified Code(s): J44.9 - Chronic obstructive pulmonary disease, unspecified (7) HTN (hypertension) Code(s): I10 - ESSENTIAL (PRIMARY) HYPERTENSION Qualifiers: Hypertension type: essential hypertension Qualified Code(s): I10 - Essential (primary) hypertension (8) Hypercholesterolemia Code(s): E78.00 - PURE HYPERCHOLESTEROLEMIA, UNSPECIFIED (9) PAF (paroxysmal atrial fibrillation) Code(s): I48.0 - PAROXYSMAL ATRIAL FIBRILLATION (10) Pulmonary hypertension Code(s): I27.2 - OTHER SECONDARY PULMONARY HYPERTENSION (11) Acute on chronic respiratory failure with hypoxemia Code(s): J96.21 - ACUTE AND CHRONIC RESPIRATORY FAILURE WITH HYPOXIA
--- NOTE | 2016-10-01 12:37 | PN ---
Progress Note (short form) - Note Progress Note: Renal Follow up for MENA on CKD Pt seen and examined at the bedside continues to report dypnea no cough no chest pain no LE swelling good urine output Vital Signs Temperature 98.0 F 10/01/16 08:00 Pulse Rate 70 10/01/16 10:16 Respiratory Rate 20 10/01/16 08:00 Blood Pressure 156/74 10/01/16 08:00 O2 Sat by Pulse Oximetry (%) 99 10/01/16 10:16 Intake & Output 09/28/16 09/29/16 09/30/16 10/01/16 23:59 23:59 23:59 23:59 Intake Total 700 720 810 10 Output Total 700 1250 50 Balance 0 -530 760 10 Weight 145 lb 8 oz 143 lb 6 oz 144 lb Gen: NAD, on NC CVS: irregular, No M/R Lungs: Dec BS throughout the lung gilbert, no rales Ext: No edema, clubbing or cyanosis CBC, BMP 10/01/16 05:10 10/01/16 05:10 Current Medications Apixaban (Eliquis -) 2.5 mg PO BID [facility] Last Admin: 10/01/16 09:40 Dose: 2.5 mg Atorvastatin Calcium (Lipitor -) 10 mg PO HS [facility] Last Admin: 09/30/16 22:03 Dose: 10 mg Budesonide/Formoterol Fumarate (Symbicort 160/4.5mcg -) 2 puff IH BID [facility] Last Admin: 10/01/16 09:41 Dose: 2 puff Ferrous Sulfate (Feosol -) 325 mg PO DAILY [facility] Last Admin: 10/01/16 09:40 Dose: 325 mg Furosemide (Lasix Injection -) 40 mg IVPUSH DAILY [facility] Last Admin: 10/01/16 09:40 Dose: 40 mg Furosemide (Lasix Injection -) 80 mg IVPB ONCE ONE Stop: 10/01/16 18:01 Isosorbide Mononitrate (Imdur -) 30 mg PO DAILY [facility] Last Admin: 10/01/16 09:40 Dose: 30 mg Methylprednisolone Sodium Succinate (Solu-Medrol -) 40 mg IVPB Q8H-IV [facility] Last Admin: 10/01/16 09:40 Dose: 40 mg Metoprolol Succinate (Toprol Xl -) 25 mg PO DAILY [facility] Last Admin: 10/01/16 09:40 Dose: 25 mg Pantoprazole Sodium (Protonix -) 20 mg PO DAILY [facility] Last Admin: 10/01/16 09:40 Dose: 20 mg Polyethylene Glycol (Miralax (For Daily Use) -) 17 gm PO DAILY PRN PRN Reason: CONSTIPATION Last Admin: 09/30/16 09:43 Dose: 17 gm Ranolazine (Ranexa -) 500 mg PO BID [facility] Last Admin: 10/01/16 09:40 Dose: 500 mg Roflumilast (Daliresp -) 500 mcg PO DAILY [facility] Last Admin: 10/01/16 09:41 Dose: 500 mcg Sertraline HCl (Zoloft -) 150 mg PO DAILY [facility] Last Admin: 10/01/16 09:40 Dose: 150 mg Tiotropium [place] (Spiriva -) 1 puff IH DAILY [facility] Last Admin: 10/01/16 09:40 Dose: 1 puff A/P 81 year old woman with PMhx of CKD (baseline Cr unclear, in 2012 Cr peaked at 3.7 but was discharged with Cr of 1.3), DM2, COPD, CAD s/p Stenting, Afib not on Coumadin (pt decision) who presented with SOB and found to have acute diastolic HF with worsening of renal function with diuresis #MENA on CKD in setting of CHF Exacerbation and IV diuresis Renal function without significant change yesterday today FeUrea was 55% and UPCR was 7.2 on Lasix 40mg IV Daily, may need to titrate down if BUN/cr rises no uremic symptoms no acute indication for [employer] Will check BELIA, SPEP, Hgb A1C, RPR, HIV to r/o secondary causes of nephrotic syndrome #Diastolic HF Cardiology following titrate diuretics to achieve evolemia low salt diet #COPD Continue Nebs and supplemental O2 Pulmonary follow up #Afib on Eliquis #Anemia Iron studies are pending will check SPEP given CKD/Proteinuria #Hypernatremia free water intake as tolerated Andrew Mcclellan DO
[2016-10-01] MEDS: ALPRAZolam 0.25 MG TABLET PO PRN (12:57)
[2016-10-01] MEDS ORDERED: FUROSEMIDE 40 MG/4 ML INJECTABLE VIAL IVPB ONE (18:00)
[2016-10-01] MEDS: ATORVASTATIN CA 10 MG TABLET (FP) PO SCH (21:24)
--- NOTE | 2016-10-01 23:37 | PN ---
Progress Note, Physician - Current Medication List Current Medications: Active Medications Albuterol Sulfate (Ventolin 0.083% Nebulizer Soln -) 1 amp NEB Q4H PRN PRN Reason: SHORT OF BREATH/WHEEZING Last Admin: 10/01/16 18:18 Dose: 1 amp Alprazolam (Xanax -) 0.25 mg PO BID [facility] Last Admin: 10/01/16 12:57 Dose: 0.25 mg Apixaban (Eliquis -) 2.5 mg PO BID [facility] Last Admin: 10/01/16 21:24 Dose: 2.5 mg Atorvastatin [place] (Lipitor -) 10 mg PO HS [facility] Last Admin: 10/01/16 21:24 Dose: 10 mg Budesonide/Formoterol Fumarate (Symbicort 160/4.5mcg -) 2 puff IH BID [facility] Last Admin: 10/01/16 21:24 Dose: 2 puff Ferrous Sulfate (Feosol -) 325 mg PO DAILY [facility] Last Admin: 10/01/16 09:40 Dose: 325 mg Furosemide (Lasix Injection -) 40 mg IVPUSH DAILY [facility] Last Admin: 10/01/16 09:40 Dose: 40 mg Isosorbide Mononitrate (Imdur -) 30 mg PO DAILY [facility] Last Admin: 10/01/16 09:40 Dose: 30 mg Methylprednisolone Sodium Succinate (Solu-Medrol -) 40 mg IVPB Q8H-IV [facility] Last Admin: 10/01/16 17:06 Dose: 40 mg Metoprolol Succinate (Toprol Xl -) 25 mg PO DAILY [facility] Last Admin: 10/01/16 09:40 Dose: 25 mg Pantoprazole Sodium (Protonix -) 20 mg PO DAILY [facility] Last Admin: 10/01/16 09:40 Dose: 20 mg Polyethylene Glycol (Miralax (For Daily Use) -) 17 gm PO DAILY PRN PRN Reason: CONSTIPATION Last Admin: 09/30/16 09:43 Dose: 17 gm Ranolazine (Ranexa -) 500 mg PO BID [facility] Last Admin: 10/01/16 21:24 Dose: 500 mg Roflumilast (Daliresp -) 500 mcg PO DAILY [facility] Last Admin: 10/01/16 09:41 Dose: 500 mcg Sertraline HCl (Zoloft -) 150 mg PO DAILY [facility] Last Admin: 10/01/16 09:40 Dose: 150 mg Tiotropium [place] (Spiriva -) 1 puff IH DAILY [facility] Last Admin: 10/01/16 09:40 Dose: 1 puff - Objective Vital Signs: Vital Signs Temperature 98.4 F 10/01/16 21:00 Pulse Rate 64 10/01/16 21:00 Respiratory Rate 20 10/01/16 21:00 Blood Pressure 138/60 10/01/16 21:00 O2 Sat by Pulse Oximetry (%) 97 10/01/16 21:00 Labs: CBC, BMP 10/01/16 05:10 10/01/16 05:10 INR, PTT INR 1.45 (0.82-1.09) H 09/25/16 09:13 Problem List - Problems (1) Acute on chronic diastolic heart failure Code(s): I50.33 - ACUTE ON CHRONIC DIASTOLIC (CONGESTIVE) HEART FAILURE (2) COPD (chronic obstructive pulmonary disease) Code(s): J44.9 - CHRONIC OBSTRUCTIVE PULMONARY DISEASE, UNSPECIFIED Qualifiers : COPD type: unspecified COPD Qualified Code(s): J44.9 - Chronic obstructive pulmonary disease, unspecified (3) Xufqx-ww-lldoliv kidney injury Code(s): N17.9 - ACUTE KIDNEY FAILURE, UNSPECIFIED N18.9 - CHRONIC KIDNEY DISEASE, UNSPECIFIED Qualifiers: Acute renal failure type: unspecified Chronic kidney disease stage: stage 3 (moderate) Qualified Code(s): N17.9 - Acute kidney failure, unspecified; N18.9 - Chronic kidney disease, unspecified (4) Anemia Code(s): D64.9 - ANEMIA, UNSPECIFIED Qualifiers: Anemia type: due to chronic kidney disease (5) HTN (hypertension) Code(s): I10 - ESSENTIAL (PRIMARY) HYPERTENSION Qualifiers: Hypertension type: essential hypertension Qualified Code(s): I10 - Essential (primary) hypertension (6) Hypercholesterolemia Code(s): E78.00 - PURE HYPERCHOLESTEROLEMIA, UNSPECIFIED (7) PAF (paroxysmal atrial fibrillation) Code(s): I48.0 - PAROXYSMAL ATRIAL FIBRILLATION (8) Dyspnea Code(s): R06.00 - DYSPNEA, UNSPECIFIED Qualifiers: Dyspnea type: unspecified Qualified Code(s): R06.00 - Dyspnea, unspecified
[2016-10-02] MEDS: methylPREDNISolone NA SUCC 40 MG/1 ML VIAL IVPB SCH ×4 (01:31→17:05)
[2016-10-02 06:06] LABS: SERUM IRON 22 ug/dL (27-139); TOTAL IRON BINDING CAPACITY 212 ug/dL (250-450); UIBC 190 ug/dL (118-369)
[2016-10-02] MEDS: ALBUTEROL SO4 0.083% IH SOL 2.5 MG/3 ML VIAL.NEB. NEB PRN (06:17)
[2016-10-02] MEDS ORDERED: PT OWN MED DRAWER 7, Y5N ONE (08:33)
[2016-10-02 09:24] LABS: CALCIUM 8.5 mg/dL (8.5-10.1); COCKROFT - GAULT 15.878; CREATININE 2.9 mg/dL (0.55-1.02); MAGNESIUM 2.6 mg/dL (1.8-2.4); PHOSPHOROUS 5.6 mg/dL (2.5-4.9)
[2016-10-02] MEDS: PANTOPRAZOLE 20 MG TABLET (FP) PO SCH (10:26)
[2016-10-02] MEDS: ROFLUMILAST 500 MCG TABLET PO SCH (10:26)
[2016-10-02] MEDS: RANOLAZINE E.R. 500 MG TABLET (FP) PO SCH ×2 (10:26→22:02)
[2016-10-02] MEDS: SERTRALINE HCL 50 MG TABLET (FP) PO SCH (10:26)
[2016-10-02] MEDS: METOPROLOL SUCCINATE 25 MG TAB.SR.24H (FP) PO SCH (10:26)
[2016-10-02] MEDS: ISOSORBIDE MONONITRATE 30 MG TAB.SR.24H (FP) PO SCH (10:26)
[2016-10-02] MEDS: POLYETHYLENE GLYCOL 3350 119 GM BTL PO PRN (10:27)
[2016-10-02] MEDS: ALPRAZolam 0.25 MG TABLET PO PRN (10:27)
[2016-10-02] MEDS: FERROUS SO4 325 MG TABLET (FP) PO SCH (10:27)
[2016-10-02] MEDS: APIXABAN 2.5 MG TABLET PO SCH ×2 (10:27→22:02)
[2016-10-02] MEDS: TIOTROPIUM BROMIDE 18 MCG/INH (DEVICE W/ 5 CAPSULES) IH SCH (10:29)
[2016-10-02] MEDS: BUDESONIDE/FORMETEROL FUMARATE 160/4.5 mcg INHALER IH SCH ×2 (10:31→22:02)
[2016-10-02] MEDS: FUROSEMIDE 40 MG/4 ML INJECTABLE VIAL IVPUSH SCH (10:40)
--- NOTE | 2016-10-02 11:37 | PN ---
Progress Note, Physician History of Present Illness: Continued dyspnea on exertion despite diuresis, maintained in SR. - Current Medication List Current Medications: Active Medications Albuterol Sulfate (Ventolin 0.083% Nebulizer Soln -) 1 amp NEB Q4H PRN PRN Reason: SHORT OF BREATH/WHEEZING Last Admin: 10/02/16 06:17 Dose: 1 amp Alprazolam (Xanax -) 0.25 mg PO BID PRN Last Admin: 10/02/16 10:27 Dose: 0.25 mg Apixaban (Eliquis -) 2.5 mg PO BID [facility] Last Admin: 10/02/16 10:27 Dose: 2.5 mg Atorvastatin Calcium (Lipitor -) 10 mg PO HS [facility] Last Admin: 10/01/16 21:24 Dose: 10 mg Budesonide/Formoterol Fumarate (Symbicort 160/4.5mcg -) 2 puff IH BID [facility] Last Admin: 10/02/16 10:31 Dose: 2 puff Ferrous Sulfate (Feosol -) 325 mg PO DAILY [facility] Last Admin: 10/02/16 10:27 Dose: 325 mg Furosemide (Lasix Injection -) 40 mg IVPUSH DAILY [facility] Last Admin: 10/02/16 10:40 Dose: Not Given Isosorbide Mononitrate (Imdur -) 30 mg PO DAILY [facility] Last Admin: 10/02/16 10:26 Dose: 30 mg Methylprednisolone Sodium Succinate (Solu-Medrol -) 40 mg IVPB Q8H-IV [facility] Last Admin: 10/02/16 10:29 Dose: 40 mg Metoprolol Succinate (Toprol Xl -) 25 mg PO DAILY [facility] Last Admin: 10/02/16 10:26 Dose: 25 mg Pantoprazole Sodium (Protonix -) 20 mg PO DAILY [facility] Last Admin: 10/02/16 10:26 Dose: 20 mg Polyethylene Glycol (Miralax (For Daily Use) -) 17 gm PO DAILY PRN PRN Reason: CONSTIPATION Last Admin: 10/02/16 10:27 Dose: 17 gm Ranolazine (Ranexa -) 500 mg PO BID [facility] Last Admin: 10/02/16 10:26 Dose: 500 mg Roflumilast (Daliresp -) 500 mcg PO DAILY [facility] Last Admin: 10/02/16 10:26 Dose: 500 mcg Sertraline HCl (Zoloft -) 150 mg PO DAILY [facility] Last Admin: 10/02/16 10:26 Dose: 150 mg Tiotropium [place] (Spiriva -) 1 puff IH DAILY [facility] Last Admin: 10/02/16 10:29 Dose: 1 puff - Objective Vital Signs: Vital Signs Temperature 98.6 F 10/02/16 06:00 Pulse Rate 58 L 10/02/16 10:20 Respiratory Rate 20 10/02/16 06:00 Blood Pressure 146/69 10/02/16 06:00 O2 Sat by Pulse Oximetry (%) 98 10/02/16 10:20 Constitutional: Yes: No Distress, Calm Neck: Yes: Supple Cardiovascular: Yes: Regular Rate and Rhythm Respiratory: Yes: Regular, Diminished, On Nasal O2 Gastrointestinal: Yes: Normal Bowel Sounds, Soft Edema: No Labs: CBC, BMP 10/01/16 05:10 10/02/16 05:48 INR, PTT INR 1.45 (0.82-1.09) H 09/25/16 09:13 Problem List - Problems (1) COPD (chronic obstructive pulmonary disease) Code(s): J44.9 - CHRONIC OBSTRUCTIVE PULMONARY DISEASE, UNSPECIFIED Qualifiers : COPD type: unspecified COPD Qualified Code(s): J44.9 - Chronic obstructive pulmonary disease, unspecified (2) HTN (hypertension) Code(s): I10 - ESSENTIAL (PRIMARY) HYPERTENSION Qualifiers: Hypertension type: essential hypertension Qualified Code(s): I10 - Essential (primary) hypertension (3) Hypercholesterolemia Code(s): E78.00 - PURE HYPERCHOLESTEROLEMIA, UNSPECIFIED (4) PAF (paroxysmal atrial fibrillation) Code(s): I48.0 - PAROXYSMAL ATRIAL FIBRILLATION (5) Pulmonary hypertension Code(s): I27.2 - OTHER SECONDARY PULMONARY HYPERTENSION (6) Hbrhk-rp-olibgkz kidney injury Code(s): N17.9 - ACUTE KIDNEY FAILURE, UNSPECIFIED N18.9 - CHRONIC KIDNEY DISEASE, UNSPECIFIED Qualifiers: Acute renal failure type: unspecified Chronic kidney disease stage: stage 3 (moderate) Qualified Code(s): N17.9 - Acute kidney failure, unspecified; N18.9 - Chronic kidney disease, unspecified (7) Acute on chronic diastolic heart failure Code(s): I50.33 - ACUTE ON CHRONIC DIASTOLIC (CONGESTIVE) HEART FAILURE (8) History of amiodarone therapy Code(s): Z92.29 - PERSONAL HISTORY OF OTHER DRUG THERAPY (9) Anemia Code(s): D64.9 - ANEMIA, UNSPECIFIED Qualifiers: Anemia type: due to chronic kidney disease Assessment/Plan Echocardiography dated 09/08/2016 revealed normal LV size and function, mod LAE, mild HERNANDEZ, mod MR and TR with RVSP 50-60 mmHg, 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 Acute on chronic hypoxemic respiratory failure referable to 2. 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 Acute on chronic LV diastolic failure resolving 2. CAD post PCI/stent angina pectoris with evidence of demand ischemic injury 4. R/O Amiodarone-associated pulmonary toxicity 5. Paroxysmal atrial fibrillation currently in sinus rhythm 6. HTN 7. Hypercholesterolemia 8. Moderate mitral valve and tricuspid valve regurgitation with severe pulmonary hypertension 9. Acute on CKD 10. Anemia PLAN: 1. Continue Eliquis 2.5 bid 2. Continue Toprol XL 25 qd 3. Continue Imdur 30 qd 4. Continue Ranexa 500 bid 5. Continue Lipitor 10 qhs 6. Resume oral diuresis with monitor diuretic response, renal fxn and electrolytes 7. Bronchodilators, Daliresp and IV steroids with GI protection as per the primary team 8. As outlined in prior note additional cardiovascular evaluation is recommended pending resolution of CHF and COPD exacerbation including MPI study if not performed recently (attempt to defer left heart cardiac catheterization coronary angiography considering the above-noted progressive renal insufficiency )
--- NOTE | 2016-10-02 13:18 | PN ---
Progress Note (short form) - Note Progress Note: Breathing has improved but reports significant BARRETT even with minimal exertion. (+) productive cough. Intake & Output 09/29/16 09/30/16 10/01/16 10/02/16 23:59 23:59 23:59 23:59 Intake Total 720 810 970 10 Output Total 1250 50 Balance -530 760 970 10 Weight 145 lb 8 oz 143 lb 6 oz 144 lb 141 lb Last Vital Signs Temp Pulse Resp BP Pulse Ox 98.6 F 58 L 20 146/69 98 10/02/16 06:00 10/02/16 10:20 10/02/16 06:00 10/02/16 06:00 10/02/16 10:20 Active Medications Albuterol Sulfate (Ventolin 0.083% Nebulizer Soln -) 1 amp NEB Q4H PRN PRN Reason: SHORT OF BREATH/WHEEZING Last Admin: 10/02/16 06:17 Dose: 1 amp Alprazolam (Xanax -) 0.25 mg PO BID PRN Last Admin: 10/02/16 10:27 Dose: 0.25 mg Apixaban (Eliquis -) 2.5 mg PO BID [facility] Last Admin: 10/02/16 10:27 Dose: 2.5 mg Atorvastatin Calcium (Lipitor -) 10 mg PO HS [facility] Last Admin: 10/01/16 21:24 Dose: 10 mg Budesonide/Formoterol Fumarate (Symbicort 160/4.5mcg -) 2 puff IH BID [facility] Last Admin: 10/02/16 10:31 Dose: 2 puff Ferrous Sulfate (Feosol -) 325 mg PO DAILY [facility] Last Admin: 10/02/16 10:27 Dose: 325 mg Furosemide (Lasix -) 40 mg PO DAILY [facility] Isosorbide Mononitrate (Imdur -) 30 mg PO DAILY [facility] Last Admin: 10/02/16 10:26 Dose: 30 mg Methylprednisolone Sodium Succinate (Solu-Medrol -) 40 mg IVPB Q8H-IV [facility] Last Admin: 10/02/16 10:29 Dose: 40 mg Metoprolol Succinate (Toprol Xl -) 25 mg PO DAILY [facility] Last Admin: 10/02/16 10:26 Dose: 25 mg Pantoprazole Sodium (Protonix -) 20 mg PO DAILY [facility] Last Admin: 10/02/16 10:26 Dose: 20 mg Polyethylene Glycol (Miralax (For Daily Use) -) 17 gm PO DAILY PRN PRN Reason: CONSTIPATION Last Admin: 10/02/16 10:27 Dose: 17 gm Ranolazine (Ranexa -) 500 mg PO BID [facility] Last Admin: 10/02/16 10:26 Dose: 500 mg Roflumilast (Daliresp -) 500 mcg PO DAILY [facility] Last Admin: 10/02/16 10:26 Dose: 500 mcg Sertraline HCl (Zoloft -) 150 mg PO DAILY [facility] Last Admin: 10/02/16 10:26 Dose: 150 mg Tiotropium [place] (Spiriva -) 1 puff IH DAILY [facility] Last Admin: 10/02/16 10:29 Dose: 1 puff Constitutional: Yes: NAD Eyes: Yes: WNL HENT: Yes: WNL Neck: Yes: WNL Cardiovascular: Yes: Regular Rate and Rhythm, S1, S2 Respiratory: Yes: Few scattered basilar Rhonchi, no wheezing Gastrointestinal: Yes: Normal Bowel Sounds, Soft Extremities: Yes: WNL Edema: No Labs: Laboratory Results - last 24 hr 10/01/16 10/02/16 10/02/16 05:10 05:48 05:48 Sodium 146 H Potassium 4.4 Chloride 108 H Carbon Dioxide 27 Anion Gap 11 BUN 99 H Creatinine 2.9 H Random Glucose 121 H Hemoglobin A1c % 5.3 Calcium 8.5 Phosphorus 5.6 H Magnesium 2.6 H Iron 22 L TIBC 212 L Iron Saturation 10 L Problem List - Problems (1) Acute on chronic diastolic heart failure Code(s): I50.33 - ACUTE ON CHRONIC DIASTOLIC (CONGESTIVE) HEART FAILURE (2) Xakoj-os-oeuicao kidney injury Code(s): N17.9 - ACUTE KIDNEY FAILURE, UNSPECIFIED N18.9 - CHRONIC KIDNEY DISEASE, UNSPECIFIED Qualifiers: Acute renal failure type: unspecified Chronic kidney disease stage: stage 3 (moderate) Qualified Code(s): N17.9 - Acute kidney failure, unspecified; N18.9 - Chronic kidney disease, unspecified (3) CHF (congestive heart failure) Code(s): I50.9 - HEART FAILURE, UNSPECIFIED Qualifiers: Congestive heart failure type: unspecified congestive heart failure type Congestive heart failure chronicity: unspecified congestive heart failure chronicity Qualified Code(s): I50.9 - Heart failure, unspecified (4) History of amiodarone therapy Code(s): Z92.29 - PERSONAL HISTORY OF OTHER DRUG THERAPY (5) CHF exacerbation Code(s): I50.9 - HEART FAILURE, UNSPECIFIED Qualifiers: Congestive heart failure type: unspecified congestive heart failure type Qualified Code(s): I50.9 - Heart failure, unspecified (6) COPD (chronic obstructive pulmonary disease) Code(s): J44.9 - CHRONIC OBSTRUCTIVE PULMONARY DISEASE, UNSPECIFIED Qualifiers : COPD type: unspecified COPD Qualified Code(s): J44.9 - Chronic obstructive pulmonary disease, unspecified (7) HTN (hypertension) Code(s): I10 - ESSENTIAL (PRIMARY) HYPERTENSION Qualifiers: Hypertension type: essential hypertension Qualified Code(s): I10 - Essential (primary) hypertension (8) Hypercholesterolemia Code(s): E78.00 - PURE HYPERCHOLESTEROLEMIA, UNSPECIFIED (9) PAF (paroxysmal atrial fibrillation) Code(s): I48.0 - PAROXYSMAL ATRIAL FIBRILLATION (10) Pulmonary hypertension Code(s): I27.2 - OTHER SECONDARY PULMONARY HYPERTENSION (11) Acute on chronic respiratory failure with hypoxemia Code(s): J96.21 - ACUTE AND CHRONIC RESPIRATORY FAILURE WITH HYPOXIA Assessment/Plan IMP ACUTE ON CHRONIC HYPOXEMIC RESPIRATORY FAILURE DECOMPENSATED CHF DIASTOLIC COPD EXACERBATION R/O AMIODARONE LUNG TOXICITY PULMONARY HTN MITRAL STENOSIS ASHD S/P STENT PAF ACUTE ON CHRONIC RENAL FAILURE DM HTN PLAN LASIX INHALED BRONCHODILATORS SUPPLEMENTAL O2 TAPER STEROIDS DAILY WTS MONITOR LYTES,RENAL FUNCTION I SUSPECT THAT BARRETT MAY BE LARGELY DUE TO SEVERE PAH DR KEBEED
--- NOTE | 2016-10-02 14:47 | PN ---
Progress Note (short form) - Note Progress Note: Renal Follow up for MENA on CKD Pt seen and examined at the bedside pt states that she feels the same, continues to have some dyspnea no chest pain Vital Signs Temperature 98.6 F 10/02/16 06:00 Pulse Rate 58 L 10/02/16 10:20 Respiratory Rate 20 10/02/16 10:00 Blood Pressure 146/69 10/02/16 06:00 O2 Sat by Pulse Oximetry (%) 98 10/02/16 10:20 Intake & Output 09/29/16 09/30/16 10/01/16 10/02/16 23:59 23:59 23:59 23:59 Intake Total 720 810 970 460 Output Total 1250 50 Balance -530 760 970 460 Weight 145 lb 8 oz 143 lb 6 oz 144 lb 141 lb Gen: NAD, on NC CVS: irregular, No M/R Lungs: Dec BS throughout the lung gilbert, no rales Ext: No edema, clubbing or cyanosis CBC, BMP 10/01/16 05:10 10/02/16 05:48 Current Medications Albuterol Sulfate (Ventolin 0.083% Nebulizer Soln -) 1 amp NEB Q4H PRN PRN Reason: SHORT OF BREATH/WHEEZING Last Admin: 10/02/16 06:17 Dose: 1 amp Alprazolam (Xanax -) 0.25 mg PO BID PRN Last Admin: 10/02/16 10:27 Dose: 0.25 mg Apixaban (Eliquis -) 2.5 mg PO BID [facility] Last Admin: 10/02/16 10:27 Dose: 2.5 mg Atorvastatin Calcium (Lipitor -) 10 mg PO HS [facility] Last Admin: 10/01/16 21:24 Dose: 10 mg Budesonide/Formoterol Fumarate (Symbicort 160/4.5mcg -) 2 puff IH BID [facility] Last Admin: 10/02/16 10:31 Dose: 2 puff Ferrous Sulfate (Feosol -) 325 mg PO DAILY [facility] Last Admin: 10/02/16 10:27 Dose: 325 mg Furosemide (Lasix -) 40 mg PO DAILY [facility] Isosorbide Mononitrate (Imdur -) 30 mg PO DAILY [facility] Last Admin: 10/02/16 10:26 Dose: 30 mg Methylprednisolone Sodium Succinate (Solu-Medrol -) 40 mg IVPB Q8H-IV [facility] Last Admin: 10/02/16 10:29 Dose: 40 mg Metoprolol Succinate (Toprol Xl -) 25 mg PO DAILY [facility] Last Admin: 10/02/16 10:26 Dose: 25 mg Pantoprazole Sodium (Protonix -) 20 mg PO DAILY [facility] Last Admin: 10/02/16 10:26 Dose: 20 mg Polyethylene Glycol (Miralax (For Daily Use) -) 17 gm PO DAILY PRN PRN Reason: CONSTIPATION Last Admin: 10/02/16 10:27 Dose: 17 gm Ranolazine (Ranexa -) 500 mg PO BID [facility] Last Admin: 10/02/16 10:26 Dose: 500 mg Roflumilast (Daliresp -) 500 mcg PO DAILY [facility] Last Admin: 10/02/16 10:26 Dose: 500 mcg Sertraline HCl (Zoloft -) 150 mg PO DAILY [facility] Last Admin: 10/02/16 10:26 Dose: 150 mg Tiotropium [place] (Spiriva -) 1 puff IH DAILY [facility] Last Admin: 10/02/16 10:29 Dose: 1 puff A/P 81 year old woman with PMhx of CKD (baseline Cr unclear, in 2012 Cr peaked at 3.7 but was discharged with Cr of 1.3), DM2, COPD, CAD s/p Stenting, Afib not on Coumadin (pt decision) who presented with SOB and found to have acute diastolic HF with worsening of renal function with diuresis #MENA on CKD in setting of CHF Exacerbation and IV diuresis Renal function is stable no signs of uremia despite high BUN Lasix reduced to 40mg PO once daily Serologic work up sent for evalulation of nephrotic proteinuria no ACEi or ARB for now #Diastolic HF Cardiology following titrate diuretics to achieve evolemia low salt diet #COPD Continue Nebs and supplemental O2 Pulmonary follow up #Afib on Eliquis #Anemia Iron saturation is low, start PO iron SPEP is pending #Hypernatremia free water intake as tolerated Andrew Mcclellan DO
[2016-10-02] MEDS: ATORVASTATIN CA 10 MG TABLET (FP) PO SCH (22:02)
--- NOTE | 2016-10-02 23:08 | PN ---
Progress Note, Physician - Current Medication List Current Medications: Active Medications Albuterol Sulfate (Ventolin 0.083% Nebulizer Soln -) 1 amp NEB Q4H PRN PRN Reason: SHORT OF BREATH/WHEEZING Last Admin: 10/02/16 06:17 Dose: 1 amp Alprazolam (Xanax -) 0.25 mg PO BID [facility] Last Admin: 10/02/16 10:27 Dose: 0.25 mg Apixaban (Eliquis -) 2.5 mg PO BID [facility] Last Admin: 10/02/16 22:02 Dose: 2.5 mg Atorvastatin Calcium (Lipitor -) 10 mg PO HS [facility] Last Admin: 10/02/16 22:02 Dose: 10 mg Budesonide/Formoterol Fumarate (Symbicort 160/4.5mcg -) 2 puff IH BID [facility] Last Admin: 10/02/16 22:02 Dose: 2 puff Ferrous Sulfate (Feosol -) 325 mg PO DAILY [facility] Last Admin: 10/02/16 10:27 Dose: 325 mg Furosemide (Lasix -) 40 mg PO DAILY [facility] Isosorbide Mononitrate (Imdur -) 30 mg PO DAILY [facility] Last Admin: 10/02/16 10:26 Dose: 30 mg Methylprednisolone Sodium Succinate (Solu-Medrol -) 40 mg IVPB Q8H-IV [facility] Last Admin: 10/02/16 17:05 Dose: Not Given Metoprolol Succinate (Toprol Xl -) 25 mg PO DAILY [facility] Last Admin: 10/02/16 10:26 Dose: 25 mg Pantoprazole Sodium (Protonix -) 20 mg PO DAILY [facility] Last Admin: 10/02/16 10:26 Dose: 20 mg Polyethylene Glycol (Miralax (For Daily Use) -) 17 gm PO DAILY PRN PRN Reason: CONSTIPATION Last Admin: 10/02/16 10:27 Dose: 17 gm Ranolazine (Ranexa -) 500 mg PO BID [facility] Last Admin: 10/02/16 22:02 Dose: 500 mg Roflumilast (Daliresp -) 500 mcg PO DAILY [facility] Last Admin: 10/02/16 10:26 Dose: 500 mcg Sertraline HCl (Zoloft -) 150 mg PO DAILY [facility] Last Admin: 10/02/16 10:26 Dose: 150 mg Tiotropium [place] (Spiriva -) 1 puff IH DAILY [facility] Last Admin: 10/02/16 10:29 Dose: 1 puff - Objective Vital Signs: Vital Signs Temperature 99 F 10/02/16 18:00 Pulse Rate 66 10/02/16 18:00 Respiratory Rate 20 10/02/16 18:00 Blood Pressure 156/73 10/02/16 18:00 O2 Sat by Pulse Oximetry (%) 98 10/02/16 10:20 Labs: CBC, BMP 10/01/16 05:10 10/02/16 05:48 INR, PTT INR 1.45 (0.82-1.09) H 09/25/16 09:13 Problem List - Problems (1) Acute on chronic diastolic heart failure Code(s): I50.33 - ACUTE ON CHRONIC DIASTOLIC (CONGESTIVE) HEART FAILURE (2) COPD (chronic obstructive pulmonary disease) Code(s): J44.9 - CHRONIC OBSTRUCTIVE PULMONARY DISEASE, UNSPECIFIED Qualifiers : COPD type: unspecified COPD Qualified Code(s): J44.9 - Chronic obstructive pulmonary disease, unspecified (3) Emhkb-oi-zyktbzv kidney injury Code(s): N17.9 - ACUTE KIDNEY FAILURE, UNSPECIFIED N18.9 - CHRONIC KIDNEY DISEASE, UNSPECIFIED Qualifiers: Acute renal failure type: unspecified Chronic kidney disease stage: stage 3 (moderate) Qualified Code(s): N17.9 - Acute kidney failure, unspecified; N18.9 - Chronic kidney disease, unspecified (4) Anemia Code(s): D64.9 - ANEMIA, UNSPECIFIED Qualifiers: Anemia type: due to chronic kidney disease (5) HTN (hypertension) Code(s): I10 - ESSENTIAL (PRIMARY) HYPERTENSION Qualifiers: Hypertension type: essential hypertension Qualified Code(s): I10 - Essential (primary) hypertension (6) Hypercholesterolemia Code(s): E78.00 - PURE HYPERCHOLESTEROLEMIA, UNSPECIFIED (7) PAF (paroxysmal atrial fibrillation) Code(s): I48.0 - PAROXYSMAL ATRIAL FIBRILLATION (8) Dyspnea Code(s): R06.00 - DYSPNEA, UNSPECIFIED Qualifiers: Dyspnea type: unspecified Qualified Code(s): R06.00 - Dyspnea, unspecified
[2016-10-03] MEDS: methylPREDNISolone NA SUCC 40 MG/1 ML VIAL IVPB SCH ×4 (03:43→23:14)
[2016-10-03 07:54] LABS: ANION GAP 9 (8-16); CO2 29 mmol/L (21-32); CREATININE 2.7 mg/dL (0.55-1.02); GLUCOSE,RANDOM 109 mg/dL (74-106); MAGNESIUM 2.5 mg/dL (1.8-2.4); PHOSPHOROUS 4.8 mg/dL (2.5-4.9)
[2016-10-03] MEDS: SERTRALINE HCL 50 MG TABLET (FP) PO SCH (09:38)
[2016-10-03] MEDS: APIXABAN 2.5 MG TABLET PO SCH ×2 (09:38→22:21)
[2016-10-03] MEDS: METOPROLOL SUCCINATE 25 MG TAB.SR.24H (FP) PO SCH (09:38)
[2016-10-03] MEDS: ROFLUMILAST 500 MCG TABLET PO SCH (09:38)
[2016-10-03] MEDS: RANOLAZINE E.R. 500 MG TABLET (FP) PO SCH ×2 (09:39→22:21)
[2016-10-03] MEDS: ISOSORBIDE MONONITRATE 30 MG TAB.SR.24H (FP) PO SCH (09:39)
[2016-10-03] MEDS: ALPRAZolam 0.25 MG TABLET PO PRN ×2 (09:39→23:27)
[2016-10-03] MEDS: FERROUS SO4 325 MG TABLET (FP) PO SCH (09:39)
[2016-10-03] MEDS: PANTOPRAZOLE 20 MG TABLET (FP) PO SCH (09:39)
[2016-10-03] MEDS: TIOTROPIUM BROMIDE 18 MCG/INH (DEVICE W/ 5 CAPSULES) IH SCH (09:40)
[2016-10-03] MEDS: BUDESONIDE/FORMETEROL FUMARATE 160/4.5 mcg INHALER IH SCH ×2 (09:40→22:23)
[2016-10-03] MEDS: FUROSEMIDE 40 MG TABLET (FP) PO SCH (09:41)
[2016-10-03] MEDS: ALBUTEROL SO4 0.083% IH SOL 2.5 MG/3 ML VIAL.NEB. NEB PRN ×2 (10:00→21:50)
--- NOTE | 2016-10-03 10:39 | PN ---
Progress Note (short form) - Note Progress Note: S: The patient is a 81 year old female with history of COPD, oxygen dependent, history of paroxysmal atrial fibrillation, hypercholesterolemia, hypertension, history of CKD, mitral and tricuspid regurgitation, history of pulmonary hypertension. Patient continues to complain of dyspnea both at rest and with minimal activity. No chest pain or discomfort reported. Intermittent cough with expectoration. No history of hemoptysis. Active Medications Generic Name Dose Route Start Last Admin Trade Name Freq PRN Reason Stop Dose Admin Albuterol Sulfate 1 amp 10/01/16 16:54 10/02/16 06:17 Ventolin 0.083% Nebulizer Soln - NEB 1 amp Q4H PRN Administration SHORT OF BREATH/WHEEZING Alprazolam 0.25 mg 10/01/16 12:50 10/03/16 09:39 Xanax - PO 0.25 mg BID PRN Administration Apixaban 2.5 mg 09/25/16 23:30 10/03/16 09:38 Eliquis - PO 2.5 mg BID [facility] Administration Atorvastatin Calcium 10 mg 09/26/16 22:00 10/02/16 22:02 Lipitor - PO 10 mg HS [facility] Administration Budesonide/Formoterol Fumarate 2 puff 09/26/16 14:00 10/03/16 09:40 Symbicort 160/4.5mcg - IH 2 puff BID [facility] Administration Ferrous Sulfate 325 mg 09/26/16 10:00 10/03/16 09:39 Feosol - PO 325 mg DAILY [facility] Administration Furosemide 40 mg 10/03/16 10:00 10/03/16 09:41 Lasix - PO 40 mg DAILY [facility] Administration Isosorbide Mononitrate 30 mg 09/28/16 10:00 10/03/16 09:39 Imdur - PO 30 mg DAILY [facility] Administration Methylprednisolone Sodium Succinate 40 mg 09/26/16 12:45 10/03/16 09:39 Solu-Medrol - IVPB 40 mg Q8H-IV [facility] Administration Metoprolol Succinate 25 mg 09/28/16 10:00 10/03/16 09:38 Toprol Xl - PO 25 mg DAILY [facility] Administration Pantoprazole Sodium 20 mg 09/26/16 10:00 10/03/16 09:39 Protonix - PO 20 mg DAILY [facility] Administration Polyethylene Glycol 17 gm 09/25/16 22:53 10/02/16 10:27 Miralax (For Daily Use) - PO 17 gm DAILY PRN Administration CONSTIPATION Ranolazine 500 mg 09/27/16 22:00 10/03/16 09:39 Ranexa - PO 500 mg BID [facility] Administration Roflumilast 500 mcg 09/26/16 10:00 10/03/16 09:38 Daliresp - PO 500 mcg DAILY [facility] Administration Sertraline HCl 150 mg 09/26/16 10:00 10/03/16 09:38 Zoloft - PO 150 mg DAILY [facility] Administration Tiotropium [place] 1 puff 09/26/16 14:00 10/03/16 09:40 Spiriva - IH 1 puff DAILY [facility] Administration O: 81 year old female was in no acute distress. No pallor, cyanosis, clubbing, or jaundice. Last Vital Signs Temp Pulse Resp BP Pulse Ox 98.6 F 84 20 136/52 98 10/03/16 09:54 10/03/16 09:54 10/03/16 09:54 10/03/16 09:54 10/02/16 21:00 NECK: Supple, no JVD, slightly positive HJR, carotids were equal and upstrokes were normal, no thyromegaly appreciated. HEART: PMI was in the 5th intercostal space, no heaves or thrills, S1 and S2 were normal. Faint grade I/ systolic murmur heard along the lower left sternal border. No gallops were appreciated. LUNGS: Bilaterally decreased breath sounds at the bases. Fine crepitations at the left base. ABDOMEN: Soft, nontender, no hepatosplenomegaly appreciated, and no palpable masses were felt. EXTREMITIES: No calf tenderness or dependent edema. Pulses are normal. CBC, BMP 10/01/16 05:10 10/03/16 05:35 Laboratory Results - last 24 hr 10/02/16 10/03/16 05:48 05:35 Sodium 146 H Potassium 4.3 Chloride 108 H Carbon Dioxide 29 Anion Gap 9 BUN 91 H Creatinine 2.7 H Random Glucose 109 H Calcium 8.0 L Phosphorus 4.8 Magnesium 2.5 H RPR Titer Nonreactive Chest CT Impression: 1. Mildly distended lymphadenopathy 2. Cardiomegaly and small right pleural effusion 3. Patchy pulmonary opacity throughout both lungs with small pleural effusions. Diagnostic possibilities would include a diffuse pneumonia and/or congestion. Clinical coordination and follow up recommendations. Echocardiogram Report: Interpretation summary: There is moderate concentric left ventricular hypertrophy. Left ventricular systolic function is normal. The left atrium is mildly dilated. There is moderate to severe mitral annular calcification. There is moderate to severe mitral regurgitation. There is mild tricuspid regurgitation. Right ventricular systolic pressure is elevated at 50-60 mmHg. There is moderate aortic sclerosis. Small pericardial effusion (< 1cm). Impression: 1. History of oxygen dependent COPD. 2. Congestive heart failure. 3. History of paroxysmal atrial fibrillation. 4. Acute on chronic kidney disease. 5. Moderate to severe mitral regurgitation. 6. Hypertension/ hypertensive cardiovascular disease. 7. History of paroxysmal atrial fibrillation. 8. Pulmonary hypertension. Recommendations: 1. Follow up CT scan of the chest. 2. BNP. 3. Once pulmonary status is stable, consider PFT to check for decrease in diffusion capacity. 4. Continue current cardiac therapy. Prognosis: Guarded Documentation prepared by Tawnya Quezada, acting as a director of graduate medical education for Don You MD.
--- NOTE | 2016-10-03 11:41 | PN ---
Progress Note, Physician History of Present Illness: pulmonary alert,c/o sob at rest,+hart min exertion - Current Medication List Current Medications: Active Medications Albuterol Sulfate (Ventolin 0.083% Nebulizer Soln -) 1 amp NEB Q4H PRN PRN Reason: SHORT OF BREATH/WHEEZING Last Admin: 10/03/16 10:00 Dose: 1 amp Alprazolam (Xanax -) 0.25 mg PO BID PRN Last Admin: 10/03/16 09:39 Dose: 0.25 mg Apixaban (Eliquis -) 2.5 mg PO BID [facility] Last Admin: 10/03/16 09:38 Dose: 2.5 mg Atorvastatin Calcium (Lipitor -) 10 mg PO HS [facility] Last Admin: 10/02/16 22:02 Dose: 10 mg Budesonide/Formoterol Fumarate (Symbicort 160/4.5mcg -) 2 puff IH BID [facility] Last Admin: 10/03/16 09:40 Dose: 2 puff Ferrous Sulfate (Feosol -) 325 mg PO DAILY [facility] Last Admin: 10/03/16 09:39 Dose: 325 mg Furosemide (Lasix -) 40 mg PO DAILY [facility] Last Admin: 10/03/16 09:41 Dose: 40 mg Isosorbide Mononitrate (Imdur -) 30 mg PO DAILY [facility] Last Admin: 10/03/16 09:39 Dose: 30 mg Methylprednisolone Sodium Succinate (Solu-Medrol -) 40 mg IVPB Q8H-IV [facility] Last Admin: 10/03/16 09:39 Dose: 40 mg Metoprolol Succinate (Toprol Xl -) 25 mg PO DAILY [facility] Last Admin: 10/03/16 09:38 Dose: 25 mg Pantoprazole Sodium (Protonix -) 20 mg PO DAILY [facility] Last Admin: 10/03/16 09:39 Dose: 20 mg Polyethylene Glycol (Miralax (For Daily Use) -) 17 gm PO DAILY PRN PRN Reason: CONSTIPATION Last Admin: 10/02/16 10:27 Dose: 17 gm Ranolazine (Ranexa -) 500 mg PO BID [facility] Last Admin: 10/03/16 09:39 Dose: 500 mg Roflumilast (Daliresp -) 500 mcg PO DAILY [facility] Last Admin: 10/03/16 09:38 Dose: 500 mcg Sertraline HCl (Zoloft -) 150 mg PO DAILY [facility] Last Admin: 10/03/16 09:38 Dose: 150 mg Tiotropium [place] (Spiriva -) 1 puff IH DAILY [facility] Last Admin: 10/03/16 09:40 Dose: 1 puff - Objective Vital Signs: Vital Signs Temperature 98.6 F 10/03/16 09:54 Pulse Rate 84 10/03/16 09:54 Respiratory Rate 20 10/03/16 09:54 Blood Pressure 136/52 10/03/16 09:54 O2 Sat by Pulse Oximetry (%) 98 10/02/16 21:00 Constitutional: Yes: Calm, Thin Eyes: Yes: WNL HENT: Yes: WNL Neck: Yes: WNL Cardiovascular: Yes: Pulse Irregular, S1, S2 Respiratory: Yes: Rhonchi (few scattered rhonchi) Gastrointestinal: Yes: Normal Bowel Sounds, Soft Extremities: Yes: WNL Edema: Yes Labs: CBC, BMP 10/01/16 05:10 10/03/16 05:35 INR, PTT INR 1.45 (0.82-1.09) H 09/25/16 09:13 Problem List - Problems (1) Acute on chronic diastolic heart failure Code(s): I50.33 - ACUTE ON CHRONIC DIASTOLIC (CONGESTIVE) HEART FAILURE (2) Eklic-hq-ziqhzcv kidney injury Code(s): N17.9 - ACUTE KIDNEY FAILURE, UNSPECIFIED N18.9 - CHRONIC KIDNEY DISEASE, UNSPECIFIED Qualifiers: Acute renal failure type: unspecified Chronic kidney disease stage: stage 3 (moderate) Qualified Code(s): N17.9 - Acute kidney failure, unspecified; N18.9 - Chronic kidney disease, unspecified (3) CHF (congestive heart failure) Code(s): I50.9 - HEART FAILURE, UNSPECIFIED Qualifiers: Congestive heart failure type: unspecified congestive heart failure type Congestive heart failure chronicity: unspecified congestive heart failure chronicity Qualified Code(s): I50.9 - Heart failure, unspecified (4) History of amiodarone therapy Code(s): Z92.29 - PERSONAL HISTORY OF OTHER DRUG THERAPY (5) CHF exacerbation Code(s): I50.9 - HEART FAILURE, UNSPECIFIED Qualifiers: Congestive heart failure type: unspecified congestive heart failure type Qualified Code(s): I50.9 - Heart failure, unspecified (6) COPD (chronic obstructive pulmonary disease) Code(s): J44.9 - CHRONIC OBSTRUCTIVE PULMONARY DISEASE, UNSPECIFIED Qualifiers : COPD type: unspecified COPD Qualified Code(s): J44.9 - Chronic obstructive pulmonary disease, unspecified (7) HTN (hypertension) Code(s): I10 - ESSENTIAL (PRIMARY) HYPERTENSION Qualifiers: Hypertension type: essential hypertension Qualified Code(s): I10 - Essential (primary) hypertension (8) Hypercholesterolemia Code(s): E78.00 - PURE HYPERCHOLESTEROLEMIA, UNSPECIFIED (9) PAF (paroxysmal atrial fibrillation) Code(s): I48.0 - PAROXYSMAL ATRIAL FIBRILLATION (10) Pulmonary hypertension Code(s): I27.2 - OTHER SECONDARY PULMONARY HYPERTENSION (11) Acute on chronic respiratory failure with hypoxemia Code(s): J96.21 - ACUTE AND CHRONIC RESPIRATORY FAILURE WITH HYPOXIA Assessment/Plan IMP ACUTE ON CHRONIC HYPOXEMIC RESPIRATORY FAILURE DECOMPENSATED CHF DIASTOLIC COPD EXACERBATION R/O AMIODARONE LUNG TOXICITY SEVERE PULMONARY HTN MITRAL STENOSIS ASHD S/P STENT VALVULAR HD PAF ACUTE ON CHRONIC RENAL FAILURE DM HTN PLAN LASIX INHALED BRONCHODILATORS SUPPLEMENTAL O2 STEROID TAPER DAILY WTS MONITOR LYTES,RENAL FUNCTION DR GAITAN Problem List - Problems (1) Acute on chronic diastolic heart failure Code(s): I50.33 - ACUTE ON CHRONIC DIASTOLIC (CONGESTIVE) HEART FAILURE (2) Xyhum-bj-bmjavkh kidney injury Code(s): N17.9 - ACUTE KIDNEY FAILURE, UNSPECIFIED N18.9 - CHRONIC KIDNEY DISEASE, UNSPECIFIED Qualifiers: Acute renal failure type: unspecified Chronic kidney disease stage: stage 3 (moderate) Qualified Code(s): N17.9 - Acute kidney failure, unspecified; N18.9 - Chronic kidney disease, unspecified (3) CHF (congestive heart failure) Code(s): I50.9 - HEART FAILURE, UNSPECIFIED Qualifiers: Congestive heart failure type: unspecified congestive heart failure type Congestive heart failure chronicity: unspecified congestive heart failure chronicity Qualified Code(s): I50.9 - Heart failure, unspecified (4) History of amiodarone therapy Code(s): Z92.29 - PERSONAL HISTORY OF OTHER DRUG THERAPY (5) CHF exacerbation Code(s): I50.9 - HEART FAILURE, UNSPECIFIED Qualifiers: Congestive heart failure type: unspecified congestive heart failure type Qualified Code(s): I50.9 - Heart failure, unspecified (6) COPD (chronic obstructive pulmonary disease) Code(s): J44.9 - CHRONIC OBSTRUCTIVE PULMONARY DISEASE, UNSPECIFIED Qualifiers : COPD type: unspecified COPD Qualified Code(s): J44.9 - Chronic obstructive pulmonary disease, unspecified (7) HTN (hypertension) Code(s): I10 - ESSENTIAL (PRIMARY) HYPERTENSION Qualifiers: Hypertension type: essential hypertension Qualified Code(s): I10 - Essential (primary) hypertension (8) Hypercholesterolemia Code(s): E78.00 - PURE HYPERCHOLESTEROLEMIA, UNSPECIFIED (9) PAF (paroxysmal atrial fibrillation) Code(s): I48.0 - PAROXYSMAL ATRIAL FIBRILLATION (10) Pulmonary hypertension Code(s): I27.2 - OTHER SECONDARY PULMONARY HYPERTENSION (11) Acute on chronic respiratory failure with hypoxemia Code(s): J96.21 - ACUTE AND CHRONIC RESPIRATORY FAILURE WITH HYPOXIA
--- NOTE | 2016-10-03 11:51 | PN ---
Progress Note (short form) - Note Progress Note: Renal Follow up for MENA on CKD Pt seen and examined at the bedside states that she feels the same has a cough with productive sputum no chest pain, leg swelling Vital Signs Temperature 98.6 F 10/03/16 09:54 Pulse Rate 84 10/03/16 09:54 Respiratory Rate 20 10/03/16 09:54 Blood Pressure 136/52 10/03/16 09:54 O2 Sat by Pulse Oximetry (%) 98 10/02/16 21:00 Intake & Output 09/30/16 10/01/16 10/02/16 10/03/16 23:59 23:59 23:59 23:59 Intake Total 810 970 460 250 Output Total 50 Balance 760 970 460 250 Weight 143 lb 6 oz 144 lb 141 lb 141 lb 4 oz Gen: NAD, on NC CVS: irregular, No M/R Lungs: Dec BS throughout the lung gilbert, no rales Ext: No edema, clubbing or cyanosis CBC, BMP 10/01/16 05:10 10/03/16 05:35 Current Medications Albuterol Sulfate (Ventolin 0.083% Nebulizer Soln -) 1 amp NEB Q4H PRN PRN Reason: SHORT OF BREATH/WHEEZING Last Admin: 10/03/16 10:00 Dose: 1 amp Alprazolam (Xanax -) 0.25 mg PO BID PRN Last Admin: 10/03/16 09:39 Dose: 0.25 mg Apixaban (Eliquis -) 2.5 mg PO BID [facility] Last Admin: 10/03/16 09:38 Dose: 2.5 mg Atorvastatin Calcium (Lipitor -) 10 mg PO HS [facility] Last Admin: 10/02/16 22:02 Dose: 10 mg Budesonide/Formoterol Fumarate (Symbicort 160/4.5mcg -) 2 puff IH BID [facility] Last Admin: 10/03/16 09:40 Dose: 2 puff Ferrous Sulfate (Feosol -) 325 mg PO DAILY [facility] Last Admin: 10/03/16 09:39 Dose: 325 mg Furosemide (Lasix -) 40 mg PO DAILY [facility] Last Admin: 10/03/16 09:41 Dose: 40 mg Isosorbide Mononitrate (Imdur -) 30 mg PO DAILY [facility] Last Admin: 10/03/16 09:39 Dose: 30 mg Methylprednisolone Sodium Succinate (Solu-Medrol -) 40 mg IVPB Q12H [facility] Metoprolol Succinate (Toprol Xl -) 25 mg PO DAILY [facility] Last Admin: 10/03/16 09:38 Dose: 25 mg Pantoprazole Sodium (Protonix -) 20 mg PO DAILY [facility] Last Admin: 10/03/16 09:39 Dose: 20 mg Polyethylene Glycol (Miralax (For Daily Use) -) 17 gm PO DAILY PRN PRN Reason: CONSTIPATION Last Admin: 10/02/16 10:27 Dose: 17 gm Ranolazine (Ranexa -) 500 mg PO BID [facility] Last Admin: 10/03/16 09:39 Dose: 500 mg Roflumilast (Daliresp -) 500 mcg PO DAILY [facility] Last Admin: 10/03/16 09:38 Dose: 500 mcg Sertraline HCl (Zoloft -) 150 mg PO DAILY [facility] Last Admin: 10/03/16 09:38 Dose: 150 mg Tiotropium [place] (Spiriva -) 1 puff IH DAILY [facility] Last Admin: 10/03/16 09:40 Dose: 1 puff A/P 81 year old woman with PMhx of CKD (baseline Cr unclear, in 2012 Cr peaked at 3.7 but was discharged with Cr of 1.3), DM2, COPD, CAD s/p Stenting, Afib not on Coumadin (pt decision) who presented with SOB and found to have acute diastolic HF with worsening of renal function with diuresis #MENA on CKD in setting of CHF Exacerbation and IV diuresis Cr improving on lower dose of lasix BUN high secondary to steroids and renal hypoperfusion but no signs of uremia Trend BUN/Cr avoid SEE/ARB/NSAIDS for now #Diastolic HF Cardiology following titrate diuretics to achieve evolemia low salt diet #COPD Continue steroids, Nebs, O2 as needed pulmonary following #Afib on Eliquis #Anemia Iron saturation is low, start PO iron SPEP is pending #Hypernatremia free water intake as tolerated Andrew Mcclellan DO
[2016-10-03] MEDS: ATORVASTATIN CA 10 MG TABLET (FP) PO SCH (22:21)
--- NOTE | 2016-10-03 23:26 | PN ---
Progress Note, Physician - Current Medication List Current Medications: Active Medications Albuterol Sulfate (Ventolin 0.083% Nebulizer Soln -) 1 amp NEB Q4H PRN PRN Reason: SHORT OF BREATH/WHEEZING Last Admin: 10/03/16 21:50 Dose: 1 amp Alprazolam (Xanax -) 0.25 mg PO BID PRN Last Admin: 10/03/16 09:39 Dose: 0.25 mg Apixaban (Eliquis -) 2.5 mg PO BID [facility] Last Admin: 10/03/16 22:21 Dose: 2.5 mg Atorvastatin Calcium (Lipitor -) 10 mg PO HS [facility] Last Admin: 10/03/16 22:21 Dose: 10 mg Budesonide/Formoterol Fumarate (Symbicort 160/4.5mcg -) 2 puff IH BID [facility] Last Admin: 10/03/16 22:23 Dose: 2 puff Ferrous Sulfate (Feosol -) 325 mg PO DAILY [facility] Last Admin: 10/03/16 09:39 Dose: 325 mg Furosemide (Lasix -) 40 mg PO DAILY [facility] Last Admin: 10/03/16 09:41 Dose: 40 mg Isosorbide Mononitrate (Imdur -) 30 mg PO DAILY [facility] Last Admin: 10/03/16 09:39 Dose: 30 mg Methylprednisolone Sodium Succinate (Solu-Medrol -) 40 mg IVPB Q12H [facility] Last Admin: 10/03/16 23:14 Dose: 40 mg Metoprolol Succinate (Toprol Xl -) 25 mg PO DAILY [facility] Last Admin: 10/03/16 09:38 Dose: 25 mg Pantoprazole Sodium (Protonix -) 20 mg PO DAILY [facility] Last Admin: 10/03/16 09:39 Dose: 20 mg Polyethylene Glycol (Miralax (For Daily Use) -) 17 gm PO DAILY PRN PRN Reason: CONSTIPATION Last Admin: 10/02/16 10:27 Dose: 17 gm Ranolazine (Ranexa -) 500 mg PO BID [facility] Last Admin: 10/03/16 22:21 Dose: 500 mg Roflumilast (Daliresp -) 500 mcg PO DAILY [facility] Last Admin: 10/03/16 09:38 Dose: 500 mcg Sertraline HCl (Zoloft -) 150 mg PO DAILY [facility] Last Admin: 10/03/16 09:38 Dose: 150 mg Tiotropium [place] (Spiriva -) 1 puff IH DAILY [facility] Last Admin: 10/03/16 09:40 Dose: 1 puff - Objective Vital Signs: Vital Signs Temperature 99 F 10/03/16 20:21 Pulse Rate 65 10/03/16 20:21 Respiratory Rate 20 10/03/16 20:21 Blood Pressure 139/54 10/03/16 20:21 O2 Sat by Pulse Oximetry (%) 95 10/03/16 20:21 Labs: CBC, BMP 10/01/16 05:10 10/03/16 05:35 INR, PTT INR 1.45 (0.82-1.09) H 09/25/16 09:13 Problem List - Problems (1) Acute on chronic diastolic heart failure Code(s): I50.33 - ACUTE ON CHRONIC DIASTOLIC (CONGESTIVE) HEART FAILURE (2) COPD (chronic obstructive pulmonary disease) Code(s): J44.9 - CHRONIC OBSTRUCTIVE PULMONARY DISEASE, UNSPECIFIED Qualifiers : COPD type: unspecified COPD Qualified Code(s): J44.9 - Chronic obstructive pulmonary disease, unspecified (3) Sgjul-wl-mglvoji kidney injury Code(s): N17.9 - ACUTE KIDNEY FAILURE, UNSPECIFIED N18.9 - CHRONIC KIDNEY DISEASE, UNSPECIFIED Qualifiers: Acute renal failure type: unspecified Chronic kidney disease stage: stage 3 (moderate) Qualified Code(s): N17.9 - Acute kidney failure, unspecified; N18.9 - Chronic kidney disease, unspecified (4) Anemia Code(s): D64.9 - ANEMIA, UNSPECIFIED Qualifiers: Anemia type: due to chronic kidney disease (5) HTN (hypertension) Code(s): I10 - ESSENTIAL (PRIMARY) HYPERTENSION Qualifiers: Hypertension type: essential hypertension Qualified Code(s): I10 - Essential (primary) hypertension (6) Hypercholesterolemia Code(s): E78.00 - PURE HYPERCHOLESTEROLEMIA, UNSPECIFIED (7) PAF (paroxysmal atrial fibrillation) Code(s): I48.0 - PAROXYSMAL ATRIAL FIBRILLATION (8) Dyspnea Code(s): R06.00 - DYSPNEA, UNSPECIFIED Qualifiers: Dyspnea type: unspecified Qualified Code(s): R06.00 - Dyspnea, unspecified
[2016-10-03] MEDS ORDERED: dilTIAZem HCL 30 MG TABLET (FP) PO ONE (23:45)
[2016-10-04] MEDS: dilTIAZem HCL 50 MG/10 ML - 10 ML VIAL IVPUSH PRN (00:03)
[2016-10-04] MEDS: ALBUTEROL SO4 0.083% IH SOL 2.5 MG/3 ML VIAL.NEB. NEB PRN ×2 (06:38→21:45)
[2016-10-04 07:57] LABS: BASOPHIL 0.1 % (0-2.0); MCHC 30.6 g/dl (32.0-36.0); MEAN CELL VOLUME 81.6 fl (80-96); MEAN PLT VOLUME 8.8 fl (7.5-11.1); NEUTROPHILS 92.6 % (42.8-82.8); PLATELET COUNT 259 K/MM3 (134-434); RDW 16.8 % (11.6-15.6); WHITE BLOOD COUNT 12.6 K/mm3 (4.0-10.0)
[2016-10-04 08:27] LABS: ALBUMIN 2.6 g/dl (3.4-5.0); ANION GAP 12 (8-16); CALCIUM 8.1 mg/dL (8.5-10.1); CO2 28 mmol/L (21-32); GLUCOSE,RANDOM 133 mg/dL (74-106); MAGNESIUM 2.5 mg/dL (1.8-2.4)
[2016-10-04 08:31] LABS: ALK PHOS 53 U/L (45-117); BILIRUBIN,TOTAL 0.4 mg/dL (0.2-1.0); CREATININE 2.7 mg/dL (0.55-1.02); SGOT/AST 10 U/L (15-37); SGPT/ALT 30 U/L (12-78); TOT PROT 5.9 g/dl (6.4-8.2)
--- NOTE | 2016-10-04 09:46 | PN ---
Progress Note (short form) - Note Progress Note: Renal Follow up for MENA on CKD Pt seen and examined at the bedside pt with palpitations and afib with RVR last night feels weak SOB is unchanged Vital Signs Temperature 98.2 F 10/04/16 08:13 Pulse Rate 101 H 10/04/16 08:13 Respiratory Rate 20 10/04/16 08:13 Blood Pressure 114/58 10/04/16 08:13 O2 Sat by Pulse Oximetry (%) 95 10/03/16 20:21 Intake & Output 10/01/16 10/02/16 10/03/16 10/04/16 23:59 23:59 23:59 23:59 Intake Total 970 460 650 Balance 970 460 650 Weight 144 lb 141 lb 141 lb 4 oz 142 lb 3.2 oz Gen: NAD, on NC CVS: irregular, No M/R Lungs: Dec BS throughout the lung gilbert, no rales Ext: No edema, clubbing or cyanosis CBC, BMP 10/04/16 05:35 10/04/16 05:35 Laboratory Tests 09/30/16 09/30/16 09/30/16 23:35 23:35 23:35 Calcium Phosphorus Magnesium Albumin U Random Total Protein Ur Random Sodium 39 Ur Random Urea Nitrogn 761 Urine Creatinine 43.8 09/30/16 10/01/16 10/04/16 23:35 05:10 05:35 Calcium 8.1 L 8.1 L Phosphorus 5.0 H D 5.0 H Magnesium 2.6 H 2.5 H Albumin 2.7 L U Random Total Protein 316 H Ur Random Sodium Ur Random Urea Nitrogn Urine Creatinine Current Medications Albuterol Sulfate (Ventolin 0.083% Nebulizer Soln -) 1 amp NEB Q4H PRN PRN Reason: SHORT OF BREATH/WHEEZING Last Admin: 10/04/16 06:38 Dose: 1 amp Alprazolam (Xanax -) 0.25 mg PO BID PRN Last Admin: 10/03/16 23:27 Dose: 0.25 mg Apixaban (Eliquis -) 2.5 mg PO BID [facility] Last Admin: 10/03/16 22:21 Dose: 2.5 mg Atorvastatin Calcium (Lipitor -) 10 mg PO HS [facility] Last Admin: 10/03/16 22:21 Dose: 10 mg Budesonide/Formoterol Fumarate (Symbicort 160/4.5mcg -) 2 puff IH BID [facility] Last Admin: 10/03/16 22:23 Dose: 2 puff Diltiazem HCl (Cardizem Injection -) 10 mg IVPUSH Q4H PRN PRN Reason: HR OVER 120 Last Admin: 10/04/16 00:03 Dose: 10 mg Ferrous Sulfate (Feosol -) 325 mg PO DAILY [facility] Last Admin: 10/03/16 09:39 Dose: 325 mg Furosemide (Lasix -) 40 mg PO DAILY [facility] Last Admin: 10/03/16 09:41 Dose: 40 mg Isosorbide Mononitrate (Imdur -) 30 mg PO DAILY [facility] Last Admin: 10/03/16 09:39 Dose: 30 mg Methylprednisolone Sodium Succinate (Solu-Medrol -) 40 mg IVPB Q12H [facility] Last Admin: 10/03/16 23:14 Dose: 40 mg Metoprolol Succinate (Toprol Xl -) 25 mg PO DAILY [facility] Last Admin: 10/03/16 09:38 Dose: 25 mg Pantoprazole Sodium (Protonix -) 20 mg PO DAILY [facility] Last Admin: 10/03/16 09:39 Dose: 20 mg Polyethylene Glycol (Miralax (For Daily Use) -) 17 gm PO DAILY PRN PRN Reason: CONSTIPATION Last Admin: 10/02/16 10:27 Dose: 17 gm Ranolazine (Ranexa -) 500 mg PO BID [facility] Last Admin: 10/03/16 22:21 Dose: 500 mg Roflumilast (Daliresp -) 500 mcg PO DAILY [facility] Last Admin: 10/03/16 09:38 Dose: 500 mcg Sertraline HCl (Zoloft -) 150 mg PO DAILY [facility] Last Admin: 10/03/16 09:38 Dose: 150 mg Tiotropium [place] (Spiriva -) 1 puff IH DAILY [facility] Last Admin: 10/03/16 09:40 Dose: 1 puff A/P 81 year old woman with PMhx of CKD (baseline Cr unclear, in 2012 Cr peaked at 3.7 but was discharged with Cr of 1.3), DM2, COPD, CAD s/p Stenting, Afib not on Coumadin (pt decision) who presented with SOB and found to have acute diastolic HF with worsening of renal function with diuresis #MENA on CKD in setting of CHF Exacerbation and IV diuresis Renal function stable but not at baseline continue oral diuretics at this time avoid starting SEE/ARB until renal function is at baseline #Diastolic HF Cardiology following titrate diuretics to achieve evolemia low salt diet #COPD Continue steroids, Nebs, O2 as needed pulmonary following #Afib with RVR on Eliquis rate control as per cardiology #Anemia Iron saturation is low, start PO iron SPEP is pending #Hypernatremia free water intake as tolerated Andrew Mcclellan DO
[2016-10-04] MEDS: FERROUS SO4 325 MG TABLET (FP) PO SCH (10:02)
[2016-10-04] MEDS: APIXABAN 2.5 MG TABLET PO SCH ×2 (10:02→21:09)
[2016-10-04] MEDS: ISOSORBIDE MONONITRATE 30 MG TAB.SR.24H (FP) PO SCH (10:02)
[2016-10-04] MEDS: PANTOPRAZOLE 20 MG TABLET (FP) PO SCH (10:02)
[2016-10-04] MEDS: SERTRALINE HCL 50 MG TABLET (FP) PO SCH (10:03)
[2016-10-04] MEDS: METOPROLOL SUCCINATE 25 MG TAB.SR.24H (FP) PO SCH (10:04)
[2016-10-04] MEDS: RANOLAZINE E.R. 500 MG TABLET (FP) PO SCH ×2 (10:04→21:09)
[2016-10-04] MEDS: FUROSEMIDE 40 MG TABLET (FP) PO SCH (10:04)
[2016-10-04] MEDS: BUDESONIDE/FORMETEROL FUMARATE 160/4.5 mcg INHALER IH SCH ×2 (10:07→21:09)
[2016-10-04] MEDS: TIOTROPIUM BROMIDE 18 MCG/INH (DEVICE W/ 5 CAPSULES) IH SCH (10:07)
[2016-10-04] MEDS ORDERED: PT OWN MED DRAWER 7, Y5N ONE (11:02)
--- NOTE | 2016-10-04 11:07 | PN ---
Progress Note, Physician History of Present Illness: PULMONARY ALERT, STILL C/O SOB. PT WENT INTO RAPID AFIB LAST NIGHT GIVEN CARDIZEM WITH GOOD RESPONSE - Current Medication List Current Medications: Active Medications Albuterol Sulfate (Ventolin 0.083% Nebulizer Soln -) 1 amp NEB Q4H PRN PRN Reason: SHORT OF BREATH/WHEEZING Last Admin: 10/04/16 06:38 Dose: 1 amp Alprazolam (Xanax -) 0.25 mg PO BID PRN Last Admin: 10/03/16 23:27 Dose: 0.25 mg Apixaban (Eliquis -) 2.5 mg PO BID [facility] Last Admin: 10/04/16 10:02 Dose: 2.5 mg Atorvastatin Calcium (Lipitor -) 10 mg PO HS [facility] Last Admin: 10/03/16 22:21 Dose: 10 mg Budesonide/Formoterol Fumarate (Symbicort 160/4.5mcg -) 2 puff IH BID [facility] Last Admin: 10/04/16 10:07 Dose: 2 puff Diltiazem HCl (Cardizem Injection -) 10 mg IVPUSH Q4H PRN PRN Reason: HR OVER 120 Last Admin: 10/04/16 00:03 Dose: 10 mg Ferrous Sulfate (Feosol -) 325 mg PO DAILY [facility] Last Admin: 10/04/16 10:02 Dose: 325 mg Furosemide (Lasix -) 40 mg PO DAILY [facility] Last Admin: 10/04/16 10:04 Dose: 40 mg Isosorbide Mononitrate (Imdur -) 30 mg PO DAILY [facility] Last Admin: 10/04/16 10:02 Dose: 30 mg Methylprednisolone Sodium Succinate (Solu-Medrol -) 40 mg IVPB Q12H [facility] Last Admin: 10/03/16 23:14 Dose: 40 mg Metoprolol Succinate (Toprol Xl -) 25 mg PO DAILY [facility] Last Admin: 10/04/16 10:04 Dose: 25 mg Pantoprazole Sodium (Protonix -) 20 mg PO DAILY [facility] Last Admin: 10/04/16 10:02 Dose: 20 mg Polyethylene Glycol (Miralax (For Daily Use) -) 17 gm PO DAILY PRN PRN Reason: CONSTIPATION Last Admin: 10/02/16 10:27 Dose: 17 gm Ranolazine (Ranexa -) 500 mg PO BID [facility] Last Admin: 10/04/16 10:04 Dose: 500 mg Roflumilast (Daliresp -) 500 mcg PO DAILY [facility] Last Admin: 10/03/16 09:38 Dose: 500 mcg Sertraline HCl (Zoloft -) 150 mg PO DAILY [facility] Last Admin: 10/04/16 10:03 Dose: 150 mg Tiotropium [place] (Spiriva -) 1 puff IH DAILY [facility] Last Admin: 10/04/16 10:07 Dose: 1 puff - Objective Vital Signs: Vital Signs Temperature 98.2 F 10/04/16 08:13 Pulse Rate 101 H 10/04/16 08:13 Respiratory Rate 20 10/04/16 08:13 Blood Pressure 114/58 10/04/16 08:13 O2 Sat by Pulse Oximetry (%) 95 10/03/16 20:21 Constitutional: Yes: Well Nourished, Calm Eyes: Yes: WNL HENT: Yes: WNL Neck: Yes: WNL Cardiovascular: Yes: Tachycardia, Pulse Irregular, S1, S2 Respiratory: Yes: Rales (BIBASILAR RALES) Gastrointestinal: Yes: Normal Bowel Sounds, Soft Extremities: Yes: WNL Edema: No Labs: CBC, BMP 10/04/16 05:35 10/04/16 05:35 INR, PTT INR 1.45 (0.82-1.09) H 09/25/16 09:13 Problem List - Problems (1) Acute on chronic diastolic heart failure Code(s): I50.33 - ACUTE ON CHRONIC DIASTOLIC (CONGESTIVE) HEART FAILURE (2) Jsyzf-zw-ztprnxv kidney injury Code(s): N17.9 - ACUTE KIDNEY FAILURE, UNSPECIFIED N18.9 - CHRONIC KIDNEY DISEASE, UNSPECIFIED Qualifiers: Acute renal failure type: unspecified Chronic kidney disease stage: stage 3 (moderate) Qualified Code(s): N17.9 - Acute kidney failure, unspecified; N18.9 - Chronic kidney disease, unspecified (3) CHF (congestive heart failure) Code(s): I50.9 - HEART FAILURE, UNSPECIFIED Qualifiers: Congestive heart failure type: unspecified congestive heart failure type Congestive heart failure chronicity: unspecified congestive heart failure chronicity Qualified Code(s): I50.9 - Heart failure, unspecified (4) History of amiodarone therapy Code(s): Z92.29 - PERSONAL HISTORY OF OTHER DRUG THERAPY (5) CHF exacerbation Code(s): I50.9 - HEART FAILURE, UNSPECIFIED Qualifiers: Congestive heart failure type: unspecified congestive heart failure type Qualified Code(s): I50.9 - Heart failure, unspecified (6) COPD (chronic obstructive pulmonary disease) Code(s): J44.9 - CHRONIC OBSTRUCTIVE PULMONARY DISEASE, UNSPECIFIED Qualifiers : COPD type: unspecified COPD Qualified Code(s): J44.9 - Chronic obstructive pulmonary disease, unspecified (7) HTN (hypertension) Code(s): I10 - ESSENTIAL (PRIMARY) HYPERTENSION Qualifiers: Hypertension type: essential hypertension Qualified Code(s): I10 - Essential (primary) hypertension (8) Hypercholesterolemia Code(s): E78.00 - PURE HYPERCHOLESTEROLEMIA, UNSPECIFIED (9) PAF (paroxysmal atrial fibrillation) Code(s): I48.0 - PAROXYSMAL ATRIAL FIBRILLATION (10) Pulmonary hypertension Code(s): I27.2 - OTHER SECONDARY PULMONARY HYPERTENSION (11) Acute on chronic respiratory failure with hypoxemia Code(s): J96.21 - ACUTE AND CHRONIC RESPIRATORY FAILURE WITH HYPOXIA Assessment/Plan IMP ACUTE ON CHRONIC HYPOXEMIC RESPIRATORY FAILURE DECOMPENSATED CHF DIASTOLIC COPD EXACERBATION R/O AMIODARONE LUNG TOXICITY SEVERE PULMONARY HTN MITRAL STENOSIS ASHD S/P STENT VALVULAR HD PAF ACUTE ON CHRONIC RENAL FAILURE DM HTN PLAN LASIX INHALED BRONCHODILATORS SUPPLEMENTAL O2 STEROIDS DAILY WTS MONITOR LYTES,RENAL FUNCTION RATE CONTROL TFTS DR GAITAN Problem List - Problems (1) Acute on chronic diastolic heart failure Code(s): I50.33 - ACUTE ON CHRONIC DIASTOLIC (CONGESTIVE) HEART FAILURE (2) Aonvj-ev-vnjprxp kidney injury Code(s): N17.9 - ACUTE KIDNEY FAILURE, UNSPECIFIED N18.9 - CHRONIC KIDNEY DISEASE, UNSPECIFIED Qualifiers: Acute renal failure type: unspecified Chronic kidney disease stage: stage 3 (moderate) Qualified Code(s): N17.9 - Acute kidney failure, unspecified; N18.9 - Chronic kidney disease, unspecified (3) CHF (congestive heart failure) Code(s): I50.9 - HEART FAILURE, UNSPECIFIED Qualifiers: Congestive heart failure type: unspecified congestive heart failure type Congestive heart failure chronicity: unspecified congestive heart failure chronicity Qualified Code(s): I50.9 - Heart failure, unspecified (4) History of amiodarone therapy Code(s): Z92.29 - PERSONAL HISTORY OF OTHER DRUG THERAPY (5) CHF exacerbation Code(s): I50.9 - HEART FAILURE, UNSPECIFIED Qualifiers: Congestive heart failure type: unspecified congestive heart failure type Qualified Code(s): I50.9 - Heart failure, unspecified (6) COPD (chronic obstructive pulmonary disease) Code(s): J44.9 - CHRONIC OBSTRUCTIVE PULMONARY DISEASE, UNSPECIFIED Qualifiers : COPD type: unspecified COPD Qualified Code(s): J44.9 - Chronic obstructive pulmonary disease, unspecified (7) HTN (hypertension) Code(s): I10 - ESSENTIAL (PRIMARY) HYPERTENSION Qualifiers: Hypertension type: essential hypertension Qualified Code(s): I10 - Essential (primary) hypertension (8) Hypercholesterolemia Code(s): E78.00 - PURE HYPERCHOLESTEROLEMIA, UNSPECIFIED (9) PAF (paroxysmal atrial fibrillation) Code(s): I48.0 - PAROXYSMAL ATRIAL FIBRILLATION (10) Pulmonary hypertension Code(s): I27.2 - OTHER SECONDARY PULMONARY HYPERTENSION (11) Acute on chronic respiratory failure with hypoxemia Code(s): J96.21 - ACUTE AND CHRONIC RESPIRATORY FAILURE WITH HYPOXIA
[2016-10-04] MEDS: ROFLUMILAST 500 MCG TABLET PO SCH (11:12)
[2016-10-04] MEDS: methylPREDNISolone NA SUCC 40 MG/1 ML VIAL IVPB SCH (11:12)
[2016-10-04] MEDS ORDERED: FUROSEMIDE 40 MG/4 ML INJECTABLE VIAL IVPUSH ONE (15:45)
[2016-10-04] MEDS: METOPROLOL TARTRATE 25 MG TABLET (FP) PO SCH ×2 (15:50→21:08)
[2016-10-04] MEDS: ATORVASTATIN CA 10 MG TABLET (FP) PO SCH (21:08)
--- NOTE | 2016-10-04 23:52 | PN ---
Progress Note, Physician - Current Medication List Current Medications: Active Medications Albuterol Sulfate (Ventolin 0.083% Nebulizer Soln -) 1 amp NEB Q4H PRN PRN Reason: SHORT OF BREATH/WHEEZING Last Admin: 10/04/16 21:45 Dose: 1 amp Apixaban (Eliquis -) 2.5 mg PO BID [facility] Last Admin: 10/04/16 21:09 Dose: 2.5 mg Atorvastatin Calcium (Lipitor -) 10 mg PO HS [facility] Last Admin: 10/04/16 21:08 Dose: 10 mg Budesonide/Formoterol Fumarate (Symbicort 160/4.5mcg -) 2 puff IH BID [facility] Last Admin: 10/04/16 21:09 Dose: 2 puff Diltiazem HCl (Cardizem Injection -) 10 mg IVPUSH Q4H PRN PRN Reason: HR OVER 120 Last Admin: 10/04/16 00:03 Dose: 10 mg Ferrous Sulfate (Feosol -) 325 mg PO DAILY [facility] Last Admin: 10/04/16 10:02 Dose: 325 mg Furosemide (Lasix -) 40 mg PO DAILY [facility] Last Admin: 10/04/16 10:04 Dose: 40 mg Isosorbide Mononitrate (Imdur -) 30 mg PO DAILY [facility] Last Admin: 10/04/16 10:02 Dose: 30 mg Methylprednisolone Sodium Succinate (Solu-Medrol -) 40 mg IVPB Q12H [facility] Last Admin: 10/04/16 11:12 Dose: 40 mg Metoprolol Tartrate (Lopressor -) 25 mg PO BID [facility] Last Admin: 10/04/16 21:08 Dose: 25 mg Pantoprazole Sodium (Protonix -) 20 mg PO DAILY [facility] Last Admin: 10/04/16 10:02 Dose: 20 mg Polyethylene Glycol (Miralax (For Daily Use) -) 17 gm PO DAILY PRN PRN Reason: CONSTIPATION Last Admin: 10/02/16 10:27 Dose: 17 gm Ranolazine (Ranexa -) 500 mg PO BID [facility] Last Admin: 10/04/16 21:09 Dose: 500 mg Roflumilast (Daliresp -) 500 mcg PO DAILY [facility] Last Admin: 10/04/16 11:12 Dose: 500 mcg Sertraline HCl (Zoloft -) 150 mg PO DAILY [facility] Last Admin: 10/04/16 10:03 Dose: 150 mg Tiotropium [place] (Spiriva -) 1 puff IH DAILY [facility] Last Admin: 10/04/16 10:07 Dose: 1 puff - Objective Vital Signs: Vital Signs Temperature 99.2 F 10/04/16 21:00 Pulse Rate 99 H 10/04/16 21:00 Respiratory Rate 20 10/04/16 21:00 Blood Pressure 125/65 10/04/16 21:00 O2 Sat by Pulse Oximetry (%) 88 L 10/04/16 21:00 Labs: CBC, BMP 10/04/16 05:35 10/04/16 05:35 INR, PTT INR 1.45 (0.82-1.09) H 09/25/16 09:13 Problem List - Problems (1) Acute on chronic diastolic heart failure Code(s): I50.33 - ACUTE ON CHRONIC DIASTOLIC (CONGESTIVE) HEART FAILURE (2) COPD (chronic obstructive pulmonary disease) Code(s): J44.9 - CHRONIC OBSTRUCTIVE PULMONARY DISEASE, UNSPECIFIED Qualifiers : COPD type: unspecified COPD Qualified Code(s): J44.9 - Chronic obstructive pulmonary disease, unspecified (3) [id number]-[id number] kidney injury Code(s): N17.9 - ACUTE KIDNEY FAILURE, UNSPECIFIED N18.9 - CHRONIC KIDNEY DISEASE, UNSPECIFIED Qualifiers: Acute renal failure type: unspecified Chronic kidney disease stage: stage 3 (moderate) Qualified Code(s): N17.9 - Acute kidney failure, unspecified; N18.9 - Chronic kidney disease, unspecified (4) Anemia Code(s): D64.9 - ANEMIA, UNSPECIFIED Qualifiers: Anemia type: due to chronic kidney disease (5) HTN (hypertension) Code(s): I10 - ESSENTIAL (PRIMARY) HYPERTENSION Qualifiers: Hypertension type: essential hypertension Qualified Code(s): I10 - Essential (primary) hypertension (6) Hypercholesterolemia Code(s): E78.00 - PURE HYPERCHOLESTEROLEMIA, UNSPECIFIED (7) PAF (paroxysmal atrial fibrillation) Code(s): I48.0 - PAROXYSMAL ATRIAL FIBRILLATION (8) Dyspnea Code(s): R06.00 - DYSPNEA, UNSPECIFIED Qualifiers: Dyspnea type: unspecified Qualified Code(s): R06.00 - Dyspnea, unspecified
[2016-10-05] MEDS: methylPREDNISolone NA SUCC 40 MG/1 ML VIAL IVPB SCH ×4 (00:09→23:11)
[2016-10-05] MEDS: ALBUTEROL SO4 0.083% IH SOL 2.5 MG/3 ML VIAL.NEB. NEB PRN ×3 (06:38→22:10)
[2016-10-05 08:10] LABS: ANION GAP 9 (8-16); CO2 30 mmol/L (21-32); CREATININE 2.9 mg/dL (0.55-1.02); GLUCOSE,RANDOM 154 mg/dL (74-106); MAGNESIUM 2.4 mg/dL (1.8-2.4); PHOSPHOROUS 5.7 mg/dL (2.5-4.9); THYROID STIMULATING HORMONE 0.07 uIU/ml (0.358-3.74)
[2016-10-05] MEDS: APIXABAN 2.5 MG TABLET PO SCH ×3 (08:52→21:05)
[2016-10-05] MEDS: PANTOPRAZOLE 20 MG TABLET (FP) PO SCH ×2 (08:52→09:07)
[2016-10-05] MEDS: SERTRALINE HCL 50 MG TABLET (FP) PO SCH ×2 (08:52→09:07)
[2016-10-05] MEDS: FUROSEMIDE 40 MG TABLET (FP) PO SCH ×2 (08:52→09:07)
[2016-10-05] MEDS: RANOLAZINE E.R. 500 MG TABLET (FP) PO SCH ×3 (08:52→21:05)
[2016-10-05] MEDS: METOPROLOL TARTRATE 25 MG TABLET (FP) PO SCH ×4 (08:53→21:05)
[2016-10-05] MEDS: FERROUS SO4 325 MG TABLET (FP) PO SCH ×2 (08:53→09:06)
[2016-10-05] MEDS: ROFLUMILAST 500 MCG TABLET PO SCH ×2 (08:53→09:06)
[2016-10-05] MEDS: TIOTROPIUM BROMIDE 18 MCG/INH (DEVICE W/ 5 CAPSULES) IH SCH ×2 (08:53→09:07)
[2016-10-05] MEDS: ISOSORBIDE MONONITRATE 30 MG TAB.SR.24H (FP) PO SCH ×2 (08:53→09:07)
[2016-10-05] MEDS: BUDESONIDE/FORMETEROL FUMARATE 160/4.5 mcg INHALER IH SCH ×3 (08:54→21:06)
[2016-10-05] MEDS: POLYETHYLENE GLYCOL 3350 119 GM BTL PO PRN (08:55)
[2016-10-05] MEDS: dilTIAZem HCL 50 MG/10 ML - 10 ML VIAL IVPUSH PRN ×2 (11:03→18:09)
--- NOTE | 2016-10-05 11:04 | PN ---
Progress Note, Physician History of Present Illness: Continued dyspnea on exertion despite diuresis, episodes of rapid afib now with improved rate-control. - Current Medication List Current Medications: Active Medications Albuterol Sulfate (Ventolin 0.083% Nebulizer Soln -) 1 amp NEB Q4H PRN PRN Reason: SHORT OF BREATH/WHEEZING Last Admin: 10/05/16 06:38 Dose: 1 amp Apixaban (Eliquis -) 2.5 mg PO BID [facility] Last Admin: 10/05/16 09:06 Dose: Not Given Atorvastatin Calcium (Lipitor -) 10 mg PO HS [facility] Last Admin: 10/04/16 21:08 Dose: 10 mg Budesonide/Formoterol Fumarate (Symbicort 160/4.5mcg -) 2 puff IH BID [facility] Last Admin: 10/05/16 09:07 Dose: Not Given Diltiazem HCl (Cardizem Injection -) 10 mg IVPUSH Q4H PRN PRN Reason: HR OVER 120 Last Admin: 10/04/16 00:03 Dose: 10 mg Ferrous Sulfate (Feosol -) 325 mg PO DAILY [facility] Last Admin: 10/05/16 09:06 Dose: Not Given Furosemide (Lasix -) 40 mg PO DAILY [facility] Last Admin: 10/05/16 09:07 Dose: Not Given Isosorbide Mononitrate (Imdur -) 30 mg PO DAILY [facility] Last Admin: 10/05/16 09:07 Dose: Not Given Methylprednisolone Sodium Succinate (Solu-Medrol -) 40 mg IVPB Q12H [facility] Last Admin: 10/05/16 10:57 Dose: Not Given Metoprolol Tartrate (Lopressor -) 25 mg PO BID [facility] Last Admin: 10/05/16 09:07 Dose: Not Given Pantoprazole Sodium (Protonix -) 20 mg PO DAILY [facility] Last Admin: 10/05/16 09:07 Dose: Not Given Polyethylene Glycol (Miralax (For Daily Use) -) 17 gm PO DAILY PRN PRN Reason: CONSTIPATION Last Admin: 10/05/16 08:55 Dose: 17 gm Ranolazine (Ranexa -) 500 mg PO BID [facility] Last Admin: 10/05/16 09:07 Dose: Not Given Roflumilast (Daliresp -) 500 mcg PO DAILY [facility] Last Admin: 10/05/16 09:06 Dose: Not Given Sertraline HCl (Zoloft -) 150 mg PO DAILY [facility] Last Admin: 10/05/16 09:07 Dose: Not Given Tiotropium [place] (Spiriva -) 1 puff IH DAILY [facility] Last Admin: 10/05/16 09:07 Dose: Not Given - Objective Vital Signs: Vital Signs Temperature 97.7 F 10/05/16 04:57 Pulse Rate 110 H 10/05/16 04:57 Respiratory Rate 20 10/05/16 04:57 Blood Pressure 125/55 10/05/16 04:57 O2 Sat by Pulse Oximetry (%) 88 L 10/04/16 21:00 Constitutional: Yes: No Distress, Calm Neck: Yes: Supple Cardiovascular: Yes: Tachycardia, Pulse Irregular Respiratory: Yes: Regular, On Nasal O2 Gastrointestinal: Yes: Normal Bowel Sounds, Soft, Abdomen, Obese Edema: No Labs: CBC, BMP 10/04/16 05:35 10/05/16 05:35 INR, PTT INR 1.45 (0.82-1.09) H 09/25/16 09:13 - ....Imaging Chest X-ray: Report Reviewed (Improved congestion) EKG: Report Reviewed (Tele: Rapid afib) Problem List - Problems (1) COPD (chronic obstructive pulmonary disease) Code(s): J44.9 - CHRONIC OBSTRUCTIVE PULMONARY DISEASE, UNSPECIFIED Qualifiers : COPD type: unspecified COPD Qualified Code(s): J44.9 - Chronic obstructive pulmonary disease, unspecified (2) HTN (hypertension) Code(s): I10 - ESSENTIAL (PRIMARY) HYPERTENSION Qualifiers: Hypertension type: essential hypertension Qualified Code(s): I10 - Essential (primary) hypertension (3) Hypercholesterolemia Code(s): E78.00 - PURE HYPERCHOLESTEROLEMIA, UNSPECIFIED (4) PAF (paroxysmal atrial fibrillation) Code(s): I48.0 - PAROXYSMAL ATRIAL FIBRILLATION (5) Pulmonary hypertension Code(s): I27.2 - OTHER SECONDARY PULMONARY HYPERTENSION (6) Smicc-zz-mpvaque kidney injury Code(s): N17.9 - ACUTE KIDNEY FAILURE, UNSPECIFIED N18.9 - CHRONIC KIDNEY DISEASE, UNSPECIFIED Qualifiers: Acute renal failure type: unspecified Chronic kidney disease stage: stage 3 (moderate) Qualified Code(s): N17.9 - Acute kidney failure, unspecified; N18.9 - Chronic kidney disease, unspecified (7) Acute on chronic diastolic heart failure Code(s): I50.33 - ACUTE ON CHRONIC DIASTOLIC (CONGESTIVE) HEART FAILURE (8) History of amiodarone therapy Code(s): Z92.29 - PERSONAL HISTORY OF OTHER DRUG THERAPY (9) Anemia Code(s): D64.9 - ANEMIA, UNSPECIFIED Qualifiers: Anemia type: due to chronic kidney disease Assessment/Plan Echocardiography dated 09/08/2016 revealed normal LV size and function, mod LAE, mild HERNANDEZ, mod MR and TR with RVSP 50-60 mmHg, 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 Acute on chronic hypoxemic respiratory failure referable to 2. 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 Acute on chronic LV diastolic failure resolving 2. CAD post PCI/stent angina pectoris with evidence of demand ischemic injury 4. R/O Amiodarone-associated pulmonary toxicity 5. Paroxysmal atrial fibrillation in RVR on NOAC 6. HTN 7. Hypercholesterolemia 8. Moderate mitral valve and tricuspid valve regurgitation and functional MS with severe pulmonary hypertension 9. Acute on CKD 10. Anemia PLAN: 1. Continue Eliquis 2.5 bid 2. Increase Lopressor 25 tid 3. Continue Imdur 30 qd 4. Continue Ranexa 500 bid 5. Continue Lipitor 10 qhs 6. Continue oral diuresis with monitor diuretic response, renal fxn and electrolytes 7. Bronchodilators, Daliresp and IV steroids with GI protection as per the primary team 8. As outlined in prior note additional cardiovascular evaluation is recommended pending resolution of CHF and COPD exacerbation including MPI study if not performed recently (attempt to defer left heart cardiac catheterization coronary angiography considering the above-noted progressive renal insufficiency )
--- NOTE | 2016-10-05 11:35 | PN ---
Progress Note, Physician History of Present Illness: pulmonary comfortable at rest + dyspnea with min exertion,remains in rapid afib - Current Medication List Current Medications: Active Medications Albuterol Sulfate (Ventolin 0.083% Nebulizer Soln -) 1 amp NEB Q4H PRN PRN Reason: SHORT OF BREATH/WHEEZING Last Admin: 10/05/16 06:38 Dose: 1 amp Apixaban (Eliquis -) 2.5 mg PO BID [facility] Last Admin: 10/05/16 09:06 Dose: Not Given Atorvastatin Calcium (Lipitor -) 10 mg PO HS [facility] Last Admin: 10/04/16 21:08 Dose: 10 mg Budesonide/Formoterol Fumarate (Symbicort 160/4.5mcg -) 2 puff IH BID [facility] Last Admin: 10/05/16 09:07 Dose: Not Given Diltiazem HCl (Cardizem Injection -) 10 mg IVPUSH Q4H PRN PRN Reason: HR OVER 120 Last Admin: 10/05/16 11:03 Dose: 10 mg Ferrous Sulfate (Feosol -) 325 mg PO DAILY [facility] Last Admin: 10/05/16 09:06 Dose: Not Given Furosemide (Lasix -) 40 mg PO DAILY [facility] Last Admin: 10/05/16 09:07 Dose: Not Given Isosorbide Mononitrate (Imdur -) 30 mg PO DAILY [facility] Last Admin: 10/05/16 09:07 Dose: Not Given Methylprednisolone Sodium Succinate (Solu-Medrol -) 40 mg IVPB Q12H [facility] Last Admin: 10/05/16 10:57 Dose: Not Given Metoprolol Tartrate (Lopressor -) 25 mg PO BID [facility] Last Admin: 10/05/16 09:07 Dose: Not Given Pantoprazole Sodium (Protonix -) 20 mg PO DAILY [facility] Last Admin: 10/05/16 09:07 Dose: Not Given Polyethylene Glycol (Miralax (For Daily Use) -) 17 gm PO DAILY PRN PRN Reason: CONSTIPATION Last Admin: 10/05/16 08:55 Dose: 17 gm Ranolazine (Ranexa -) 500 mg PO BID [facility] Last Admin: 10/05/16 09:07 Dose: Not Given Roflumilast (Daliresp -) 500 mcg PO DAILY [facility] Last Admin: 10/05/16 09:06 Dose: Not Given Sertraline HCl (Zoloft -) 150 mg PO DAILY [facility] Last Admin: 10/05/16 09:07 Dose: Not Given Tiotropium [place] (Spiriva -) 1 puff IH DAILY [facility] Last Admin: 10/05/16 09:07 Dose: Not Given - Objective Vital Signs: Vital Signs Temperature 97.7 F 10/05/16 04:57 Pulse Rate 110 H 10/05/16 04:57 Respiratory Rate 20 10/05/16 04:57 Blood Pressure 125/55 10/05/16 04:57 O2 Sat by Pulse Oximetry (%) 88 L 10/04/16 21:00 Constitutional: Yes: Well Nourished, Calm Eyes: Yes: WNL HENT: Yes: WNL, Tonsillar Exudate Cardiovascular: Yes: Regular Rate and Rhythm, S1, S2 Respiratory: Yes: Rales (bibasilar rales) Gastrointestinal: Yes: Normal Bowel Sounds, Soft Extremities: Yes: WNL Edema: No Labs: CBC, BMP 10/04/16 05:35 10/05/16 05:35 INR, PTT INR 1.45 (0.82-1.09) H 09/25/16 09:13 - ....Imaging Chest X-ray: Report Reviewed, Image Reviewed (less congestion) Problem List - Problems (1) Acute on chronic diastolic heart failure Code(s): I50.33 - ACUTE ON CHRONIC DIASTOLIC (CONGESTIVE) HEART FAILURE (2) Hoibq-al-cqtfrey kidney injury Code(s): N17.9 - ACUTE KIDNEY FAILURE, UNSPECIFIED N18.9 - CHRONIC KIDNEY DISEASE, UNSPECIFIED Qualifiers: Acute renal failure type: unspecified Chronic kidney disease stage: stage 3 (moderate) Qualified Code(s): N17.9 - Acute kidney failure, unspecified; N18.9 - Chronic kidney disease, unspecified (3) CHF (congestive heart failure) Code(s): I50.9 - HEART FAILURE, UNSPECIFIED Qualifiers: Congestive heart failure type: unspecified congestive heart failure type Congestive heart failure chronicity: unspecified congestive heart failure chronicity Qualified Code(s): I50.9 - Heart failure, unspecified (4) History of amiodarone therapy Code(s): Z92.29 - PERSONAL HISTORY OF OTHER DRUG THERAPY (5) CHF exacerbation Code(s): I50.9 - HEART FAILURE, UNSPECIFIED Qualifiers: Congestive heart failure type: unspecified congestive heart failure type Qualified Code(s): I50.9 - Heart failure, unspecified (6) COPD (chronic obstructive pulmonary disease) Code(s): J44.9 - CHRONIC OBSTRUCTIVE PULMONARY DISEASE, UNSPECIFIED Qualifiers : COPD type: unspecified COPD Qualified Code(s): J44.9 - Chronic obstructive pulmonary disease, unspecified (7) HTN (hypertension) Code(s): I10 - ESSENTIAL (PRIMARY) HYPERTENSION Qualifiers: Hypertension type: essential hypertension Qualified Code(s): I10 - Essential (primary) hypertension (8) Hypercholesterolemia Code(s): E78.00 - PURE HYPERCHOLESTEROLEMIA, UNSPECIFIED (9) PAF (paroxysmal atrial fibrillation) Code(s): I48.0 - PAROXYSMAL ATRIAL FIBRILLATION (10) Pulmonary hypertension Code(s): I27.2 - OTHER SECONDARY PULMONARY HYPERTENSION (11) Acute on chronic respiratory failure with hypoxemia Code(s): J96.21 - ACUTE AND CHRONIC RESPIRATORY FAILURE WITH HYPOXIA Assessment/Plan IMP ACUTE ON CHRONIC HYPOXEMIC RESPIRATORY FAILURE DECOMPENSATED CHF DIASTOLIC COPD EXACERBATION SEVERE PULMONARY HTN MITRAL STENOSIS ASHD S/P STENT VALVULAR HD PAF ACUTE ON CHRONIC RENAL FAILURE DM HTN PLAN LASIX INHALED BRONCHODILATORS SUPPLEMENTAL O2 STEROID TAPER DAILY WTS MONITOR LYTES,RENAL FUNCTION RATE CONTROL PFTS OUTPATIENT DR GAITAN Problem List - Problems (1) Acute on chronic diastolic heart failure Code(s): I50.33 - ACUTE ON CHRONIC DIASTOLIC (CONGESTIVE) HEART FAILURE (2) Rqpxt-pp-rjweiub kidney injury Code(s): N17.9 - ACUTE KIDNEY FAILURE, UNSPECIFIED N18.9 - CHRONIC KIDNEY DISEASE, UNSPECIFIED Qualifiers: Acute renal failure type: unspecified Chronic kidney disease stage: stage 3 (moderate) Qualified Code(s): N17.9 - Acute kidney failure, unspecified; N18.9 - Chronic kidney disease, unspecified (3) CHF (congestive heart failure) Code(s): I50.9 - HEART FAILURE, UNSPECIFIED Qualifiers: Congestive heart failure type: unspecified congestive heart failure type Congestive heart failure chronicity: unspecified congestive heart failure chronicity Qualified Code(s): I50.9 - Heart failure, unspecified (4) History of amiodarone therapy Code(s): Z92.29 - PERSONAL HISTORY OF OTHER DRUG THERAPY (5) CHF exacerbation Code(s): I50.9 - HEART FAILURE, UNSPECIFIED Qualifiers: Congestive heart failure type: unspecified congestive heart failure type Qualified Code(s): I50.9 - Heart failure, unspecified (6) COPD (chronic obstructive pulmonary disease) Code(s): J44.9 - CHRONIC OBSTRUCTIVE PULMONARY DISEASE, UNSPECIFIED Qualifiers : COPD type: unspecified COPD Qualified Code(s): J44.9 - Chronic obstructive pulmonary disease, unspecified (7) HTN (hypertension) Code(s): I10 - ESSENTIAL (PRIMARY) HYPERTENSION Qualifiers: Hypertension type: essential hypertension Qualified Code(s): I10 - Essential (primary) hypertension (8) Hypercholesterolemia Code(s): E78.00 - PURE HYPERCHOLESTEROLEMIA, UNSPECIFIED (9) PAF (paroxysmal atrial fibrillation) Code(s): I48.0 - PAROXYSMAL ATRIAL FIBRILLATION (10) Pulmonary hypertension Code(s): I27.2 - OTHER SECONDARY PULMONARY HYPERTENSION (11) Acute on chronic respiratory failure with hypoxemia Code(s): J96.21 - ACUTE AND CHRONIC RESPIRATORY FAILURE WITH HYPOXIA
[2016-10-05] MEDS: ATORVASTATIN CA 10 MG TABLET (FP) PO SCH (21:05)
--- NOTE | 2016-10-05 23:46 | PN ---
Progress Note, Physician - Current Medication List Current Medications: Active Medications Albuterol Sulfate (Ventolin 0.083% Nebulizer Soln -) 1 amp NEB Q4H PRN PRN Reason: SHORT OF BREATH/WHEEZING Last Admin: 10/05/16 22:10 Dose: 1 amp Apixaban (Eliquis -) 2.5 mg PO BID [facility] Last Admin: 10/05/16 21:05 Dose: 2.5 mg Atorvastatin Calcium (Lipitor -) 10 mg PO HS [facility] Last Admin: 10/05/16 21:05 Dose: 10 mg Budesonide/Formoterol Fumarate (Symbicort 160/4.5mcg -) 2 puff IH BID [facility] Last Admin: 10/05/16 21:06 Dose: 2 puff Diltiazem HCl (Cardizem Injection -) 10 mg IVPUSH Q4H PRN PRN Reason: HR OVER 120 Last Admin: 10/05/16 18:09 Dose: 10 mg Ferrous Sulfate (Feosol -) 325 mg PO DAILY [facility] Last Admin: 10/05/16 09:06 Dose: Not Given Furosemide (Lasix -) 40 mg PO DAILY [facility] Last Admin: 10/05/16 09:07 Dose: Not Given Isosorbide Mononitrate (Imdur -) 30 mg PO DAILY [facility] Last Admin: 10/05/16 09:07 Dose: Not Given Methylprednisolone Sodium Succinate (Solu-Medrol -) 40 mg IVPB Q12H [facility] Last Admin: 10/05/16 23:11 Dose: 40 mg Metoprolol Tartrate (Lopressor -) 25 mg PO TID [facility] Last Admin: 10/05/16 21:05 Dose: 25 mg Pantoprazole Sodium (Protonix -) 20 mg PO DAILY [facility] Last Admin: 10/05/16 09:07 Dose: Not Given Polyethylene Glycol (Miralax (For Daily Use) -) 17 gm PO DAILY PRN PRN Reason: CONSTIPATION Last Admin: 10/05/16 08:55 Dose: 17 gm Ranolazine (Ranexa -) 500 mg PO BID [facility] Last Admin: 10/05/16 21:05 Dose: 500 mg Roflumilast (Daliresp -) 500 mcg PO DAILY [facility] Last Admin: 10/05/16 09:06 Dose: Not Given Sertraline HCl (Zoloft -) 150 mg PO DAILY [facility] Last Admin: 06/18/17 09:07 Dose: Not Given Tiotropium [place] (Spiriva -) 1 puff IH DAILY [facility] Last Admin: 10/05/16 09:07 Dose: Not Given - Objective Vital Signs: Vital Signs Temperature 99.3 F 10/05/16 21:00 Pulse Rate 121 H 10/05/16 21:00 Respiratory Rate 20 10/05/16 21:00 Blood Pressure 132/85 10/05/16 21:00 O2 Sat by Pulse Oximetry (%) 98 10/05/16 21:00 Labs: CBC, BMP 10/04/16 05:35 10/05/16 05:35 INR, PTT INR 1.45 (0.82-1.09) H 09/25/16 09:13 Problem List - Problems (1) Acute on chronic diastolic heart failure Code(s): I50.33 - ACUTE ON CHRONIC DIASTOLIC (CONGESTIVE) HEART FAILURE (2) COPD (chronic obstructive pulmonary disease) Code(s): J44.9 - CHRONIC OBSTRUCTIVE PULMONARY DISEASE, UNSPECIFIED Qualifiers : COPD type: unspecified COPD Qualified Code(s): J44.9 - Chronic obstructive pulmonary disease, unspecified (3) Yzifw-as-gxosgdu kidney injury Code(s): N17.9 - ACUTE KIDNEY FAILURE, UNSPECIFIED N18.9 - CHRONIC KIDNEY DISEASE, UNSPECIFIED Qualifiers: Acute renal failure type: unspecified Chronic kidney disease stage: stage 3 (moderate) Qualified Code(s): N17.9 - Acute kidney failure, unspecified; N18.9 - Chronic kidney disease, unspecified (4) Anemia Code(s): D64.9 - ANEMIA, UNSPECIFIED Qualifiers: Anemia type: due to chronic kidney disease (5) HTN (hypertension) Code(s): I10 - ESSENTIAL (PRIMARY) HYPERTENSION Qualifiers: Hypertension type: essential hypertension Qualified Code(s): I10 - Essential (primary) hypertension (6) Hypercholesterolemia Code(s): E78.00 - PURE HYPERCHOLESTEROLEMIA, UNSPECIFIED (7) PAF (paroxysmal atrial fibrillation) Code(s): I48.0 - PAROXYSMAL ATRIAL FIBRILLATION (8) Dyspnea Code(s): R06.00 - DYSPNEA, UNSPECIFIED Qualifiers: Dyspnea type: unspecified Qualified Code(s): R06.00 - Dyspnea, unspecified
[2016-10-06] MEDS: METOPROLOL TARTRATE 25 MG TABLET (FP) PO SCH ×3 (05:16→21:24)
[2016-10-06] MEDS: ALBUTEROL SO4 0.083% IH SOL 2.5 MG/3 ML VIAL.NEB. NEB PRN ×2 (06:25→10:27)
[2016-10-06 07:47] LABS: BASOPHIL 0.1 % (0-2.0); MCH 24.6 pg (25.7-33.7); MCHC 30.8 g/dl (32.0-36.0); MEAN CELL VOLUME 80.2 fl (80-96); MEAN PLT VOLUME 9.2 fl (7.5-11.1); NEUTROPHILS 94.5 % (42.8-82.8); PLATELET COUNT 252 K/MM3 (134-434); WHITE BLOOD COUNT 12.9 K/mm3 (4.0-10.0)
[2016-10-06 08:02] LABS: ALBUMIN 2.6 g/dl (3.4-5.0); ANION GAP 10 (8-16); CALCIUM 8.1 mg/dL (8.5-10.1); CO2 28 mmol/L (21-32); GLUCOSE,RANDOM 180 mg/dL (74-106)
[2016-10-06 08:08] LABS: ALK PHOS 54 U/L (45-117); BILIRUBIN,TOTAL 0.2 mg/dL (0.2-1.0); CREATININE 3.2 mg/dL (0.55-1.02); SGOT/AST 12 U/L (15-37); SGPT/ALT 31 U/L (12-78); TOT PROT 5.7 g/dl (6.4-8.2)
[2016-10-06] MEDS ORDERED: PT OWN MED DRAWER 7, Y5N ONE (09:29)
[2016-10-06] MEDS: APIXABAN 2.5 MG TABLET PO SCH ×2 (09:56→21:24)
[2016-10-06] MEDS: RANOLAZINE E.R. 500 MG TABLET (FP) PO SCH ×2 (09:56→21:24)
[2016-10-06] MEDS: SERTRALINE HCL 50 MG TABLET (FP) PO SCH (09:56)
[2016-10-06] MEDS: PANTOPRAZOLE 20 MG TABLET (FP) PO SCH (09:57)
[2016-10-06] MEDS: FERROUS SO4 325 MG TABLET (FP) PO SCH (09:57)
[2016-10-06] MEDS: ISOSORBIDE MONONITRATE 30 MG TAB.SR.24H (FP) PO SCH (09:57)
[2016-10-06] MEDS: ROFLUMILAST 500 MCG TABLET PO SCH (10:03)
[2016-10-06] MEDS: TIOTROPIUM BROMIDE 18 MCG/INH (DEVICE W/ 5 CAPSULES) IH SCH (10:03)
[2016-10-06] MEDS: BUDESONIDE/FORMETEROL FUMARATE 160/4.5 mcg INHALER IH SCH ×2 (10:03→21:24)
--- NOTE | 2016-10-06 11:14 | PN ---
Progress Note (short form) - Note Progress Note: Renal Follow up for MENA on CKD Pt seen and examined at the bedside no acute complaints still has dyspnea no chest pain, abd pain, N/V/D Vital Signs Temperature 99.6 F 10/06/16 09:00 Pulse Rate 94 H 10/06/16 10:28 Respiratory Rate 20 10/06/16 09:00 Blood Pressure 115/67 10/06/16 09:00 O2 Sat by Pulse Oximetry (%) 94 L 10/06/16 10:28 Intake & Output 10/03/16 10/04/16 10/05/16 10/06/16 23:59 23:59 23:59 23:59 Intake Total 650 550 670 50 Balance 650 550 670 50 Weight 141 lb 4 oz 142 lb 3.2 oz 139 lb 9.6 oz Gen: NAD, on NC CVS: irregular, No M/R Lungs: Dec BS throughout the lung gilbert, no rales Ext: No edema, clubbing or cyanosis CBC, BMP 10/06/16 05:35 10/06/16 05:35 Current Medications Albuterol Sulfate (Ventolin 0.083% Nebulizer Soln -) 1 amp NEB Q4H PRN PRN Reason: SHORT OF BREATH/WHEEZING Last Admin: 10/06/16 10:27 Dose: 1 amp Apixaban (Eliquis -) 2.5 mg PO BID [facility] Last Admin: 10/06/16 09:56 Dose: 2.5 mg Atorvastatin Calcium (Lipitor -) 10 mg PO HS [facility] Last Admin: 10/05/16 21:05 Dose: 10 mg Budesonide/Formoterol Fumarate (Symbicort 160/4.5mcg -) 2 puff IH BID [facility] Last Admin: 10/05/16 21:06 Dose: 2 puff Diltiazem HCl (Cardizem Injection -) 10 mg IVPUSH Q4H PRN PRN Reason: HR OVER 120 Last Admin: 10/05/16 18:09 Dose: 10 mg Ferrous Sulfate (Feosol -) 325 mg PO DAILY [facility] Last Admin: 10/06/16 09:57 Dose: 325 mg Furosemide (Lasix -) 40 mg PO DAILY [facility] Last Admin: 10/05/16 09:07 Dose: Not Given Isosorbide Mononitrate (Imdur -) 30 mg PO DAILY [facility] Last Admin: 10/06/16 09:57 Dose: 30 mg Methylprednisolone Sodium Succinate (Solu-Medrol -) 40 mg IVPB Q12H [facility] Last Admin: 10/05/16 23:11 Dose: 40 mg Metoprolol Tartrate (Lopressor -) 25 mg PO TID [facility] Last Admin: 10/06/16 05:16 Dose: 25 mg Pantoprazole Sodium (Protonix -) 20 mg PO DAILY [facility] Last Admin: 10/06/16 09:57 Dose: 20 mg Polyethylene Glycol (Miralax (For Daily Use) -) 17 gm PO DAILY PRN PRN Reason: CONSTIPATION Last Admin: 10/05/16 08:55 Dose: 17 gm Ranolazine (Ranexa -) 500 mg PO BID [facility] Last Admin: 10/06/16 09:56 Dose: 500 mg Roflumilast (Daliresp -) 500 mcg PO DAILY [facility] Last Admin: 10/05/16 09:06 Dose: Not Given Sertraline HCl (Zoloft -) 150 mg PO DAILY [facility] Last Admin: 10/06/16 09:56 Dose: 150 mg Tiotropium [place] (Spiriva -) 1 puff IH DAILY [facility] Last Admin: 10/05/16 09:07 Dose: Not Given A/P 81 year old woman with PMhx of CKD (baseline Cr unclear, in 2012 Cr peaked at 3.7 but was discharged with Cr of 1.3), DM2, COPD, CAD s/p Stenting, Afib not on Coumadin (pt decision) who presented with SOB and found to have acute diastolic HF with worsening of renal function with diuresis #MENA on CKD in setting of CHF Exacerbation and IV diuresis Cr randal from 2.9 to 3.2 today and BUN also higher very high BUN likely due in part to steroids pt without signs of uremia given worsening of renal function will hold Lasix today Repeat BMP tomorrow before resuming no aute indication for LIME SLAKER Dose all meds for Cr Cl less then 15 #Diastolic HF Cardiology following holding diuretics today Pt appears evolemic at the present time #COPD Continue steroids, Nebs, O2 as needed pulmonary following #Afib with RVR on Eliquis rate control as per cardiology #Anemia Iron saturation is low, continue PO iron SPEP is pending Andrew Mcclellan DO
[2016-10-06] MEDS: methylPREDNISolone NA SUCC 40 MG/1 ML VIAL IVPB SCH ×2 (12:02→21:24)
[2016-10-06] MEDS: FUROSEMIDE 40 MG TABLET (FP) PO SCH (12:03)
--- NOTE | 2016-10-06 12:23 | PN ---
Progress Note, Physician History of Present Illness: pulmonary alert,less dyspneic today - Current Medication List Current Medications: Active Medications Albuterol Sulfate (Ventolin 0.083% Nebulizer Soln -) 1 amp NEB Q4H PRN PRN Reason: SHORT OF BREATH/WHEEZING Last Admin: 10/06/16 10:27 Dose: 1 amp Apixaban (Eliquis -) 2.5 mg PO BID [facility] Last Admin: 10/06/16 09:56 Dose: 2.5 mg Atorvastatin Calcium (Lipitor -) 10 mg PO HS [facility] Last Admin: 10/05/16 21:05 Dose: 10 mg Budesonide/Formoterol Fumarate (Symbicort 160/4.5mcg -) 2 puff IH BID [facility] Last Admin: 10/06/16 10:03 Dose: 2 puff Diltiazem HCl (Cardizem Injection -) 10 mg IVPUSH Q4H PRN PRN Reason: HR OVER 120 Last Admin: 10/05/16 18:09 Dose: 10 mg Ferrous Sulfate (Feosol -) 325 mg PO DAILY [facility] Last Admin: 10/06/16 09:57 Dose: 325 mg Furosemide (Lasix -) 40 mg PO DAILY [facility] Last Admin: 10/06/16 12:03 Dose: Not Given Isosorbide Mononitrate (Imdur -) 30 mg PO DAILY [facility] Last Admin: 10/06/16 09:57 Dose: 30 mg Methylprednisolone Sodium Succinate (Solu-Medrol -) 40 mg IVPB Q12H [facility] Last Admin: 10/06/16 12:02 Dose: 40 mg Metoprolol Tartrate (Lopressor -) 25 mg PO TID [facility] Last Admin: 10/06/16 05:16 Dose: 25 mg Pantoprazole Sodium (Protonix -) 20 mg PO DAILY [facility] Last Admin: 10/06/16 09:57 Dose: 20 mg Polyethylene Glycol (Miralax (For Daily Use) -) 17 gm PO DAILY PRN PRN Reason: CONSTIPATION Last Admin: 10/05/16 08:55 Dose: 17 gm Ranolazine (Ranexa -) 500 mg PO BID [facility] Last Admin: 10/06/16 09:56 Dose: 500 mg Roflumilast (Daliresp -) 500 mcg PO DAILY [facility] Last Admin: 10/06/16 10:03 Dose: 500 mcg Sertraline HCl (Zoloft -) 150 mg PO DAILY [facility] Last Admin: 10/06/16 09:56 Dose: 150 mg Tiotropium [place] (Spiriva -) 1 puff IH DAILY [facility] Last Admin: 10/06/16 10:03 Dose: 1 puff - Objective Vital Signs: Vital Signs Temperature 99.6 F 10/06/16 09:00 Pulse Rate 94 H 10/06/16 10:28 Respiratory Rate 20 10/06/16 09:00 Blood Pressure 115/67 10/06/16 09:00 O2 Sat by Pulse Oximetry (%) 94 L 10/06/16 10:28 Constitutional: Yes: Well Nourished, Calm Eyes: Yes: WNL HENT: Yes: WNL Neck: Yes: WNL Cardiovascular: Yes: Pulse Irregular, S1, S2 Respiratory: Yes: Diminished Gastrointestinal: Yes: Normal Bowel Sounds, Soft Extremities: Yes: WNL Edema: No Labs: CBC, BMP 10/06/16 05:35 10/06/16 05:35 INR, PTT INR 1.45 (0.82-1.09) H 09/25/16 09:13 Problem List - Problems (1) Acute on chronic diastolic heart failure Code(s): I50.33 - ACUTE ON CHRONIC DIASTOLIC (CONGESTIVE) HEART FAILURE (2) Ckvif-ni-hiuvlcb kidney injury Code(s): N17.9 - ACUTE KIDNEY FAILURE, UNSPECIFIED N18.9 - CHRONIC KIDNEY DISEASE, UNSPECIFIED Qualifiers: Acute renal failure type: unspecified Chronic kidney disease stage: stage 3 (moderate) Qualified Code(s): N17.9 - Acute kidney failure, unspecified; N18.9 - Chronic kidney disease, unspecified (3) CHF (congestive heart failure) Code(s): I50.9 - HEART FAILURE, UNSPECIFIED Qualifiers: Congestive heart failure type: unspecified congestive heart failure type Congestive heart failure chronicity: unspecified congestive heart failure chronicity Qualified Code(s): I50.9 - Heart failure, unspecified (4) History of amiodarone therapy Code(s): Z92.29 - PERSONAL HISTORY OF OTHER DRUG THERAPY (5) CHF exacerbation Code(s): I50.9 - HEART FAILURE, UNSPECIFIED Qualifiers: Congestive heart failure type: unspecified congestive heart failure type Qualified Code(s): I50.9 - Heart failure, unspecified (6) COPD (chronic obstructive pulmonary disease) Code(s): J44.9 - CHRONIC OBSTRUCTIVE PULMONARY DISEASE, UNSPECIFIED Qualifiers : COPD type: unspecified COPD Qualified Code(s): J44.9 - Chronic obstructive pulmonary disease, unspecified (7) HTN (hypertension) Code(s): I10 - ESSENTIAL (PRIMARY) HYPERTENSION Qualifiers: Hypertension type: essential hypertension Qualified Code(s): I10 - Essential (primary) hypertension (8) Hypercholesterolemia Code(s): E78.00 - PURE HYPERCHOLESTEROLEMIA, UNSPECIFIED (9) PAF (paroxysmal atrial fibrillation) Code(s): I48.0 - PAROXYSMAL ATRIAL FIBRILLATION (10) Pulmonary hypertension Code(s): I27.2 - OTHER SECONDARY PULMONARY HYPERTENSION (11) Acute on chronic respiratory failure with hypoxemia Code(s): J96.21 - ACUTE AND CHRONIC RESPIRATORY FAILURE WITH HYPOXIA Assessment/Plan IMP ACUTE ON CHRONIC HYPOXEMIC RESPIRATORY FAILURE DECOMPENSATED CHF DIASTOLIC COPD EXACERBATION SEVERE PULMONARY HTN MITRAL STENOSIS ASHD S/P STENT VALVULAR HD PAF ACUTE ON CHRONIC RENAL FAILURE DM HTN PLAN LASIX INHALED BRONCHODILATORS SUPPLEMENTAL O2 STEROID TAPER DAILY WTS MONITOR LYTES,RENAL FUNCTION RATE CONTROL PFTS OUTPATIENT DR GAITAN Problem List - Problems (1) Acute on chronic diastolic heart failure Code(s): I50.33 - ACUTE ON CHRONIC DIASTOLIC (CONGESTIVE) HEART FAILURE (2) Agqqf-yn-vgkyslw kidney injury Code(s): N17.9 - ACUTE KIDNEY FAILURE, UNSPECIFIED N18.9 - CHRONIC KIDNEY DISEASE, UNSPECIFIED Qualifiers: Acute renal failure type: unspecified Chronic kidney disease stage: stage 3 (moderate) Qualified Code(s): N17.9 - Acute kidney failure, unspecified; N18.9 - Chronic kidney disease, unspecified (3) CHF (congestive heart failure) Code(s): I50.9 - HEART FAILURE, UNSPECIFIED Qualifiers: Congestive heart failure type: unspecified congestive heart failure type Congestive heart failure chronicity: unspecified congestive heart failure chronicity Qualified Code(s): I50.9 - Heart failure, unspecified (4) History of amiodarone therapy Code(s): Z92.29 - PERSONAL HISTORY OF OTHER DRUG THERAPY (5) CHF exacerbation Code(s): I50.9 - HEART FAILURE, UNSPECIFIED Qualifiers: Congestive heart failure type: unspecified congestive heart failure type Qualified Code(s): I50.9 - Heart failure, unspecified (6) COPD (chronic obstructive pulmonary disease) Code(s): J44.9 - CHRONIC OBSTRUCTIVE PULMONARY DISEASE, UNSPECIFIED Qualifiers : COPD type: unspecified COPD Qualified Code(s): J44.9 - Chronic obstructive pulmonary disease, unspecified (7) HTN (hypertension) Code(s): I10 - ESSENTIAL (PRIMARY) HYPERTENSION Qualifiers: Hypertension type: essential hypertension Qualified Code(s): I10 - Essential (primary) hypertension (8) Hypercholesterolemia Code(s): E78.00 - PURE HYPERCHOLESTEROLEMIA, UNSPECIFIED (9) PAF (paroxysmal atrial fibrillation) Code(s): I48.0 - PAROXYSMAL ATRIAL FIBRILLATION (10) Pulmonary hypertension Code(s): I27.2 - OTHER SECONDARY PULMONARY HYPERTENSION (11) Acute on chronic respiratory failure with hypoxemia Code(s): J96.21 - ACUTE AND CHRONIC RESPIRATORY FAILURE WITH HYPOXIA
--- NOTE | 2016-10-06 13:00 | PN ---
Progress Note, Physician Chief Complaint: Events noted Dyspnea improving History of Present Illness: Patient was seen and examined. Awake and alert. Chart was reviewed Weight has come down and breathing better when resting. Denies chest pain or palpitations Less cough - Current Medication List Current Medications: Active Medications Albuterol Sulfate (Ventolin 0.083% Nebulizer Soln -) 1 amp NEB Q4H PRN PRN Reason: SHORT OF BREATH/WHEEZING Last Admin: 10/06/16 10:27 Dose: 1 amp Apixaban (Eliquis -) 2.5 mg PO BID [facility] Last Admin: 10/06/16 09:56 Dose: 2.5 mg Atorvastatin Calcium (Lipitor -) 10 mg PO HS [facility] Last Admin: 10/05/16 21:05 Dose: 10 mg Budesonide/Formoterol Fumarate (Symbicort 160/4.5mcg -) 2 puff IH BID [facility] Last Admin: 10/06/16 10:03 Dose: 2 puff Diltiazem HCl (Cardizem Injection -) 10 mg IVPUSH Q4H PRN PRN Reason: HR OVER 120 Last Admin: 10/05/16 18:09 Dose: 10 mg Ferrous Sulfate (Feosol -) 325 mg PO DAILY [facility] Last Admin: 10/06/16 09:57 Dose: 325 mg Furosemide (Lasix -) 40 mg PO DAILY [facility] Last Admin: 10/06/16 12:03 Dose: Not Given Isosorbide Mononitrate (Imdur -) 30 mg PO DAILY [facility] Last Admin: 10/06/16 09:57 Dose: 30 mg Methylprednisolone Sodium Succinate (Solu-Medrol -) 30 mg IVPB BID [facility] Metoprolol Tartrate (Lopressor -) 25 mg PO TID [facility] Last Admin: 10/06/16 05:16 Dose: 25 mg Pantoprazole Sodium (Protonix -) 20 mg PO DAILY [facility] Last Admin: 10/06/16 09:57 Dose: 20 mg Polyethylene Glycol (Miralax (For Daily Use) -) 17 gm PO DAILY PRN PRN Reason: CONSTIPATION Last Admin: 10/05/16 08:55 Dose: 17 gm Ranolazine (Ranexa -) 500 mg PO BID [facility] Last Admin: 10/06/16 09:56 Dose: 500 mg Roflumilast (Daliresp -) 500 mcg PO DAILY [facility] Last Admin: 10/06/16 10:03 Dose: 500 mcg Sertraline HCl (Zoloft -) 150 mg PO DAILY [facility] Last Admin: 10/06/16 09:56 Dose: 150 mg Tiotropium [place] (Spiriva -) 1 puff IH DAILY [facility] Last Admin: 10/06/16 10:03 Dose: 1 puff - Objective Vital Signs: Vital Signs Temperature 99.6 F 10/06/16 09:00 Pulse Rate 94 H 10/06/16 10:28 Respiratory Rate 20 10/06/16 09:00 Blood Pressure 115/67 10/06/16 09:00 O2 Sat by Pulse Oximetry (%) 94 L 10/06/16 10:28 Neck: Yes: Supple Cardiovascular: Yes: Regular Rate and Rhythm, S1, S2 Respiratory: Yes: Diminished Gastrointestinal: Yes: Normal Bowel Sounds, Soft. No: Tenderness Edema: No Additional Findings/Remarks: - Review of Systems Constitutional: denies: Chills, Fever Cardiovascular: reports: Shortness of Breath. denies: Chest Pain, Palpitations Respiratory: reports: Cough, SOB, SOB on Exertion. denies: Hemoptysis, Orthopnea, PND, Wheezing Gastrointestinal: denies: Abdominal Pain, Constipation, Diarrhea, Melena, Nausea , Rectal Bleeding, Vomiting Musculoskeletal: denies: Joint Pain Neurological: denies: Dizziness, Headache, Seizure, Syncope Labs: CBC, BMP 10/06/16 05:35 10/06/16 05:35 Problem List - Problems (1) Acute on chronic diastolic heart failure Code(s): I50.33 - ACUTE ON CHRONIC DIASTOLIC (CONGESTIVE) HEART FAILURE (2) Acute on chronic respiratory failure with hypoxemia Code(s): J96.21 - ACUTE AND CHRONIC RESPIRATORY FAILURE WITH HYPOXIA (3) Pjlkf-zk-somrnzj kidney injury Code(s): N17.9 - ACUTE KIDNEY FAILURE, UNSPECIFIED N18.9 - CHRONIC KIDNEY DISEASE, UNSPECIFIED Qualifiers: Acute renal failure type: unspecified Chronic kidney disease stage: stage 3 (moderate) Qualified Code(s): N17.9 - Acute kidney failure, unspecified; N18.9 - Chronic kidney disease, unspecified (4) CHF (congestive heart failure) Code(s): I50.9 - HEART FAILURE, UNSPECIFIED Qualifiers: Congestive heart failure type: unspecified congestive heart failure type Congestive heart failure chronicity: unspecified congestive heart failure chronicity Qualified Code(s): I50.9 - Heart failure, unspecified (5) Dyspnea Code(s): R06.00 - DYSPNEA, UNSPECIFIED Qualifiers: Dyspnea type: unspecified Qualified Code(s): R06.00 - Dyspnea, unspecified (6) History of amiodarone therapy Code(s): Z92.29 - PERSONAL HISTORY OF OTHER DRUG THERAPY (7) Epistaxis Code(s): R04.0 - EPISTAXIS (8) COPD (chronic obstructive pulmonary disease) Code(s): J44.9 - CHRONIC OBSTRUCTIVE PULMONARY DISEASE, UNSPECIFIED Qualifiers : COPD type: unspecified COPD Qualified Code(s): J44.9 - Chronic obstructive pulmonary disease, unspecified (9) HTN (hypertension) Code(s): I10 - ESSENTIAL (PRIMARY) HYPERTENSION Qualifiers: Hypertension type: essential hypertension Qualified Code(s): I10 - Essential (primary) hypertension (10) Hypercholesterolemia Code(s): E78.00 - PURE HYPERCHOLESTEROLEMIA, UNSPECIFIED (11) Mitral valve regurgitation Code(s): I34.0 - NONRHEUMATIC MITRAL (VALVE) INSUFFICIENCY Qualifiers: Cardiac valve disease etiology: nonrheumatic Qualified Code(s): I34.0 - Nonrheumatic mitral (valve) insufficiency (12) PAF (paroxysmal atrial fibrillation) Code(s): I48.0 - PAROXYSMAL ATRIAL FIBRILLATION (13) Pulmonary hypertension Code(s): I27.2 - OTHER SECONDARY PULMONARY HYPERTENSION (14) Tricuspid valve regurgitation Code(s): I07.1 - RHEUMATIC TRICUSPID INSUFFICIENCY Qualifiers: Cardiac valve disease etiology: nonrheumatic Qualified Code(s): I36.1 - Nonrheumatic tricuspid (valve) insufficiency Assessment/Plan 1. Dyspnea secondary to acute on chronic LV diastolic failure and COPD exacerbation 2. CAD post PCI/stent angina pectoris rule out demand ischemic injury 3. O2 dependent COPD/emphysema 4. Rule out Amiodarone-associated pulmonary toxicity 5. Paroxysmal atrial fibrillation currently in sinus rhythm 6. HTN/HCVD 7. Hypercholesterolemia 8. Moderate mitral valve and tricuspid valve regurgitation with severe pulmonary hypertension 9. Acute on CKD 10. Anemia PLAN: 1. Continue Eliquis as tolerated 2. Continue Toprol XL with caution. 3. Continue Imdur and Ranexa 4. Continue Atorvastatin 5. Continue diuretics with Lasix PO and monitor renal function and electrolytes 6. Bronchodilators, Daliresp and steroids 7. Consider Dobutamine nuclear myocardial perfusion imaging tomorrow to further assess cardiac status. Defer cardiac catheterization in view of increased creatinine level and risk of further renal compromise Further plans are to follow Saurabh Posadas MD
[2016-10-06] MEDS ORDERED: ALBUTEROL SO4 0.083% IH SOL 2.5 MG/3 ML VIAL.NEB. NEB ONE (20:13)
[2016-10-06] MEDS: ATORVASTATIN CA 10 MG TABLET (FP) PO SCH (21:24)
--- NOTE | 2016-10-06 23:57 | PN ---
Progress Note, Physician History of Present Illness: No new complaints - Current Medication List Current Medications: Active Medications Apixaban (Eliquis -) 2.5 mg PO BID [facility] Last Admin: 10/06/16 21:24 Dose: 2.5 mg Atorvastatin Calcium (Lipitor -) 10 mg PO HS [facility] Last Admin: 10/06/16 21:24 Dose: 10 mg Budesonide/Formoterol Fumarate (Symbicort 160/4.5mcg -) 2 puff IH BID [facility] Last Admin: 10/06/16 21:24 Dose: 2 puff Diltiazem HCl (Cardizem Injection -) 10 mg IVPUSH Q4H PRN PRN Reason: HR OVER 120 Last Admin: 10/05/16 18:09 Dose: 10 mg Ferrous Sulfate (Feosol -) 325 mg PO DAILY [facility] Last Admin: 10/06/16 09:57 Dose: 325 mg Furosemide (Lasix -) 40 mg PO DAILY [facility] Last Admin: 10/06/16 12:03 Dose: Not Given Isosorbide Mononitrate (Imdur -) 30 mg PO DAILY [facility] Last Admin: 10/06/16 09:57 Dose: 30 mg Methylprednisolone Sodium Succinate (Solu-Medrol -) 30 mg IVPB BID [facility] Last Admin: 10/06/16 21:24 Dose: 30 mg Metoprolol Tartrate (Lopressor -) 25 mg PO TID [facility] Last Admin: 10/06/16 21:24 Dose: 25 mg Pantoprazole Sodium (Protonix -) 20 mg PO DAILY [facility] Last Admin: 10/06/16 09:57 Dose: 20 mg Polyethylene Glycol (Miralax (For Daily Use) -) 17 gm PO DAILY PRN PRN Reason: CONSTIPATION Last Admin: 10/05/16 08:55 Dose: 17 gm Ranolazine (Ranexa -) 500 mg PO BID [facility] Last Admin: 10/06/16 21:24 Dose: 500 mg Roflumilast (Daliresp -) 500 mcg PO DAILY [facility] Last Admin: 10/06/16 10:03 Dose: 500 mcg Sertraline HCl (Zoloft -) 150 mg PO DAILY [facility] Last Admin: 10/06/16 09:56 Dose: 150 mg Tiotropium [place] (Spiriva -) 1 puff IH DAILY [facility] Last Admin: 10/06/16 10:03 Dose: 1 puff - Objective Vital Signs: Vital Signs Temperature 97.4 F L 10/06/16 17:00 Pulse Rate 120 H 10/06/16 17:00 Respiratory Rate 20 10/06/16 17:00 Blood Pressure 114/62 10/06/16 17:00 O2 Sat by Pulse Oximetry (%) 94 L 10/06/16 10:28 Constitutional: Yes: No Distress Eyes: Yes: WNL HENT: Yes: WNL Neck: Yes: Supple Cardiovascular: Yes: Pulse Irregular Respiratory: Yes: Diminished Gastrointestinal: Yes: WNL, Normal Bowel Sounds, Soft Labs: CBC, BMP 10/06/16 05:35 10/06/16 05:35 INR, PTT INR 1.45 (0.82-1.09) H 09/25/16 09:13 Problem List - Problems (1) Acute on chronic diastolic heart failure Assessment/Plan: Lasix held today bc of increasing creatinine Cardiac cath not possible due to increased creatinine Dobutamine stress test Code(s): I50.33 - ACUTE ON CHRONIC DIASTOLIC (CONGESTIVE) HEART FAILURE (2) COPD (chronic obstructive pulmonary disease) Assessment/Plan: COPD exacerbation IV steroids being tapered as per pulmonary Cont inhalers/nebulizers Code(s): J44.9 - CHRONIC OBSTRUCTIVE PULMONARY DISEASE, UNSPECIFIED Qualifiers : COPD type: unspecified COPD Qualified Code(s): J44.9 - Chronic obstructive pulmonary disease, unspecified (3) [id number] kidney injury Assessment/Plan: Cont to monitor labs Cont ranexa Worsening renal function Code(s): N17.9 - ACUTE KIDNEY FAILURE, UNSPECIFIED N18.9 - CHRONIC KIDNEY DISEASE, UNSPECIFIED Qualifiers: Acute renal failure type: unspecified Chronic kidney disease stage: stage 3 (moderate) Qualified Code(s): N17.9 - Acute kidney failure, unspecified; N18.9 - Chronic kidney disease, unspecified (4) Anemia Code(s): D64.9 - ANEMIA, UNSPECIFIED Qualifiers: Anemia type: due to chronic kidney disease (5) HTN (hypertension) Code(s): I10 - ESSENTIAL (PRIMARY) HYPERTENSION Qualifiers: Hypertension type: essential hypertension Qualified Code(s): I10 - Essential (primary) hypertension (6) Hypercholesterolemia Code(s): E78.00 - PURE HYPERCHOLESTEROLEMIA, UNSPECIFIED (7) PAF (paroxysmal atrial fibrillation) Code(s): I48.0 - PAROXYSMAL ATRIAL FIBRILLATION (8) Dyspnea Code(s): R06.00 - DYSPNEA, UNSPECIFIED Qualifiers: Dyspnea type: unspecified Qualified Code(s): R06.00 - Dyspnea, unspecified
[2016-10-07 00:06] LABS: A/G RATIO 0.8 (0.7-1.7); ALBUMIN 2.6 g/dL (2.9-4.4); GLOBULIN, TOTAL 3.3 g/dL (2.2-3.9); M-SPIKE Not Observed g/dL (Not Observed); TOTAL PROTEIN 5.9 g/dL (6.0-8.5)
[2016-10-07] MEDS: METOPROLOL TARTRATE 25 MG TABLET (FP) PO SCH ×3 (05:20→22:20)
[2016-10-07 07:46] LABS: BASOPHIL 0.1 % (0-2.0); MCHC 30.8 g/dl (32.0-36.0); MEAN PLT VOLUME 9.3 fl (7.5-11.1); NEUTROPHILS 90.7 % (42.8-82.8); PLATELET COUNT 253 K/MM3 (134-434); RDW 16.9 % (11.6-15.6); WHITE BLOOD COUNT 13.8 K/mm3 (4.0-10.0)
--- NOTE | 2016-10-07 08:59 | PN ---
Progress Note (short form) - Note Progress Note: Chief Complaint: Events noted, notes reviewed, continues to complain of persistent dyspnea which is exacerbated with physical exertion although severity has decreased, complaining of abdominal cramping History of Present Illness: Seen and examined on telemetry. 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 - Current Medication List Current Medications Apixaban (Eliquis -) 2.5 mg PO BID [facility] Last Admin: 10/06/16 21:24 Dose: 2.5 mg Atorvastatin Calcium (Lipitor -) 10 mg PO HS [facility] Last Admin: 10/06/16 21:24 Dose: 10 mg Budesonide/Formoterol Fumarate (Symbicort 160/4.5mcg -) 2 puff IH BID [facility] Last Admin: 10/06/16 21:24 Dose: 2 puff Diltiazem HCl (Cardizem Injection -) 10 mg IVPUSH Q4H PRN PRN Reason: HR OVER 120 Last Admin: 10/05/16 18:09 Dose: 10 mg Ferrous Sulfate (Feosol -) 325 mg PO DAILY [facility] Last Admin: 10/06/16 09:57 Dose: 325 mg Furosemide (Lasix -) 40 mg PO DAILY [facility] Last Admin: 10/06/16 12:03 Dose: Not Given Isosorbide Mononitrate (Imdur -) 30 mg PO DAILY [facility] Last Admin: 10/06/16 09:57 Dose: 30 mg Methylprednisolone Sodium Succinate (Solu-Medrol -) 30 mg IVPB BID [facility] Last Admin: 10/06/16 21:24 Dose: 30 mg Metoprolol Tartrate (Lopressor -) 25 mg PO TID [facility] Last Admin: 10/07/16 05:20 Dose: 25 mg Pantoprazole Sodium (Protonix -) 20 mg PO DAILY [facility] Last Admin: 10/06/16 09:57 Dose: 20 mg Polyethylene Glycol (Miralax (For Daily Use) -) 17 gm PO DAILY PRN PRN Reason: CONSTIPATION Last Admin: 10/05/16 08:55 Dose: 17 gm Ranolazine (Ranexa -) 500 mg PO BID [facility] Last Admin: 10/06/16 21:24 Dose: 500 mg Roflumilast (Daliresp -) 500 mcg PO DAILY [facility] Last Admin: 10/06/16 10:03 Dose: 500 mcg Sertraline HCl (Zoloft -) 150 mg PO DAILY [facility] Last Admin: 10/06/16 09:56 Dose: 150 mg Tiotropium [place] (Spiriva -) 1 puff IH DAILY [facility] Last Admin: 10/06/16 10:03 Dose: 1 puff Review of Systems Cardiovascular: As noted above Respiratory: denies: Cough or Sputum Production Gastrointestinal: denies: Nausea, Vomiting, Diarrhea, Constipation or Abdominal Discomfort Musculoskeletal: No symptoms reported Genitourinary: No symptoms reported - Objective Vital Signs: Last Vital Signs Temp Pulse Resp BP Pulse Ox 98.3 F 114 H 16 121/66 98 10/07/16 05:21 10/07/16 05:21 10/07/16 05:21 10/07/16 05:21 10/06/16 21:00 Constitutional: No Distress, Calm, Thin Neck: Supple Negative JVD No Bruit Cardiovascular: S1 S2 Regular Rate and Rhythm Respiratory: Bilateral Scattered Rhonchi Gastrointestinal: Soft Benign Normal Bowel Sounds Ext: No Edema Labs: CBC, BMP 10/07/16 05:40 Assessment/Plan ASSESSMENT: 1. Dyspnea secondary to acute on chronic LV diastolic failure, resolved 2. CAD post PCI/stent angina pectoris with evidence of demand ischemic injury, persistent exertional chest discomfort 3. Oxygen dependent COPD/emphysema 4. R/O Amiodarone-associated pulmonary toxicity 5. Paroxysmal atrial fibrillation currently in sinus rhythm 6. HTN 7. Hypercholesterolemia 8. Moderate mitral valve and tricuspid valve regurgitation with severe pulmonary hypertension 9. Acute on CKD 10. Anemia PLAN: 1. Continue Eliquis 2. Continue Toprol XL with caution 3. Continue Imdur 4. Continue Ranexa 5. Continue Zocor 6. Bronchodilators, Daliresp and steroids as per the primary team 7. To proceed with MPI study today as outlined Mayur Prasad MD
[2016-10-07 09:03] LABS: ANION GAP 12 (8-16); CALCIUM 7.9 mg/dL (8.5-10.1); CO2 26 mmol/L (21-32); CREATININE 3.1 mg/dL (0.55-1.02); GLUCOSE,RANDOM 121 mg/dL (74-106); MAGNESIUM 2.5 mg/dL (1.8-2.4); PHOSPHOROUS 6.8 mg/dL (2.5-4.9)
[2016-10-07] MEDS ORDERED: PT OWN MED DRAWER 7, Y5N ONE (09:26)
[2016-10-07] MEDS ORDERED: DOBUTAMINE HCL 100,000 MCG in DEXTROSE 5%-WATER - 92 ML IVPB ONE (10:00)
--- NOTE | 2016-10-07 11:14 | PN ---
Progress Note (short form) - Note Progress Note: Pt down in stress test. Cr stable at 3.1. Orded a PA/lateral CXR to acess fluid status. If no overt CHF would consider holding Lasix one more day and trending renal function. Thank you Andrew Mcclellan DO
[2016-10-07] MEDS: ROFLUMILAST 500 MCG TABLET PO SCH (13:06)
[2016-10-07] MEDS: FERROUS SO4 325 MG TABLET (FP) PO SCH (13:06)
[2016-10-07] MEDS: PANTOPRAZOLE 20 MG TABLET (FP) PO SCH (13:07)
[2016-10-07] MEDS: ISOSORBIDE MONONITRATE 30 MG TAB.SR.24H (FP) PO SCH (13:07)
[2016-10-07] MEDS: RANOLAZINE E.R. 500 MG TABLET (FP) PO SCH ×2 (13:07→22:20)
[2016-10-07] MEDS: SERTRALINE HCL 50 MG TABLET (FP) PO SCH (13:07)
[2016-10-07] MEDS: APIXABAN 2.5 MG TABLET PO SCH ×2 (13:07→22:20)
[2016-10-07] MEDS: TIOTROPIUM BROMIDE 18 MCG/INH (DEVICE W/ 5 CAPSULES) IH SCH (13:08)
[2016-10-07] MEDS: methylPREDNISolone NA SUCC 40 MG/1 ML VIAL IVPB SCH ×2 (13:08→22:20)
[2016-10-07] MEDS: BUDESONIDE/FORMETEROL FUMARATE 160/4.5 mcg INHALER IH SCH ×2 (13:09→22:20)
[2016-10-07] MEDS: ATORVASTATIN CA 10 MG TABLET (FP) PO SCH (22:20)
--- NOTE | 2016-10-07 23:18 | PN ---
Progress Note, Physician - Current Medication List Current Medications: Active Medications Apixaban (Eliquis -) 2.5 mg PO BID [facility] Last Admin: 10/07/16 22:20 Dose: 2.5 mg Atorvastatin Calcium (Lipitor -) 10 mg PO HS [facility] Last Admin: 10/07/16 22:20 Dose: 10 mg Budesonide/Formoterol Fumarate (Symbicort 160/4.5mcg -) 2 puff IH BID [facility] Last Admin: 10/07/16 22:20 Dose: 2 puff Diltiazem HCl (Cardizem Injection -) 10 mg IVPUSH Q4H PRN PRN Reason: HR OVER 120 Last Admin: 10/05/16 18:09 Dose: 10 mg Ferrous Sulfate (Feosol -) 325 mg PO DAILY [facility] Last Admin: 10/07/16 13:06 Dose: 325 mg Furosemide (Lasix -) 40 mg PO DAILY [facility] Last Admin: 10/06/16 12:03 Dose: Not Given Isosorbide Mononitrate (Imdur -) 30 mg PO DAILY [facility] Last Admin: 10/07/16 13:07 Dose: 30 mg Methylprednisolone Sodium Succinate (Solu-Medrol -) 30 mg IVPB BID [facility] Last Admin: 10/07/16 22:20 Dose: 30 mg Metoprolol Tartrate (Lopressor -) 25 mg PO TID [facility] Last Admin: 10/07/16 22:20 Dose: 25 mg Pantoprazole Sodium (Protonix -) 20 mg PO DAILY [facility] Last Admin: 10/07/16 13:07 Dose: 20 mg Polyethylene Glycol (Miralax (For Daily Use) -) 17 gm PO DAILY PRN PRN Reason: CONSTIPATION Last Admin: 10/05/16 08:55 Dose: 17 gm Ranolazine (Ranexa -) 500 mg PO BID [facility] Last Admin: 10/07/16 22:20 Dose: 500 mg Roflumilast (Daliresp -) 500 mcg PO DAILY [facility] Last Admin: 10/07/16 13:06 Dose: 500 mcg Sertraline HCl (Zoloft -) 150 mg PO DAILY [facility] Last Admin: 10/07/16 13:07 Dose: 150 mg Tiotropium [place] (Spiriva -) 1 puff IH DAILY [facility] Last Admin: 10/07/16 13:08 Dose: 1 puff - Objective Vital Signs: Vital Signs Temperature 97.7 F 10/07/16 18:00 Pulse Rate 123 H 10/07/16 18:00 Respiratory Rate 18 10/07/16 18:00 Blood Pressure 102/65 10/07/16 18:00 O2 Sat by Pulse Oximetry (%) 98 10/06/16 21:00 Labs: CBC, BMP 10/07/16 05:40 10/07/16 05:40 INR, PTT INR 1.45 (0.82-1.09) H 09/25/16 09:13 Problem List - Problems (1) Acute on chronic diastolic heart failure Code(s): I50.33 - ACUTE ON CHRONIC DIASTOLIC (CONGESTIVE) HEART FAILURE (2) COPD (chronic obstructive pulmonary disease) Code(s): J44.9 - CHRONIC OBSTRUCTIVE PULMONARY DISEASE, UNSPECIFIED Qualifiers : COPD type: unspecified COPD Qualified Code(s): J44.9 - Chronic obstructive pulmonary disease, unspecified (3) Kbnpt-dq-[id number] kidney injury Code(s): N17.9 - ACUTE KIDNEY FAILURE, UNSPECIFIED N18.9 - CHRONIC KIDNEY DISEASE, UNSPECIFIED Qualifiers: Acute renal failure type: unspecified Chronic kidney disease stage: stage 3 (moderate) Qualified Code(s): N17.9 - Acute kidney failure, unspecified; N18.9 - Chronic kidney disease, unspecified (4) Anemia Code(s): D64.9 - ANEMIA, UNSPECIFIED Qualifiers: Anemia type: due to chronic kidney disease (5) HTN (hypertension) Code(s): I10 - ESSENTIAL (PRIMARY) HYPERTENSION Qualifiers: Hypertension type: essential hypertension Qualified Code(s): I10 - Essential (primary) hypertension (6) Hypercholesterolemia Code(s): E78.00 - PURE HYPERCHOLESTEROLEMIA, UNSPECIFIED (7) PAF (paroxysmal atrial fibrillation) Code(s): I48.0 - PAROXYSMAL ATRIAL FIBRILLATION (8) Dyspnea Code(s): R06.00 - DYSPNEA, UNSPECIFIED Qualifiers: Dyspnea type: unspecified Qualified Code(s): R06.00 - Dyspnea, unspecified
[2016-10-08] MEDS: METOPROLOL TARTRATE 25 MG TABLET (FP) PO SCH ×3 (06:09→22:26)
[2016-10-08] MEDS: FUROSEMIDE 40 MG TABLET (FP) PO SCH ×2 (08:07→09:39)
[2016-10-08] MEDS ORDERED: PT OWN MED DRAWER 7, Y5N ONE (09:27)
[2016-10-08] MEDS: BUDESONIDE/FORMETEROL FUMARATE 160/4.5 mcg INHALER IH SCH ×2 (09:36→22:32)
[2016-10-08] MEDS: TIOTROPIUM BROMIDE 18 MCG/INH (DEVICE W/ 5 CAPSULES) IH SCH (09:36)
[2016-10-08] MEDS: methylPREDNISolone NA SUCC 40 MG/1 ML VIAL IVPB SCH ×2 (09:36→22:25)
[2016-10-08] MEDS: ISOSORBIDE MONONITRATE 30 MG TAB.SR.24H (FP) PO SCH (09:38)
[2016-10-08] MEDS: SERTRALINE HCL 50 MG TABLET (FP) PO SCH (09:38)
[2016-10-08] MEDS: RANOLAZINE E.R. 500 MG TABLET (FP) PO SCH ×2 (09:39→22:26)
[2016-10-08] MEDS: PANTOPRAZOLE 20 MG TABLET (FP) PO SCH (09:39)
[2016-10-08] MEDS: APIXABAN 2.5 MG TABLET PO SCH ×2 (09:39→22:26)
[2016-10-08] MEDS: FERROUS SO4 325 MG TABLET (FP) PO SCH (09:39)
[2016-10-08] MEDS: ROFLUMILAST 500 MCG TABLET PO SCH (09:39)
[2016-10-08 09:47] LABS: ANION GAP 11 (8-16); CO2 27 mmol/L (21-32); CREATININE 3.9 mg/dL (0.55-1.02); GLUCOSE,RANDOM 119 mg/dL (74-106)
[2016-10-08] MEDS ORDERED: SODIUM CHLORIDE 1,000 ML IV SCH (10:45)
--- NOTE | 2016-10-08 11:18 | PN ---
Progress Note, Physician History of Present Illness: Dyspnea slowly improving, episodes of rapid afib, episodes of confusion overnight. - Current Medication List Current Medications: Active Medications Apixaban (Eliquis -) 2.5 mg PO BID [facility] Last Admin: 10/08/16 09:39 Dose: 2.5 mg Atorvastatin Calcium (Lipitor -) 10 mg PO HS [facility] Last Admin: 10/07/16 22:20 Dose: 10 mg Budesonide/Formoterol Fumarate (Symbicort 160/4.5mcg -) 2 puff IH BID [facility] Last Admin: 10/08/16 09:36 Dose: 2 puff Diltiazem HCl (Cardizem Injection -) 10 mg IVPUSH Q4H PRN PRN Reason: HR OVER 120 Last Admin: 10/05/16 18:09 Dose: 10 mg Ferrous Sulfate (Feosol -) 325 mg PO DAILY [facility] Last Admin: 10/08/16 09:39 Dose: 325 mg Sodium Chloride (Normal Saline -) 1,000 mls @ 75 mls/hr IV ASDIR [facility] Stop: 10/08/16 22:44 Last Admin: 10/08/16 11:11 Dose: 75 mls/hr Isosorbide Mononitrate (Imdur -) 30 mg PO DAILY [facility] Last Admin: 10/08/16 09:38 Dose: 30 mg Methylprednisolone Sodium Succinate (Solu-Medrol -) 30 mg IVPB BID [facility] Last Admin: 10/08/16 09:36 Dose: 30 mg Metoprolol Tartrate (Lopressor -) 25 mg PO TID [facility] Last Admin: 10/08/16 06:09 Dose: 25 mg Pantoprazole Sodium (Protonix -) 20 mg PO DAILY [facility] Last Admin: 10/08/16 09:39 Dose: 20 mg Polyethylene Glycol (Miralax (For Daily Use) -) 17 gm PO DAILY PRN PRN Reason: CONSTIPATION Last Admin: 10/05/16 08:55 Dose: 17 gm Ranolazine (Ranexa -) 500 mg PO BID [facility] Last Admin: 10/08/16 09:39 Dose: 500 mg Roflumilast (Daliresp -) 500 mcg PO DAILY [facility] Last Admin: 10/08/16 09:39 Dose: 500 mcg Sertraline HCl (Zoloft -) 150 mg PO DAILY [facility] Last Admin: 10/08/16 09:38 Dose: 150 mg Tiotropium [place] (Spiriva -) 1 puff IH DAILY [facility] Last Admin: 10/08/16 09:36 Dose: 1 puff - Objective Vital Signs: Vital Signs Temperature 98.6 F 10/08/16 06:00 Pulse Rate 126 H 10/08/16 06:00 Respiratory Rate 18 10/08/16 06:00 Blood Pressure 118/70 10/08/16 06:00 O2 Sat by Pulse Oximetry (%) 98 10/06/16 21:00 Constitutional: Yes: No Distress, Calm Cardiovascular: Yes: Tachycardia, Pulse Irregular, Murmur (2/6 SM) Respiratory: Yes: Regular, Diminished, On Nasal O2 Gastrointestinal: Yes: Normal Bowel Sounds, Soft Edema: Yes Edema: LLE: Trace, RLE: Trace Labs: CBC, BMP 10/07/16 05:40 10/08/16 09:10 INR, PTT INR 1.45 (0.82-1.09) H 09/25/16 09:13 - ....Imaging EKG: Report Reviewed (Tele: Rapid afib 120-130s) Problem List - Problems (1) COPD (chronic obstructive pulmonary disease) Code(s): J44.9 - CHRONIC OBSTRUCTIVE PULMONARY DISEASE, UNSPECIFIED Qualifiers : COPD type: unspecified COPD Qualified Code(s): J44.9 - Chronic obstructive pulmonary disease, unspecified (2) HTN (hypertension) Code(s): I10 - ESSENTIAL (PRIMARY) HYPERTENSION Qualifiers: Hypertension type: essential hypertension Qualified Code(s): I10 - Essential (primary) hypertension (3) Hypercholesterolemia Code(s): E78.00 - PURE HYPERCHOLESTEROLEMIA, UNSPECIFIED (4) PAF (paroxysmal atrial fibrillation) Code(s): I48.0 - PAROXYSMAL ATRIAL FIBRILLATION (5) Pulmonary hypertension Code(s): I27.2 - OTHER SECONDARY PULMONARY HYPERTENSION (6) Yjylg-dm-cyxrorj kidney injury Code(s): N17.9 - ACUTE KIDNEY FAILURE, UNSPECIFIED N18.9 - CHRONIC KIDNEY DISEASE, UNSPECIFIED Qualifiers: Acute renal failure type: unspecified Chronic kidney disease stage: stage 3 (moderate) Qualified Code(s): N17.9 - Acute kidney failure, unspecified; N18.9 - Chronic kidney disease, unspecified (7) Acute on chronic diastolic heart failure Code(s): I50.33 - ACUTE ON CHRONIC DIASTOLIC (CONGESTIVE) HEART FAILURE (8) History of amiodarone therapy Code(s): Z92.29 - PERSONAL HISTORY OF OTHER DRUG THERAPY (9) Anemia Code(s): D64.9 - ANEMIA, UNSPECIFIED Qualifiers: Anemia type: due to chronic kidney disease Assessment/Plan MPI: Mod decreased LV fxn (gating), mild inferobasal, inferolateral ischemia 1. Dyspnea secondary to acute on chronic LV diastolic failure, resolved 2. CAD post PCI/stent angina pectoris with evidence of demand ischemic injury, persistent exertional chest discomfort 3. Oxygen dependent COPD/emphysema 4. R/O Amiodarone-associated pulmonary toxicity 5. Persistent atrial fibrillation with RVR 6. HTN 7. Hypercholesterolemia 8. Moderate mitral valve and tricuspid valve regurgitation with severe pulmonary hypertension 9. Acute on CKD 10. Anemia 11. Possible steroid psychosis PLAN: 1. Continue Eliquis 2.5 bid 2. Continue Lopressor 25 tid, add Cardizem 30 tid 3. D/c Imdur 30 qd 4. Continue Ranexa 500 bid 5. Continue Lipitor 10 qhs 6. Bronchodilators, Daliresp and steroid taper as per the primary team 7. Judicious IVF with monitor renal recovery
--- NOTE | 2016-10-08 11:39 | PN ---
Progress Note, Physician History of Present Illness: pulmonary alert,less dyspneic,c/o generalized pains - Current Medication List Current Medications: Active Medications Apixaban (Eliquis -) 2.5 mg PO BID [facility] Last Admin: 10/08/16 09:39 Dose: 2.5 mg Atorvastatin Calcium (Lipitor -) 10 mg PO HS [facility] Last Admin: 10/07/16 22:20 Dose: 10 mg Budesonide/Formoterol Fumarate (Symbicort 160/4.5mcg -) 2 puff IH BID [facility] Last Admin: 10/08/16 09:36 Dose: 2 puff Diltiazem HCl (Cardizem Injection -) 10 mg IVPUSH Q4H PRN PRN Reason: HR OVER 120 Last Admin: 10/05/16 18:09 Dose: 10 mg Ferrous Sulfate (Feosol -) 325 mg PO DAILY [facility] Last Admin: 10/08/16 09:39 Dose: 325 mg Sodium Chloride (Normal Saline -) 1,000 mls @ 75 mls/hr IV ASDIR [facility] Stop: 10/08/16 22:44 Last Admin: 10/08/16 11:11 Dose: 75 mls/hr Isosorbide Mononitrate (Imdur -) 30 mg PO DAILY [facility] Last Admin: 10/08/16 09:38 Dose: 30 mg Methylprednisolone Sodium Succinate (Solu-Medrol -) 30 mg IVPB BID [facility] Last Admin: 10/08/16 09:36 Dose: 30 mg Metoprolol Tartrate (Lopressor -) 25 mg PO TID [facility] Last Admin: 10/08/16 06:09 Dose: 25 mg Pantoprazole Sodium (Protonix -) 20 mg PO DAILY [facility] Last Admin: 10/08/16 09:39 Dose: 20 mg Polyethylene Glycol (Miralax (For Daily Use) -) 17 gm PO DAILY PRN PRN Reason: CONSTIPATION Last Admin: 10/05/16 08:55 Dose: 17 gm Ranolazine (Ranexa -) 500 mg PO BID [facility] Last Admin: 10/08/16 09:39 Dose: 500 mg Roflumilast (Daliresp -) 500 mcg PO DAILY [facility] Last Admin: 10/08/16 09:39 Dose: 500 mcg Sertraline HCl (Zoloft -) 150 mg PO DAILY [facility] Last Admin: 10/08/16 09:38 Dose: 150 mg Tiotropium [place] (Spiriva -) 1 puff IH DAILY [facility] Last Admin: 10/08/16 09:36 Dose: 1 puff - Objective Vital Signs: Vital Signs Temperature 98.6 F 10/08/16 06:00 Pulse Rate 126 H 10/08/16 06:00 Respiratory Rate 18 10/08/16 06:00 Blood Pressure 118/70 10/08/16 06:00 O2 Sat by Pulse Oximetry (%) 98 10/06/16 21:00 Constitutional: Yes: Well Nourished, Calm Eyes: Yes: WNL HENT: Yes: WNL Neck: Yes: WNL Cardiovascular: Yes: Pulse Irregular, S1, S2 Respiratory: Yes: Rales (bibasliar crackles) Gastrointestinal: Yes: Normal Bowel Sounds, Soft Extremities: Yes: WNL Edema: No Labs: CBC, BMP 10/07/16 05:40 10/08/16 09:10 INR, PTT INR 1.45 (0.82-1.09) H 09/25/16 09:13 Problem List - Problems (1) Acute on chronic diastolic heart failure Code(s): I50.33 - ACUTE ON CHRONIC DIASTOLIC (CONGESTIVE) HEART FAILURE (2) Fator-vf-swfgcob kidney injury Code(s): N17.9 - ACUTE KIDNEY FAILURE, UNSPECIFIED N18.9 - CHRONIC KIDNEY DISEASE, UNSPECIFIED Qualifiers: Qualified Code(s): N17.9 - Acute kidney failure, unspecified; N18.9 - Chronic kidney disease, unspecified (3) CHF (congestive heart failure) Code(s): I50.9 - HEART FAILURE, UNSPECIFIED Qualifiers: Qualified Code(s): I50.9 - Heart failure, unspecified (4) History of amiodarone therapy Code(s): Z92.29 - PERSONAL HISTORY OF OTHER DRUG THERAPY (5) CHF exacerbation Code(s): I50.9 - HEART FAILURE, UNSPECIFIED Qualifiers: Qualified Code(s): I50.9 - Heart failure, unspecified (6) COPD (chronic obstructive pulmonary disease) Code(s): J44.9 - CHRONIC OBSTRUCTIVE PULMONARY DISEASE, UNSPECIFIED Qualifiers : Qualified Code(s): J44.9 - Chronic obstructive pulmonary disease, unspecified (7) HTN (hypertension) Code(s): I10 - ESSENTIAL (PRIMARY) HYPERTENSION Qualifiers: Qualified Code(s): I10 - Essential (primary) hypertension (8) Hypercholesterolemia Code(s): E78.00 - PURE HYPERCHOLESTEROLEMIA, UNSPECIFIED (9) PAF (paroxysmal atrial fibrillation) Code(s): I48.0 - PAROXYSMAL ATRIAL FIBRILLATION (10) Pulmonary hypertension Code(s): I27.2 - OTHER SECONDARY PULMONARY HYPERTENSION (11) Acute on chronic respiratory failure with hypoxemia Code(s): J96.21 - ACUTE AND CHRONIC RESPIRATORY FAILURE WITH HYPOXIA Assessment/Plan IMP ACUTE ON CHRONIC HYPOXEMIC RESPIRATORY FAILURE DECOMPENSATED CHF DIASTOLIC COPD EXACERBATION SEVERE PULMONARY HTN MITRAL STENOSIS ASHD S/P STENT VALVULAR HD PAF ACUTE ON CHRONIC RENAL FAILURE WORSENING DM HTN PLAN HOLD LASIX INHALED BRONCHODILATORS SUPPLEMENTAL O2 CONT STEROID TAPER DAILY WTS MONITOR LYTES,RENAL FUNCTION RATE CONTROL PFTS OUTPATIENT DR GAITAN Problem List - Problems (1) Acute on chronic diastolic heart failure Code(s): I50.33 - ACUTE ON CHRONIC DIASTOLIC (CONGESTIVE) HEART FAILURE (2) Mtpjz-ml-nrekarv kidney injury Code(s): N17.9 - ACUTE KIDNEY FAILURE, UNSPECIFIED N18.9 - CHRONIC KIDNEY DISEASE, UNSPECIFIED Qualifiers: Acute renal failure type: unspecified Chronic kidney disease stage: stage 3 (moderate) Qualified Code(s): N17.9 - Acute kidney failure, unspecified; N18.9 - Chronic kidney disease, unspecified (3) CHF (congestive heart failure) Code(s): I50.9 - HEART FAILURE, UNSPECIFIED Qualifiers: Congestive heart failure type: unspecified congestive heart failure type Congestive heart failure chronicity: unspecified congestive heart failure chronicity Qualified Code(s): I50.9 - Heart failure, unspecified (4) History of amiodarone therapy Code(s): Z92.29 - PERSONAL HISTORY OF OTHER DRUG THERAPY (5) CHF exacerbation Code(s): I50.9 - HEART FAILURE, UNSPECIFIED Qualifiers: Congestive heart failure type: unspecified congestive heart failure type Qualified Code(s): I50.9 - Heart failure, unspecified (6) COPD (chronic obstructive pulmonary disease) Code(s): J44.9 - CHRONIC OBSTRUCTIVE PULMONARY DISEASE, UNSPECIFIED Qualifiers : COPD type: unspecified COPD Qualified Code(s): J44.9 - Chronic obstructive pulmonary disease, unspecified (7) HTN (hypertension) Code(s): I10 - ESSENTIAL (PRIMARY) HYPERTENSION Qualifiers: Hypertension type: essential hypertension Qualified Code(s): I10 - Essential (primary) hypertension (8) Hypercholesterolemia Code(s): E78.00 - PURE HYPERCHOLESTEROLEMIA, UNSPECIFIED (9) PAF (paroxysmal atrial fibrillation) Code(s): I48.0 - PAROXYSMAL ATRIAL FIBRILLATION (10) Pulmonary hypertension Code(s): I27.2 - OTHER SECONDARY PULMONARY HYPERTENSION (11) Acute on chronic respiratory failure with hypoxemia Code(s): J96.21 - ACUTE AND CHRONIC RESPIRATORY FAILURE WITH HYPOXIA
--- NOTE | 2016-10-08 12:05 | PN ---
Progress Note (short form) - Note Progress Note: Renal Follow up for MENA on CKD Pt seen and examined at the bedside was confused last night as per nurse daughter at the bedside continues to have dyspnea Cr randal today Vital Signs Temperature 98.2 F 10/08/16 10:00 Pulse Rate 117 H 10/08/16 10:00 Respiratory Rate 22 10/08/16 10:00 Blood Pressure 104/84 10/08/16 10:00 O2 Sat by Pulse Oximetry (%) 98 10/06/16 21:00 Intake & Output 10/05/16 10/06/16 10/07/16 10/08/16 23:59 23:59 23:59 23:59 Intake Total 670 340 120 60 Output Total 400 Balance 670 -60 120 60 Weight 139 lb 9.6 oz 141 lb 141 lb 6 oz Gen: NAD, on NC CVS: irregular, No M/R Lungs: Dec BS throughout the lung gilbert, no rales Abd: soft NT/ND Ext: No edema, clubbing or cyanosis CBC, BMP 10/07/16 05:40 10/08/16 09:10 Current Medications Albuterol Sulfate (Ventolin 0.083% Nebulizer Soln -) 1 amp NEB Q4H PRN PRN Reason: SHORT OF BREATH/WHEEZING Apixaban (Eliquis -) 2.5 mg PO BID [facility] Last Admin: 10/08/16 09:39 Dose: 2.5 mg Atorvastatin Calcium (Lipitor -) 10 mg PO HS [facility] Last Admin: 10/07/16 22:20 Dose: 10 mg Budesonide/Formoterol Fumarate (Symbicort 160/4.5mcg -) 2 puff IH BID [facility] Last Admin: 10/08/16 09:36 Dose: 2 puff Diltiazem HCl (Cardizem Injection -) 10 mg IVPUSH Q4H PRN PRN Reason: HR OVER 120 Last Admin: 10/05/16 18:09 Dose: 10 mg Diltiazem HCl (Cardizem -) 30 mg PO TID [facility] Ferrous Sulfate (Feosol -) 325 mg PO DAILY [facility] Last Admin: 10/08/16 09:39 Dose: 325 mg Sodium Chloride (Normal Saline -) 1,000 mls @ 75 mls/hr IV ASDIR [facility] Stop: 10/08/16 22:44 Last Admin: 10/08/16 11:11 Dose: 75 mls/hr Methylprednisolone Sodium Succinate (Solu-Medrol -) 15 mg IVPB BID [facility] Metoprolol Tartrate (Lopressor -) 25 mg PO TID [facility] Last Admin: 10/08/16 06:09 Dose: 25 mg Pantoprazole Sodium (Protonix -) 20 mg PO DAILY [facility] Last Admin: 10/08/16 09:39 Dose: 20 mg Polyethylene Glycol (Miralax (For Daily Use) -) 17 gm PO DAILY PRN PRN Reason: CONSTIPATION Last Admin: 10/05/16 08:55 Dose: 17 gm Ranolazine (Ranexa -) 500 mg PO BID [facility] Last Admin: 10/08/16 09:39 Dose: 500 mg Roflumilast (Daliresp -) 500 mcg PO DAILY [facility] Last Admin: 10/08/16 09:39 Dose: 500 mcg Sertraline HCl (Zoloft -) 150 mg PO DAILY [facility] Last Admin: 10/08/16 09:38 Dose: 150 mg Tiotropium [place] (Spiriva -) 1 puff IH DAILY [facility] Last Admin: 10/08/16 09:36 Dose: 1 puff A/P 81 year old woman with PMhx of CKD (baseline Cr unclear, in 2012 Cr peaked at 3.7 but was discharged with Cr of 1.3), DM2, COPD, CAD s/p Stenting, Afib not on Coumadin (pt decision) who presented with SOB and found to have acute diastolic HF with worsening of renal function with diuresis #MENA on CKD in setting of CHF Exacerbation and IV diuresis Cr randal to 3.9 today despite diuretics being held for the last 2 days (did get Lasix this am) holding lasix going forward (discussed with cardiology who agrees) Check FeUrea, UA Start Isotonic saline at 75cc per hour for 12 hours Repeat BMP this evening no acute indication for [employer] dose all meds for Cr Cl less then 10 #Diastolic HF Cardiology following holding diuretics as pt is likely intravascularly volume depleted #COPD Continue steroids, Nebs, O2 as needed pulmonary following #Afib with RVR on Eliquis rate control as per cardiology #Anemia Iron saturation is low, continue PO iron SPEP is pending Andrew Mcclellan DO
[2016-10-08 13:04] LABS: URINE APPEARANCE SLCLOUDY; URINE BILIRUBIN NEGATIVE (NEGATIVE); URINE BLOOD NEGATIVE (NEGATIVE); URINE COLOR YELLOW; URINE GLUCOSE (UA) NEGATIVE (NEGATIVE); URINE KETONE NEGATIVE (NEGATIVE); URINE LEUK ESTERASE NEGATIVE (NEGATIVE); URINE NITRITE NEGATIVE (NEGATIVE); URINE UROBILINOGEN NEGATIVE E.U./dl (0.2-1.0)
[2016-10-08] MEDS: ALBUTEROL SO4 0.083% IH SOL 2.5 MG/3 ML VIAL.NEB. NEB PRN (13:22)
[2016-10-08 13:52] LABS: URINE PROTEIN 3+ (NEGATIVE)
[2016-10-08 13:56] LABS: CALCIUM OXALATE CRYSTALS RARE /hpf (NONE SEEN); URINE BACTERIA MANY /hpf (NONE SEEN); URINE HYALINE CAST 3 /lpf; URINE MUCUS RARE; URINE RBC <1 /hpf (0-3); URINE WBC 9 /hpf (3-5)
[2016-10-08] MEDS: dilTIAZem HCL 30 MG TABLET (FP) PO SCH ×2 (14:28→22:26)
[2016-10-08] MEDS: ALPRAZolam 0.25 MG TABLET PO PRN ×2 (14:28→22:28)
[2016-10-08] MEDS: ATORVASTATIN CA 10 MG TABLET (FP) PO SCH (22:26)
[2016-10-08 22:53] LABS: ANION GAP 12 (8-16); CALCIUM 7.4 mg/dL (8.5-10.1); CO2 24 mmol/L (21-32); CREATININE 3.8 mg/dL (0.55-1.02); GLUCOSE,RANDOM 135 mg/dL (74-106)
[2016-10-08] MEDS: SODIUM CHLORIDE 1,000 ML IV SCH (23:00)
--- NOTE | 2016-10-08 23:12 | PN ---
Progress Note, Physician History of Present Illness: No new complaints - Current Medication List Current Medications: Active Medications Albuterol Sulfate (Ventolin 0.083% Nebulizer Soln -) 1 amp NEB Q4H PRN PRN Reason: SHORT OF BREATH/WHEEZING Last Admin: 10/08/16 13:22 Dose: 1 amp Alprazolam (Xanax -) 0.25 mg PO TID PRN PRN Reason: ANXIETY Last Admin: 10/08/16 22:28 Dose: 0.25 mg Apixaban (Eliquis -) 2.5 mg PO BID [facility] Last Admin: 10/08/16 22:26 Dose: 2.5 mg Atorvastatin Calcium (Lipitor -) 10 mg PO HS [facility] Last Admin: 10/08/16 22:26 Dose: 10 mg Budesonide/Formoterol Fumarate (Symbicort 160/4.5mcg -) 2 puff IH BID [facility] Last Admin: 10/08/16 22:32 Dose: 2 puff Diltiazem HCl (Cardizem Injection -) 10 mg IVPUSH Q4H PRN PRN Reason: HR OVER 120 Last Admin: 10/05/16 18:09 Dose: 10 mg Diltiazem HCl (Cardizem -) 30 mg PO TID [facility] Last Admin: 10/08/16 22:26 Dose: 30 mg Ferrous Sulfate (Feosol -) 325 mg PO DAILY [facility] Last Admin: 10/08/16 09:39 Dose: 325 mg Methylprednisolone Sodium Succinate (Solu-Medrol -) 15 mg IVPB BID [facility] Last Admin: 10/08/16 22:25 Dose: 15 mg Metoprolol Tartrate (Lopressor -) 25 mg PO TID [facility] Last Admin: 10/08/16 22:26 Dose: 25 mg Pantoprazole Sodium (Protonix -) 20 mg PO DAILY [facility] Last Admin: 10/08/16 09:39 Dose: 20 mg Polyethylene Glycol (Miralax (For Daily Use) -) 17 gm PO DAILY PRN PRN Reason: CONSTIPATION Last Admin: 10/05/16 08:55 Dose: 17 gm Ranolazine (Ranexa -) 500 mg PO BID [facility] Last Admin: 10/08/16 22:26 Dose: 500 mg Roflumilast (Daliresp -) 500 mcg PO DAILY [facility] Last Admin: 10/08/16 09:39 Dose: 500 mcg Sertraline HCl (Zoloft -) 150 mg PO DAILY [facility] Last Admin: 10/08/16 09:38 Dose: 150 mg Tiotropium [place] (Spiriva -) 1 puff IH DAILY [facility] Last Admin: 10/08/16 09:36 Dose: 1 puff - Objective Vital Signs: Vital Signs Temperature 98.1 F 10/08/16 18:00 Pulse Rate 130 H 10/08/16 18:00 Respiratory Rate 21 10/08/16 18:00 Blood Pressure 105/47 10/08/16 18:00 O2 Sat by Pulse Oximetry (%) 98 10/06/16 21:00 Eyes: Yes: WNL HENT: Yes: WNL Neck: Yes: WNL, Supple Cardiovascular: Yes: Pulse Irregular Respiratory: Yes: Diminished Gastrointestinal: Yes: WNL, Normal Bowel Sounds, Soft Labs: CBC, BMP 10/07/16 05:40 10/08/16 21:35 INR, PTT INR 1.45 (0.82-1.09) H 09/25/16 09:13 Problem List - Problems (1) [id number] kidney injury Assessment/Plan: Cont to monitor labs Cont ranexa Gentle hydration started Code(s): N17.9 - ACUTE KIDNEY FAILURE, UNSPECIFIED N18.9 - CHRONIC KIDNEY DISEASE, UNSPECIFIED Qualifiers: Acute renal failure type: unspecified Chronic kidney disease stage: stage 3 (moderate) Qualified Code(s): N17.9 - Acute kidney failure, unspecified; N18.9 - Chronic kidney disease, unspecified (2) Acute on chronic diastolic heart failure Assessment/Plan: Lasix held bc of increasing creatinine Cardiac cath not possible due to increased creatinine Code(s): I50.33 - ACUTE ON CHRONIC DIASTOLIC (CONGESTIVE) HEART FAILURE (3) COPD (chronic obstructive pulmonary disease) Assessment/Plan: COPD exacerbation IV steroids being tapered as per pulmonary Cont inhalers/nebulizers Code(s): J44.9 - CHRONIC OBSTRUCTIVE PULMONARY DISEASE, UNSPECIFIED Qualifiers : COPD type: unspecified COPD Qualified Code(s): J44.9 - Chronic obstructive pulmonary disease, unspecified (4) Anemia Code(s): D64.9 - ANEMIA, UNSPECIFIED Qualifiers: Anemia type: due to chronic kidney disease (5) HTN (hypertension) Code(s): I10 - ESSENTIAL (PRIMARY) HYPERTENSION Qualifiers: Hypertension type: essential hypertension Qualified Code(s): I10 - Essential (primary) hypertension (6) Hypercholesterolemia Code(s): E78.00 - PURE HYPERCHOLESTEROLEMIA, UNSPECIFIED (7) PAF (paroxysmal atrial fibrillation) Code(s): I48.0 - PAROXYSMAL ATRIAL FIBRILLATION (8) Dyspnea Code(s): R06.00 - DYSPNEA, UNSPECIFIED Qualifiers: Dyspnea type: unspecified Qualified Code(s): R06.00 - Dyspnea, unspecified
[2016-10-09] MEDS: METOPROLOL TARTRATE 25 MG TABLET (FP) PO SCH ×3 (06:20→21:41)
[2016-10-09] MEDS: dilTIAZem HCL 30 MG TABLET (FP) PO SCH ×3 (06:20→21:41)
[2016-10-09 07:20] LABS: BASOPHIL 0.1 % (0-2.0); MCHC 30.9 g/dl (32.0-36.0); MEAN CELL VOLUME 80.7 fl (80-96); MEAN PLT VOLUME 9.6 fl (7.5-11.1); NEUTROPHILS 93.7 % (42.8-82.8); PLATELET COUNT 203 K/MM3 (134-434); RDW 17.7 % (11.6-15.6); WHITE BLOOD COUNT 18.8 K/mm3 (4.0-10.0)
[2016-10-09 07:48] LABS: ALBUMIN 2.5 g/dl (3.4-5.0); ANION GAP 13 (8-16); BILIRUBIN,TOTAL 0.3 mg/dL (0.2-1.0); CALCIUM 7.9 mg/dL (8.5-10.1); CO2 23 mmol/L (21-32); CREATININE 3.8 mg/dL (0.55-1.02); GLUCOSE,RANDOM 159 mg/dL (74-106); MAGNESIUM 2.6 mg/dL (1.8-2.4); PHOSPHOROUS 7.2 mg/dL (2.5-4.9); SGOT/AST 13 U/L (15-37); SGPT/ALT 42 U/L (12-78); TOT PROT 5.4 g/dl (6.4-8.2)
[2016-10-09 07:49] LABS: ALK PHOS 54 U/L (45-117)
[2016-10-09] MEDS ORDERED: PT OWN MED DRAWER 7, Y5N ONE (09:30)
[2016-10-09] MEDS: methylPREDNISolone NA SUCC 40 MG/1 ML VIAL IVPB SCH ×2 (09:36→21:41)
[2016-10-09] MEDS: PANTOPRAZOLE 20 MG TABLET (FP) PO SCH (09:37)
[2016-10-09] MEDS: ROFLUMILAST 500 MCG TABLET PO SCH (09:37)
[2016-10-09] MEDS: SERTRALINE HCL 50 MG TABLET (FP) PO SCH (09:37)
[2016-10-09] MEDS: APIXABAN 2.5 MG TABLET PO SCH ×2 (09:37→21:41)
[2016-10-09] MEDS: FERROUS SO4 325 MG TABLET (FP) PO SCH (09:37)
[2016-10-09] MEDS: RANOLAZINE E.R. 500 MG TABLET (FP) PO SCH ×2 (09:37→21:41)
[2016-10-09] MEDS: TIOTROPIUM BROMIDE 18 MCG/INH (DEVICE W/ 5 CAPSULES) IH SCH (09:39)
[2016-10-09] MEDS: BUDESONIDE/FORMETEROL FUMARATE 160/4.5 mcg INHALER IH SCH ×2 (09:40→21:41)
--- NOTE | 2016-10-09 10:46 | PN ---
Progress Note, Physician Chief Complaint: Events noted Dyspnea and cough persistent AF with RVR History of Present Illness: Patient was seen and examined. Awake and alert. Chart was reviewed Persistent cough with dyspnea. AF with RVR Nuclear perfusion imaging noted - Current Medication List Current Medications: Active Medications Albuterol Sulfate (Ventolin 0.083% Nebulizer Soln -) 1 amp NEB Q4H PRN PRN Reason: SHORT OF BREATH/WHEEZING Last Admin: 10/08/16 13:22 Dose: 1 amp Alprazolam (Xanax -) 0.25 mg PO TID PRN PRN Reason: ANXIETY Last Admin: 10/08/16 22:28 Dose: 0.25 mg Apixaban (Eliquis -) 2.5 mg PO BID [facility] Last Admin: 10/09/16 09:37 Dose: 2.5 mg Atorvastatin Calcium (Lipitor -) 10 mg PO HS [facility] Last Admin: 10/08/16 22:26 Dose: 10 mg Budesonide/Formoterol Fumarate (Symbicort 160/4.5mcg -) 2 puff IH BID [facility] Last Admin: 10/09/16 09:40 Dose: 2 puff Diltiazem HCl (Cardizem Injection -) 10 mg IVPUSH Q4H PRN PRN Reason: HR OVER 120 Last Admin: 10/05/16 18:09 Dose: 10 mg Diltiazem HCl (Cardizem -) 30 mg PO TID [facility] Last Admin: 10/09/16 06:20 Dose: 30 mg Ferrous Sulfate (Feosol -) 325 mg PO DAILY [facility] Last Admin: 10/09/16 09:37 Dose: 325 mg Sodium Chloride (Normal Saline -) 1,000 mls @ 75 mls/hr IV ASDIR [facility] Last Admin: 10/08/16 23:00 Dose: 75 mls/hr Methylprednisolone Sodium Succinate (Solu-Medrol -) 15 mg IVPB BID [facility] Last Admin: 10/09/16 09:36 Dose: 15 mg Metoprolol Tartrate (Lopressor -) 25 mg PO TID [facility] Last Admin: 10/09/16 06:20 Dose: 25 mg Pantoprazole Sodium (Protonix -) 20 mg PO DAILY [facility] Last Admin: 10/09/16 09:37 Dose: 20 mg Polyethylene Glycol (Miralax (For Daily Use) -) 17 gm PO DAILY PRN PRN Reason: CONSTIPATION Last Admin: 10/05/16 08:55 Dose: 17 gm Ranolazine (Ranexa -) 500 mg PO BID [facility] Last Admin: 10/09/16 09:37 Dose: 500 mg Roflumilast (Daliresp -) 500 mcg PO DAILY [facility] Last Admin: 10/09/16 09:37 Dose: 500 mcg Sertraline HCl (Zoloft -) 150 mg PO DAILY [facility] Last Admin: 10/09/16 09:37 Dose: 150 mg Tiotropium [place] (Spiriva -) 1 puff IH DAILY [facility] Last Admin: 10/09/16 09:39 Dose: 1 puff - Objective Vital Signs: Vital Signs Temperature 98 F 10/09/16 10:00 Pulse Rate 108 H 10/09/16 10:00 Respiratory Rate 20 10/09/16 10:00 Blood Pressure 118/74 10/09/16 10:00 O2 Sat by Pulse Oximetry (%) 96 10/08/16 21:00 Cardiovascular: Yes: Tachycardia, Pulse Irregular, S1, S2 Respiratory: Yes: Diminished Gastrointestinal: Yes: Normal Bowel Sounds, Soft. No: Tenderness Edema: No Additional Findings/Remarks: - Review of Systems Constitutional: denies: Chills, Fever Cardiovascular: reports: Shortness of Breath. denies: Chest Pain, Palpitations Respiratory: reports: Cough, SOB, SOB on Exertion. denies: Hemoptysis, Orthopnea, PND, Wheezing Gastrointestinal: denies: Abdominal Pain, Constipation, Diarrhea, Melena, Nausea , Rectal Bleeding, Vomiting Musculoskeletal: denies: Joint Pain Neurological: denies: Dizziness, Headache, Seizure, Syncope Labs: CBC, BMP 10/09/16 06:00 10/09/16 06:00 Problem List - Problems (1) Acute on chronic diastolic heart failure Code(s): I50.33 - ACUTE ON CHRONIC DIASTOLIC (CONGESTIVE) HEART FAILURE (2) Acute on chronic respiratory failure with hypoxemia Code(s): J96.21 - ACUTE AND CHRONIC RESPIRATORY FAILURE WITH HYPOXIA (3) [id number] kidney injury Code(s): N17.9 - ACUTE KIDNEY FAILURE, UNSPECIFIED N18.9 - CHRONIC KIDNEY DISEASE, UNSPECIFIED Qualifiers: Acute renal failure type: unspecified Chronic kidney disease stage: stage 3 (moderate) Qualified Code(s): N17.9 - Acute kidney failure, unspecified; N18.9 - Chronic kidney disease, unspecified (4) CHF (congestive heart failure) Code(s): I50.9 - HEART FAILURE, UNSPECIFIED Qualifiers: Congestive heart failure type: unspecified congestive heart failure type Congestive heart failure chronicity: unspecified congestive heart failure chronicity Qualified Code(s): I50.9 - Heart failure, unspecified (5) Dyspnea Code(s): R06.00 - DYSPNEA, UNSPECIFIED Qualifiers: Dyspnea type: unspecified Qualified Code(s): R06.00 - Dyspnea, unspecified (6) History of amiodarone therapy Code(s): Z92.29 - PERSONAL HISTORY OF OTHER DRUG THERAPY (7) Epistaxis Code(s): R04.0 - EPISTAXIS (8) COPD (chronic obstructive pulmonary disease) Code(s): J44.9 - CHRONIC OBSTRUCTIVE PULMONARY DISEASE, UNSPECIFIED Qualifiers : COPD type: unspecified COPD Qualified Code(s): J44.9 - Chronic obstructive pulmonary disease, unspecified (9) HTN (hypertension) Code(s): I10 - ESSENTIAL (PRIMARY) HYPERTENSION Qualifiers: Hypertension type: essential hypertension Qualified Code(s): I10 - Essential (primary) hypertension (10) Hypercholesterolemia Code(s): E78.00 - PURE HYPERCHOLESTEROLEMIA, UNSPECIFIED (11) Mitral valve regurgitation Code(s): I34.0 - NONRHEUMATIC MITRAL (VALVE) INSUFFICIENCY Qualifiers: Cardiac valve disease etiology: nonrheumatic Qualified Code(s): I34.0 - Nonrheumatic mitral (valve) insufficiency (12) PAF (paroxysmal atrial fibrillation) Code(s): I48.0 - PAROXYSMAL ATRIAL FIBRILLATION (13) Pulmonary hypertension Code(s): I27.2 - OTHER SECONDARY PULMONARY HYPERTENSION (14) Tricuspid valve regurgitation Code(s): I07.1 - RHEUMATIC TRICUSPID INSUFFICIENCY Qualifiers: Cardiac valve disease etiology: nonrheumatic Qualified Code(s): I36.1 - Nonrheumatic tricuspid (valve) insufficiency Assessment/Plan 1. Dyspnea secondary to acute on chronic LV diastolic failure and COPD exacerbation 2. CAD post PCI/stent angina pectoris - demand ischemic injury 3. O2 dependent COPD/emphysema 4. Rule out Amiodarone-associated pulmonary toxicity 5. Paroxysmal atrial fibrillation currently AF with RVR 6. HTN/HCVD 7. Hypercholesterolemia 8. Moderate mitral valve and tricuspid valve regurgitation with severe pulmonary hypertension 9. Acute on CKD 10. Anemia PLAN: 1. Continue Eliquis as tolerated 2. Continue Toprol XL with caution. Cardizem added and to be titrated (LVEF on nuclear perfusion is inaccurate due to gating problem secondary to rapid AF - echocardiography demonstrates preserved LV function) 3. Continue Ranexa. Imdur was discontinued 4. Continue Atorvastatin 5. Diuretic currently held and monitor renal function and electrolytes 6. Bronchodilators, Daliresp and steroids 7. In view of worsening renal function with elevated BUN/cr, patient is not an ideal candidate for coronary intervention/cardiac catheterization. Further renal work up in progress. Renal input noted. Further plans are to follow Saurabh Posadas MD
--- NOTE | 2016-10-09 12:09 | PN ---
Progress Note (short form) - Note Progress Note: PULMONARY Feels drowsy, generalized weakness. Still dyspneic with minimal exertion. Last Vital Signs Temp Pulse Resp BP Pulse Ox 98 F 108 H 20 118/74 96 10/09/16 10:00 10/09/16 10:00 10/09/16 10:00 10/09/16 10:00 10/09/16 09:00 Gen: somnolent but arousable Heart: irregular, +systolic murmur RUSB, base Lung: decreased breath sounds at the bases Abd: soft, nontender Ext: no edema CBC, BMP 10/09/16 06:00 10/09/16 06:00 Active Medications Albuterol Sulfate (Ventolin 0.083% Nebulizer Soln -) 1 amp NEB Q4H PRN PRN Reason: SHORT OF BREATH/WHEEZING Last Admin: 10/08/16 13:22 Dose: 1 amp Alprazolam (Xanax -) 0.25 mg PO TID PRN PRN Reason: ANXIETY Last Admin: 10/08/16 22:28 Dose: 0.25 mg Apixaban (Eliquis -) 2.5 mg PO BID [facility] Last Admin: 10/09/16 09:37 Dose: 2.5 mg Atorvastatin Calcium (Lipitor -) 10 mg PO HS [facility] Last Admin: 10/08/16 22:26 Dose: 10 mg Budesonide/Formoterol Fumarate (Symbicort 160/4.5mcg -) 2 puff IH BID [facility] Last Admin: 10/09/16 09:40 Dose: 2 puff Diltiazem HCl (Cardizem Injection -) 10 mg IVPUSH Q4H PRN PRN Reason: HR OVER 120 Last Admin: 10/05/16 18:09 Dose: 10 mg Diltiazem HCl (Cardizem -) 30 mg PO TID [facility] Last Admin: 10/09/16 06:20 Dose: 30 mg Ferrous Sulfate (Feosol -) 325 mg PO DAILY [facility] Last Admin: 10/09/16 09:37 Dose: 325 mg Sodium Chloride (Normal Saline -) 1,000 mls @ 75 mls/hr IV ASDIR [facility] Last Admin: 10/08/16 23:00 Dose: 75 mls/hr Methylprednisolone Sodium Succinate (Solu-Medrol -) 15 mg IVPB BID [facility] Last Admin: 10/09/16 09:36 Dose: 15 mg Metoprolol Tartrate (Lopressor -) 25 mg PO TID [facility] Last Admin: 10/09/16 06:20 Dose: 25 mg Pantoprazole Sodium (Protonix -) 20 mg PO DAILY [facility] Last Admin: 10/09/16 09:37 Dose: 20 mg Polyethylene Glycol (Miralax (For Daily Use) -) 17 gm PO DAILY PRN PRN Reason: CONSTIPATION Last Admin: 10/05/16 08:55 Dose: 17 gm Ranolazine (Ranexa -) 500 mg PO BID [facility] Last Admin: 10/09/16 09:37 Dose: 500 mg Roflumilast (Daliresp -) 500 mcg PO DAILY [facility] Last Admin: 10/09/16 09:37 Dose: 500 mcg Sertraline HCl (Zoloft -) 150 mg PO DAILY [facility] Last Admin: 10/09/16 09:37 Dose: 150 mg Tiotropium [place] (Spiriva -) 1 puff IH DAILY [facility] Last Admin: 10/09/16 09:39 Dose: 1 puff A/P Acute on Chronic Diastolic heart Failure Mitral Regurgitation Pulmonary HTN COPD Chronic Hypoxic Respiratory Failure Paroxysmal Atrial Fibrillation HTN Acute on Chronic Renal Failure - IVF per renal - monitor urine output, creatinine - daily weights, I/Os - inhaled bronchodilators - can taper off medrol, less likely COPD exacerbation - O2 to keep SpO2 >90% - rate controlled - continue anticoagulation - offered BiPAP to assist in work of breathing but pt declining at this time - prognosis guarded
--- NOTE | 2016-10-09 15:07 | PN ---
Progress Note (short form) - Note Progress Note: Renal Follow up for MENA on CKD Pt seen and examined at the bedside siting in a chair, pt reports feeling listless denies any worsening of SOB with IVF no chest pain no fever or chills Vital Signs Temperature 97.9 F 10/09/16 14:53 Pulse Rate 101 H 10/09/16 14:53 Respiratory Rate 20 10/09/16 14:53 Blood Pressure 128/86 10/09/16 14:53 O2 Sat by Pulse Oximetry (%) 98 10/09/16 12:53 Gen: NAD, on NC CVS: irregular, No M/R Lungs: Dec BS throughout the lung gilbert, no rales Abd: soft NT/ND Ext: No edema, clubbing or cyanosis CBC, BMP 10/09/16 06:00 10/09/16 06:00 Current Medications Albuterol Sulfate (Ventolin 0.083% Nebulizer Soln -) 1 amp NEB Q4H PRN PRN Reason: SHORT OF BREATH/WHEEZING Last Admin: 10/08/16 13:22 Dose: 1 amp Alprazolam (Xanax -) 0.25 mg PO TID PRN PRN Reason: ANXIETY Last Admin: 10/08/16 22:28 Dose: 0.25 mg Apixaban (Eliquis -) 2.5 mg PO BID [facility] Last Admin: 10/09/16 09:37 Dose: 2.5 mg Atorvastatin Calcium (Lipitor -) 10 mg PO HS [facility] Last Admin: 10/08/16 22:26 Dose: 10 mg Budesonide/Formoterol Fumarate (Symbicort 160/4.5mcg -) 2 puff IH BID [facility] Last Admin: 10/09/16 09:40 Dose: 2 puff Diltiazem HCl (Cardizem Injection -) 10 mg IVPUSH Q4H PRN PRN Reason: HR OVER 120 Last Admin: 10/05/16 18:09 Dose: 10 mg Diltiazem HCl (Cardizem -) 30 mg PO TID [facility] Last Admin: 10/09/16 13:33 Dose: 30 mg Ferrous Sulfate (Feosol -) 325 mg PO DAILY [facility] Last Admin: 10/09/16 09:37 Dose: 325 mg Sodium Chloride (Normal Saline -) 1,000 mls @ 75 mls/hr IV ASDIR [facility] Last Admin: 10/08/16 23:00 Dose: 75 mls/hr Methylprednisolone Sodium Succinate (Solu-Medrol -) 15 mg IVPB BID [facility] Last Admin: 10/09/16 09:36 Dose: 15 mg Metoprolol Tartrate (Lopressor -) 25 mg PO TID [facility] Last Admin: 10/09/16 13:33 Dose: 25 mg Pantoprazole Sodium (Protonix -) 20 mg PO DAILY [facility] Last Admin: 10/09/16 09:37 Dose: 20 mg Polyethylene Glycol (Miralax (For Daily Use) -) 17 gm PO DAILY PRN PRN Reason: CONSTIPATION Last Admin: 10/05/16 08:55 Dose: 17 gm Ranolazine (Ranexa -) 500 mg PO BID [facility] Last Admin: 10/09/16 09:37 Dose: 500 mg Roflumilast (Daliresp -) 500 mcg PO DAILY [facility] Last Admin: 10/09/16 09:37 Dose: 500 mcg Sertraline HCl (Zoloft -) 150 mg PO DAILY [facility] Last Admin: 10/09/16 09:37 Dose: 150 mg Tiotropium [place] (Spiriva -) 1 puff IH DAILY [facility] Last Admin: 10/09/16 09:39 Dose: 1 puff A/P 81 year old woman with PMhx of CKD (baseline Cr unclear, in 2012 Cr peaked at 3.7 but was discharged with Cr of 1.3), DM2, COPD, CAD s/p Stenting, Afib not on Coumadin (pt decision) who presented with SOB and found to have acute diastolic HF with worsening of renal function with diuresis #MENA on CKD in setting of CHF Exacerbation and IV diuresis BUN/Cr without any significant improvement in the last 24 hours however pt did get diuretics yesterday morning continue isotonic saline with monitoring of respiratory function Urine studies showed FeUrea of 35% consistent with pre-renal injury Serologic work up for proteinuria showed + BELIA (low titer) and negative SPEP will check Anti-DS DNA pt is not a good canidate for renal biopsy especially while having resp issues dose all meds for Cr cl less then 15 #Diastolic HF Cardiology following continue to hold diuretics no El/ARB at this time #COPD Continue steroids, Nebs, O2 as needed pulmonary following #Afib with RVR on Eliquis rate control as per cardiology #Anemia Iron saturation is low, continue PO iron SPEP did not show a M-spike #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
[2016-10-09] MEDS: CALCIUM ACETATE 667 MG CAPSULE (FP) PO SCH (16:58)
[2016-10-09] MEDS: ATORVASTATIN CA 10 MG TABLET (FP) PO SCH (21:41)
[2016-10-09] MEDS: ALPRAZolam 0.25 MG TABLET PO PRN (21:41)
--- NOTE | 2016-10-10 00:32 | PN ---
Progress Note, Physician History of Present Illness: No new complaints Pt seen and examined 10/09/16 however note is being entered now - Current Medication List Current Medications: Active Medications Albuterol Sulfate (Ventolin 0.083% Nebulizer Soln -) 1 amp NEB Q4H PRN PRN Reason: SHORT OF BREATH/WHEEZING Last Admin: 10/08/16 13:22 Dose: 1 amp Alprazolam (Xanax -) 0.25 mg PO TID PRN PRN Reason: ANXIETY Last Admin: 10/09/16 21:41 Dose: 0.25 mg Apixaban (Eliquis -) 2.5 mg PO BID [facility] Last Admin: 10/09/16 21:41 Dose: 2.5 mg Atorvastatin Calcium (Lipitor -) 10 mg PO HS [facility] Last Admin: 10/09/16 21:41 Dose: 10 mg Budesonide/Formoterol Fumarate (Symbicort 160/4.5mcg -) 2 puff IH BID [facility] Last Admin: 10/09/16 21:41 Dose: 2 puff Calcium Acetate (Phoslo -) 667 mg PO TIDCM [facility] Last Admin: 10/09/16 16:58 Dose: 667 mg Diltiazem HCl (Cardizem Injection -) 10 mg IVPUSH Q4H PRN PRN Reason: HR OVER 120 Last Admin: 10/05/16 18:09 Dose: 10 mg Diltiazem HCl (Cardizem -) 30 mg PO TID [facility] Last Admin: 10/09/16 21:41 Dose: 30 mg Ferrous Sulfate (Feosol -) 325 mg PO DAILY [facility] Last Admin: 10/09/16 09:37 Dose: 325 mg Sodium Chloride (Normal Saline -) 1,000 mls @ 75 mls/hr IV ASDIR [facility] Last Admin: 10/08/16 23:00 Dose: 75 mls/hr Methylprednisolone Sodium Succinate (Solu-Medrol -) 15 mg IVPB BID [facility] Last Admin: 10/09/16 21:41 Dose: 15 mg Metoprolol Tartrate (Lopressor -) 25 mg PO TID [facility] Last Admin: 10/09/16 21:41 Dose: 25 mg Pantoprazole Sodium (Protonix -) 20 mg PO DAILY [facility] Last Admin: 10/09/16 09:37 Dose: 20 mg Polyethylene Glycol (Miralax (For Daily Use) -) 17 gm PO DAILY PRN PRN Reason: CONSTIPATION Last Admin: 10/05/16 08:55 Dose: 17 gm Ranolazine (Ranexa -) 500 mg PO BID [facility] Last Admin: 10/09/16 21:41 Dose: 500 mg Roflumilast (Daliresp -) 500 mcg PO DAILY [facility] Last Admin: 10/09/16 09:37 Dose: 500 mcg Sertraline HCl (Zoloft -) 150 mg PO DAILY [facility] Last Admin: 10/09/16 09:37 Dose: 150 mg Tiotropium [place] (Spiriva -) 1 puff IH DAILY [facility] Last Admin: 10/09/16 09:39 Dose: 1 puff - Objective Vital Signs: Vital Signs Temperature 98.3 F 10/09/16 22:00 Pulse Rate 112 H 10/09/16 22:00 Respiratory Rate 20 10/09/16 22:00 Blood Pressure 128/71 10/09/16 22:00 O2 Sat by Pulse Oximetry (%) 95 10/09/16 21:00 Labs: CBC, BMP 10/09/16 06:00 10/09/16 06:00 INR, PTT INR 1.45 (0.82-1.09) H 09/25/16 09:13 Problem List - Problems (1) [id number] kidney injury Code(s): N17.9 - ACUTE KIDNEY FAILURE, UNSPECIFIED N18.9 - CHRONIC KIDNEY DISEASE, UNSPECIFIED Qualifiers: Acute renal failure type: unspecified Chronic kidney disease stage: stage 3 (moderate) Qualified Code(s): N17.9 - Acute kidney failure, unspecified; N18.9 - Chronic kidney disease, unspecified (2) Acute on chronic diastolic heart failure Code(s): I50.33 - ACUTE ON CHRONIC DIASTOLIC (CONGESTIVE) HEART FAILURE (3) COPD (chronic obstructive pulmonary disease) Code(s): J44.9 - CHRONIC OBSTRUCTIVE PULMONARY DISEASE, UNSPECIFIED Qualifiers : COPD type: unspecified COPD Qualified Code(s): J44.9 - Chronic obstructive pulmonary disease, unspecified (4) Anemia Code(s): D64.9 - ANEMIA, UNSPECIFIED Qualifiers: Anemia type: due to chronic kidney disease (5) HTN (hypertension) Code(s): I10 - ESSENTIAL (PRIMARY) HYPERTENSION Qualifiers: Hypertension type: essential hypertension Qualified Code(s): I10 - Essential (primary) hypertension (6) Hypercholesterolemia Code(s): E78.00 - PURE HYPERCHOLESTEROLEMIA, UNSPECIFIED (7) PAF (paroxysmal atrial fibrillation) Code(s): I48.0 - PAROXYSMAL ATRIAL FIBRILLATION (8) Dyspnea Code(s): R06.00 - DYSPNEA, UNSPECIFIED Qualifiers: Dyspnea type: unspecified Qualified Code(s): R06.00 - Dyspnea, unspecified
[2016-10-10] MEDS ORDERED: METOPROLOL TARTRATE 50 MG TABLET (FP) ONE (07:34)
[2016-10-10] MEDS: SODIUM CHLORIDE 1,000 ML IV SCH (07:42)
[2016-10-10] MEDS: dilTIAZem HCL 30 MG TABLET (FP) PO SCH ×3 (07:42→21:51)
[2016-10-10] MEDS: CALCIUM ACETATE 667 MG CAPSULE (FP) PO SCH ×3 (07:42→18:27)
[2016-10-10] MEDS: METOPROLOL TARTRATE 25 MG TABLET (FP) PO SCH ×3 (07:42→21:51)
[2016-10-10 08:01] LABS: ANION GAP 11 (8-16); CALCIUM 7.6 mg/dL (8.5-10.1); CO2 21 mmol/L (21-32); CREATININE 3.5 mg/dL (0.55-1.02); GLUCOSE,RANDOM 182 mg/dL (74-106); MAGNESIUM 2.4 mg/dL (1.8-2.4); PHOSPHOROUS 6.6 mg/dL (2.5-4.9)
[2016-10-10 08:07] LABS: BASOPHIL 0.1 % (0-2.0); MCH 25.5 pg (25.7-33.7); MCHC 31.5 g/dl (32.0-36.0); MEAN CELL VOLUME 80.8 fl (80-96); MEAN PLT VOLUME 9.9 fl (7.5-11.1); PLATELET COUNT 185 K/MM3 (134-434); RDW 17.2 % (11.6-15.6); WHITE BLOOD COUNT 13.9 K/mm3 (4.0-10.0)
--- NOTE | 2016-10-10 08:25 | PN ---
Progress Note, Physician Chief Complaint: Events noted Dyspnea and cough persistent AF with variable HR History of Present Illness: Patient was seen and examined. Awake and alert. Chart was reviewed Persistent cough with dyspnea. AF with variable HR - Current Medication List Current Medications: Active Medications Albuterol Sulfate (Ventolin 0.083% Nebulizer Soln -) 1 amp NEB Q4H PRN PRN Reason: SHORT OF BREATH/WHEEZING Last Admin: 10/08/16 13:22 Dose: 1 amp Alprazolam (Xanax -) 0.25 mg PO TID PRN PRN Reason: ANXIETY Last Admin: 10/09/16 21:41 Dose: 0.25 mg Apixaban (Eliquis -) 2.5 mg PO BID [facility] Last Admin: 10/09/16 21:41 Dose: 2.5 mg Atorvastatin Calcium (Lipitor -) 10 mg PO HS [facility] Last Admin: 10/09/16 21:41 Dose: 10 mg Budesonide/Formoterol Fumarate (Symbicort 160/4.5mcg -) 2 puff IH BID [facility] Last Admin: 10/09/16 21:41 Dose: 2 puff Calcium Acetate (Phoslo -) 667 mg PO TIDCM [facility] Last Admin: 10/10/16 07:42 Dose: 667 mg Diltiazem HCl (Cardizem Injection -) 10 mg IVPUSH Q4H PRN PRN Reason: HR OVER 120 Last Admin: 10/05/16 18:09 Dose: 10 mg Diltiazem HCl (Cardizem -) 30 mg PO TID [facility] Last Admin: 10/10/16 07:42 Dose: 30 mg Ferrous Sulfate (Feosol -) 325 mg PO DAILY [facility] Last Admin: 10/09/16 09:37 Dose: 325 mg Sodium Chloride (Normal Saline -) 1,000 mls @ 75 mls/hr IV ASDIR [facility] Last Admin: 10/10/16 07:42 Dose: 75 mls/hr Methylprednisolone Sodium Succinate (Solu-Medrol -) 15 mg IVPB BID [facility] Last Admin: 10/09/16 21:41 Dose: 15 mg Metoprolol Tartrate (Lopressor -) 25 mg PO TID [facility] Last Admin: 10/10/16 07:42 Dose: 25 mg Pantoprazole Sodium (Protonix -) 20 mg PO DAILY [facility] Last Admin: 10/09/16 09:37 Dose: 20 mg Polyethylene Glycol (Miralax (For Daily Use) -) 17 gm PO DAILY PRN PRN Reason: CONSTIPATION Last Admin: 10/05/16 08:55 Dose: 17 gm Ranolazine (Ranexa -) 500 mg PO BID [facility] Last Admin: 10/09/16 21:41 Dose: 500 mg Roflumilast (Daliresp -) 500 mcg PO DAILY [facility] Last Admin: 10/09/16 09:37 Dose: 500 mcg Sertraline HCl (Zoloft -) 150 mg PO DAILY [facility] Last Admin: 10/09/16 09:37 Dose: 150 mg Tiotropium [place] (Spiriva -) 1 puff IH DAILY [facility] Last Admin: 10/09/16 09:39 Dose: 1 puff - Objective Vital Signs: Vital Signs Temperature 98.7 F 10/10/16 04:30 Pulse Rate 150 H 10/10/16 04:30 Respiratory Rate 20 10/10/16 04:30 Blood Pressure 118/61 10/10/16 04:30 O2 Sat by Pulse Oximetry (%) 95 10/09/16 21:00 Neck: Yes: Supple Cardiovascular: Yes: Pulse Irregular, S1, S2 Respiratory: Yes: Diminished, Rhonchi Gastrointestinal: Yes: Normal Bowel Sounds, Soft. No: Tenderness Edema: No Additional Findings/Remarks: - Review of Systems Constitutional: denies: Chills, Fever Cardiovascular: reports: Shortness of Breath. denies: Chest Pain, Palpitations Respiratory: reports: Cough, SOB, SOB on Exertion. denies: Hemoptysis, Orthopnea, PND, Wheezing Gastrointestinal: denies: Abdominal Pain, Constipation, Diarrhea, Melena, Nausea , Rectal Bleeding, Vomiting Musculoskeletal: denies: Joint Pain Neurological: denies: Dizziness, Headache, Seizure, Syncope Labs: CBC, BMP 10/10/16 06:00 10/10/16 06:00 Problem List - Problems (1) Acute on chronic diastolic heart failure Code(s): I50.33 - ACUTE ON CHRONIC DIASTOLIC (CONGESTIVE) HEART FAILURE (2) Acute on chronic respiratory failure with hypoxemia Code(s): J96.21 - ACUTE AND CHRONIC RESPIRATORY FAILURE WITH HYPOXIA (3) Awgcg-fa-trkcbua kidney injury Code(s): N17.9 - ACUTE KIDNEY FAILURE, UNSPECIFIED N18.9 - CHRONIC KIDNEY DISEASE, UNSPECIFIED Qualifiers: Acute renal failure type: unspecified Chronic kidney disease stage: stage 3 (moderate) Qualified Code(s): N17.9 - Acute kidney failure, unspecified; N18.9 - Chronic kidney disease, unspecified (4) CHF (congestive heart failure) Code(s): I50.9 - HEART FAILURE, UNSPECIFIED Qualifiers: Congestive heart failure type: unspecified congestive heart failure type Congestive heart failure chronicity: unspecified congestive heart failure chronicity Qualified Code(s): I50.9 - Heart failure, unspecified (5) Dyspnea Code(s): R06.00 - DYSPNEA, UNSPECIFIED Qualifiers: Dyspnea type: unspecified Qualified Code(s): R06.00 - Dyspnea, unspecified (6) History of amiodarone therapy Code(s): Z92.29 - PERSONAL HISTORY OF OTHER DRUG THERAPY (7) Epistaxis Code(s): R04.0 - EPISTAXIS (8) COPD (chronic obstructive pulmonary disease) Code(s): J44.9 - CHRONIC OBSTRUCTIVE PULMONARY DISEASE, UNSPECIFIED Qualifiers : COPD type: unspecified COPD Qualified Code(s): J44.9 - Chronic obstructive pulmonary disease, unspecified (9) HTN (hypertension) Code(s): I10 - ESSENTIAL (PRIMARY) HYPERTENSION Qualifiers: Hypertension type: essential hypertension Qualified Code(s): I10 - Essential (primary) hypertension (10) Hypercholesterolemia Code(s): E78.00 - PURE HYPERCHOLESTEROLEMIA, UNSPECIFIED (11) Mitral valve regurgitation Code(s): I34.0 - NONRHEUMATIC MITRAL (VALVE) INSUFFICIENCY Qualifiers: Cardiac valve disease etiology: nonrheumatic Qualified Code(s): I34.0 - Nonrheumatic mitral (valve) insufficiency (12) PAF (paroxysmal atrial fibrillation) Code(s): I48.0 - PAROXYSMAL ATRIAL FIBRILLATION (13) Pulmonary hypertension Code(s): I27.2 - OTHER SECONDARY PULMONARY HYPERTENSION (14) Tricuspid valve regurgitation Code(s): I07.1 - RHEUMATIC TRICUSPID INSUFFICIENCY Qualifiers: Cardiac valve disease etiology: nonrheumatic Qualified Code(s): I36.1 - Nonrheumatic tricuspid (valve) insufficiency Assessment/Plan 1. Dyspnea secondary to acute on chronic LV diastolic failure and COPD exacerbation and acute on chronic LV failure 2. CAD post PCI/stent angina pectoris - demand ischemic injury 3. O2 dependent COPD/emphysema 4. Rule out Amiodarone-associated pulmonary toxicity 5. Paroxysmal atrial fibrillation currently AF with variable ventricular response 6. HTN/HCVD 7. Hypercholesterolemia 8. Moderate mitral valve and tricuspid valve regurgitation with severe pulmonary hypertension 9. Acute on CKD 10. Anemia PLAN: 1. Continue Eliquis as tolerated 2. Continue Toprol XL with caution. Cardizem added and to be titrated (LVEF on nuclear perfusion is inaccurate due to abnormal gating secondary to rapid AF - echocardiography demonstrates preserved LV function) 3. Continue Ranexa, but with caution due to renal insufficiency. 4. Continue Atorvastatin 5. Diuretic currently held and monitor renal function and electrolytes 6. Bronchodilators, Daliresp and steroids 7. In view of worsening renal function with elevated BUN/cr, patient is not an ideal candidate for coronary intervention/cardiac catheterization. Renal input noted. If renal function worsens, possible HD Further plans are to follow. Saurabh Posadas MD
[2016-10-10] MEDS: methylPREDNISolone NA SUCC 40 MG/1 ML VIAL IVPB SCH ×2 (09:44→21:51)
[2016-10-10] MEDS: SERTRALINE HCL 50 MG TABLET (FP) PO SCH (09:45)
[2016-10-10] MEDS: RANOLAZINE E.R. 500 MG TABLET (FP) PO SCH ×2 (09:45→21:51)
[2016-10-10] MEDS: APIXABAN 2.5 MG TABLET PO SCH ×2 (09:45→21:50)
[2016-10-10] MEDS: FERROUS SO4 325 MG TABLET (FP) PO SCH (09:45)
[2016-10-10] MEDS: ROFLUMILAST 500 MCG TABLET PO SCH (09:46)
[2016-10-10] MEDS: PANTOPRAZOLE 20 MG TABLET (FP) PO SCH (09:46)
[2016-10-10] MEDS: BUDESONIDE/FORMETEROL FUMARATE 160/4.5 mcg INHALER IH SCH ×2 (09:47→21:51)
[2016-10-10] MEDS: TIOTROPIUM BROMIDE 18 MCG/INH (DEVICE W/ 5 CAPSULES) IH SCH (09:48)
--- NOTE | 2016-10-10 13:33 | PN ---
Progress Note, Physician History of Present Illness: PULMONARY ALERT, FEELING BETTER,OOB-CHAIR,LESS DYSPNEIC - Current Medication List Current Medications: Active Medications Albuterol Sulfate (Ventolin 0.083% Nebulizer Soln -) 1 amp NEB Q4H PRN PRN Reason: SHORT OF BREATH/WHEEZING Last Admin: 10/08/16 13:22 Dose: 1 amp Alprazolam (Xanax -) 0.25 mg PO TID PRN PRN Reason: ANXIETY Last Admin: 10/09/16 21:41 Dose: 0.25 mg Apixaban (Eliquis -) 2.5 mg PO BID [facility] Last Admin: 10/10/16 09:45 Dose: 2.5 mg Atorvastatin Calcium (Lipitor -) 10 mg PO HS [facility] Last Admin: 10/09/16 21:41 Dose: 10 mg Budesonide/Formoterol Fumarate (Symbicort 160/4.5mcg -) 2 puff IH BID [facility] Last Admin: 10/10/16 09:47 Dose: 2 puff Calcium Acetate (Phoslo -) 667 mg PO TIDCM [facility] Last Admin: 10/10/16 13:01 Dose: 667 mg Diltiazem HCl (Cardizem Injection -) 10 mg IVPUSH Q4H PRN PRN Reason: HR OVER 120 Last Admin: 10/05/16 18:09 Dose: 10 mg Diltiazem HCl (Cardizem -) 30 mg PO TID [facility] Last Admin: 10/10/16 13:01 Dose: 30 mg Ferrous Sulfate (Feosol -) 325 mg PO DAILY [facility] Last Admin: 10/10/16 09:45 Dose: 325 mg Sodium Chloride (Normal Saline -) 1,000 mls @ 75 mls/hr IV ASDIR [facility] Last Admin: 10/10/16 07:42 Dose: 75 mls/hr Methylprednisolone Sodium Succinate (Solu-Medrol -) 15 mg IVPB BID [facility] Last Admin: 10/10/16 09:44 Dose: 15 mg Metoprolol Tartrate (Lopressor -) 25 mg PO TID [facility] Last Admin: 10/10/16 13:01 Dose: 25 mg Pantoprazole Sodium (Protonix -) 20 mg PO DAILY [facility] Last Admin: 10/10/16 09:46 Dose: 20 mg Polyethylene Glycol (Miralax (For Daily Use) -) 17 gm PO DAILY PRN PRN Reason: CONSTIPATION Last Admin: 10/05/16 08:55 Dose: 17 gm Ranolazine (Ranexa -) 500 mg PO BID [facility] Last Admin: 10/10/16 09:45 Dose: 500 mg Roflumilast (Daliresp -) 500 mcg PO DAILY [facility] Last Admin: 10/10/16 09:46 Dose: 500 mcg Sertraline HCl (Zoloft -) 150 mg PO DAILY [facility] Last Admin: 10/10/16 09:45 Dose: 150 mg Tiotropium [place] (Spiriva -) 1 puff IH DAILY [facility] Last Admin: 10/10/16 09:48 Dose: 1 puff - Objective Vital Signs: Vital Signs Temperature 98 F 10/10/16 10:51 Pulse Rate 118 H 10/10/16 10:51 Respiratory Rate 18 10/10/16 10:51 Blood Pressure 109/78 10/10/16 10:51 O2 Sat by Pulse Oximetry (%) 95 10/09/16 21:00 Constitutional: Yes: Well Nourished, Calm Eyes: Yes: WNL HENT: Yes: WNL Neck: Yes: WNL Cardiovascular: Yes: Pulse Irregular, S1, S2 Respiratory: Yes: Diminished Gastrointestinal: Yes: Normal Bowel Sounds, Soft Extremities: Yes: WNL Edema: No Labs: CBC, BMP 10/10/16 06:00 10/10/16 06:00 INR, PTT INR 1.45 (0.82-1.09) H 09/25/16 09:13 Problem List - Problems (1) Acute on chronic diastolic heart failure Code(s): I50.33 - ACUTE ON CHRONIC DIASTOLIC (CONGESTIVE) HEART FAILURE (2) Slwme-ki-rieblef kidney injury Code(s): N17.9 - ACUTE KIDNEY FAILURE, UNSPECIFIED N18.9 - CHRONIC KIDNEY DISEASE, UNSPECIFIED Qualifiers: Acute renal failure type: unspecified Chronic kidney disease stage: stage 3 (moderate) Qualified Code(s): N17.9 - Acute kidney failure, unspecified; N18.9 - Chronic kidney disease, unspecified (3) CHF (congestive heart failure) Code(s): I50.9 - HEART FAILURE, UNSPECIFIED Qualifiers: Congestive heart failure type: unspecified congestive heart failure type Congestive heart failure chronicity: unspecified congestive heart failure chronicity Qualified Code(s): I50.9 - Heart failure, unspecified (4) History of amiodarone therapy Code(s): Z92.29 - PERSONAL HISTORY OF OTHER DRUG THERAPY (5) CHF exacerbation Code(s): I50.9 - HEART FAILURE, UNSPECIFIED Qualifiers: Congestive heart failure type: unspecified congestive heart failure type Qualified Code(s): I50.9 - Heart failure, unspecified (6) COPD (chronic obstructive pulmonary disease) Code(s): J44.9 - CHRONIC OBSTRUCTIVE PULMONARY DISEASE, UNSPECIFIED Qualifiers : COPD type: unspecified COPD Qualified Code(s): J44.9 - Chronic obstructive pulmonary disease, unspecified (7) HTN (hypertension) Code(s): I10 - ESSENTIAL (PRIMARY) HYPERTENSION Qualifiers: Hypertension type: essential hypertension Qualified Code(s): I10 - Essential (primary) hypertension (8) Hypercholesterolemia Code(s): E78.00 - PURE HYPERCHOLESTEROLEMIA, UNSPECIFIED (9) PAF (paroxysmal atrial fibrillation) Code(s): I48.0 - PAROXYSMAL ATRIAL FIBRILLATION (10) Pulmonary hypertension Code(s): I27.2 - OTHER SECONDARY PULMONARY HYPERTENSION (11) Acute on chronic respiratory failure with hypoxemia Code(s): J96.21 - ACUTE AND CHRONIC RESPIRATORY FAILURE WITH HYPOXIA Assessment/Plan IMP ACUTE ON CHRONIC HYPOXEMIC RESPIRATORY FAILURE DECOMPENSATED CHF DIASTOLIC COPD EXACERBATION SEVERE PULMONARY HTN MITRAL STENOSIS ASHD S/P STENT VALVULAR HD PAF ACUTE ON CHRONIC RENAL FAILURE WORSENING DM HTN PLAN INHALED BRONCHODILATORS SUPPLEMENTAL O2 CONT STEROID TAPER DAILY WTS MONITOR LYTES,RENAL FUNCTION RATE CONTROL PFTS OUTPATIENT DR GAITAN Problem List - Problems (1) Acute on chronic diastolic heart failure Code(s): I50.33 - ACUTE ON CHRONIC DIASTOLIC (CONGESTIVE) HEART FAILURE (2) Yzzeu-gp-djpurwa kidney injury Code(s): N17.9 - ACUTE KIDNEY FAILURE, UNSPECIFIED N18.9 - CHRONIC KIDNEY DISEASE, UNSPECIFIED Qualifiers: Acute renal failure type: unspecified Chronic kidney disease stage: stage 3 (moderate) Qualified Code(s): N17.9 - Acute kidney failure, unspecified; N18.9 - Chronic kidney disease, unspecified (3) CHF (congestive heart failure) Code(s): I50.9 - HEART FAILURE, UNSPECIFIED Qualifiers: Congestive heart failure type: unspecified congestive heart failure type Congestive heart failure chronicity: unspecified congestive heart failure chronicity Qualified Code(s): I50.9 - Heart failure, unspecified (4) History of amiodarone therapy Code(s): Z92.29 - PERSONAL HISTORY OF OTHER DRUG THERAPY (5) CHF exacerbation Code(s): I50.9 - HEART FAILURE, UNSPECIFIED Qualifiers: Congestive heart failure type: unspecified congestive heart failure type Qualified Code(s): I50.9 - Heart failure, unspecified (6) COPD (chronic obstructive pulmonary disease) Code(s): J44.9 - CHRONIC OBSTRUCTIVE PULMONARY DISEASE, UNSPECIFIED Qualifiers : COPD type: unspecified COPD Qualified Code(s): J44.9 - Chronic obstructive pulmonary disease, unspecified (7) HTN (hypertension) Code(s): I10 - ESSENTIAL (PRIMARY) HYPERTENSION Qualifiers: Hypertension type: essential hypertension Qualified Code(s): I10 - Essential (primary) hypertension (8) Hypercholesterolemia Code(s): E78.00 - PURE HYPERCHOLESTEROLEMIA, UNSPECIFIED (9) PAF (paroxysmal atrial fibrillation) Code(s): I48.0 - PAROXYSMAL ATRIAL FIBRILLATION (10) Pulmonary hypertension Code(s): I27.2 - OTHER SECONDARY PULMONARY HYPERTENSION (11) Acute on chronic respiratory failure with hypoxemia Code(s): J96.21 - ACUTE AND CHRONIC RESPIRATORY FAILURE WITH HYPOXIA
--- NOTE | 2016-10-10 15:16 | PN ---
Progress Note (short form) - Note Progress Note: Renal Follow up for MENA on CKD Pt seen and examined at the bedside continues to have BARRETT no chest pain, sob at rest Vital Signs Temperature 98 F 10/10/16 10:51 Pulse Rate 118 H 10/10/16 10:51 Respiratory Rate 18 10/10/16 10:51 Blood Pressure 109/78 10/10/16 10:51 O2 Sat by Pulse Oximetry (%) 95 10/10/16 09:00 Intake & Output 10/07/16 10/08/16 10/09/16 10/10/16 23:59 23:59 23:59 23:59 Intake Total 629 279 9627 Output Total 2 Balance 211 445 9313 Weight 141 lb 141 lb 6 oz 142 lb 139 lb Gen: NAD, on NC CVS: irregular, No M/R Lungs: Dec BS throughout the lung gilbert, no rales Abd: soft NT/ND Ext: No edema, clubbing or cyanosis CBC, BMP 10/10/16 06:00 10/10/16 06:00 Current Medications Albuterol Sulfate (Ventolin 0.083% Nebulizer Soln -) 1 amp NEB Q4H PRN PRN Reason: SHORT OF BREATH/WHEEZING Last Admin: 10/08/16 13:22 Dose: 1 amp Alprazolam (Xanax -) 0.25 mg PO TID PRN PRN Reason: ANXIETY Last Admin: 10/09/16 21:41 Dose: 0.25 mg Apixaban (Eliquis -) 2.5 mg PO BID [facility] Last Admin: 10/10/16 09:45 Dose: 2.5 mg Atorvastatin Calcium (Lipitor -) 10 mg PO HS [facility] Last Admin: 10/09/16 21:41 Dose: 10 mg Budesonide/Formoterol Fumarate (Symbicort 160/4.5mcg -) 2 puff IH BID [facility] Last Admin: 10/10/16 09:47 Dose: 2 puff Calcium Acetate (Phoslo -) 667 mg PO TIDCM [facility] Last Admin: 10/10/16 13:01 Dose: 667 mg Diltiazem HCl (Cardizem Injection -) 10 mg IVPUSH Q4H PRN PRN Reason: HR OVER 120 Last Admin: 10/05/16 18:09 Dose: 10 mg Diltiazem HCl (Cardizem -) 30 mg PO TID [facility] Last Admin: 10/10/16 13:01 Dose: 30 mg Ferrous Sulfate (Feosol -) 325 mg PO DAILY [facility] Last Admin: 10/10/16 09:45 Dose: 325 mg Sodium Chloride (Normal Saline -) 1,000 mls @ 75 mls/hr IV ASDIR [facility] Last Admin: 10/10/16 07:42 Dose: 75 mls/hr Methylprednisolone Sodium Succinate (Solu-Medrol -) 15 mg IVPB BID [facility] Stop: 10/11/16 01:00 Last Admin: 10/10/16 09:44 Dose: 15 mg Metoprolol Tartrate (Lopressor -) 25 mg PO TID [facility] Last Admin: 10/10/16 13:01 Dose: 25 mg Pantoprazole Sodium (Protonix -) 20 mg PO DAILY [facility] Last Admin: 10/10/16 09:46 Dose: 20 mg Polyethylene Glycol (Miralax (For Daily Use) -) 17 gm PO DAILY PRN PRN Reason: CONSTIPATION Last Admin: 10/05/16 08:55 Dose: 17 gm Prednisone (Deltasone -) 20 mg PO DAILY [facility] Ranolazine (Ranexa -) 500 mg PO BID [facility] Last Admin: 10/10/16 09:45 Dose: 500 mg Roflumilast (Daliresp -) 500 mcg PO DAILY [facility] Last Admin: 10/10/16 09:46 Dose: 500 mcg Sertraline HCl (Zoloft -) 150 mg PO DAILY [facility] Last Admin: 10/10/16 09:45 Dose: 150 mg Tiotropium [place] (Spiriva -) 1 puff IH DAILY [facility] Last Admin: 10/10/16 09:48 Dose: 1 puff A/P 81 year old woman with PMhx of CKD (baseline Cr unclear, in 2012 Cr peaked at 3.7 but was discharged with Cr of 1.3), DM2, COPD, CAD s/p Stenting, Afib not on Coumadin (pt decision) who presented with SOB and found to have acute diastolic HF with worsening of renal function with diuresis #MENA on CKD in setting of CHF Exacerbation and IV diuresis BUN/Cr with slight improvement in the last 24 hours continue IVF for now BUN very high but partially due to steroids no signs of uremia dose all meds for Cr Cl less then 100 #Diastolic HF Cardiology following continue to hold diuretics no El/ARB at this time #COPD Continue steroids, Nebs, O2 as needed pulmonary following #Afib with RVR on Eliquis rate control as per cardiology #Anemia Iron saturation is low, continue PO iron SPEP did not show a M-spike #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
[2016-10-10] MEDS: ALPRAZolam 0.25 MG TABLET PO PRN (21:50)
[2016-10-10] MEDS: ATORVASTATIN CA 10 MG TABLET (FP) PO SCH (21:50)
--- NOTE | 2016-10-10 23:31 | PN ---
Progress Note, Physician - Current Medication List Current Medications: Active Medications Albuterol Sulfate (Ventolin 0.083% Nebulizer Soln -) 1 amp NEB Q4H PRN PRN Reason: SHORT OF BREATH/WHEEZING Last Admin: 10/08/16 13:22 Dose: 1 amp Alprazolam (Xanax -) 0.25 mg PO TID PRN PRN Reason: ANXIETY Last Admin: 10/10/16 21:50 Dose: 0.25 mg Apixaban (Eliquis -) 2.5 mg PO BID [facility] Last Admin: 10/10/16 21:50 Dose: 2.5 mg Atorvastatin Calcium (Lipitor -) 10 mg PO HS [facility] Last Admin: 10/10/16 21:50 Dose: 10 mg Budesonide/Formoterol Fumarate (Symbicort 160/4.5mcg -) 2 puff IH BID [facility] Last Admin: 10/10/16 21:51 Dose: 2 puff Calcium Acetate (Phoslo -) 667 mg PO TIDCM [facility] Last Admin: 10/10/16 18:27 Dose: 667 mg Diltiazem HCl (Cardizem Injection -) 10 mg IVPUSH Q4H PRN PRN Reason: HR OVER 120 Last Admin: 10/05/16 18:09 Dose: 10 mg Diltiazem HCl (Cardizem -) 30 mg PO TID [facility] Last Admin: 10/10/16 21:51 Dose: 30 mg Ferrous Sulfate (Feosol -) 325 mg PO DAILY [facility] Last Admin: 10/10/16 09:45 Dose: 325 mg Sodium Chloride (Normal Saline -) 1,000 mls @ 75 mls/hr IV ASDIR [facility] Last Admin: 10/10/16 07:42 Dose: 75 mls/hr Methylprednisolone Sodium Succinate (Solu-Medrol -) 15 mg IVPB BID [facility] Stop: 10/11/16 01:00 Last Admin: 10/10/16 21:51 Dose: 15 mg Metoprolol Tartrate (Lopressor -) 25 mg PO TID [facility] Last Admin: 10/10/16 21:51 Dose: 25 mg Pantoprazole Sodium (Protonix -) 20 mg PO DAILY [facility] Last Admin: 10/10/16 09:46 Dose: 20 mg Polyethylene Glycol (Miralax (For Daily Use) -) 17 gm PO DAILY PRN PRN Reason: CONSTIPATION Last Admin: 10/05/16 08:55 Dose: 17 gm Prednisone (Deltasone -) 20 mg PO DAILY [facility] Ranolazine (Ranexa -) 500 mg PO BID [facility] Last Admin: 10/10/16 21:51 Dose: 500 mg Roflumilast (Daliresp -) 500 mcg PO DAILY [facility] Last Admin: 10/10/16 09:46 Dose: 500 mcg Sertraline HCl (Zoloft -) 150 mg PO DAILY [facility] Last Admin: 10/10/16 09:45 Dose: 150 mg Tiotropium [place] (Spiriva -) 1 puff IH DAILY [facility] Last Admin: 10/10/16 09:48 Dose: 1 puff - Objective Vital Signs: Vital Signs Temperature 98.6 F 10/10/16 18:00 Pulse Rate 113 H 10/10/16 18:00 Respiratory Rate 19 10/10/16 18:00 Blood Pressure 107/71 10/10/16 18:00 O2 Sat by Pulse Oximetry (%) 97 10/10/16 20:49 Labs: CBC, BMP 10/10/16 06:00 10/10/16 06:00 INR, PTT INR 1.45 (0.82-1.09) H 09/25/16 09:13 Problem List - Problems (1) [id number] kidney injury Code(s): N17.9 - ACUTE KIDNEY FAILURE, UNSPECIFIED N18.9 - CHRONIC KIDNEY DISEASE, UNSPECIFIED Qualifiers: Acute renal failure type: unspecified Chronic kidney disease stage: stage 3 (moderate) Qualified Code(s): N17.9 - Acute kidney failure, unspecified; N18.9 - Chronic kidney disease, unspecified (2) Acute on chronic diastolic heart failure Code(s): I50.33 - ACUTE ON CHRONIC DIASTOLIC (CONGESTIVE) HEART FAILURE (3) COPD (chronic obstructive pulmonary disease) Code(s): J44.9 - CHRONIC OBSTRUCTIVE PULMONARY DISEASE, UNSPECIFIED Qualifiers : COPD type: unspecified COPD Qualified Code(s): J44.9 - Chronic obstructive pulmonary disease, unspecified (4) Anemia Code(s): D64.9 - ANEMIA, UNSPECIFIED Qualifiers: Anemia type: due to chronic kidney disease (5) HTN (hypertension) Code(s): I10 - ESSENTIAL (PRIMARY) HYPERTENSION Qualifiers: Hypertension type: essential hypertension Qualified Code(s): I10 - Essential (primary) hypertension (6) Hypercholesterolemia Code(s): E78.00 - PURE HYPERCHOLESTEROLEMIA, UNSPECIFIED (7) PAF (paroxysmal atrial fibrillation) Code(s): I48.0 - PAROXYSMAL ATRIAL FIBRILLATION (8) Dyspnea Code(s): R06.00 - DYSPNEA, UNSPECIFIED Qualifiers: Dyspnea type: unspecified Qualified Code(s): R06.00 - Dyspnea, unspecified
[2016-10-11] MEDS: dilTIAZem HCL 30 MG TABLET (FP) PO SCH ×2 (06:36→14:36)
[2016-10-11] MEDS: METOPROLOL TARTRATE 25 MG TABLET (FP) PO SCH ×3 (06:36→21:41)
[2016-10-11] MEDS: SODIUM CHLORIDE 1,000 ML IV SCH (06:37)
[2016-10-11 07:33] LABS: BASOPHIL 0.2 % (0-2.0); MCH 24.9 pg (25.7-33.7); MCHC 30.4 g/dl (32.0-36.0); MEAN CELL VOLUME 81.8 fl (80-96); NEUTROPHILS 95.2 % (42.8-82.8); PLATELET COUNT 170 K/MM3 (134-434); RDW 17.6 % (11.6-15.6); WHITE BLOOD COUNT 16.9 K/mm3 (4.0-10.0)
[2016-10-11 08:07] LABS: ANION GAP 12 (8-16); CALCIUM 7.8 mg/dL (8.5-10.1); CO2 20 mmol/L (21-32); GLUCOSE,RANDOM 252 mg/dL (74-106); MAGNESIUM 2.4 mg/dL (1.8-2.4)
[2016-10-11 08:10] LABS: CREATININE 3.4 mg/dL (0.55-1.02); PHOSPHOROUS 5.3 mg/dL (2.5-4.9)
[2016-10-11] MEDS ORDERED: PT OWN MED DRAWER 7, Y5N ONE (08:56)
[2016-10-11] MEDS: PANTOPRAZOLE 20 MG TABLET (FP) PO SCH (09:00)
[2016-10-11] MEDS: CALCIUM ACETATE 667 MG CAPSULE (FP) PO SCH ×3 (09:00→18:09)
[2016-10-11] MEDS: RANOLAZINE E.R. 500 MG TABLET (FP) PO SCH ×2 (09:00→21:41)
[2016-10-11] MEDS: FERROUS SO4 325 MG TABLET (FP) PO SCH (09:00)
[2016-10-11] MEDS: ROFLUMILAST 500 MCG TABLET PO SCH (09:00)
[2016-10-11] MEDS: predniSONE 20 MG TABLET (UD) PO SCH (09:01)
[2016-10-11] MEDS: SERTRALINE HCL 50 MG TABLET (FP) PO SCH (09:01)
[2016-10-11] MEDS: APIXABAN 2.5 MG TABLET PO SCH ×2 (09:01→21:41)
[2016-10-11] MEDS: TIOTROPIUM BROMIDE 18 MCG/INH (DEVICE W/ 5 CAPSULES) IH SCH (09:04)
[2016-10-11] MEDS: BUDESONIDE/FORMETEROL FUMARATE 160/4.5 mcg INHALER IH SCH ×2 (09:04→21:42)
--- NOTE | 2016-10-11 09:15 | PN ---
Progress Note (short form) - Note Progress Note: Renal Follow up for MENA on CKD Pt seen and examined at the bedside has weakness in right leg and tenderness on the thigh. no numbness no sob or chest pain on IVF Vital Signs Temperature 98.8 F 10/11/16 08:49 Pulse Rate 115 H 10/11/16 08:49 Respiratory Rate 24 10/11/16 08:49 Blood Pressure 119/85 10/11/16 08:49 O2 Sat by Pulse Oximetry (%) 97 10/10/16 20:49 Intake & Output 10/08/16 10/09/16 10/10/16 10/11/16 23:59 23:59 23:59 23:59 Intake Total 760 1260 80 900 Output Total 2 Balance 758 1260 80 900 Weight 141 lb 6 oz 142 lb 139 lb 143 lb 6.4 oz Gen: NAD, on NC CVS: irregular, No M/R Lungs: Dec BS throughout the lung gilbert, no rales Abd: soft NT/ND Ext: No edema, clubbing or cyanosis CBC, BMP 10/11/16 07:19 10/11/16 07:19 Laboratory Tests 10/11/16 07:19 Calcium 7.8 L Phosphorus 5.3 H Magnesium 2.4 Current Medications Albuterol Sulfate (Ventolin 0.083% Nebulizer Soln -) 1 amp NEB Q4H PRN PRN Reason: SHORT OF BREATH/WHEEZING Last Admin: 10/08/16 13:22 Dose: 1 amp Alprazolam (Xanax -) 0.25 mg PO TID PRN PRN Reason: ANXIETY Last Admin: 10/10/16 21:50 Dose: 0.25 mg Apixaban (Eliquis -) 2.5 mg PO BID [facility] Last Admin: 10/11/16 09:01 Dose: 2.5 mg Atorvastatin Calcium (Lipitor -) 10 mg PO HS [facility] Last Admin: 10/10/16 21:50 Dose: 10 mg Budesonide/Formoterol Fumarate (Symbicort 160/4.5mcg -) 2 puff IH BID [facility] Last Admin: 10/11/16 09:04 Dose: 2 puff Calcium Acetate (Phoslo -) 667 mg PO TIDCM [facility] Last Admin: 10/11/16 09:00 Dose: 667 mg Diltiazem HCl (Cardizem Injection -) 10 mg IVPUSH Q4H PRN PRN Reason: HR OVER 120 Last Admin: 10/05/16 18:09 Dose: 10 mg Diltiazem HCl (Cardizem -) 30 mg PO TID [facility] Last Admin: 10/11/16 06:36 Dose: 30 mg Ferrous Sulfate (Feosol -) 325 mg PO DAILY [facility] Last Admin: 10/11/16 09:00 Dose: 325 mg Sodium Chloride (Normal Saline -) 1,000 mls @ 75 mls/hr IV ASDIR [facility] Last Admin: 10/11/16 06:37 Dose: 75 mls/hr Metoprolol Tartrate (Lopressor -) 25 mg PO TID [facility] Last Admin: 10/11/16 06:36 Dose: 25 mg Pantoprazole Sodium (Protonix -) 20 mg PO DAILY [facility] Last Admin: 10/11/16 09:00 Dose: 20 mg Polyethylene Glycol (Miralax (For Daily Use) -) 17 gm PO DAILY PRN PRN Reason: CONSTIPATION Last Admin: 10/05/16 08:55 Dose: 17 gm Prednisone (Deltasone -) 20 mg PO DAILY [facility] Last Admin: 10/11/16 09:01 Dose: 20 mg Ranolazine (Ranexa -) 500 mg PO BID [facility] Last Admin: 10/11/16 09:00 Dose: 500 mg Roflumilast (Daliresp -) 500 mcg PO DAILY [facility] Last Admin: 10/11/16 09:00 Dose: 500 mcg Sertraline HCl (Zoloft -) 150 mg PO DAILY [facility] Last Admin: 10/11/16 09:01 Dose: 150 mg Tiotropium [place] (Spiriva -) 1 puff IH DAILY [facility] Last Admin: 10/11/16 09:04 Dose: 1 puff A/P 81 year old woman with PMhx of CKD (baseline Cr unclear, in 2012 Cr peaked at 3.7 but was discharged with Cr of 1.3), DM2, COPD, CAD s/p Stenting, Afib not on Coumadin (pt decision) who presented with SOB and found to have acute diastolic HF with worsening of renal function with diuresis #MENA on CKD in setting of CHF Exacerbation and IV diuresis BUN/Cr stable/slightly improved in the last 48 hours continue isotonic saline with monitoring of respiratory status 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 steroid myopathy Check CK levels on tapering dose of steroids now #Diastolic HF Cardiology following continue to hold diuretics no El/ARB at this time #COPD on tapering dose of steroids #Afib with RVR on Eliquis rate control as per cardiology #Anemia Iron saturation is low, continue PO iron SPEP did not show a M-spike #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
[2016-10-11] MEDS: ALPRAZolam 0.25 MG TABLET PO PRN (14:36)
--- NOTE | 2016-10-11 14:40 | PN ---
Progress Note (short form) - Note Progress Note: Breathing has overall improved but still with BARRETT. Right LE weakness and intermittent pain. Reports it is difficult to stand. Intake & Output 10/08/16 10/09/16 10/10/16 10/11/16 23:59 23:59 23:59 23:59 Intake Total 760 1260 80 900 Output Total 2 600 Balance 758 1260 80 300 Weight 141 lb 6 oz 142 lb 139 lb 143 lb 6.4 oz Last Vital Signs Temp Pulse Resp BP Pulse Ox 98.2 F 109 H 22 124/75 98 10/11/16 13:55 10/11/16 13:55 10/11/16 13:55 10/11/16 13:55 10/11/16 11:51 Active Medications Albuterol Sulfate (Ventolin 0.083% Nebulizer Soln -) 1 amp NEB Q4H PRN PRN Reason: SHORT OF BREATH/WHEEZING Last Admin: 10/08/16 13:22 Dose: 1 amp Alprazolam (Xanax -) 0.25 mg PO TID PRN PRN Reason: ANXIETY Last Admin: 10/11/16 14:36 Dose: 0.25 mg Apixaban (Eliquis -) 2.5 mg PO BID [facility] Last Admin: 10/11/16 09:01 Dose: 2.5 mg Atorvastatin Calcium (Lipitor -) 10 mg PO HS [facility] Last Admin: 10/10/16 21:50 Dose: 10 mg Budesonide/Formoterol Fumarate (Symbicort 160/4.5mcg -) 2 puff IH BID [facility] Last Admin: 10/11/16 09:04 Dose: 2 puff Calcium Acetate (Phoslo -) 667 mg PO TIDCM [facility] Last Admin: 10/11/16 12:05 Dose: 667 mg Diltiazem HCl (Cardizem Injection -) 10 mg IVPUSH Q4H PRN PRN Reason: HR OVER 120 Last Admin: 10/05/16 18:09 Dose: 10 mg Diltiazem HCl (Cardizem -) 30 mg PO TID [facility] Last Admin: 10/11/16 14:36 Dose: 30 mg Ferrous Sulfate (Feosol -) 325 mg PO DAILY [facility] Last Admin: 10/11/16 09:00 Dose: 325 mg Sodium Chloride (Normal Saline -) 1,000 mls @ 75 mls/hr IV ASDIR [facility] Last Admin: 10/11/16 06:37 Dose: 75 mls/hr Metoprolol Tartrate (Lopressor -) 25 mg PO TID [facility] Last Admin: 10/11/16 14:36 Dose: 25 mg Pantoprazole Sodium (Protonix -) 20 mg PO DAILY [facility] Last Admin: 10/11/16 09:00 Dose: 20 mg Polyethylene Glycol (Miralax (For Daily Use) -) 17 gm PO DAILY PRN PRN Reason: CONSTIPATION Last Admin: 10/05/16 08:55 Dose: 17 gm Prednisone (Deltasone -) 20 mg PO DAILY [facility] Last Admin: 10/11/16 09:01 Dose: 20 mg Ranolazine (Ranexa -) 500 mg PO BID [facility] Last Admin: 10/11/16 09:00 Dose: 500 mg Roflumilast (Daliresp -) 500 mcg PO DAILY [facility] Last Admin: 10/11/16 09:00 Dose: 500 mcg Sertraline HCl (Zoloft -) 150 mg PO DAILY [facility] Last Admin: 10/11/16 09:01 Dose: 150 mg Tiotropium [place] (Spiriva -) 1 puff IH DAILY [facility] Last Admin: 10/11/16 09:04 Dose: 1 puff Constitutional: Yes: NAD Eyes: Yes: WNL HENT: Yes: WNL Neck: Yes: WNL Cardiovascular: Yes: Regular Rate and Rhythm, S1, S2 Respiratory: Yes: Few scattered basilar Rhonchi, no wheezing Gastrointestinal: Yes: Normal Bowel Sounds, Soft Extremities: Yes: WNL Edema: No Labs: Laboratory Results - last 24 hr 10/10/16 10/11/16 10/11/16 06:00 07:19 07:19 WBC 16.9 H RBC 3.73 Hgb 9.3 L Hct 30.5 L MCV 81.8 MCHC 30.4 L RDW 17.6 H Plt Count 170 MPV 10.0 Neutrophils % 95.2 H Lymphocytes % 1.3 L D Monocytes % 3.3 L Eosinophils % 0.0 Basophils % 0.2 Sodium 143 Potassium 4.4 Chloride 111 H Carbon Dioxide 20 L Anion Gap 12 BUN 112 H* Creatinine 3.4 H Random Glucose 252 H D Calcium 7.8 L Phosphorus 5.3 H Magnesium 2.4 Creatine Kinase Double Strand DNA Ab <1 06/24/17 09:34 WBC RBC Hgb Hct MCV MCHC RDW Plt Count MPV Neutrophils % Lymphocytes % Monocytes % Eosinophils % Basophils % Sodium Potassium Chloride Carbon Dioxide Anion Gap BUN Creatinine Random Glucose Calcium Phosphorus Magnesium Creatine Kinase 25 L Double Strand DNA Ab Problem List - Problems (1) Acute on chronic diastolic heart failure Code(s): I50.33 - ACUTE ON CHRONIC DIASTOLIC (CONGESTIVE) HEART FAILURE (2) Uilvt-xa-cyzlzfy kidney injury Code(s): N17.9 - ACUTE KIDNEY FAILURE, UNSPECIFIED N18.9 - CHRONIC KIDNEY DISEASE, UNSPECIFIED Qualifiers: Acute renal failure type: unspecified Chronic kidney disease stage: stage 3 (moderate) Qualified Code(s): N17.9 - Acute kidney failure, unspecified; N18.9 - Chronic kidney disease, unspecified (3) CHF (congestive heart failure) Code(s): I50.9 - HEART FAILURE, UNSPECIFIED Qualifiers: Congestive heart failure type: unspecified congestive heart failure type Congestive heart failure chronicity: unspecified congestive heart failure chronicity Qualified Code(s): I50.9 - Heart failure, unspecified (4) History of amiodarone therapy Code(s): Z92.29 - PERSONAL HISTORY OF OTHER DRUG THERAPY (5) CHF exacerbation Code(s): I50.9 - HEART FAILURE, UNSPECIFIED Qualifiers: Congestive heart failure type: unspecified congestive heart failure type Qualified Code(s): I50.9 - Heart failure, unspecified (6) COPD (chronic obstructive pulmonary disease) Code(s): J44.9 - CHRONIC OBSTRUCTIVE PULMONARY DISEASE, UNSPECIFIED Qualifiers : COPD type: unspecified COPD Qualified Code(s): J44.9 - Chronic obstructive pulmonary disease, unspecified (7) HTN (hypertension) Code(s): I10 - ESSENTIAL (PRIMARY) HYPERTENSION Qualifiers: Hypertension type: essential hypertension Qualified Code(s): I10 - Essential (primary) hypertension (8) Hypercholesterolemia Code(s): E78.00 - PURE HYPERCHOLESTEROLEMIA, UNSPECIFIED (9) PAF (paroxysmal atrial fibrillation) Code(s): I48.0 - PAROXYSMAL ATRIAL FIBRILLATION (10) Pulmonary hypertension Code(s): I27.2 - OTHER SECONDARY PULMONARY HYPERTENSION (11) Acute on chronic respiratory failure with hypoxemia Code(s): J96.21 - ACUTE AND CHRONIC RESPIRATORY FAILURE WITH HYPOXIA Assessment/Plan IMP ACUTE ON CHRONIC HYPOXEMIC RESPIRATORY FAILURE DECOMPENSATED CHF DIASTOLIC COPD EXACERBATION R/O AMIODARONE LUNG TOXICITY PULMONARY HTN MITRAL STENOSIS ASHD S/P STENT PAF ACUTE ON CHRONIC RENAL FAILURE DM HTN PLAN IVF PER RENAL INHALED BRONCHODILATORS SUPPLEMENTAL O2 PREDNISONE TAPER DAILY WTS MONITOR LYTES,RENAL FUNCTION I SUSPECT THAT BARRETT MAY BE LARGELY DUE TO SEVERE PAH DR KEBEDE
--- NOTE | 2016-10-11 16:26 | PN ---
Progress Note, Physician Chief Complaint: Events noted Dyspnea and cough persistent AF with variable HR History of Present Illness: Patient was seen and examined. Awake and alert. Chart was reviewed Persistent cough with dyspnea. AF with variable HR Discussed with daughter by bedside Episode of chest pain ECG no change. Serial troponin sent - Current Medication List Current Medications: Active Medications Albuterol Sulfate (Ventolin 0.083% Nebulizer Soln -) 1 amp NEB Q4H PRN PRN Reason: SHORT OF BREATH/WHEEZING Last Admin: 10/08/16 13:22 Dose: 1 amp Alprazolam (Xanax -) 0.25 mg PO TID PRN PRN Reason: ANXIETY Last Admin: 10/11/16 14:36 Dose: 0.25 mg Apixaban (Eliquis -) 2.5 mg PO BID [facility] Last Admin: 10/11/16 09:01 Dose: 2.5 mg Atorvastatin Calcium (Lipitor -) 10 mg PO HS [facility] Last Admin: 10/10/16 21:50 Dose: 10 mg Budesonide/Formoterol Fumarate (Symbicort 160/4.5mcg -) 2 puff IH BID [facility] Last Admin: 10/11/16 09:04 Dose: 2 puff Calcium Acetate (Phoslo -) 667 mg PO TIDCM [facility] Last Admin: 10/11/16 12:05 Dose: 667 mg Diltiazem HCl (Cardizem Injection -) 10 mg IVPUSH Q4H PRN PRN Reason: HR OVER 120 Last Admin: 10/05/16 18:09 Dose: 10 mg Diltiazem HCl (Cardizem -) 30 mg PO TID [facility] Last Admin: 10/11/16 14:36 Dose: 30 mg Ferrous Sulfate (Feosol -) 325 mg PO DAILY [facility] Last Admin: 10/11/16 09:00 Dose: 325 mg Sodium Chloride (Normal Saline -) 1,000 mls @ 75 mls/hr IV ASDIR [facility] Last Admin: 10/11/16 06:37 Dose: 75 mls/hr Metoprolol Tartrate (Lopressor -) 25 mg PO TID [facility] Last Admin: 10/11/16 14:36 Dose: 25 mg Pantoprazole Sodium (Protonix -) 20 mg PO DAILY [facility] Last Admin: 10/11/16 09:00 Dose: 20 mg Polyethylene Glycol (Miralax (For Daily Use) -) 17 gm PO DAILY PRN PRN Reason: CONSTIPATION Last Admin: 10/05/16 08:55 Dose: 17 gm Prednisone (Deltasone -) 20 mg PO DAILY [facility] Last Admin: 10/11/16 09:01 Dose: 20 mg Ranolazine (Ranexa -) 500 mg PO BID [facility] Last Admin: 10/11/16 09:00 Dose: 500 mg Roflumilast (Daliresp -) 500 mcg PO DAILY [facility] Last Admin: 10/11/16 09:00 Dose: 500 mcg Sertraline HCl (Zoloft -) 150 mg PO DAILY [facility] Last Admin: 10/11/16 09:01 Dose: 150 mg Tiotropium [place] (Spiriva -) 1 puff IH DAILY [facility] Last Admin: 10/11/16 09:04 Dose: 1 puff - Objective Vital Signs: Vital Signs Temperature 98.2 F 10/11/16 13:55 Pulse Rate 109 H 10/11/16 13:55 Respiratory Rate 22 10/11/16 13:55 Blood Pressure 124/75 10/11/16 13:55 O2 Sat by Pulse Oximetry (%) 98 10/11/16 11:51 Neck: Yes: Supple Cardiovascular: Yes: Pulse Irregular, S1, S2 Respiratory: Yes: Diminished, Rhonchi Gastrointestinal: Yes: Normal Bowel Sounds, Soft. No: Tenderness Edema: No Additional Findings/Remarks: - Review of Systems Constitutional: denies: Chills, Fever Cardiovascular: reports: Shortness of Breath. denies: Chest Pain, Palpitations Respiratory: reports: Cough, SOB, SOB on Exertion. denies: Hemoptysis, Orthopnea, PND, Wheezing Gastrointestinal: denies: Abdominal Pain, Constipation, Diarrhea, Melena, Nausea , Rectal Bleeding, Vomiting Musculoskeletal: denies: Joint Pain Neurological: denies: Dizziness, Headache, Seizure, Syncope Labs: CBC, BMP 10/11/16 07:19 10/11/16 07:19 - ....Imaging Chest X-ray: Image Reviewed (Congestion) Problem List - Problems (1) Acute on chronic diastolic heart failure Code(s): I50.33 - ACUTE ON CHRONIC DIASTOLIC (CONGESTIVE) HEART FAILURE (2) Acute on chronic respiratory failure with hypoxemia Code(s): J96.21 - ACUTE AND CHRONIC RESPIRATORY FAILURE WITH HYPOXIA (3) Mskdq-do-pcgjywg kidney injury Code(s): N17.9 - ACUTE KIDNEY FAILURE, UNSPECIFIED N18.9 - CHRONIC KIDNEY DISEASE, UNSPECIFIED Qualifiers: Acute renal failure type: unspecified Chronic kidney disease stage: stage 3 (moderate) Qualified Code(s): N17.9 - Acute kidney failure, unspecified; N18.9 - Chronic kidney disease, unspecified (4) CHF (congestive heart failure) Code(s): I50.9 - HEART FAILURE, UNSPECIFIED Qualifiers: Congestive heart failure type: unspecified congestive heart failure type Congestive heart failure chronicity: unspecified congestive heart failure chronicity Qualified Code(s): I50.9 - Heart failure, unspecified (5) Dyspnea Code(s): R06.00 - DYSPNEA, UNSPECIFIED Qualifiers: Dyspnea type: unspecified Qualified Code(s): R06.00 - Dyspnea, unspecified (6) History of amiodarone therapy Code(s): Z92.29 - PERSONAL HISTORY OF OTHER DRUG THERAPY (7) Epistaxis Code(s): R04.0 - EPISTAXIS (8) COPD (chronic obstructive pulmonary disease) Code(s): J44.9 - CHRONIC OBSTRUCTIVE PULMONARY DISEASE, UNSPECIFIED Qualifiers : COPD type: unspecified COPD Qualified Code(s): J44.9 - Chronic obstructive pulmonary disease, unspecified (9) HTN (hypertension) Code(s): I10 - ESSENTIAL (PRIMARY) HYPERTENSION Qualifiers: Hypertension type: essential hypertension Qualified Code(s): I10 - Essential (primary) hypertension (10) Hypercholesterolemia Code(s): E78.00 - PURE HYPERCHOLESTEROLEMIA, UNSPECIFIED (11) Mitral valve regurgitation Code(s): I34.0 - NONRHEUMATIC MITRAL (VALVE) INSUFFICIENCY Qualifiers: Cardiac valve disease etiology: nonrheumatic Qualified Code(s): I34.0 - Nonrheumatic mitral (valve) insufficiency (12) PAF (paroxysmal atrial fibrillation) Code(s): I48.0 - PAROXYSMAL ATRIAL FIBRILLATION (13) Pulmonary hypertension Code(s): I27.2 - OTHER SECONDARY PULMONARY HYPERTENSION (14) Tricuspid valve regurgitation Code(s): I07.1 - RHEUMATIC TRICUSPID INSUFFICIENCY Qualifiers: Cardiac valve disease etiology: nonrheumatic Qualified Code(s): I36.1 - Nonrheumatic tricuspid (valve) insufficiency Assessment/Plan 1. Dyspnea secondary to acute on chronic LV diastolic failure and COPD exacerbation and acute on chronic class II-III NYHA LV failure 2. CAD post PCI/stent angina pectoris - demand ischemic injury - underlying chest pain 3. O2 dependent COPD/emphysema 4. Rule out Amiodarone-associated pulmonary toxicity 5. Paroxysmal atrial fibrillation currently AF with variable ventricular response 6. HTN/HCVD 7. Hypercholesterolemia 8. Moderate mitral valve and tricuspid valve regurgitation with severe pulmonary hypertension 9. Acute on CKD 10. Anemia PLAN: 1. Continue Eliquis as tolerated 2. Continue Toprol XL with caution. Cardizem added and to be titrated (LVEF on nuclear perfusion is inaccurate due to abnormal gating secondary to rapid AF - echocardiography demonstrates preserved LV function) 3. Continue Ranexa, but with caution due to renal insufficiency. Consider restarting nitrates 4. Continue Atorvastatin 5. Diuretic currently held and monitor renal function and electrolytes 6. Bronchodilators, Daliresp and steroids 7. In view of worsening renal function with elevated BUN/cr, patient is not an ideal candidate for coronary intervention/cardiac catheterization. Renal input noted. If renal function worsens, possible HD 8. CXR image seen. Troponin negative 1st set. ECG shows no change. Since patient continues to have chest discomfort, may consider Morphine 2 mg IV X 1 dose. One dose of Furosemide 40 mg IVP and hold IV fluids. If CP continues, may consider NTP Further plans are to follow. Lesleyed Saurabh Posadas MD
[2016-10-11] MEDS: ALBUTEROL SO4 0.083% IH SOL 2.5 MG/3 ML VIAL.NEB. NEB PRN ×2 (16:27→22:35)
--- NOTE | 2016-10-11 17:14 | HOSP ---
Subjective - Review of Symptoms Events since last encounter: Called by nurse to see the patient for sudden chest pain. Patient stated the pain came on 10 mins ago, worsening, located in L chest pain, sore like, non- radiating, "05/02", reproducible by pressing, worse with deep breath, not associated with dizziness or worsening shortness of breath. Denies n/v, diaphoresis, worse with exertion. Spoke to Dr. Posadas and he's aware of EKG change and new chest pain. Pulmonary: Yes: Dyspnea, Cough Cardiovascular: Yes: Chest Pain, Palpitations Physical Examination Vital Signs: Vital Signs Temperature 98.2 F 10/11/16 13:55 Pulse Rate 109 H 10/11/16 13:55 Respiratory Rate 22 10/11/16 13:55 Blood Pressure 124/75 10/11/16 13:55 O2 Sat by Pulse Oximetry (%) 98 10/11/16 11:51 Constitutional: Yes: No Distress, Calm. No: Diaphoresis Cardiovascular: Yes: Tachycardia. No: Regular Rate and Rhythm (irregularly irregular) Respiratory: Yes: Cough, Rhonchi Labs: CBC, BMP 10/11/16 07:19 10/11/16 07:19 Hospitalist Encounter Assessment: Atypical chest pain - EKG shows a-fib with RVR with incomplete LBBB - Repeat EKG due to poor data quality - Trend trops - CXR A-fib with RVR, paroxysmal - HR range from 100 to 130 - Already on PO cardizem TID - PRN IV cardizem Visit type - Emergency Visit Emergency Visit: No - New Patient This patient is new to me today: Yes Date on this admission: 10/11/16 - Critical Care Critical Care patient: No
[2016-10-11 18:23] LABS: TROPONIN I 0.05 ng/ml (0.00-0.05)
[2016-10-11] MEDS ORDERED: morphine CARPU-JECT 2 MG/1 ML DISP.SYRIN IVPUSH ONE (21:28)
[2016-10-11] MEDS ORDERED: FUROSEMIDE 40 MG/4 ML INJECTABLE VIAL IVPB ONE (21:29)
[2016-10-11] MEDS: ATORVASTATIN CA 10 MG TABLET (FP) PO SCH (21:41)
[2016-10-12] MEDS: dilTIAZem HCL 30 MG TABLET (FP) PO SCH ×4 (00:30→18:40)
--- NOTE | 2016-10-12 01:36 | PN ---
Progress Note, Physician - Current Medication List Current Medications: Active Medications Albuterol Sulfate (Ventolin 0.083% Nebulizer Soln -) 1 amp NEB Q4H PRN PRN Reason: SHORT OF BREATH/WHEEZING Last Admin: 10/11/16 22:35 Dose: 1 amp Alprazolam (Xanax -) 0.25 mg PO TID PRN PRN Reason: ANXIETY Last Admin: 10/11/16 14:36 Dose: 0.25 mg Apixaban (Eliquis -) 2.5 mg PO BID [facility] Last Admin: 10/11/16 21:41 Dose: 2.5 mg Atorvastatin Calcium (Lipitor -) 10 mg PO HS [facility] Last Admin: 10/11/16 21:41 Dose: 10 mg Budesonide/Formoterol Fumarate (Symbicort 160/4.5mcg -) 2 puff IH BID [facility] Last Admin: 10/11/16 21:42 Dose: 2 puff Calcium Acetate (Phoslo -) 667 mg PO TIDCM [facility] Last Admin: 10/11/16 18:09 Dose: 667 mg Diltiazem HCl (Cardizem Injection -) 10 mg IVPUSH Q4H PRN PRN Reason: HR OVER 120 Last Admin: 10/05/16 18:09 Dose: 10 mg Diltiazem HCl (Cardizem -) 30 mg PO Q6HPO [facility] Last Admin: 10/12/16 00:30 Dose: 30 mg Ferrous Sulfate (Feosol -) 325 mg PO DAILY [facility] Last Admin: 10/11/16 09:00 Dose: 325 mg Sodium Chloride (Normal Saline -) 1,000 mls @ 75 mls/hr IV ASDIR [facility] Last Admin: 10/11/16 06:37 Dose: 75 mls/hr Metoprolol Tartrate (Lopressor -) 25 mg PO TID [facility] Last Admin: 10/11/16 21:41 Dose: 25 mg Pantoprazole Sodium (Protonix -) 20 mg PO DAILY [facility] Last Admin: 10/11/16 09:00 Dose: 20 mg Polyethylene Glycol (Miralax (For Daily Use) -) 17 gm PO DAILY PRN PRN Reason: CONSTIPATION Last Admin: 10/05/16 08:55 Dose: 17 gm Prednisone (Deltasone -) 20 mg PO DAILY [facility] Last Admin: 10/11/16 09:01 Dose: 20 mg Ranolazine (Ranexa -) 500 mg PO BID [facility] Last Admin: 10/11/16 21:41 Dose: 500 mg Roflumilast (Daliresp -) 500 mcg PO DAILY [facility] Last Admin: 10/11/16 09:00 Dose: 500 mcg Sertraline HCl (Zoloft -) 150 mg PO DAILY [facility] Last Admin: 10/11/16 09:01 Dose: 150 mg Tiotropium [place] (Spiriva -) 1 puff IH DAILY [facility] Last Admin: 10/11/16 09:04 Dose: 1 puff - Objective Vital Signs: Vital Signs Temperature 97.9 F 10/11/16 21:00 Pulse Rate 110 H 10/11/16 22:00 Respiratory Rate 22 10/11/16 22:00 Blood Pressure 120/87 10/11/16 22:00 O2 Sat by Pulse Oximetry (%) 94 L 10/11/16 22:00 Labs: CBC, BMP 10/11/16 07:19 10/11/16 07:19 INR, PTT INR 1.45 (0.82-1.09) H 09/25/16 09:13 Problem List - Problems (1) [id number]-zb-[id number] kidney injury Code(s): N17.9 - ACUTE KIDNEY FAILURE, UNSPECIFIED N18.9 - CHRONIC KIDNEY DISEASE, UNSPECIFIED Qualifiers: Acute renal failure type: unspecified Chronic kidney disease stage: stage 3 (moderate) Qualified Code(s): N17.9 - Acute kidney failure, unspecified; N18.9 - Chronic kidney disease, unspecified (2) Acute on chronic diastolic heart failure Code(s): I50.33 - ACUTE ON CHRONIC DIASTOLIC (CONGESTIVE) HEART FAILURE (3) COPD (chronic obstructive pulmonary disease) Code(s): J44.9 - CHRONIC OBSTRUCTIVE PULMONARY DISEASE, UNSPECIFIED Qualifiers : COPD type: unspecified COPD Qualified Code(s): J44.9 - Chronic obstructive pulmonary disease, unspecified (4) Anemia Code(s): D64.9 - ANEMIA, UNSPECIFIED Qualifiers: Anemia type: due to chronic kidney disease (5) HTN (hypertension) Code(s): I10 - ESSENTIAL (PRIMARY) HYPERTENSION Qualifiers: Hypertension type: essential hypertension Qualified Code(s): I10 - Essential (primary) hypertension (6) Hypercholesterolemia Code(s): E78.00 - PURE HYPERCHOLESTEROLEMIA, UNSPECIFIED (7) PAF (paroxysmal atrial fibrillation) Code(s): I48.0 - PAROXYSMAL ATRIAL FIBRILLATION (8) Dyspnea Code(s): R06.00 - DYSPNEA, UNSPECIFIED Qualifiers: Dyspnea type: unspecified Qualified Code(s): R06.00 - Dyspnea, unspecified
[2016-10-12] MEDS: SODIUM CHLORIDE 1,000 ML IV SCH (06:29)
[2016-10-12] MEDS: ALPRAZolam 0.25 MG TABLET PO PRN ×2 (06:31→15:01)
[2016-10-12] MEDS: METOPROLOL TARTRATE 25 MG TABLET (FP) PO SCH ×3 (06:31→22:19)
[2016-10-12] MEDS: ALBUTEROL SO4 0.083% IH SOL 2.5 MG/3 ML VIAL.NEB. NEB PRN (06:45)
[2016-10-12] MEDS: CALCIUM ACETATE 667 MG CAPSULE (FP) PO SCH ×3 (08:18→18:40)
[2016-10-12 08:59] LABS: BASOPHIL 0.3 % (0-2.0); MCH 24.9 pg (25.7-33.7); MCHC 30.4 g/dl (32.0-36.0); MEAN CELL VOLUME 81.8 fl (80-96); MEAN PLT VOLUME 9.4 fl (7.5-11.1); NEUTROPHILS 91.3 % (42.8-82.8); PLATELET COUNT 169 K/MM3 (134-434); RDW 17.7 % (11.6-15.6); WHITE BLOOD COUNT 19.7 K/mm3 (4.0-10.0)
[2016-10-12 09:20] LABS: ALBUMIN 2.4 g/dl (3.4-5.0); ALK PHOS 54 U/L (45-117); ANION GAP 11 (8-16); BILIRUBIN,TOTAL 0.4 mg/dL (0.2-1.0); CO2 22 mmol/L (21-32); CREATININE 3.3 mg/dL (0.55-1.02); GLUCOSE,RANDOM 134 mg/dL (74-106); SGOT/AST 11 U/L (15-37); SGPT/ALT 42 U/L (12-78); TOT PROT 5.2 g/dl (6.4-8.2)
[2016-10-12] MEDS: RANOLAZINE E.R. 500 MG TABLET (FP) PO SCH ×2 (09:56→22:19)
[2016-10-12] MEDS: SERTRALINE HCL 50 MG TABLET (FP) PO SCH (09:56)
[2016-10-12] MEDS: APIXABAN 2.5 MG TABLET PO SCH ×2 (09:57→22:18)
[2016-10-12] MEDS: PANTOPRAZOLE 20 MG TABLET (FP) PO SCH (09:57)
[2016-10-12] MEDS: predniSONE 20 MG TABLET (UD) PO SCH (09:57)
[2016-10-12] MEDS: BUDESONIDE/FORMETEROL FUMARATE 160/4.5 mcg INHALER IH SCH ×2 (09:58→22:19)
[2016-10-12] MEDS: TIOTROPIUM BROMIDE 18 MCG/INH (DEVICE W/ 5 CAPSULES) IH SCH (09:58)
--- NOTE | 2016-10-12 09:59 | PN ---
Progress Note, Physician Chief Complaint: Events noted Dyspnea and cough persistent AF with variable HR Episode of chest pain last night and confusion and hallucination History of Present Illness: Patient was seen and examined. Awake and alert. Chart was reviewed Persistent cough with dyspnea. AF with variable HR Confusion and hallucination last night. ? steroid induced ? due to Morphine Received Xanax and patient appears calm this am Less chest discomfort - Current Medication List Current Medications: Active Medications Albuterol Sulfate (Ventolin 0.083% Nebulizer Soln -) 1 amp NEB Q4H PRN PRN Reason: SHORT OF BREATH/WHEEZING Last Admin: 10/12/16 06:45 Dose: 1 amp Alprazolam (Xanax -) 0.25 mg PO TID PRN PRN Reason: ANXIETY Last Admin: 10/12/16 06:31 Dose: 0.25 mg Apixaban (Eliquis -) 2.5 mg PO BID [facility] Last Admin: 10/11/16 21:41 Dose: 2.5 mg Atorvastatin Calcium (Lipitor -) 10 mg PO HS [facility] Last Admin: 10/11/16 21:41 Dose: 10 mg Budesonide/Formoterol Fumarate (Symbicort 160/4.5mcg -) 2 puff IH BID [facility] Last Admin: 10/11/16 21:42 Dose: 2 puff Calcium Acetate (Phoslo -) 667 mg PO TIDCM [facility] Last Admin: 10/12/16 08:18 Dose: 667 mg Diltiazem HCl (Cardizem Injection -) 10 mg IVPUSH Q4H PRN PRN Reason: HR OVER 120 Last Admin: 10/05/16 18:09 Dose: 10 mg Diltiazem HCl (Cardizem -) 30 mg PO Q6HPO [facility] Last Admin: 10/12/16 06:31 Dose: 30 mg Ferrous Sulfate (Feosol -) 325 mg PO DAILY [facility] Last Admin: 10/11/16 09:00 Dose: 325 mg Sodium Chloride (Normal Saline -) 1,000 mls @ 75 mls/hr IV ASDIR [facility] Last Admin: 10/12/16 06:29 Dose: Not Given Metoprolol Tartrate (Lopressor -) 25 mg PO TID [facility] Last Admin: 10/12/16 06:31 Dose: 25 mg Pantoprazole Sodium (Protonix -) 20 mg PO DAILY [facility] Last Admin: 10/11/16 09:00 Dose: 20 mg Polyethylene Glycol (Miralax (For Daily Use) -) 17 gm PO DAILY PRN PRN Reason: CONSTIPATION Last Admin: 10/05/16 08:55 Dose: 17 gm Prednisone (Deltasone -) 20 mg PO DAILY [facility] Last Admin: 10/11/16 09:01 Dose: 20 mg Ranolazine (Ranexa -) 500 mg PO BID [facility] Last Admin: 10/11/16 21:41 Dose: 500 mg Roflumilast (Daliresp -) 500 mcg PO DAILY [facility] Last Admin: 10/11/16 09:00 Dose: 500 mcg Sertraline HCl (Zoloft -) 150 mg PO DAILY [facility] Last Admin: 10/11/16 09:01 Dose: 150 mg Tiotropium [place] (Spiriva -) 1 puff IH DAILY [facility] Last Admin: 10/11/16 09:04 Dose: 1 puff - Objective Vital Signs: Vital Signs Temperature 98.0 F 10/12/16 02:00 Pulse Rate 100 H 10/12/16 08:00 Respiratory Rate 20 10/12/16 08:00 Blood Pressure 112/66 10/12/16 08:00 O2 Sat by Pulse Oximetry (%) 94 L 10/11/16 22:00 Neck: Yes: Supple Cardiovascular: Yes: Tachycardia, Pulse Irregular, Murmur (Soft SM), S1, S2 Respiratory: Yes: Diminished, Rhonchi Gastrointestinal: Yes: Normal Bowel Sounds, Soft. No: Tenderness Edema: No Additional Findings/Remarks: - Review of Systems Constitutional: denies: Chills, Fever Cardiovascular: reports: Shortness of Breath. denies: Chest Pain, Palpitations Respiratory: reports: Cough, SOB, SOB on Exertion. denies: Hemoptysis, Orthopnea, PND, Wheezing Gastrointestinal: denies: Abdominal Pain, Constipation, Diarrhea, Melena, Nausea , Rectal Bleeding, Vomiting Musculoskeletal: denies: Joint Pain Neurological: denies: Dizziness, Headache, Seizure, Syncope Labs: CBC, BMP 10/12/16 08:49 INR, PTT INR 1.45 (0.82-1.09) H 09/25/16 09:13 - ....Imaging Chest X-ray: Report Reviewed (Congestive changes) Problem List - Problems (1) Acute on chronic diastolic heart failure Code(s): I50.33 - ACUTE ON CHRONIC DIASTOLIC (CONGESTIVE) HEART FAILURE (2) Acute on chronic respiratory failure with hypoxemia Code(s): J96.21 - ACUTE AND CHRONIC RESPIRATORY FAILURE WITH HYPOXIA (3) Kjjlb-im-tgxdctx kidney injury Code(s): N17.9 - ACUTE KIDNEY FAILURE, UNSPECIFIED N18.9 - CHRONIC KIDNEY DISEASE, UNSPECIFIED Qualifiers: Acute renal failure type: unspecified Chronic kidney disease stage: stage 3 (moderate) Qualified Code(s): N17.9 - Acute kidney failure, unspecified; N18.9 - Chronic kidney disease, unspecified (4) CHF (congestive heart failure) Code(s): I50.9 - HEART FAILURE, UNSPECIFIED Qualifiers: Congestive heart failure type: unspecified congestive heart failure type Congestive heart failure chronicity: unspecified congestive heart failure chronicity Qualified Code(s): I50.9 - Heart failure, unspecified (5) Dyspnea Code(s): R06.00 - DYSPNEA, UNSPECIFIED Qualifiers: Dyspnea type: unspecified Qualified Code(s): R06.00 - Dyspnea, unspecified (6) History of amiodarone therapy Code(s): Z92.29 - PERSONAL HISTORY OF OTHER DRUG THERAPY (7) Epistaxis Code(s): R04.0 - EPISTAXIS (8) COPD (chronic obstructive pulmonary disease) Code(s): J44.9 - CHRONIC OBSTRUCTIVE PULMONARY DISEASE, UNSPECIFIED Qualifiers : COPD type: unspecified COPD Qualified Code(s): J44.9 - Chronic obstructive pulmonary disease, unspecified (9) HTN (hypertension) Code(s): I10 - ESSENTIAL (PRIMARY) HYPERTENSION Qualifiers: Hypertension type: essential hypertension Qualified Code(s): I10 - Essential (primary) hypertension (10) Hypercholesterolemia Code(s): E78.00 - PURE HYPERCHOLESTEROLEMIA, UNSPECIFIED (11) Mitral valve regurgitation Code(s): I34.0 - NONRHEUMATIC MITRAL (VALVE) INSUFFICIENCY Qualifiers: Cardiac valve disease etiology: nonrheumatic Qualified Code(s): I34.0 - Nonrheumatic mitral (valve) insufficiency (12) PAF (paroxysmal atrial fibrillation) Code(s): I48.0 - PAROXYSMAL ATRIAL FIBRILLATION (13) Pulmonary hypertension Code(s): I27.2 - OTHER SECONDARY PULMONARY HYPERTENSION (14) Tricuspid valve regurgitation Code(s): I07.1 - RHEUMATIC TRICUSPID INSUFFICIENCY Qualifiers: Cardiac valve disease etiology: nonrheumatic Qualified Code(s): I36.1 - Nonrheumatic tricuspid (valve) insufficiency Assessment/Plan 1. Dyspnea secondary to acute on chronic LV diastolic failure and COPD exacerbation and acute on chronic LV failure 2. CAD post PCI/stent angina pectoris - demand ischemic injury 3. O2 dependent COPD/emphysema 4. Rule out Amiodarone-associated pulmonary toxicity 5. Paroxysmal atrial fibrillation currently AF with variable ventricular response 6. HTN/HCVD 7. Hypercholesterolemia 8. Moderate mitral valve and tricuspid valve regurgitation with severe pulmonary hypertension 9. Acute on CKD 10. Anemia PLAN: 1. Continue Eliquis as tolerated 2. Continue Toprol XL with caution. Cardizem to be titrated (LVEF on nuclear perfusion is inaccurate due to abnormal gating secondary to rapid AF - echocardiography demonstrates preserved LV function) 3. Continue Ranexa, but with caution due to renal insufficiency. Consider NTP 4. Continue Atorvastatin 5. Diuretic currently held and monitor renal function and electrolytes - Diuretics PRN 6. Bronchodilators, Daliresp and steroids 7. In view of worsening renal function with elevated BUN/cr, patient is not an ideal candidate for coronary intervention/cardiac catheterization. Renal input noted. If renal function worsens, possible HD 8. ABG to check whether she is a CO2 retainer and further plans are to follow Further plans are to follow. Guarded Discussed with her daughter Saurabh Posadas MD
[2016-10-12] MEDS ORDERED: PT OWN MED DRAWER 7, Y5N ONE (10:02)
[2016-10-12] MEDS: ROFLUMILAST 500 MCG TABLET PO SCH (10:04)
[2016-10-12] MEDS: FERROUS SO4 325 MG TABLET (FP) PO SCH (10:06)
[2016-10-12 10:24] LABS: ALLENS TEST POSITIVE; ARTERIAL BLD GAS O2 SATURATION 91.7 % (90-98.9); ARTERIAL BLOOD GAS BASE EXCESS -7.7 meq/l (-2-2); ARTERIAL BLOOD GAS HCO3 17.9 meq/L (22-26)
[2016-10-12 10:25] LABS: ART PUNCT SITE LEFT RADIAL; ARTERIAL BLOOD GAS PO2 65.7 mmHg (70-100); ARTERIAL BLOOD GAS pH 7.29 (7.35-7.45); LPM/O2% 4L; PT. ON O2? YES; TYPE OF O2 NASAL CANNULA
[2016-10-12] MEDS ORDERED: FUROSEMIDE 40 MG/4 ML INJECTABLE VIAL IVPUSH ONE (10:33)
--- NOTE | 2016-10-12 10:35 | PN ---
Progress Note (short form) - Note Progress Note: Renal Follow up for MENA on CKD Pt seen and examined at the bedside overnight events noted has CP and dyspnea and CXR showed worsening congestion s/p Lasix yesterday evening Vital Signs Temperature 98.0 F 10/12/16 02:00 Pulse Rate 100 H 10/12/16 08:00 Respiratory Rate 20 10/12/16 08:00 Blood Pressure 112/66 10/12/16 08:00 O2 Sat by Pulse Oximetry (%) 94 L 10/11/16 22:00 Intake & Output 10/09/16 10/10/16 10/11/16 10/12/16 23:59 23:59 23:59 23:59 Intake Total 1260 80 2040 Output Total 600 Balance 1260 80 1440 Weight 142 lb 139 lb 143 lb 6.4 oz 155 lb Gen: NAD, on NC CVS: irregular, No M/R Lungs: Dec BS throughout the lung gilbert, no rales Abd: soft NT/ND Ext: No edema, clubbing or cyanosis CBC, BMP 10/12/16 08:49 10/12/16 08:49 Laboratory Tests 10/12/16 08:49 Calcium 8.0 L Albumin 2.4 L Current Medications Albuterol Sulfate (Ventolin 0.083% Nebulizer Soln -) 1 amp NEB Q4H PRN PRN Reason: SHORT OF BREATH/WHEEZING Last Admin: 10/12/16 06:45 Dose: 1 amp Alprazolam (Xanax -) 0.25 mg PO TID PRN PRN Reason: ANXIETY Last Admin: 10/12/16 06:31 Dose: 0.25 mg Apixaban (Eliquis -) 2.5 mg PO BID [facility] Last Admin: 10/12/16 09:57 Dose: 2.5 mg Atorvastatin Calcium (Lipitor -) 10 mg PO HS [facility] Last Admin: 10/11/16 21:41 Dose: 10 mg Budesonide/Formoterol Fumarate (Symbicort 160/4.5mcg -) 2 puff IH BID [facility] Last Admin: 10/12/16 09:58 Dose: 2 puff Calcium Acetate (Phoslo -) 667 mg PO TIDCM [facility] Last Admin: 10/12/16 08:18 Dose: 667 mg Diltiazem HCl (Cardizem Injection -) 10 mg IVPUSH Q4H PRN PRN Reason: HR OVER 120 Last Admin: 10/05/16 18:09 Dose: 10 mg Diltiazem HCl (Cardizem -) 30 mg PO Q6HPO [facility] Last Admin: 10/12/16 06:31 Dose: 30 mg Ferrous Sulfate (Feosol -) 325 mg PO DAILY [facility] Last Admin: 10/12/16 10:06 Dose: 325 mg Furosemide (Lasix Injection -) 40 mg IVPUSH ONCE ONE Stop: 10/12/16 10:34 Metoprolol Tartrate (Lopressor -) 25 mg PO TID [facility] Last Admin: 10/12/16 06:31 Dose: 25 mg Pantoprazole Sodium (Protonix -) 20 mg PO DAILY [facility] Last Admin: 10/12/16 09:57 Dose: 20 mg Polyethylene Glycol (Miralax (For Daily Use) -) 17 gm PO DAILY PRN PRN Reason: CONSTIPATION Last Admin: 10/05/16 08:55 Dose: 17 gm Prednisone (Deltasone -) 20 mg PO DAILY [facility] Last Admin: 10/12/16 09:57 Dose: 20 mg Ranolazine (Ranexa -) 500 mg PO BID [facility] Last Admin: 10/12/16 09:56 Dose: 500 mg Roflumilast (Daliresp -) 500 mcg PO DAILY [facility] Last Admin: 10/12/16 10:04 Dose: 500 mcg Sertraline HCl (Zoloft -) 150 mg PO DAILY [facility] Last Admin: 10/12/16 09:56 Dose: 150 mg Tiotropium [place] (Spiriva -) 1 puff IH DAILY [facility] Last Admin: 10/12/16 09:58 Dose: 1 puff A/P 81 year old woman with PMhx of CKD (baseline Cr unclear, in 2012 Cr peaked at 3.7 but was discharged with Cr of 1.3), DM2, COPD, CAD s/p Stenting, Afib not on Coumadin (pt decision) who presented with SOB and found to have acute diastolic HF with worsening of renal function with diuresis #MENA on CKD in setting of CHF Exacerbation and IV diuresis Renal function stable, however holding IVF because of chest congestion IV Lasix PRN ( additional dose today because of A-a gradiet and cognestion on exam and CXR) Ternd BUN/Cr dose all meds for Cr Cl less then 15 no acute indication for [employer] at this time no SEE/ARB as this time high bun due in part to sterods, no overt uremic symptoms at this time serologic work up for proteinuria showed + BELIA (low titer), would not consider biopsy at this time Anti- DS DNA levels sent #LE weakness and pain CK levels normal PT #Diastolic HF with acute sob Lasix PRN cardiolgoy following #COPD on tapering dose of steroids #Afib with RVR on Eliquis rate control as per cardiology #Anemia Iron saturation is low, continue PO iron SPEP did not show a M-spike #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
--- NOTE | 2016-10-12 15:47 | PN ---
Progress Note (short form) - Note Progress Note: Acute delerium overnight. Discussed with patient's daughter her overall condition. The patient has previously told myself and some of her other providers and her daughter that she wou ld not want cardiac resuscitation or intubation/mechanical ventilation. Intake & Output 10/09/16 10/10/16 10/11/16 10/12/16 23:59 23:59 23:59 23:59 Intake Total 1260 80 2040 Output Total 600 Balance 1260 80 1440 Weight 142 lb 139 lb 143 lb 6.4 oz 155 lb Last Vital Signs Temp Pulse Resp BP Pulse Ox 98.2 F 114 H 22 118/83 98 10/12/16 14:48 10/12/16 14:48 10/12/16 14:48 10/12/16 14:48 10/12/16 10:21 Active Medications Albuterol Sulfate (Ventolin 0.083% Nebulizer Soln -) 1 amp NEB Q4H PRN PRN Reason: SHORT OF BREATH/WHEEZING Last Admin: 10/12/16 06:45 Dose: 1 amp Alprazolam (Xanax -) 0.25 mg PO TID PRN PRN Reason: ANXIETY Last Admin: 10/12/16 15:01 Dose: 0.25 mg Apixaban (Eliquis -) 2.5 mg PO BID [facility] Last Admin: 10/12/16 09:57 Dose: 2.5 mg Atorvastatin Calcium (Lipitor -) 10 mg PO HS [facility] Last Admin: 10/11/16 21:41 Dose: 10 mg Budesonide/Formoterol Fumarate (Symbicort 160/4.5mcg -) 2 puff IH BID [facility] Last Admin: 10/12/16 09:58 Dose: 2 puff Calcium Acetate (Phoslo -) 667 mg PO TIDCM [facility] Last Admin: 10/12/16 12:13 Dose: 667 mg Diltiazem HCl (Cardizem Injection -) 10 mg IVPUSH Q4H PRN PRN Reason: HR OVER 120 Last Admin: 10/05/16 18:09 Dose: 10 mg Diltiazem HCl (Cardizem -) 30 mg PO Q6HPO [facility] Last Admin: 10/12/16 12:13 Dose: 30 mg Ferrous Sulfate (Feosol -) 325 mg PO DAILY [facility] Last Admin: 10/12/16 10:06 Dose: 325 mg Metoprolol Tartrate (Lopressor -) 25 mg PO TID [facility] Last Admin: 10/12/16 15:01 Dose: 25 mg Pantoprazole Sodium (Protonix -) 20 mg PO DAILY [facility] Last Admin: 10/12/16 09:57 Dose: 20 mg Polyethylene Glycol (Miralax (For Daily Use) -) 17 gm PO DAILY PRN PRN Reason: CONSTIPATION Last Admin: 10/05/16 08:55 Dose: 17 gm Prednisone (Deltasone -) 20 mg PO DAILY [facility] Last Admin: 10/12/16 09:57 Dose: 20 mg Ranolazine (Ranexa -) 500 mg PO BID [facility] Last Admin: 10/12/16 09:56 Dose: 500 mg Roflumilast (Daliresp -) 500 mcg PO DAILY [facility] Last Admin: 10/12/16 10:04 Dose: 500 mcg Sertraline HCl (Zoloft -) 150 mg PO DAILY [facility] Last Admin: 10/12/16 09:56 Dose: 150 mg Tiotropium [place] (Spiriva -) 1 puff IH DAILY [facility] Last Admin: 10/12/16 09:58 Dose: 1 puff Constitutional: Yes: Confused, Mildly tachypneic at rest Eyes: Yes: WNL HENT: Yes: WNL Neck: Yes: WNL Cardiovascular: Yes: Regular Rate and Rhythm, S1, S2 Respiratory: Yes: Few scattered basilar Rhonchi, no wheezing Gastrointestinal: Yes: Normal Bowel Sounds, Soft Extremities: Yes: WNL Edema: No Labs: Laboratory Results - last 24 hr 10/11/16 10/12/16 10/12/16 17:50 08:49 08:49 WBC 19.7 H RBC 3.86 Hgb 9.6 L Hct 31.6 L MCV 81.8 MCHC 30.4 L RDW 17.7 H Plt Count 169 MPV 9.4 Neutrophils % 91.3 H Lymphocytes % 2.3 L D Monocytes % 6.1 D Eosinophils % 0.0 Basophils % 0.3 Puncture Site ABG pH ABG pCO2 at Pt Temp ABG pO2 at Pt Temp ABG HCO3 ABG O2 Sat (Measured) ABG O2 Content ABG Base Excess [place] Test O2 Delivery Device Oxygen Flow Rate PEEP Sodium 143 Potassium 4.3 Chloride 110 H Carbon Dioxide 22 Anion Gap 11 BUN 110 H* Creatinine 3.3 H Creat Clearance w eGFR 13.49 Random Glucose 134 H D Calcium 8.0 L Total Bilirubin 0.4 D AST 11 L ALT 42 Alkaline Phosphatase 54 Creatine Kinase 25 L Troponin I 0.05 B-Natriuretic Peptide 69657.85 H Total Protein 5.2 L Albumin 2.4 L 10/12/16 10:15 WBC RBC Hgb Hct MCV MCHC RDW Plt Count MPV Neutrophils % Lymphocytes % Monocytes % Eosinophils % Basophils % Puncture Site Left radial ABG pH 7.29 L D ABG pCO2 at Pt Temp 38.8 ABG pO2 at Pt Temp 65.7 L D ABG HCO3 17.9 L ABG O2 Sat (Measured) 91.7 ABG O2 Content 11.6 L ABG Base Excess -7.7 L [place] Test Positive O2 Delivery Device Nasal cannula Oxygen Flow Rate 4l PEEP 0.0 Sodium Potassium Chloride Carbon Dioxide Anion Gap BUN Creatinine Creat Clearance w eGFR Random Glucose Calcium Total Bilirubin AST ALT Alkaline Phosphatase Creatine Kinase Troponin I B-Natriuretic Peptide Total Protein Albumin Problem List - Problems (1) Acute on chronic diastolic heart failure Code(s): I50.33 - ACUTE ON CHRONIC DIASTOLIC (CONGESTIVE) HEART FAILURE (2) Chchr-ac-qgigjjo kidney injury Code(s): N17.9 - ACUTE KIDNEY FAILURE, UNSPECIFIED N18.9 - CHRONIC KIDNEY DISEASE, UNSPECIFIED Qualifiers: Acute renal failure type: unspecified Chronic kidney disease stage: stage 3 (moderate) Qualified Code(s): N17.9 - Acute kidney failure, unspecified; N18.9 - Chronic kidney disease, unspecified (3) CHF (congestive heart failure) Code(s): I50.9 - HEART FAILURE, UNSPECIFIED Qualifiers: Congestive heart failure type: unspecified congestive heart failure type Congestive heart failure chronicity: unspecified congestive heart failure chronicity Qualified Code(s): I50.9 - Heart failure, unspecified (4) History of amiodarone therapy Code(s): Z92.29 - PERSONAL HISTORY OF OTHER DRUG THERAPY (5) CHF exacerbation Code(s): I50.9 - HEART FAILURE, UNSPECIFIED Qualifiers: Congestive heart failure type: unspecified congestive heart failure type Qualified Code(s): I50.9 - Heart failure, unspecified (6) COPD (chronic obstructive pulmonary disease) Code(s): J44.9 - CHRONIC OBSTRUCTIVE PULMONARY DISEASE, UNSPECIFIED Qualifiers : COPD type: unspecified COPD Qualified Code(s): J44.9 - Chronic obstructive pulmonary disease, unspecified (7) HTN (hypertension) Code(s): I10 - ESSENTIAL (PRIMARY) HYPERTENSION Qualifiers: Hypertension type: essential hypertension Qualified Code(s): I10 - Essential (primary) hypertension (8) Hypercholesterolemia Code(s): E78.00 - PURE HYPERCHOLESTEROLEMIA, UNSPECIFIED (9) PAF (paroxysmal atrial fibrillation) Code(s): I48.0 - PAROXYSMAL ATRIAL FIBRILLATION (10) Pulmonary hypertension Code(s): I27.2 - OTHER SECONDARY PULMONARY HYPERTENSION (11) Acute on chronic respiratory failure with hypoxemia Code(s): J96.21 - ACUTE AND CHRONIC RESPIRATORY FAILURE WITH HYPOXIA Assessment/Plan IMP ACUTE ON CHRONIC HYPOXEMIC RESPIRATORY FAILURE DECOMPENSATED CHF DIASTOLIC COPD EXACERBATION R/O AMIODARONE LUNG TOXICITY PULMONARY HTN MITRAL STENOSIS ASHD S/P STENT PAF ACUTE ON CHRONIC RENAL FAILURE DM HTN PLAN WILL PLACE AN ORDER FOR DNR/DNI INHALED BRONCHODILATORS SUPPLEMENTAL O2 PREDNISONE TAPER DAILY WTS MONITOR LYTES,RENAL FUNCTION I SUSPECT THAT BARRETT MAY BE LARGELY DUE TO SEVERE PAH DR KEBEDE
--- NOTE | 2016-10-12 21:13 | EKG ---
Test Reason : Blood Pressure : / mmHG Vent. Rate : 112 BPM Atrial Rate : 141 BPM P-R Int : 000 ms QRS Dur : 118 ms QT Int : 366 ms P-R-T Axes : 000 -01 176 degrees QTc Int : 499 ms POOR DATA QUALITY, INTERPRETATION MAY BE ADVERSELY AFFECTED ATRIAL FIBRILLATION WITH RAPID VENTRICULAR RESPONSE INCOMPLETE LEFT BUNDLE BRANCH BLOCK ABNORMAL ECG WHEN COMPARED WITH ECG OF 25-SEP-2016 08:57, ATRIAL FIBRILLATION HAS REPLACED SINUS RHYTHM Confirmed by COLUMBA ULLOA MD ([id number]) on 10/12/2016 9:13:26 PM Referred By: Confirmed By:COLUMBA ULLOA MD
--- NOTE | 2016-10-12 21:14 | EKG ---
Test Reason : Blood Pressure : / mmHG Vent. Rate : 114 BPM Atrial Rate : 089 BPM P-R Int : 000 ms QRS Dur : 116 ms QT Int : 370 ms P-R-T Axes : 000 -11 179 degrees QTc Int : 509 ms POOR DATA QUALITY, INTERPRETATION MAY BE ADVERSELY AFFECTED ATRIAL FIBRILLATION WITH RAPID VENTRICULAR RESPONSE INCOMPLETE LEFT BUNDLE BRANCH BLOCK ABNORMAL ECG WHEN COMPARED WITH ECG OF 11-OCT-2016 16:49, NO SIGNIFICANT CHANGE WAS FOUND Confirmed by COLUMBA ULLOA MD ([id number]) on 10/12/2016 9:14:05 PM Referred By: Confirmed By:COLUMBA ULLOA MD
[2016-10-12] MEDS: ATORVASTATIN CA 10 MG TABLET (FP) PO SCH (22:18)
--- NOTE | 2016-10-12 23:45 | PN ---
Progress Note, Physician History of Present Illness: Events of last night noted Pt improved after xanax - Current Medication List Current Medications: Active Medications Albuterol Sulfate (Ventolin 0.083% Nebulizer Soln -) 1 amp NEB Q4H PRN PRN Reason: SHORT OF BREATH/WHEEZING Last Admin: 10/12/16 06:45 Dose: 1 amp Alprazolam (Xanax -) 0.25 mg PO TID PRN PRN Reason: ANXIETY Last Admin: 10/12/16 15:01 Dose: 0.25 mg Apixaban (Eliquis -) 2.5 mg PO BID [facility] Last Admin: 10/12/16 22:18 Dose: 2.5 mg Atorvastatin Calcium (Lipitor -) 10 mg PO HS [facility] Last Admin: 10/12/16 22:18 Dose: 10 mg Budesonide/Formoterol Fumarate (Symbicort 160/4.5mcg -) 2 puff IH BID [facility] Last Admin: 10/12/16 22:19 Dose: 2 puff Calcium Acetate (Phoslo -) 667 mg PO TIDCM [facility] Last Admin: 10/12/16 18:40 Dose: 667 mg Diltiazem HCl (Cardizem -) 30 mg PO Q6HPO [facility] Last Admin: 10/12/16 18:40 Dose: 30 mg Ferrous Sulfate (Feosol -) 325 mg PO DAILY [facility] Last Admin: 10/12/16 10:06 Dose: 325 mg Metoprolol Tartrate (Lopressor -) 25 mg PO TID [facility] Last Admin: 10/12/16 22:19 Dose: 25 mg Pantoprazole Sodium (Protonix -) 20 mg PO DAILY [facility] Last Admin: 10/12/16 09:57 Dose: 20 mg Polyethylene Glycol (Miralax (For Daily Use) -) 17 gm PO DAILY PRN PRN Reason: CONSTIPATION Last Admin: 10/05/16 08:55 Dose: 17 gm Prednisone (Deltasone -) 20 mg PO DAILY [facility] Last Admin: 10/12/16 09:57 Dose: 20 mg Ranolazine (Ranexa -) 500 mg PO BID [facility] Last Admin: 10/12/16 22:19 Dose: 500 mg Roflumilast (Daliresp -) 500 mcg PO DAILY [facility] Last Admin: 10/12/16 10:04 Dose: 500 mcg Sertraline HCl (Zoloft -) 150 mg PO DAILY [facility] Last Admin: 10/12/16 09:56 Dose: 150 mg Tiotropium [place] (Spiriva -) 1 puff IH DAILY [facility] Last Admin: 10/12/16 09:58 Dose: 1 puff - Objective Vital Signs: Vital Signs Temperature 96.3 F L 10/12/16 20:40 Pulse Rate 116 H 10/12/16 20:40 Respiratory Rate 20 10/12/16 20:40 Blood Pressure 118/64 10/12/16 20:40 O2 Sat by Pulse Oximetry (%) 98 10/12/16 10:21 Labs: CBC, BMP 10/12/16 08:49 10/12/16 08:49 INR, PTT INR 1.45 (0.82-1.09) H 09/25/16 09:13 Problem List - Problems (1) Rxuzm-qx-tjhskyi kidney injury Code(s): N17.9 - ACUTE KIDNEY FAILURE, UNSPECIFIED N18.9 - CHRONIC KIDNEY DISEASE, UNSPECIFIED Qualifiers: Acute renal failure type: unspecified Chronic kidney disease stage: stage 3 (moderate) Qualified Code(s): N17.9 - Acute kidney failure, unspecified; N18.9 - Chronic kidney disease, unspecified (2) Acute on chronic diastolic heart failure Code(s): I50.33 - ACUTE ON CHRONIC DIASTOLIC (CONGESTIVE) HEART FAILURE (3) COPD (chronic obstructive pulmonary disease) Code(s): J44.9 - CHRONIC OBSTRUCTIVE PULMONARY DISEASE, UNSPECIFIED Qualifiers : COPD type: unspecified COPD Qualified Code(s): J44.9 - Chronic obstructive pulmonary disease, unspecified (4) Anemia Code(s): D64.9 - ANEMIA, UNSPECIFIED Qualifiers: Anemia type: due to chronic kidney disease (5) HTN (hypertension) Code(s): I10 - ESSENTIAL (PRIMARY) HYPERTENSION Qualifiers: Hypertension type: essential hypertension Qualified Code(s): I10 - Essential (primary) hypertension (6) Hypercholesterolemia Code(s): E78.00 - PURE HYPERCHOLESTEROLEMIA, UNSPECIFIED (7) PAF (paroxysmal atrial fibrillation) Code(s): I48.0 - PAROXYSMAL ATRIAL FIBRILLATION (8) Dyspnea Code(s): R06.00 - DYSPNEA, UNSPECIFIED Qualifiers: Dyspnea type: unspecified Qualified Code(s): R06.00 - Dyspnea, unspecified
[2016-10-13] MEDS: dilTIAZem HCL 30 MG TABLET (FP) PO SCH ×4 (01:19→18:38)
[2016-10-13] MEDS: ALBUTEROL SO4 0.083% IH SOL 2.5 MG/3 ML VIAL.NEB. NEB PRN (03:37)
[2016-10-13] MEDS: METOPROLOL TARTRATE 25 MG TABLET (FP) PO SCH ×3 (05:31→21:28)
[2016-10-13] MEDS: ALPRAZolam 0.25 MG TABLET PO PRN (05:32)
[2016-10-13 07:51] LABS: BASOPHIL 0.1 % (0-2.0); MCH 25.2 pg (25.7-33.7); MCHC 30.9 g/dl (32.0-36.0); MEAN CELL VOLUME 81.3 fl (80-96); MEAN PLT VOLUME 10.2 fl (7.5-11.1); NEUTROPHILS 91.3 % (42.8-82.8); PLATELET COUNT 157 K/MM3 (134-434); RDW 17.8 % (11.6-15.6); WHITE BLOOD COUNT 19.9 K/mm3 (4.0-10.0)
[2016-10-13 08:27] LABS: ALBUMIN 2.2 g/dl (3.4-5.0); ANION GAP 13 (8-16); CO2 21 mmol/L (21-32); GLUCOSE,RANDOM 100 mg/dL (74-106); MAGNESIUM 2.3 mg/dL (1.8-2.4)
[2016-10-13 08:34] LABS: ALK PHOS 50 U/L (45-117); BILIRUBIN,TOTAL 0.6 mg/dL (0.2-1.0); CREATININE 3.5 mg/dL (0.55-1.02); PHOSPHOROUS 5.4 mg/dL (2.5-4.9); SGOT/AST 10 U/L (15-37); SGPT/ALT 39 U/L (12-78); TOT PROT 4.9 g/dl (6.4-8.2)
[2016-10-13] MEDS: CALCIUM ACETATE 667 MG CAPSULE (FP) PO SCH ×3 (08:55→18:38)
[2016-10-13] MEDS: predniSONE 20 MG TABLET (UD) PO SCH (09:03)
[2016-10-13] MEDS: FERROUS SO4 325 MG TABLET (FP) PO SCH (09:03)
[2016-10-13] MEDS: APIXABAN 2.5 MG TABLET PO SCH ×2 (09:03→22:44)
[2016-10-13] MEDS: PANTOPRAZOLE 20 MG TABLET (FP) PO SCH (09:03)
[2016-10-13] MEDS: SERTRALINE HCL 50 MG TABLET (FP) PO SCH (09:03)
[2016-10-13] MEDS: RANOLAZINE E.R. 500 MG TABLET (FP) PO SCH ×2 (09:03→21:28)
--- NOTE | 2016-10-13 09:13 | PN ---
Progress Note, Physician History of Present Illness: Persistent dyspnea. - Current Medication List Current Medications: Active Medications Albuterol Sulfate (Ventolin 0.083% Nebulizer Soln -) 1 amp NEB Q4H PRN PRN Reason: SHORT OF BREATH/WHEEZING Last Admin: 10/13/16 03:37 Dose: 1 amp Alprazolam (Xanax -) 0.25 mg PO TID PRN PRN Reason: ANXIETY Last Admin: 10/13/16 05:32 Dose: 0.25 mg Apixaban (Eliquis -) 2.5 mg PO BID [facility] Last Admin: 10/13/16 09:03 Dose: 2.5 mg Atorvastatin Calcium (Lipitor -) 10 mg PO HS [facility] Last Admin: 10/12/16 22:18 Dose: 10 mg Budesonide/Formoterol Fumarate (Symbicort 160/4.5mcg -) 2 puff IH BID [facility] Last Admin: 10/12/16 22:19 Dose: 2 puff Calcium Acetate (Phoslo -) 667 mg PO TIDCM [facility] Last Admin: 10/13/16 08:55 Dose: 667 mg Diltiazem HCl (Cardizem -) 30 mg PO Q6HPO [facility] Last Admin: 10/13/16 05:31 Dose: 30 mg Ferrous Sulfate (Feosol -) 325 mg PO DAILY [facility] Last Admin: 10/13/16 09:03 Dose: 325 mg Metoprolol Tartrate (Lopressor -) 25 mg PO TID [facility] Last Admin: 10/13/16 05:31 Dose: 25 mg Pantoprazole Sodium (Protonix -) 20 mg PO DAILY [facility] Last Admin: 10/13/16 09:03 Dose: 20 mg Polyethylene Glycol (Miralax (For Daily Use) -) 17 gm PO DAILY PRN PRN Reason: CONSTIPATION Last Admin: 10/05/16 08:55 Dose: 17 gm Prednisone (Deltasone -) 20 mg PO DAILY [facility] Last Admin: 10/13/16 09:03 Dose: 20 mg Ranolazine (Ranexa -) 500 mg PO BID [facility] Last Admin: 10/13/16 09:03 Dose: 500 mg Roflumilast (Daliresp -) 500 mcg PO DAILY [facility] Last Admin: 10/12/16 10:04 Dose: 500 mcg Sertraline HCl (Zoloft -) 150 mg PO DAILY [facility] Last Admin: 10/13/16 09:03 Dose: 150 mg Tiotropium [place] (Spiriva -) 1 puff IH DAILY [facility] Last Admin: 10/12/16 09:58 Dose: 1 puff - Objective Vital Signs: Vital Signs Temperature 97.8 F 10/13/16 05:35 Pulse Rate 118 H 10/13/16 05:35 Respiratory Rate 20 10/13/16 05:35 Blood Pressure 110/67 10/13/16 05:35 O2 Sat by Pulse Oximetry (%) 98 10/12/16 10:21 Constitutional: Yes: No Distress, Calm Neck: Yes: Supple Cardiovascular: Yes: Tachycardia, Pulse Irregular Respiratory: Yes: Regular, Diminished, On Nasal O2 Gastrointestinal: Yes: Normal Bowel Sounds, Soft Edema: No Labs: CBC, BMP 10/13/16 05:57 10/13/16 05:57 INR, PTT INR 1.45 (0.82-1.09) H 09/25/16 09:13 Problem List - Problems (1) COPD (chronic obstructive pulmonary disease) Code(s): J44.9 - CHRONIC OBSTRUCTIVE PULMONARY DISEASE, UNSPECIFIED Qualifiers : COPD type: unspecified COPD Qualified Code(s): J44.9 - Chronic obstructive pulmonary disease, unspecified (2) HTN (hypertension) Code(s): I10 - ESSENTIAL (PRIMARY) HYPERTENSION Qualifiers: Hypertension type: essential hypertension Qualified Code(s): I10 - Essential (primary) hypertension (3) Hypercholesterolemia Code(s): E78.00 - PURE HYPERCHOLESTEROLEMIA, UNSPECIFIED (4) PAF (paroxysmal atrial fibrillation) Code(s): I48.0 - PAROXYSMAL ATRIAL FIBRILLATION (5) Pulmonary hypertension Code(s): I27.2 - OTHER SECONDARY PULMONARY HYPERTENSION (6) Nnydf-rl-hbhngzy kidney injury Code(s): N17.9 - ACUTE KIDNEY FAILURE, UNSPECIFIED N18.9 - CHRONIC KIDNEY DISEASE, UNSPECIFIED Qualifiers: Acute renal failure type: unspecified Chronic kidney disease stage: stage 3 (moderate) Qualified Code(s): N17.9 - Acute kidney failure, unspecified; N18.9 - Chronic kidney disease, unspecified (7) Acute on chronic diastolic heart failure Code(s): I50.33 - ACUTE ON CHRONIC DIASTOLIC (CONGESTIVE) HEART FAILURE (8) History of amiodarone therapy Code(s): Z92.29 - PERSONAL HISTORY OF OTHER DRUG THERAPY (9) Anemia Code(s): D64.9 - ANEMIA, UNSPECIFIED Qualifiers: Anemia type: due to chronic kidney disease Assessment/Plan 09/08/2016 Normal LV size and fxn, mod LAE, mild HERNANDEZ, mod MR, TR, RVSP 50-60 mmHg , functional MS due to MAC MPI: Mod decreased LV fxn (gating), mild inferobasal, inferolateral ischemia 1. Dyspnea secondary to acute on chronic LV diastolic failure and COPD exacerbation and acute on chronic LV failure with pulm HTN 2. CAD post PCI/stent angina pectoris - demand ischemic injury 3. O2 dependent COPD/emphysema 4. Rule out Amiodarone-associated pulmonary toxicity 5. Paroxysmal atrial fibrillation currently AF with variable ventricular response 6. HTN/HCVD 7. Hypercholesterolemia 8. Moderate mitral valve and tricuspid valve regurgitation with severe pulmonary hypertension 9. Acute on CKD 10. Anemia PLAN: 1. Continue Eliquis 2.5 bid 2. Continue Toprol XL 25 tid. Cardizem 30 q6 (LVEF on nuclear perfusion is inaccurate due to abnormal gating secondary to rapid AF - echocardiography demonstrates preserved LV function) 3. Continue Ranexa 500 bid, but with caution due to renal insufficiency. 4. Continue Atorvastatin 10 qhd 5. Diuretic currently held and monitor renal function and electrolytes - Diuretics PRN 6. Bronchodilators, Daliresp and steroids 7. In view of worsening renal function with elevated BUN/cr, patient is not an ideal candidate for coronary intervention/cardiac catheterization. Renal input noted. If renal function worsens, possible HD 8. ABG to check whether she is a CO2 retainer and further plans are to follow
[2016-10-13] MEDS ORDERED: PT OWN MED DRAWER 7, Y5N ONE ×2 (11:05→21:27)
[2016-10-13] MEDS: BUDESONIDE/FORMETEROL FUMARATE 160/4.5 mcg INHALER IH SCH ×2 (11:07→21:28)
[2016-10-13] MEDS: ROFLUMILAST 500 MCG TABLET PO SCH (11:07)
[2016-10-13] MEDS: TIOTROPIUM BROMIDE 18 MCG/INH (DEVICE W/ 5 CAPSULES) IH SCH (11:07)
--- NOTE | 2016-10-13 11:18 | PN ---
Progress Note, Physician History of Present Illness: pulmonary no change dyspneic at rest,-cp,+ cough - Current Medication List Current Medications: Active Medications Albuterol Sulfate (Ventolin 0.083% Nebulizer Soln -) 1 amp NEB Q4H PRN PRN Reason: SHORT OF BREATH/WHEEZING Last Admin: 10/13/16 03:37 Dose: 1 amp Alprazolam (Xanax -) 0.25 mg PO TID PRN PRN Reason: ANXIETY Last Admin: 10/13/16 05:32 Dose: 0.25 mg Apixaban (Eliquis -) 2.5 mg PO BID [facility] Last Admin: 10/13/16 09:03 Dose: 2.5 mg Atorvastatin Calcium (Lipitor -) 10 mg PO HS [facility] Last Admin: 10/12/16 22:18 Dose: 10 mg Budesonide/Formoterol Fumarate (Symbicort 160/4.5mcg -) 2 puff IH BID [facility] Last Admin: 10/13/16 11:07 Dose: 2 puff Calcium Acetate (Phoslo -) 667 mg PO TIDCM [facility] Last Admin: 10/13/16 08:55 Dose: 667 mg Diltiazem HCl (Cardizem -) 30 mg PO Q6HPO [facility] Last Admin: 10/13/16 05:31 Dose: 30 mg Ferrous Sulfate (Feosol -) 325 mg PO DAILY [facility] Last Admin: 10/13/16 09:03 Dose: 325 mg Metoprolol Tartrate (Lopressor -) 25 mg PO TID [facility] Last Admin: 10/13/16 05:31 Dose: 25 mg Pantoprazole Sodium (Protonix -) 20 mg PO DAILY [facility] Last Admin: 10/13/16 09:03 Dose: 20 mg Polyethylene Glycol (Miralax (For Daily Use) -) 17 gm PO DAILY PRN PRN Reason: CONSTIPATION Last Admin: 10/05/16 08:55 Dose: 17 gm Prednisone (Deltasone -) 20 mg PO DAILY [facility] Last Admin: 10/13/16 09:03 Dose: 20 mg Ranolazine (Ranexa -) 500 mg PO BID [facility] Last Admin: 10/13/16 09:03 Dose: 500 mg Roflumilast (Daliresp -) 500 mcg PO DAILY [facility] Last Admin: 10/13/16 11:07 Dose: 500 mcg Sertraline HCl (Zoloft -) 150 mg PO DAILY [facility] Last Admin: 10/13/16 09:03 Dose: 150 mg Tiotropium [place] (Spiriva -) 1 puff IH DAILY [facility] Last Admin: 10/13/16 11:07 Dose: 1 puff - Objective Vital Signs: Vital Signs Temperature 97.8 F 10/13/16 05:35 Pulse Rate 121 H 10/13/16 10:35 Respiratory Rate 20 10/13/16 05:35 Blood Pressure 110/67 10/13/16 05:35 O2 Sat by Pulse Oximetry (%) 93 L 10/13/16 10:35 Constitutional: Yes: Well Nourished, Anxious Eyes: Yes: WNL HENT: Yes: WNL Neck: Yes: Supple Cardiovascular: Yes: Pulse Irregular, S1, S2 Respiratory: Yes: Rhonchi (few scattered rhonchi) Gastrointestinal: Yes: Normal Bowel Sounds, Soft Extremities: Yes: WNL Edema: No Labs: CBC, BMP 10/13/16 05:57 10/13/16 05:57 INR, PTT INR 1.45 (0.82-1.09) H 09/25/16 09:13 Laboratory Tests 10/12/16 10:15 ABG pH 7.29 L D ABG pCO2 at Pt Temp 38.8 ABG pO2 at Pt Temp 65.7 L D ABG HCO3 17.9 L ABG O2 Sat (Measured) 91.7 ABG O2 Content 11.6 L Oxygen Flow Rate 4l Problem List - Problems (1) Acute on chronic diastolic heart failure Code(s): I50.33 - ACUTE ON CHRONIC DIASTOLIC (CONGESTIVE) HEART FAILURE (2) Mpxyn-dl-ncgcyio kidney injury Code(s): N17.9 - ACUTE KIDNEY FAILURE, UNSPECIFIED N18.9 - CHRONIC KIDNEY DISEASE, UNSPECIFIED Qualifiers: Acute renal failure type: unspecified Chronic kidney disease stage: stage 3 (moderate) Qualified Code(s): N17.9 - Acute kidney failure, unspecified; N18.9 - Chronic kidney disease, unspecified (3) CHF (congestive heart failure) Code(s): I50.9 - HEART FAILURE, UNSPECIFIED Qualifiers: Congestive heart failure type: unspecified congestive heart failure type Congestive heart failure chronicity: unspecified congestive heart failure chronicity Qualified Code(s): I50.9 - Heart failure, unspecified (4) History of amiodarone therapy Code(s): Z92.29 - PERSONAL HISTORY OF OTHER DRUG THERAPY (5) CHF exacerbation Code(s): I50.9 - HEART FAILURE, UNSPECIFIED Qualifiers: Congestive heart failure type: unspecified congestive heart failure type Qualified Code(s): I50.9 - Heart failure, unspecified (6) COPD (chronic obstructive pulmonary disease) Code(s): J44.9 - CHRONIC OBSTRUCTIVE PULMONARY DISEASE, UNSPECIFIED Qualifiers : COPD type: unspecified COPD Qualified Code(s): J44.9 - Chronic obstructive pulmonary disease, unspecified (7) HTN (hypertension) Code(s): I10 - ESSENTIAL (PRIMARY) HYPERTENSION Qualifiers: Hypertension type: essential hypertension Qualified Code(s): I10 - Essential (primary) hypertension (8) Hypercholesterolemia Code(s): E78.00 - PURE HYPERCHOLESTEROLEMIA, UNSPECIFIED (9) PAF (paroxysmal atrial fibrillation) Code(s): I48.0 - PAROXYSMAL ATRIAL FIBRILLATION (10) Pulmonary hypertension Code(s): I27.2 - OTHER SECONDARY PULMONARY HYPERTENSION (11) Acute on chronic respiratory failure with hypoxemia Code(s): J96.21 - ACUTE AND CHRONIC RESPIRATORY FAILURE WITH HYPOXIA Assessment/Plan IMP ACUTE ON CHRONIC HYPOXEMIC RESPIRATORY FAILURE DECOMPENSATED CHF DIASTOLIC COPD EXACERBATION SEVERE PULMONARY HTN MITRAL STENOSIS ASHD S/P STENT VALVULAR HD PAF ACUTE ON CHRONIC RENAL FAILURE WORSENING DM HTN METABOLIC ACIDOSIS PLAN INHALED BRONCHODILATORS SUPPLEMENTAL O2 CONTINUE STEROID TAPER DAILY WTS MONITOR LYTES,RENAL FUNCTION RATE CONTROL CHEST X-RAY TODAY DR GAITAN Problem List - Problems (1) Acute on chronic diastolic heart failure Code(s): I50.33 - ACUTE ON CHRONIC DIASTOLIC (CONGESTIVE) HEART FAILURE (2) Hirvm-ce-iusampd kidney injury Code(s): N17.9 - ACUTE KIDNEY FAILURE, UNSPECIFIED N18.9 - CHRONIC KIDNEY DISEASE, UNSPECIFIED Qualifiers: Acute renal failure type: unspecified Chronic kidney disease stage: stage 3 (moderate) Qualified Code(s): N17.9 - Acute kidney failure, unspecified; N18.9 - Chronic kidney disease, unspecified (3) CHF (congestive heart failure) Code(s): I50.9 - HEART FAILURE, UNSPECIFIED Qualifiers: Congestive heart failure type: unspecified congestive heart failure type Congestive heart failure chronicity: unspecified congestive heart failure chronicity Qualified Code(s): I50.9 - Heart failure, unspecified (4) History of amiodarone therapy Code(s): Z92.29 - PERSONAL HISTORY OF OTHER DRUG THERAPY (5) CHF exacerbation Code(s): I50.9 - HEART FAILURE, UNSPECIFIED Qualifiers: Congestive heart failure type: unspecified congestive heart failure type Qualified Code(s): I50.9 - Heart failure, unspecified (6) COPD (chronic obstructive pulmonary disease) Code(s): J44.9 - CHRONIC OBSTRUCTIVE PULMONARY DISEASE, UNSPECIFIED Qualifiers : COPD type: unspecified COPD Qualified Code(s): J44.9 - Chronic obstructive pulmonary disease, unspecified (7) HTN (hypertension) Code(s): I10 - ESSENTIAL (PRIMARY) HYPERTENSION Qualifiers: Hypertension type: essential hypertension Qualified Code(s): I10 - Essential (primary) hypertension (8) Hypercholesterolemia Code(s): E78.00 - PURE HYPERCHOLESTEROLEMIA, UNSPECIFIED (9) PAF (paroxysmal atrial fibrillation) Code(s): I48.0 - PAROXYSMAL ATRIAL FIBRILLATION (10) Pulmonary hypertension Code(s): I27.2 - OTHER SECONDARY PULMONARY HYPERTENSION (11) Acute on chronic respiratory failure with hypoxemia Code(s): J96.21 - ACUTE AND CHRONIC RESPIRATORY FAILURE WITH HYPOXIA
--- NOTE | 2016-10-13 16:29 | PN ---
Progress Note, Physician Chief Complaint: The patient in bed. Has dyspnea at rest. No chest pain. Maintains fair amounts of urine output. - Current Medication List Current Medications: Active Medications Alprazolam (Xanax -) 0.25 mg PO TID PRN PRN Reason: ANXIETY Last Admin: 10/13/16 05:32 Dose: 0.25 mg Apixaban (Eliquis -) 2.5 mg PO BID [facility] Last Admin: 10/13/16 09:03 Dose: 2.5 mg Atorvastatin Calcium (Lipitor -) 10 mg PO HS [facility] Last Admin: 10/12/16 22:18 Dose: 10 mg Budesonide/Formoterol Fumarate (Symbicort 160/4.5mcg -) 2 puff IH BID [facility] Last Admin: 10/13/16 11:07 Dose: 2 puff Calcium Acetate (Phoslo -) 667 mg PO TIDCM [facility] Last Admin: 10/13/16 12:14 Dose: 667 mg Diltiazem HCl (Cardizem -) 30 mg PO Q6HPO [facility] Last Admin: 10/13/16 12:14 Dose: 30 mg Ferrous Sulfate (Feosol -) 325 mg PO DAILY [facility] Last Admin: 10/13/16 09:03 Dose: 325 mg Metoprolol Tartrate (Lopressor -) 25 mg PO TID [facility] Last Admin: 10/13/16 14:18 Dose: 25 mg Pantoprazole Sodium (Protonix -) 20 mg PO DAILY [facility] Last Admin: 10/13/16 09:03 Dose: 20 mg Polyethylene Glycol (Miralax (For Daily Use) -) 17 gm PO DAILY PRN PRN Reason: CONSTIPATION Last Admin: 10/05/16 08:55 Dose: 17 gm Prednisone (Deltasone -) 20 mg PO DAILY [facility] Last Admin: 10/13/16 09:03 Dose: 20 mg Ranolazine (Ranexa -) 500 mg PO BID [facility] Last Admin: 10/13/16 09:03 Dose: 500 mg Roflumilast (Daliresp -) 500 mcg PO DAILY [facility] Last Admin: 10/13/16 11:07 Dose: 500 mcg Sertraline HCl (Zoloft -) 150 mg PO DAILY [facility] Last Admin: 10/13/16 09:03 Dose: 150 mg Tiotropium [place] (Spiriva -) 1 puff IH DAILY [facility] Last Admin: 10/13/16 11:07 Dose: 1 puff - Objective Vital Signs: Vital Signs Temperature 98.4 F 10/13/16 14:00 Pulse Rate 115 H 10/13/16 14:00 Respiratory Rate 20 10/13/16 14:00 Blood Pressure 113/68 10/13/16 14:00 O2 Sat by Pulse Oximetry (%) 93 L 10/13/16 10:35 Constitutional: Yes: Mild Distress Eyes: Yes: Conjunctiva Clear HENT: Yes: Normocephalic Cardiovascular: Yes: S1, S2 Respiratory: Yes: Diminished, Rales, Rhonchi Gastrointestinal: Yes: Normal Bowel Sounds, Soft, Abdomen, Obese Extremities: Yes: Erythema Edema: Yes Edema: LLE: Trace, RLE: Trace Neurological: Yes: Alert, Oriented Labs: CBC, BMP 10/13/16 05:57 10/13/16 05:57 INR, PTT INR 1.45 (0.82-1.09) H 09/25/16 09:13 Problem List - Problems (1) Acute on chronic diastolic heart failure Code(s): I50.33 - ACUTE ON CHRONIC DIASTOLIC (CONGESTIVE) HEART FAILURE (2) Acute on chronic respiratory failure with hypoxemia Code(s): J96.21 - ACUTE AND CHRONIC RESPIRATORY FAILURE WITH HYPOXIA (3) Hrzfc-xh-zdpumsf kidney injury Code(s): N17.9 - ACUTE KIDNEY FAILURE, UNSPECIFIED N18.9 - CHRONIC KIDNEY DISEASE, UNSPECIFIED Qualifiers: Acute renal failure type: unspecified Chronic kidney disease stage: stage 3 (moderate) Qualified Code(s): N17.9 - Acute kidney failure, unspecified; N18.9 - Chronic kidney disease, unspecified (4) Anemia Code(s): D64.9 - ANEMIA, UNSPECIFIED Qualifiers: Anemia type: due to chronic kidney disease (5) CHF (congestive heart failure) Code(s): I50.9 - HEART FAILURE, UNSPECIFIED Qualifiers: Congestive heart failure type: unspecified congestive heart failure type Congestive heart failure chronicity: unspecified congestive heart failure chronicity Qualified Code(s): I50.9 - Heart failure, unspecified (6) [place] (acute kidney injury) Code(s): N17.9 - ACUTE KIDNEY FAILURE, UNSPECIFIED (7) HTN (hypertension) Code(s): I10 - ESSENTIAL (PRIMARY) HYPERTENSION Qualifiers: Hypertension type: essential hypertension Qualified Code(s): I10 - Essential (primary) hypertension
--- NOTE | 2016-10-13 16:33 | PN ---
Progress Note (short form) - Note Progress Note: Plan:Discussed in detail with the patient. CHF worsening with worsening azotemia. Will need Renal replacement therapy if the renal functions keep worsening. Will try one dose of Lasix today.. Alma Rao MD Problem List - Problems (1) Acute on chronic diastolic heart failure Code(s): I50.33 - ACUTE ON CHRONIC DIASTOLIC (CONGESTIVE) HEART FAILURE (2) Acute on chronic respiratory failure with hypoxemia Code(s): J96.21 - ACUTE AND CHRONIC RESPIRATORY FAILURE WITH HYPOXIA (3) Wwloc-uu-cvdqegq kidney injury Code(s): N17.9 - ACUTE KIDNEY FAILURE, UNSPECIFIED N18.9 - CHRONIC KIDNEY DISEASE, UNSPECIFIED Qualifiers: Acute renal failure type: unspecified Chronic kidney disease stage: stage 3 (moderate) Qualified Code(s): N17.9 - Acute kidney failure, unspecified; N18.9 - Chronic kidney disease, unspecified (4) Anemia Code(s): D64.9 - ANEMIA, UNSPECIFIED Qualifiers: Anemia type: due to chronic kidney disease (5) CHF (congestive heart failure) Code(s): I50.9 - HEART FAILURE, UNSPECIFIED Qualifiers: Congestive heart failure type: unspecified congestive heart failure type Congestive heart failure chronicity: unspecified congestive heart failure chronicity Qualified Code(s): I50.9 - Heart failure, unspecified (6) [place] (acute kidney injury) Code(s): N17.9 - ACUTE KIDNEY FAILURE, UNSPECIFIED (7) HTN (hypertension) Code(s): I10 - ESSENTIAL (PRIMARY) HYPERTENSION Qualifiers: Hypertension type: essential hypertension Qualified Code(s): I10 - Essential (primary) hypertension
[2016-10-13] MEDS ORDERED: FUROSEMIDE 100 MG/10 ML INJECTABLE VIAL IVPB SCH (16:45)
[2016-10-13] MEDS: ATORVASTATIN CA 10 MG TABLET (FP) PO SCH (21:28)
--- NOTE | 2016-10-13 21:43 | PN ---
Progress Note, Physician History of Present Illness: No new complaints - Current Medication List Current Medications: Active Medications Alprazolam (Xanax -) 0.25 mg PO TID PRN PRN Reason: ANXIETY Last Admin: 10/13/16 05:32 Dose: 0.25 mg Apixaban (Eliquis -) 2.5 mg PO BID [facility] Last Admin: 10/13/16 09:03 Dose: 2.5 mg Atorvastatin Calcium (Lipitor -) 10 mg PO HS [facility] Last Admin: 10/13/16 21:28 Dose: 10 mg Budesonide/Formoterol Fumarate (Symbicort 160/4.5mcg -) 2 puff IH BID [facility] Last Admin: 10/13/16 21:28 Dose: 2 puff Calcium Acetate (Phoslo -) 667 mg PO TIDCM [facility] Last Admin: 10/13/16 18:38 Dose: 667 mg Diltiazem HCl (Cardizem -) 30 mg PO Q6HPO [facility] Last Admin: 10/13/16 18:38 Dose: 30 mg Ferrous Sulfate (Feosol -) 325 mg PO DAILY [facility] Last Admin: 10/13/16 09:03 Dose: 325 mg Furosemide (Lasix Injection -) 80 mg IVPB DAILY [facility] Last Admin: 10/13/16 17:12 Dose: 80 mg Metoprolol Tartrate (Lopressor -) 25 mg PO TID [facility] Last Admin: 10/13/16 21:28 Dose: 25 mg Pantoprazole Sodium (Protonix -) 20 mg PO DAILY [facility] Last Admin: 10/13/16 09:03 Dose: 20 mg Polyethylene Glycol (Miralax (For Daily Use) -) 17 gm PO DAILY PRN PRN Reason: CONSTIPATION Last Admin: 10/05/16 08:55 Dose: 17 gm Prednisone (Deltasone -) 20 mg PO DAILY [facility] Last Admin: 10/13/16 09:03 Dose: 20 mg Ranolazine (Ranexa -) 500 mg PO BID [facility] Last Admin: 10/13/16 21:28 Dose: 500 mg Roflumilast (Daliresp -) 500 mcg PO DAILY [facility] Last Admin: 10/13/16 11:07 Dose: 500 mcg Sertraline HCl (Zoloft -) 150 mg PO DAILY [facility] Last Admin: 10/13/16 09:03 Dose: 150 mg Tiotropium [place] (Spiriva -) 1 puff IH DAILY [facility] Last Admin: 10/13/16 11:07 Dose: 1 puff - Objective Vital Signs: Vital Signs Temperature 97.6 F 10/13/16 19:39 Pulse Rate 116 H 10/13/16 19:39 Respiratory Rate 20 10/13/16 19:39 Blood Pressure 117/72 10/13/16 19:39 O2 Sat by Pulse Oximetry (%) 93 L 10/13/16 10:35 Constitutional: Yes: No Distress Eyes: Yes: WNL HENT: Yes: WNL Neck: Yes: WNL, Supple Cardiovascular: Yes: Pulse Irregular Respiratory: Yes: Diminished Gastrointestinal: Yes: WNL, Normal Bowel Sounds, Soft Labs: CBC, BMP 10/13/16 05:57 10/13/16 05:57 INR, PTT INR 1.45 (0.82-1.09) H 09/25/16 09:13 Problem List - Problems (1) [id number] kidney injury Code(s): N17.9 - ACUTE KIDNEY FAILURE, UNSPECIFIED N18.9 - CHRONIC KIDNEY DISEASE, UNSPECIFIED Qualifiers: Acute renal failure type: unspecified Chronic kidney disease stage: stage 3 (moderate) Qualified Code(s): N17.9 - Acute kidney failure, unspecified; N18.9 - Chronic kidney disease, unspecified (2) Acute on chronic diastolic heart failure Code(s): I50.33 - ACUTE ON CHRONIC DIASTOLIC (CONGESTIVE) HEART FAILURE (3) COPD (chronic obstructive pulmonary disease) Code(s): J44.9 - CHRONIC OBSTRUCTIVE PULMONARY DISEASE, UNSPECIFIED Qualifiers : COPD type: unspecified COPD Qualified Code(s): J44.9 - Chronic obstructive pulmonary disease, unspecified (4) Anemia Code(s): D64.9 - ANEMIA, UNSPECIFIED Qualifiers: Anemia type: due to chronic kidney disease (5) HTN (hypertension) Code(s): I10 - ESSENTIAL (PRIMARY) HYPERTENSION Qualifiers: Hypertension type: essential hypertension Qualified Code(s): I10 - Essential (primary) hypertension (6) Hypercholesterolemia Code(s): E78.00 - PURE HYPERCHOLESTEROLEMIA, UNSPECIFIED (7) PAF (paroxysmal atrial fibrillation) Code(s): I48.0 - PAROXYSMAL ATRIAL FIBRILLATION (8) Dyspnea Code(s): R06.00 - DYSPNEA, UNSPECIFIED Qualifiers: Dyspnea type: unspecified Qualified Code(s): R06.00 - Dyspnea, unspecified
[2016-10-14] MEDS: dilTIAZem HCL 30 MG TABLET (FP) PO SCH ×4 (00:13→17:36)
[2016-10-14] MEDS: METOPROLOL TARTRATE 25 MG TABLET (FP) PO SCH ×3 (06:08→22:02)
[2016-10-14] MEDS: CALCIUM ACETATE 667 MG CAPSULE (FP) PO SCH ×3 (08:02→17:36)
[2016-10-14 09:29] LABS: ALK PHOS 51 U/L (45-117); ANION GAP 13 (8-16); BILIRUBIN,TOTAL 0.5 mg/dL (0.2-1.0); CALCIUM 7.9 mg/dL (8.5-10.1); CO2 20 mmol/L (21-32); CREATININE 3.7 mg/dL (0.55-1.02); GLUCOSE,RANDOM 72 mg/dL (74-106); SGOT/AST 11 U/L (15-37); SGPT/ALT 34 U/L (12-78); TOT PROT 4.8 g/dl (6.4-8.2)
[2016-10-14] MEDS ORDERED: PT OWN MED DRAWER 7, Y5N ONE ×2 (11:05→21:59)
[2016-10-14] MEDS: FUROSEMIDE 40 MG/4 ML INJECTABLE VIAL IVPB SCH (11:18)
--- NOTE | 2016-10-14 11:22 | PN ---
Progress Note (short form) - Note Progress Note: Reports that her breathing feels OK today, but remains mildly tachypneic at rest. No CP. Generalized fatigue. Mental status better today. Her daughter is at the bedside. Intake & Output 10/11/16 10/12/16 10/13/16 10/14/16 23:59 23:59 23:59 23:59 Intake Total 2040 360 750 200 Output Total 600 350 Balance 1440 360 400 200 Weight 143 lb 6.4 oz 155 lb 155 lb 3.2 oz 154 lb 1 oz Last Vital Signs Temp Pulse Resp BP Pulse Ox 98.6 F 109 H 20 110/60 94 L 10/14/16 06:16 10/14/16 06:16 10/14/16 06:16 10/14/16 06:16 10/13/16 21:00 Active Medications Alprazolam (Xanax -) 0.25 mg PO TID PRN PRN Reason: ANXIETY Last Admin: 10/13/16 05:32 Dose: 0.25 mg Apixaban (Eliquis -) 2.5 mg PO BID [facility] Last Admin: 10/13/16 22:44 Dose: 2.5 mg Atorvastatin Calcium (Lipitor -) 10 mg PO HS [facility] Last Admin: 10/13/16 21:28 Dose: 10 mg Budesonide/Formoterol Fumarate (Symbicort 160/4.5mcg -) 2 puff IH BID [facility] Last Admin: 10/13/16 21:28 Dose: 2 puff Calcium Acetate (Phoslo -) 667 mg PO TIDCM [facility] Last Admin: 10/14/16 08:02 Dose: 667 mg Diltiazem HCl (Cardizem -) 30 mg PO Q6HPO [facility] Last Admin: 10/14/16 11:18 Dose: Not Given Ferrous Sulfate (Feosol -) 325 mg PO DAILY [facility] Last Admin: 10/13/16 09:03 Dose: 325 mg Furosemide (Lasix Injection -) 80 mg IVPB DAILY [facility] Last Admin: 10/14/16 11:18 Dose: Not Given Metoprolol Tartrate (Lopressor -) 25 mg PO TID [facility] Last Admin: 10/14/16 06:08 Dose: 25 mg Pantoprazole Sodium (Protonix -) 20 mg PO DAILY [facility] Last Admin: 10/13/16 09:03 Dose: 20 mg Polyethylene Glycol (Miralax (For Daily Use) -) 17 gm PO DAILY PRN PRN Reason: CONSTIPATION Last Admin: 10/05/16 08:55 Dose: 17 gm Prednisone (Deltasone -) 20 mg PO DAILY [facility] Last Admin: 10/13/16 09:03 Dose: 20 mg Ranolazine (Ranexa -) 500 mg PO BID [facility] Last Admin: 10/13/16 21:28 Dose: 500 mg Roflumilast (Daliresp -) 500 mcg PO DAILY [facility] Last Admin: 10/13/16 11:07 Dose: 500 mcg Sertraline HCl (Zoloft -) 150 mg PO DAILY [facility] Last Admin: 10/13/16 09:03 Dose: 150 mg Tiotropium [place] (Spiriva -) 1 puff IH DAILY [facility] Last Admin: 10/13/16 11:07 Dose: 1 puff Constitutional: Yes: Awake and alert, Mildly tachypneic at rest Eyes: Yes: WNL HENT: Yes: WNL Neck: Yes: WNL Cardiovascular: Yes: Regular Rate and Rhythm, S1, S2 Respiratory: Yes: Few scattered basilar Rhonchi, no wheezing Gastrointestinal: Yes: Normal Bowel Sounds, Soft Extremities: Yes: WNL Edema: No Labs: Laboratory Results - last 24 hr 10/14/16 07:20 Sodium 142 Potassium 4.6 Chloride 109 H Carbon Dioxide 20 L Anion Gap 13 BUN 125 H* Creatinine 3.7 H Creat Clearance w eGFR 11.82 Random Glucose 72 L D Calcium 7.9 L Total Bilirubin 0.5 AST 11 L ALT 34 Alkaline Phosphatase 51 Total Protein 4.8 L Albumin 2.0 L Problem List - Problems (1) Acute on chronic diastolic heart failure Code(s): I50.33 - ACUTE ON CHRONIC DIASTOLIC (CONGESTIVE) HEART FAILURE (2) [id number] kidney injury Code(s): N17.9 - ACUTE KIDNEY FAILURE, UNSPECIFIED N18.9 - CHRONIC KIDNEY DISEASE, UNSPECIFIED Qualifiers: Acute renal failure type: unspecified Chronic kidney disease stage: stage 3 (moderate) Qualified Code(s): N17.9 - Acute kidney failure, unspecified; N18.9 - Chronic kidney disease, unspecified (3) CHF (congestive heart failure) Code(s): I50.9 - HEART FAILURE, UNSPECIFIED Qualifiers: Congestive heart failure type: unspecified congestive heart failure type Congestive heart failure chronicity: unspecified congestive heart failure chronicity Qualified Code(s): I50.9 - Heart failure, unspecified (4) History of amiodarone therapy Code(s): Z92.29 - PERSONAL HISTORY OF OTHER DRUG THERAPY (5) CHF exacerbation Code(s): I50.9 - HEART FAILURE, UNSPECIFIED Qualifiers: Congestive heart failure type: unspecified congestive heart failure type Qualified Code(s): I50.9 - Heart failure, unspecified (6) COPD (chronic obstructive pulmonary disease) Code(s): J44.9 - CHRONIC OBSTRUCTIVE PULMONARY DISEASE, UNSPECIFIED Qualifiers : COPD type: unspecified COPD Qualified Code(s): J44.9 - Chronic obstructive pulmonary disease, unspecified (7) HTN (hypertension) Code(s): I10 - ESSENTIAL (PRIMARY) HYPERTENSION Qualifiers: Hypertension type: essential hypertension Qualified Code(s): I10 - Essential (primary) hypertension (8) Hypercholesterolemia Code(s): E78.00 - PURE HYPERCHOLESTEROLEMIA, UNSPECIFIED (9) PAF (paroxysmal atrial fibrillation) Code(s): I48.0 - PAROXYSMAL ATRIAL FIBRILLATION (10) Pulmonary hypertension Code(s): I27.2 - OTHER SECONDARY PULMONARY HYPERTENSION (11) Acute on chronic respiratory failure with hypoxemia Code(s): J96.21 - ACUTE AND CHRONIC RESPIRATORY FAILURE WITH HYPOXIA Assessment/Plan IMP ACUTE ON CHRONIC HYPOXEMIC RESPIRATORY FAILURE DECOMPENSATED CHF DIASTOLIC COPD EXACERBATION R/O AMIODARONE LUNG TOXICITY PULMONARY HTN MITRAL STENOSIS ASHD S/P STENT PAF ACUTE ON CHRONIC RENAL FAILURE DM HTN PLAN DNR/DNI INHALED BRONCHODILATORS SUPPLEMENTAL O2 PREDNISONE DAILY WTS MONITOR LYTES,RENAL FUNCTION DALIRESP I SUSPECT THAT BARRETT MAY BE LARGELY DUE TO SEVERE PAH DR KEBEDE
[2016-10-14] MEDS: APIXABAN 2.5 MG TABLET PO SCH ×2 (11:39→22:02)
[2016-10-14] MEDS: predniSONE 20 MG TABLET (UD) PO SCH (11:40)
[2016-10-14] MEDS: RANOLAZINE E.R. 500 MG TABLET (FP) PO SCH ×3 (11:40→22:02)
[2016-10-14] MEDS: ROFLUMILAST 500 MCG TABLET PO SCH (11:40)
[2016-10-14] MEDS: FERROUS SO4 325 MG TABLET (FP) PO SCH (11:40)
[2016-10-14] MEDS: PANTOPRAZOLE 20 MG TABLET (FP) PO SCH (11:41)
[2016-10-14] MEDS: BUDESONIDE/FORMETEROL FUMARATE 160/4.5 mcg INHALER IH SCH ×2 (11:41→22:02)
[2016-10-14] MEDS: SERTRALINE HCL 50 MG TABLET (FP) PO SCH (11:41)
--- NOTE | 2016-10-14 11:51 | PN ---
Progress Note, Physician Chief Complaint: Events noted Generalized weakness Right thigh/hip pain - difficulty standing Anxious and persistent dyspnea although improving History of Present Illness: Patient was seen and examined. Awake and alert. Chart was reviewed Persistent cough with dyspnea. AF with variable HR Generalized weakness Discussed with daughter by bedside - Current Medication List Current Medications: Active Medications Alprazolam (Xanax -) 0.25 mg PO TID PRN PRN Reason: ANXIETY Last Admin: 10/13/16 05:32 Dose: 0.25 mg Apixaban (Eliquis -) 2.5 mg PO BID [facility] Last Admin: 10/14/16 11:39 Dose: 2.5 mg Atorvastatin Calcium (Lipitor -) 10 mg PO HS [facility] Last Admin: 10/13/16 21:28 Dose: 10 mg Budesonide/Formoterol Fumarate (Symbicort 160/4.5mcg -) 2 puff IH BID [facility] Last Admin: 10/14/16 11:41 Dose: 2 puff Calcium Acetate (Phoslo -) 667 mg PO TIDCM [facility] Last Admin: 10/14/16 11:40 Dose: 667 mg Diltiazem HCl (Cardizem -) 30 mg PO Q6HPO [facility] Last Admin: 10/14/16 11:18 Dose: Not Given Ferrous Sulfate (Feosol -) 325 mg PO DAILY [facility] Last Admin: 10/14/16 11:40 Dose: 325 mg Furosemide (Lasix Injection -) 80 mg IVPB DAILY [facility] Last Admin: 10/14/16 11:18 Dose: Not Given Metoprolol Tartrate (Lopressor -) 25 mg PO TID [facility] Last Admin: 10/14/16 06:08 Dose: 25 mg Pantoprazole Sodium (Protonix -) 20 mg PO DAILY [facility] Last Admin: 10/14/16 11:41 Dose: 20 mg Polyethylene Glycol (Miralax (For Daily Use) -) 17 gm PO DAILY PRN PRN Reason: CONSTIPATION Last Admin: 10/05/16 08:55 Dose: 17 gm Prednisone (Deltasone -) 20 mg PO DAILY [facility] Last Admin: 10/14/16 11:40 Dose: 20 mg Ranolazine (Ranexa -) 500 mg PO BID [facility] Last Admin: 10/14/16 11:40 Dose: Not Given Roflumilast (Daliresp -) 500 mcg PO DAILY [facility] Last Admin: 10/14/16 11:40 Dose: 500 mcg Sertraline HCl (Zoloft -) 150 mg PO DAILY [facility] Last Admin: 10/14/16 11:41 Dose: 150 mg Tiotropium [place] (Spiriva -) 1 puff IH DAILY [facility] Last Admin: 10/13/16 11:07 Dose: 1 puff - Objective Vital Signs: Vital Signs Temperature 98.6 F 10/14/16 06:16 Pulse Rate 109 H 10/14/16 06:16 Respiratory Rate 20 10/14/16 06:16 Blood Pressure 110/60 10/14/16 06:16 O2 Sat by Pulse Oximetry (%) 94 L 10/13/16 21:00 Neck: Yes: Supple Cardiovascular: Yes: Tachycardia, Pulse Irregular, S1, S2 Respiratory: Yes: Diminished Gastrointestinal: Yes: Normal Bowel Sounds, Soft. No: Tenderness Edema: No Additional Findings/Remarks: - Review of Systems Constitutional: denies: Chills, Fever Cardiovascular: reports: Shortness of Breath. denies: Chest Pain, Palpitations Respiratory: reports: Cough, SOB, SOB on Exertion. denies: Hemoptysis, Orthopnea, PND, Wheezing Gastrointestinal: denies: Abdominal Pain, Constipation, Diarrhea, Melena, Nausea , Rectal Bleeding, Vomiting Musculoskeletal: denies: Joint Pain Neurological: denies: Dizziness, Headache, Seizure, Syncope Labs: CBC, BMP 10/13/16 05:57 10/14/16 07:20 Problem List - Problems (1) Acute on chronic diastolic heart failure Code(s): I50.33 - ACUTE ON CHRONIC DIASTOLIC (CONGESTIVE) HEART FAILURE (2) Acute on chronic respiratory failure with hypoxemia Code(s): J96.21 - ACUTE AND CHRONIC RESPIRATORY FAILURE WITH HYPOXIA (3) Vqzpu-cy-iinydzd kidney injury Code(s): N17.9 - ACUTE KIDNEY FAILURE, UNSPECIFIED N18.9 - CHRONIC KIDNEY DISEASE, UNSPECIFIED Qualifiers: Acute renal failure type: unspecified Chronic kidney disease stage: stage 3 (moderate) Qualified Code(s): N17.9 - Acute kidney failure, unspecified; N18.9 - Chronic kidney disease, unspecified (4) CHF (congestive heart failure) Code(s): I50.9 - HEART FAILURE, UNSPECIFIED Qualifiers: Congestive heart failure type: unspecified congestive heart failure type Congestive heart failure chronicity: unspecified congestive heart failure chronicity Qualified Code(s): I50.9 - Heart failure, unspecified (5) Dyspnea Code(s): R06.00 - DYSPNEA, UNSPECIFIED Qualifiers: Dyspnea type: unspecified Qualified Code(s): R06.00 - Dyspnea, unspecified (6) History of amiodarone therapy Code(s): Z92.29 - PERSONAL HISTORY OF OTHER DRUG THERAPY (7) Epistaxis Code(s): R04.0 - EPISTAXIS (8) COPD (chronic obstructive pulmonary disease) Code(s): J44.9 - CHRONIC OBSTRUCTIVE PULMONARY DISEASE, UNSPECIFIED Qualifiers : COPD type: unspecified COPD Qualified Code(s): J44.9 - Chronic obstructive pulmonary disease, unspecified (9) HTN (hypertension) Code(s): I10 - ESSENTIAL (PRIMARY) HYPERTENSION Qualifiers: Hypertension type: essential hypertension Qualified Code(s): I10 - Essential (primary) hypertension (10) Hypercholesterolemia Code(s): E78.00 - PURE HYPERCHOLESTEROLEMIA, UNSPECIFIED (11) Mitral valve regurgitation Code(s): I34.0 - NONRHEUMATIC MITRAL (VALVE) INSUFFICIENCY Qualifiers: Cardiac valve disease etiology: nonrheumatic Qualified Code(s): I34.0 - Nonrheumatic mitral (valve) insufficiency (12) PAF (paroxysmal atrial fibrillation) Code(s): I48.0 - PAROXYSMAL ATRIAL FIBRILLATION (13) Pulmonary hypertension Code(s): I27.2 - OTHER SECONDARY PULMONARY HYPERTENSION (14) Tricuspid valve regurgitation Code(s): I07.1 - RHEUMATIC TRICUSPID INSUFFICIENCY Qualifiers: Cardiac valve disease etiology: nonrheumatic Qualified Code(s): I36.1 - Nonrheumatic tricuspid (valve) insufficiency Assessment/Plan 1. Dyspnea secondary to acute on chronic LV diastolic failure and COPD exacerbation and acute on chronic LV failure 2. CAD post PCI/stent angina pectoris - demand ischemic injury 3. O2 dependent COPD/emphysema 4. Rule out Amiodarone-associated pulmonary toxicity 5. Paroxysmal atrial fibrillation currently AF with variable ventricular response 6. HTN/HCVD 7. Hypercholesterolemia 8. Moderate mitral valve and tricuspid valve regurgitation with severe pulmonary hypertension 9. Acute on CKD 10. Anemia PLAN: 1. Continue Eliquis as tolerated 2. Continue Lopressor with caution. Cardizem to be titrated (LVEF on nuclear perfusion is inaccurate due to abnormal gating secondary to rapid AF - echocardiography demonstrates preserved LV function) 3. Continue Ranexa, but with caution due to renal insufficiency. Consider NTP if develops chest pain 4. Continue Atorvastatin 5. Diuretic IV and monitor renal function and electrolytes - as per Renal service 6. Bronchodilators, Daliresp and steroids 7. Renal input noted 8. PT and rehab Further plans are to follow. Guarded Discussed with her daughter Saurabh Posadas MD
[2016-10-14] MEDS ORDERED: ONDANSETRON 4 MG/2 ML VIAL ONE (12:43)
--- NOTE | 2016-10-14 13:22 | PN ---
Progress Note, Physician Chief Complaint: The patient in bed. H Seems comfortable. But still tachypneic. - Current Medication List Current Medications: Active Medications Albuterol Sulfate (Ventolin 0.083% Nebulizer Soln -) 1 amp NEB Q4H PRN PRN Reason: SHORT OF BREATH/WHEEZING Alprazolam (Xanax -) 0.25 mg PO TID PRN PRN Reason: ANXIETY Last Admin: 10/13/16 05:32 Dose: 0.25 mg Apixaban (Eliquis -) 2.5 mg PO BID [facility] Last Admin: 10/14/16 11:39 Dose: 2.5 mg Atorvastatin Calcium (Lipitor -) 10 mg PO HS [facility] Last Admin: 10/13/16 21:28 Dose: 10 mg Budesonide/Formoterol Fumarate (Symbicort 160/4.5mcg -) 2 puff IH BID [facility] Last Admin: 10/14/16 11:41 Dose: 2 puff Calcium Acetate (Phoslo -) 667 mg PO TIDCM [facility] Last Admin: 10/14/16 11:40 Dose: 667 mg Diltiazem HCl (Cardizem -) 30 mg PO Q6HPO [facility] Last Admin: 10/14/16 11:18 Dose: Not Given Ferrous Sulfate (Feosol -) 325 mg PO DAILY [facility] Last Admin: 10/14/16 11:40 Dose: 325 mg Furosemide (Lasix Injection -) 80 mg IVPB DAILY [facility] Last Admin: 10/14/16 11:18 Dose: Not Given Metoprolol Tartrate (Lopressor -) 25 mg PO TID [facility] Last Admin: 10/14/16 06:08 Dose: 25 mg Pantoprazole Sodium (Protonix -) 20 mg PO DAILY [facility] Last Admin: 10/14/16 11:41 Dose: 20 mg Polyethylene Glycol (Miralax (For Daily Use) -) 17 gm PO DAILY PRN PRN Reason: CONSTIPATION Last Admin: 10/05/16 08:55 Dose: 17 gm Prednisone (Deltasone -) 20 mg PO DAILY [facility] Last Admin: 10/14/16 11:40 Dose: 20 mg Ranolazine (Ranexa -) 500 mg PO BID [facility] Last Admin: 10/14/16 11:40 Dose: Not Given Roflumilast (Daliresp -) 500 mcg PO DAILY [facility] Last Admin: 10/14/16 11:40 Dose: 500 mcg Sertraline HCl (Zoloft -) 150 mg PO DAILY [facility] Last Admin: 10/14/16 11:41 Dose: 150 mg Tiotropium [place] (Spiriva -) 1 puff IH DAILY [facility] Last Admin: 10/13/16 11:07 Dose: 1 puff - Objective Vital Signs: Vital Signs Temperature 98.1 F 10/14/16 09:00 Pulse Rate 100 H 10/14/16 10:00 Respiratory Rate 20 10/14/16 10:00 Blood Pressure 91/55 10/14/16 10:00 O2 Sat by Pulse Oximetry (%) 94 L 10/13/16 21:00 Constitutional: Yes: Anxious Eyes: Yes: Conjunctiva Clear HENT: Yes: Normocephalic Cardiovascular: Yes: S1, S2 Respiratory: Yes: Diminished Gastrointestinal: Yes: Normal Bowel Sounds, Soft, Abdomen, Obese Genitourinary: No: CVA Tenderness - Left, CVA Tenderness - Right, Hematuria Neurological: Yes: Alert, Oriented Labs: CBC, BMP 10/13/16 05:57 10/14/16 07:20 INR, PTT INR 1.45 (0.82-1.09) H 09/25/16 09:13 Problem List - Problems (1) Acute on chronic diastolic heart failure Code(s): I50.33 - ACUTE ON CHRONIC DIASTOLIC (CONGESTIVE) HEART FAILURE (2) Acute on chronic respiratory failure with hypoxemia Code(s): J96.21 - ACUTE AND CHRONIC RESPIRATORY FAILURE WITH HYPOXIA (3) Omjcz-vr-jiajukp kidney injury Code(s): N17.9 - ACUTE KIDNEY FAILURE, UNSPECIFIED N18.9 - CHRONIC KIDNEY DISEASE, UNSPECIFIED Qualifiers: Acute renal failure type: unspecified Chronic kidney disease stage: stage 3 (moderate) Qualified Code(s): N17.9 - Acute kidney failure, unspecified; N18.9 - Chronic kidney disease, unspecified (4) Anemia Code(s): D64.9 - ANEMIA, UNSPECIFIED Qualifiers: Anemia type: due to chronic kidney disease (5) CHF (congestive heart failure) Code(s): I50.9 - HEART FAILURE, UNSPECIFIED Qualifiers: Congestive heart failure type: unspecified congestive heart failure type Congestive heart failure chronicity: unspecified congestive heart failure chronicity Qualified Code(s): I50.9 - Heart failure, unspecified (6) MENA (acute kidney injury) Code(s): N17.9 - ACUTE KIDNEY FAILURE, UNSPECIFIED (7) HTN (hypertension) Code(s): I10 - ESSENTIAL (PRIMARY) HYPERTENSION Qualifiers: Hypertension type: essential hypertension Qualified Code(s): I10 - Essential (primary) hypertension Assessment/Plan The patient has acute resp failure superimposed on COPD. Congestive Heart failure. Exacerbation of COPD. Valvular Heart disease. Coronary artery disease. Acute on Chronic Kidney failure. The azotemia to a significant degree is Steroid dependent. Diabetes mellitus. Hypertension. Will monitor the Renal/ Electrolyte profile closely. Does not require Renal replacement therapy at this point. Will follow with you. Alma Rao MD
[2016-10-14] MEDS: ALBUTEROL SO4 0.083% IH SOL 2.5 MG/3 ML VIAL.NEB. NEB PRN ×2 (14:48→22:45)
[2016-10-14] MEDS: TIOTROPIUM BROMIDE 18 MCG/INH (DEVICE W/ 5 CAPSULES) IH SCH (15:04)
[2016-10-14 17:34] LABS: BASOPHIL 0.2 % (0-2.0); MCH 25.1 pg (25.7-33.7); MCHC 30.9 g/dl (32.0-36.0); MEAN CELL VOLUME 81.2 fl (80-96); MEAN PLT VOLUME 10.1 fl (7.5-11.1); NEUTROPHILS 96.7 % (42.8-82.8); PLATELET COUNT 178 K/MM3 (134-434); RDW 18.2 % (11.6-15.6); WHITE BLOOD COUNT 18.6 K/mm3 (4.0-10.0)
[2016-10-14] MEDS: ATORVASTATIN CA 10 MG TABLET (FP) PO SCH (22:02)
--- NOTE | 2016-10-14 23:23 | PN ---
Progress Note, Physician History of Present Illness: No new complaints - Current Medication List Current Medications: Active Medications Albuterol Sulfate (Ventolin 0.083% Nebulizer Soln -) 1 amp NEB Q4H PRN PRN Reason: SHORT OF BREATH/WHEEZING Last Admin: 10/14/16 14:48 Dose: 1 amp Alprazolam (Xanax -) 0.25 mg PO TID PRN PRN Reason: ANXIETY Last Admin: 10/13/16 05:32 Dose: 0.25 mg Apixaban (Eliquis -) 2.[address] [facility] Last Admin: 10/14/16 22:02 Dose: 2.5 mg Atorvastatin Calcium (Lipitor -) [address] [facility] Last Admin: 10/14/16 22:02 Dose: 10 mg Budesonide/Formoterol Fumarate (Symbicort 160/4.5mcg -) [address] [facility] Last Admin: 10/14/16 22:02 Dose: 2 puff Calcium Acetate (Phoslo -) [address] [facility] Last Admin: 10/14/16 17:36 Dose: 667 mg Diltiazem HCl (Cardizem -) [address] [facility] Last Admin: 10/14/16 17:36 Dose: 30 mg Ferrous Sulfate (Feosol -) [address] [facility] Last Admin: 10/14/16 11:40 Dose: 325 mg Furosemide (Lasix Injection -) [address] [facility] Last Admin: 10/14/16 11:18 Dose: Not Given Metoprolol Tartrate (Lopressor -) [address] [facility] Last Admin: 10/14/16 22:02 Dose: 25 mg Pantoprazole Sodium (Protonix -) [address] [facility] Last Admin: 10/14/16 11:41 Dose: 20 mg Polyethylene Glycol (Miralax (For Daily Use) -) 17 gm PO DAILY PRN PRN Reason: CONSTIPATION Last Admin: 10/05/16 08:55 Dose: 17 gm Prednisone (Deltasone -) [address] [facility] Last Admin: 10/14/16 11:40 Dose: 20 mg Ranolazine (Ranexa -) [address] [facility] Last Admin: 10/14/16 22:02 Dose: 500 mg Roflumilast (Daliresp -) [address] [facility] Last Admin: 10/14/16 11:40 Dose: 500 mcg Sertraline HCl (Zoloft -) [address] [facility] Last Admin: 10/14/16 11:41 Dose: 150 mg Tiotropium [place] (Spiriva -) [address] [facility] Last Admin: 10/14/16 15:04 Dose: 1 puff - Objective Vital Signs: Vital Signs Temperature 97.8 F 10/14/16 22:09 Pulse Rate 104 H 10/14/16 22:09 Respiratory Rate 20 10/14/16 22:09 Blood Pressure 125/82 10/14/16 22:09 O2 Sat by Pulse Oximetry (%) 93 L 10/14/16 09:00 Constitutional: Yes: No Distress Eyes: Yes: WNL HENT: Yes: WNL Neck: Yes: WNL, Supple Cardiovascular: Yes: WNL, Regular Rate and Rhythm Respiratory: Yes: WNL, Regular, CTA Bilaterally Gastrointestinal: Yes: WNL, Normal Bowel Sounds, Soft Labs: CBC, BMP 10/14/16 16:40 10/14/16 07:20 INR, PTT INR 1.45 (0.82-1.09) H 09/25/16 09:13 Problem List - Problems (1) Katrh-ov-fdveurk kidney injury Assessment/Plan: Cont to monitor labs Cont ranexa Gentle hydration started Code(s): N17.9 - ACUTE KIDNEY FAILURE, UNSPECIFIED N18.9 - CHRONIC KIDNEY DISEASE, UNSPECIFIED Qualifiers: Acute renal failure type: unspecified Chronic kidney disease stage: stage 3 (moderate) Qualified Code(s): N17.9 - Acute kidney failure, unspecified; N18.9 - Chronic kidney disease, unspecified (2) Acute on chronic diastolic heart failure Code(s): I50.33 - ACUTE ON CHRONIC DIASTOLIC (CONGESTIVE) HEART FAILURE (3) COPD (chronic obstructive pulmonary disease) Code(s): J44.9 - CHRONIC OBSTRUCTIVE PULMONARY DISEASE, UNSPECIFIED Qualifiers : COPD type: unspecified COPD Qualified Code(s): J44.9 - Chronic obstructive pulmonary disease, unspecified (4) Anemia Code(s): D64.9 - ANEMIA, UNSPECIFIED Qualifiers: Anemia type: due to chronic kidney disease (5) HTN (hypertension) Code(s): I10 - ESSENTIAL (PRIMARY) HYPERTENSION Qualifiers: Hypertension type: essential hypertension Qualified Code(s): I10 - Essential (primary) hypertension (6) Hypercholesterolemia Code(s): E78.00 - PURE HYPERCHOLESTEROLEMIA, UNSPECIFIED (7) PAF (paroxysmal atrial fibrillation) Code(s): I48.0 - PAROXYSMAL ATRIAL FIBRILLATION (8) Dyspnea Code(s): R06.00 - DYSPNEA, UNSPECIFIED Qualifiers: Dyspnea type: unspecified Qualified Code(s): R06.00 - Dyspnea, unspecified
[2016-10-15] MEDS: dilTIAZem HCL 30 MG TABLET (FP) PO SCH ×4 (00:32→17:41)
[2016-10-15] MEDS: METOPROLOL TARTRATE 25 MG TABLET (FP) PO SCH ×3 (06:11→21:44)
[2016-10-15] MEDS: ALBUTEROL SO4 0.083% IH SOL 2.5 MG/3 ML VIAL.NEB. NEB PRN (06:45)
[2016-10-15 07:58] LABS: BASOPHIL 0.3 % (0-2.0); EOSINOPHIL 0.1 % (0-4.5); MCH 25.4 pg (25.7-33.7); MCHC 31.5 g/dl (32.0-36.0); MEAN CELL VOLUME 80.7 fl (80-96); MEAN PLT VOLUME 9.3 fl (7.5-11.1); NEUTROPHILS 93.8 % (42.8-82.8); PLATELET COUNT 157 K/MM3 (134-434); RDW 18.2 % (11.6-15.6); WHITE BLOOD COUNT 16.4 K/mm3 (4.0-10.0)
[2016-10-15] MEDS: CALCIUM ACETATE 667 MG CAPSULE (FP) PO SCH ×3 (08:26→17:41)
[2016-10-15 08:28] LABS: ANION GAP 13 (8-16); CALCIUM 8.2 mg/dL (8.5-10.1); CO2 21 mmol/L (21-32); GLUCOSE,RANDOM 84 mg/dL (74-106)
[2016-10-15 08:45] LABS: ALK PHOS 51 U/L (45-117); BILIRUBIN,TOTAL 0.4 mg/dL (0.2-1.0); CREATININE 3.9 mg/dL (0.55-1.02); SGOT/AST 10 U/L (15-37); SGPT/ALT 32 U/L (12-78); TOT PROT 4.8 g/dl (6.4-8.2)
[2016-10-15] MEDS ORDERED: PT OWN MED DRAWER 7, Y5N ONE (09:23)
[2016-10-15] MEDS: APIXABAN 2.5 MG TABLET PO SCH ×2 (11:19→21:45)
[2016-10-15] MEDS: RANOLAZINE E.R. 500 MG TABLET (FP) PO SCH ×2 (11:19→22:50)
[2016-10-15] MEDS: FERROUS SO4 325 MG TABLET (FP) PO SCH (11:20)
[2016-10-15] MEDS: predniSONE 20 MG TABLET (UD) PO SCH (11:20)
[2016-10-15] MEDS: PANTOPRAZOLE 20 MG TABLET (FP) PO SCH (11:20)
[2016-10-15] MEDS: SERTRALINE HCL 50 MG TABLET (FP) PO SCH (11:20)
[2016-10-15] MEDS: ROFLUMILAST 500 MCG TABLET PO SCH (11:21)
[2016-10-15] MEDS: FUROSEMIDE 40 MG/4 ML INJECTABLE VIAL IVPB SCH (11:21)
[2016-10-15] MEDS: TIOTROPIUM BROMIDE 18 MCG/INH (DEVICE W/ 5 CAPSULES) IH SCH (11:21)
--- NOTE | 2016-10-15 11:21 | PN ---
Progress Note, Physician History of Present Illness: Continued dyspnea, productive cough, wheeze. - Current Medication List Current Medications: Active Medications Albuterol Sulfate (Ventolin 0.083% Nebulizer Soln -) 1 amp NEB Q4H PRN PRN Reason: SHORT OF BREATH/WHEEZING Last Admin: 10/15/16 06:45 Dose: 1 amp Alprazolam (Xanax -) 0.25 mg PO TID PRN PRN Reason: ANXIETY Last Admin: 10/13/16 05:32 Dose: 0.25 mg Apixaban (Eliquis -) 2.5 mg PO BID [facility] Last Admin: 10/14/16 22:02 Dose: 2.5 mg Atorvastatin Calcium (Lipitor -) 10 mg PO HS [facility] Last Admin: 10/14/16 22:02 Dose: 10 mg Budesonide/Formoterol Fumarate (Symbicort 160/4.5mcg -) 2 puff IH BID [facility] Last Admin: 10/14/16 22:02 Dose: 2 puff Calcium Acetate (Phoslo -) 667 mg PO TIDCM [facility] Last Admin: 10/15/16 08:26 Dose: 667 mg Diltiazem HCl (Cardizem -) 30 mg PO Q6HPO [facility] Last Admin: 10/15/16 06:11 Dose: 30 mg Ferrous Sulfate (Feosol -) 325 mg PO DAILY [facility] Last Admin: 10/14/16 11:40 Dose: 325 mg Furosemide (Lasix Injection -) 80 mg IVPB DAILY [facility] Last Admin: 10/14/16 11:18 Dose: Not Given Metoprolol Tartrate (Lopressor -) 25 mg PO TID [facility] Last Admin: 10/15/16 06:11 Dose: 25 mg Pantoprazole Sodium (Protonix -) 20 mg PO DAILY [facility] Last Admin: 10/14/16 11:41 Dose: 20 mg Polyethylene Glycol (Miralax (For Daily Use) -) 17 gm PO DAILY PRN PRN Reason: CONSTIPATION Last Admin: 10/05/16 08:55 Dose: 17 gm Prednisone (Deltasone -) 20 mg PO DAILY [facility] Last Admin: 10/14/16 11:40 Dose: 20 mg Ranolazine (Ranexa -) 500 mg PO BID [facility] Last Admin: 10/14/16 22:02 Dose: 500 mg Roflumilast (Daliresp -) 500 mcg PO DAILY [facility] Last Admin: 10/14/16 11:40 Dose: 500 mcg Sertraline HCl (Zoloft -) 150 mg PO DAILY [facility] Last Admin: 10/14/16 11:41 Dose: 150 mg Tiotropium [place] (Spiriva -) 1 puff IH DAILY [facility] Last Admin: 10/14/16 15:04 Dose: 1 puff - Objective Vital Signs: Vital Signs Temperature 97.7 F 10/15/16 08:30 Pulse Rate 108 H 10/15/16 11:16 Respiratory Rate 20 10/15/16 11:16 Blood Pressure 124/72 10/15/16 11:16 O2 Sat by Pulse Oximetry (%) 98 10/15/16 09:47 Constitutional: Yes: No Distress, Calm Neck: Yes: Supple Cardiovascular: Yes: Pulse Irregular, Murmur (2/6 SM) Respiratory: Yes: Regular, Diminished, On Nasal O2, Rhonchi Gastrointestinal: Yes: Normal Bowel Sounds, Soft, Abdomen, Obese Edema: Yes Edema: LLE: Trace, RLE: Trace Labs: CBC, BMP 10/15/16 06:30 10/15/16 07:40 INR, PTT INR 1.45 (0.82-1.09) H 09/25/16 09:13 - ....Imaging Chest X-ray: Report Reviewed (Progression of congestion and effusions) Problem List - Problems (1) COPD (chronic obstructive pulmonary disease) Code(s): J44.9 - CHRONIC OBSTRUCTIVE PULMONARY DISEASE, UNSPECIFIED Qualifiers : COPD type: unspecified COPD Qualified Code(s): J44.9 - Chronic obstructive pulmonary disease, unspecified (2) HTN (hypertension) Code(s): I10 - ESSENTIAL (PRIMARY) HYPERTENSION Qualifiers: Hypertension type: essential hypertension Qualified Code(s): I10 - Essential (primary) hypertension (3) Hypercholesterolemia Code(s): E78.00 - PURE HYPERCHOLESTEROLEMIA, UNSPECIFIED (4) PAF (paroxysmal atrial fibrillation) Code(s): I48.0 - PAROXYSMAL ATRIAL FIBRILLATION (5) Pulmonary hypertension Code(s): I27.2 - OTHER SECONDARY PULMONARY HYPERTENSION (6) Vfgwp-rs-fklpoqd kidney injury Code(s): N17.9 - ACUTE KIDNEY FAILURE, UNSPECIFIED N18.9 - CHRONIC KIDNEY DISEASE, UNSPECIFIED Qualifiers: Acute renal failure type: unspecified Chronic kidney disease stage: stage 3 (moderate) Qualified Code(s): N17.9 - Acute kidney failure, unspecified; N18.9 - Chronic kidney disease, unspecified (7) Acute on chronic diastolic heart failure Code(s): I50.33 - ACUTE ON CHRONIC DIASTOLIC (CONGESTIVE) HEART FAILURE (8) History of amiodarone therapy Code(s): Z92.29 - PERSONAL HISTORY OF OTHER DRUG THERAPY (9) Anemia Code(s): D64.9 - ANEMIA, UNSPECIFIED Qualifiers: Anemia type: due to chronic kidney disease Assessment/Plan 1. Dyspnea secondary to acute on chronic LV diastolic failure and COPD exacerbation 2. CAD post PCI/stent angina pectoris - demand ischemic injury 3. O2 dependent COPD/emphysema 4. Rule out Amiodarone-associated pulmonary toxicity 5. Persistent atrial fibrillation with variable ventricular response 6. HTN/HCVD 7. Hypercholesterolemia 8. Moderate mitral valve and tricuspid valve regurgitation with severe pulmonary hypertension 9. Acute on CKD 10. Anemia PLAN: 1. Continue Eliquis 2.5 bid as tolerated 2. Continue Lopressor 25 tid with caution. Cardizem 30 q6 to be titrated (LVEF on nuclear perfusion is inaccurate due to abnormal gating secondary to rapid AF - echocardiography demonstrates preserved LV function) 3. Continue Ranexa 500 bid, but with caution due to renal insufficiency. Consider NTP if develops chest pain 4. Continue Atorvastatin 10 qhs 5. Diuretic IV and monitor renal function and electrolytes - as per Renal service 6. Bronchodilators, Daliresp, O2 to maintain saO2 and slow oral steroid taper with GI prophylaxis 7. Renal input noted 8. PT, OOB to chair and rehab
[2016-10-15] MEDS: BUDESONIDE/FORMETEROL FUMARATE 160/4.5 mcg INHALER IH SCH ×2 (11:22→21:45)
--- NOTE | 2016-10-15 12:49 | PN ---
Progress Note (short form) - Note Progress Note: PULMONARY FAMILY PRESENT LESS CONFUSED VSS/AFEBRILE ANICTERIC SCATTERED RHONCHI S1S2 BS+ OBESE 1+ EDEMA LOWER EXT LABS/MEDS/IMAGING/NOTES REVIEWED CHF ACUTE ON CHRONIC KIDNEY FAILURE COPD/O2 DEP LVDD/HTN CONTINUE BRONCHODILATORS/CHEST PT/O2/PREDNISONE/DIURETICS Kamari WHITEHEAD MD
--- NOTE | 2016-10-15 13:32 | PN ---
Progress Note, Physician Chief Complaint: The patient in bed. Quite short of breath. Oliguric, in spite of being on loop diuretics No chest pain. The patient's daughter by her bed. - Current Medication List Current Medications: Active Medications Albuterol Sulfate (Ventolin 0.083% Nebulizer Soln -) 1 amp NEB Q4H PRN PRN Reason: SHORT OF BREATH/WHEEZING Last Admin: 10/15/16 06:45 Dose: 1 amp Alprazolam (Xanax -) 0.25 mg PO TID PRN PRN Reason: ANXIETY Last Admin: 10/13/16 05:32 Dose: 0.25 mg Apixaban (Eliquis -) 2.5 mg PO BID [facility] Last Admin: 10/15/16 11:19 Dose: 2.5 mg Atorvastatin Calcium (Lipitor -) 10 mg PO HS [facility] Last Admin: 10/14/16 22:02 Dose: 10 mg Budesonide/Formoterol Fumarate (Symbicort 160/4.5mcg -) 2 puff IH BID [facility] Last Admin: 10/15/16 11:22 Dose: 2 puff Calcium Acetate (Phoslo -) 667 mg PO TIDCM [facility] Last Admin: 10/15/16 12:03 Dose: 667 mg Diltiazem HCl (Cardizem -) 30 mg PO Q6HPO [facility] Last Admin: 10/15/16 11:20 Dose: 30 mg Ferrous Sulfate (Feosol -) 325 mg PO DAILY [facility] Last Admin: 10/15/16 11:20 Dose: 325 mg Furosemide (Lasix Injection -) 80 mg IVPB DAILY [facility] Last Admin: 10/15/16 11:21 Dose: 80 mg Metoprolol Tartrate (Lopressor -) 25 mg PO TID [facility] Last Admin: 10/15/16 06:11 Dose: 25 mg Pantoprazole Sodium (Protonix -) 20 mg PO DAILY [facility] Last Admin: 10/15/16 11:20 Dose: 20 mg Polyethylene Glycol (Miralax (For Daily Use) -) 17 gm PO DAILY PRN PRN Reason: CONSTIPATION Last Admin: 10/05/16 08:55 Dose: 17 gm Prednisone (Deltasone -) 20 mg PO DAILY [facility] Last Admin: 10/15/16 11:20 Dose: 20 mg Ranolazine (Ranexa -) 500 mg PO BID [facility] Last Admin: 10/15/16 11:19 Dose: 500 mg Roflumilast (Daliresp -) 500 mcg PO DAILY [facility] Last Admin: 10/15/16 11:21 Dose: 500 mcg Sertraline HCl (Zoloft -) 150 mg PO DAILY [facility] Last Admin: 10/15/16 11:20 Dose: 150 mg Tiotropium [place] (Spiriva -) 1 puff IH DAILY [facility] Last Admin: 10/15/16 11:21 Dose: 1 puff - Objective Vital Signs: Vital Signs Temperature 97.7 F 10/15/16 08:30 Pulse Rate 108 H 10/15/16 11:16 Respiratory Rate 20 10/15/16 11:16 Blood Pressure 124/72 10/15/16 11:16 O2 Sat by Pulse Oximetry (%) 98 10/15/16 09:47 Constitutional: Yes: Moderate Distress, Pallor Eyes: Yes: Conjunctiva Clear Neck: Yes: Trachea Midline Cardiovascular: Yes: S1, S2 Respiratory: Yes: Diminished, Rales, SOB Gastrointestinal: Yes: Soft, Abdomen, Obese Genitourinary: Yes: Oliguria. No: Bladder Distention Labs: CBC, BMP 10/15/16 06:30 10/15/16 07:40 INR, PTT INR 1.45 (0.82-1.09) H 09/25/16 09:13 Problem List - Problems (1) Acute on chronic diastolic heart failure Code(s): I50.33 - ACUTE ON CHRONIC DIASTOLIC (CONGESTIVE) HEART FAILURE (2) Acute on chronic respiratory failure with hypoxemia Code(s): J96.21 - ACUTE AND CHRONIC RESPIRATORY FAILURE WITH HYPOXIA (3) Ghkpe-an-eajnqms kidney injury Code(s): N17.9 - ACUTE KIDNEY FAILURE, UNSPECIFIED N18.9 - CHRONIC KIDNEY DISEASE, UNSPECIFIED Qualifiers: Acute renal failure type: unspecified Chronic kidney disease stage: stage 3 (moderate) Qualified Code(s): N17.9 - Acute kidney failure, unspecified; N18.9 - Chronic kidney disease, unspecified (4) Anemia Code(s): D64.9 - ANEMIA, UNSPECIFIED Qualifiers: Anemia type: due to chronic kidney disease (5) CHF (congestive heart failure) Code(s): I50.9 - HEART FAILURE, UNSPECIFIED Qualifiers: Congestive heart failure type: unspecified congestive heart failure type Congestive heart failure chronicity: unspecified congestive heart failure chronicity Qualified Code(s): I50.9 - Heart failure, unspecified (6) MENA (acute kidney injury) Code(s): N17.9 - ACUTE KIDNEY FAILURE, UNSPECIFIED (7) HTN (hypertension) Code(s): I10 - ESSENTIAL (PRIMARY) HYPERTENSION Qualifiers: Hypertension type: essential hypertension Qualified Code(s): I10 - Essential (primary) hypertension Assessment/Plan The patient has acute resp failure superimposed on COPD. Congestive Heart failure. Exacerbation of COPD. Valvular Heart disease. Coronary artery disease. Acute on Chronic Kidney failure. The azotemia to a significant degree is Steroid dependent. Diabetes mellitus. Hypertension. The urine output dropped in spite of Lasix. Discussed in detail with the patient about possibly giving a few acute dialysis treatments. ( Not for life time commitment). She is against receiving dialysis. I told her that dialysis, and UF to remove excess fluid might improve the cardiac status also. The daughter seems to want her mother to receive it. They will talk, and let me know. Will monitor the Renal/ Electrolyte profile closely. Will follow with you. Alma Rao MD
[2016-10-15] MEDS: ATORVASTATIN CA 10 MG TABLET (FP) PO SCH (21:44)
[2016-10-15] MEDS: ALPRAZolam 0.25 MG TABLET PO PRN (21:44)
--- NOTE | 2016-10-15 22:29 | PN ---
Progress Note, Physician - Current Medication List Current Medications: Active Medications Albuterol Sulfate (Ventolin 0.083% Nebulizer Soln -) 1 amp NEB Q4H PRN PRN Reason: SHORT OF BREATH/WHEEZING Last Admin: 10/15/16 06:45 Dose: 1 amp Alprazolam (Xanax -) 0.25 mg PO TID PRN PRN Reason: ANXIETY Last Admin: 10/15/16 21:44 Dose: 0.25 mg Apixaban (Eliquis -) 2.5 mg PO BID [facility] Last Admin: 10/15/16 21:45 Dose: 2.5 mg Atorvastatin Calcium (Lipitor -) 10 mg PO HS [facility] Last Admin: 10/15/16 21:44 Dose: 10 mg Budesonide/Formoterol Fumarate (Symbicort 160/4.5mcg -) 2 puff IH BID [facility] Last Admin: 10/15/16 21:45 Dose: 2 puff Calcium Acetate (Phoslo -) 667 mg PO TIDCM [facility] Last Admin: 10/15/16 17:41 Dose: 667 mg Diltiazem HCl (Cardizem -) 30 mg PO Q6HPO [facility] Last Admin: 10/15/16 17:41 Dose: 30 mg Ferrous Sulfate (Feosol -) 325 mg PO DAILY [facility] Last Admin: 10/15/16 11:20 Dose: 325 mg Furosemide (Lasix Injection -) 80 mg IVPB DAILY [facility] Last Admin: 10/15/16 11:21 Dose: 80 mg Metoprolol Tartrate (Lopressor -) 25 mg PO TID [facility] Last Admin: 10/15/16 21:44 Dose: 25 mg Pantoprazole Sodium (Protonix -) 20 mg PO DAILY [facility] Last Admin: 10/15/16 11:20 Dose: 20 mg Polyethylene Glycol (Miralax (For Daily Use) -) 17 gm PO DAILY PRN PRN Reason: CONSTIPATION Last Admin: 10/05/16 08:55 Dose: 17 gm Prednisone (Deltasone -) 20 mg PO DAILY [facility] Last Admin: 10/15/16 11:20 Dose: 20 mg Ranolazine (Ranexa -) 500 mg PO BID [facility] Last Admin: 10/15/16 11:19 Dose: 500 mg Roflumilast (Daliresp -) 500 mcg PO DAILY [facility] Last Admin: 10/15/16 11:21 Dose: 500 mcg Sertraline HCl (Zoloft -) 150 mg PO DAILY [facility] Last Admin: 10/15/16 11:20 Dose: 150 mg Tiotropium [place] (Spiriva -) 1 puff IH DAILY [facility] Last Admin: 10/15/16 11:21 Dose: 1 puff - Objective Vital Signs: Vital Signs Temperature 98.5 F 10/15/16 18:56 Pulse Rate 121 H 10/15/16 18:56 Respiratory Rate 20 10/15/16 18:56 Blood Pressure 120/83 10/15/16 18:56 O2 Sat by Pulse Oximetry (%) 95 10/15/16 20:43 Labs: CBC, BMP 10/15/16 06:30 10/15/16 07:40 INR, PTT INR 1.45 (0.82-1.09) H 09/25/16 09:13 Problem List - Problems (1) Rvxyb-bj-ztwkaxl kidney injury Code(s): N17.9 - ACUTE KIDNEY FAILURE, UNSPECIFIED N18.9 - CHRONIC KIDNEY DISEASE, UNSPECIFIED Qualifiers: Acute renal failure type: unspecified Chronic kidney disease stage: stage 3 (moderate) Qualified Code(s): N17.9 - Acute kidney failure, unspecified; N18.9 - Chronic kidney disease, unspecified (2) Acute on chronic diastolic heart failure Code(s): I50.33 - ACUTE ON CHRONIC DIASTOLIC (CONGESTIVE) HEART FAILURE (3) COPD (chronic obstructive pulmonary disease) Code(s): J44.9 - CHRONIC OBSTRUCTIVE PULMONARY DISEASE, UNSPECIFIED Qualifiers : COPD type: unspecified COPD Qualified Code(s): J44.9 - Chronic obstructive pulmonary disease, unspecified (4) Anemia Code(s): D64.9 - ANEMIA, UNSPECIFIED Qualifiers: Anemia type: due to chronic kidney disease (5) HTN (hypertension) Code(s): I10 - ESSENTIAL (PRIMARY) HYPERTENSION Qualifiers: Hypertension type: essential hypertension Qualified Code(s): I10 - Essential (primary) hypertension (6) Hypercholesterolemia Code(s): E78.00 - PURE HYPERCHOLESTEROLEMIA, UNSPECIFIED (7) PAF (paroxysmal atrial fibrillation) Code(s): I48.0 - PAROXYSMAL ATRIAL FIBRILLATION (8) Dyspnea Code(s): R06.00 - DYSPNEA, UNSPECIFIED Qualifiers: Dyspnea type: unspecified Qualified Code(s): R06.00 - Dyspnea, unspecified
[2016-10-16] MEDS: dilTIAZem HCL 30 MG TABLET (FP) PO SCH ×4 (00:20→18:26)
[2016-10-16] MEDS: METOPROLOL TARTRATE 25 MG TABLET (FP) PO SCH ×3 (06:06→21:08)
[2016-10-16 07:46] LABS: ALBUMIN 2.1 g/dl (3.4-5.0); ANION GAP 11 (8-16); CALCIUM 8.1 mg/dL (8.5-10.1); CO2 22 mmol/L (21-32); GLUCOSE,RANDOM 115 mg/dL (74-106)
[2016-10-16 07:49] LABS: ALK PHOS 58 U/L (45-117); BILIRUBIN,TOTAL 0.4 mg/dL (0.2-1.0); SGOT/AST 14 U/L (15-37); SGPT/ALT 36 U/L (12-78); TOT PROT 5.1 g/dl (6.4-8.2)
[2016-10-16] MEDS: CALCIUM ACETATE 667 MG CAPSULE (FP) PO SCH ×4 (07:57→18:26)
--- NOTE | 2016-10-16 10:35 | PN ---
Progress Note (short form) - Note Progress Note: Awake and responsive, but very confused. She thinks someone is behind the curtain in her room. Reports generalized fatigue. (+) cough. No CP. Constitutional: Yes: Awake and alert, Mildly tachypneic at rest Eyes: Yes: WNL HENT: Yes: WNL Neck: Yes: WNL Cardiovascular: Yes: Regular Rate and Rhythm, S1, S2 Respiratory: Yes: Few scattered basilar Rhonchi, no wheezing Gastrointestinal: Yes: Normal Bowel Sounds, Soft Extremities: Yes: WNL Edema: No Labs: Laboratory Results - last 24 hr 10/14/16 07:20 Sodium 142 Potassium 4.6 Chloride 109 H Carbon Dioxide 20 L Anion Gap 13 BUN 125 H* Creatinine 3.7 H Creat Clearance w eGFR 11.82 Random Glucose 72 L D Calcium 7.9 L Total Bilirubin 0.5 AST 11 L ALT 34 Alkaline Phosphatase 51 Total Protein 4.8 L Albumin 2.0 L Problem List - Problems (1) Acute on chronic diastolic heart failure Code(s): I50.33 - ACUTE ON CHRONIC DIASTOLIC (CONGESTIVE) HEART FAILURE (2) Ygiox-xx-dysqsms kidney injury Code(s): N17.9 - ACUTE KIDNEY FAILURE, UNSPECIFIED N18.9 - CHRONIC KIDNEY DISEASE, UNSPECIFIED Qualifiers: Acute renal failure type: unspecified Chronic kidney disease stage: stage 3 (moderate) Qualified Code(s): N17.9 - Acute kidney failure, unspecified; N18.9 - Chronic kidney disease, unspecified (3) CHF (congestive heart failure) Code(s): I50.9 - HEART FAILURE, UNSPECIFIED Qualifiers: Congestive heart failure type: unspecified congestive heart failure type Congestive heart failure chronicity: unspecified congestive heart failure chronicity Qualified Code(s): I50.9 - Heart failure, unspecified (4) History of amiodarone therapy Code(s): Z92.29 - PERSONAL HISTORY OF OTHER DRUG THERAPY (5) CHF exacerbation Code(s): I50.9 - HEART FAILURE, UNSPECIFIED Qualifiers: Congestive heart failure type: unspecified congestive heart failure type Qualified Code(s): I50.9 - Heart failure, unspecified (6) COPD (chronic obstructive pulmonary disease) Code(s): J44.9 - CHRONIC OBSTRUCTIVE PULMONARY DISEASE, UNSPECIFIED Qualifiers : COPD type: unspecified COPD Qualified Code(s): J44.9 - Chronic obstructive pulmonary disease, unspecified (7) HTN (hypertension) Code(s): I10 - ESSENTIAL (PRIMARY) HYPERTENSION Qualifiers: Hypertension type: essential hypertension Qualified Code(s): I10 - Essential (primary) hypertension (8) Hypercholesterolemia Code(s): E78.00 - PURE HYPERCHOLESTEROLEMIA, UNSPECIFIED (9) PAF (paroxysmal atrial fibrillation) Code(s): I48.0 - PAROXYSMAL ATRIAL FIBRILLATION (10) Pulmonary hypertension Code(s): I27.2 - OTHER SECONDARY PULMONARY HYPERTENSION (11) Acute on chronic respiratory failure with hypoxemia Code(s): J96.21 - ACUTE AND CHRONIC RESPIRATORY FAILURE WITH HYPOXIA Assessment/Plan ACUTE DELERIUM (?) DUE TO UREMIA ACUTE ON CHRONIC HYPOXEMIC RESPIRATORY FAILURE DECOMPENSATED CHF DIASTOLIC COPD EXACERBATION R/O AMIODARONE LUNG TOXICITY PULMONARY HTN MITRAL STENOSIS ASHD S/P STENT PAF ACUTE ON CHRONIC RENAL FAILURE DM HTN PLAN DNR/DNI INHALED BRONCHODILATORS SUPPLEMENTAL O2 PREDNISONE DAILY WTS MONITOR LYTES,RENAL FUNCTION ROBERTO KEBEDE
[2016-10-16] MEDS ORDERED: PT OWN MED DRAWER 7, Y5N ONE (11:21)
[2016-10-16] MEDS: predniSONE 20 MG TABLET (UD) PO SCH (11:23)
[2016-10-16] MEDS: RANOLAZINE E.R. 500 MG TABLET (FP) PO SCH ×2 (11:23→21:08)
[2016-10-16] MEDS: FUROSEMIDE 40 MG/4 ML INJECTABLE VIAL IVPB SCH (11:23)
[2016-10-16] MEDS: SERTRALINE HCL 50 MG TABLET (FP) PO SCH (11:23)
[2016-10-16] MEDS: PANTOPRAZOLE 20 MG TABLET (FP) PO SCH (11:24)
[2016-10-16] MEDS: FERROUS SO4 325 MG TABLET (FP) PO SCH (11:24)
[2016-10-16] MEDS: ROFLUMILAST 500 MCG TABLET PO SCH (11:24)
[2016-10-16] MEDS: APIXABAN 2.5 MG TABLET PO SCH ×2 (11:24→21:08)
[2016-10-16] MEDS: TIOTROPIUM BROMIDE 18 MCG/INH (DEVICE W/ 5 CAPSULES) IH SCH (11:32)
[2016-10-16] MEDS: BUDESONIDE/FORMETEROL FUMARATE 160/4.5 mcg INHALER IH SCH ×2 (11:32→21:08)
--- NOTE | 2016-10-16 11:41 | PN ---
Progress Note, Physician History of Present Illness: Continued dyspnea, productive cough, wheeze. Altered sensorium, considering temporary HD. - Current Medication List Current Medications: Active Medications Albuterol Sulfate (Ventolin 0.083% Nebulizer Soln -) 1 amp NEB Q4H PRN PRN Reason: SHORT OF BREATH/WHEEZING Last Admin: 10/15/16 06:45 Dose: 1 amp Apixaban (Eliquis -) 2.5 mg PO BID [facility] Last Admin: 10/16/16 11:24 Dose: 2.5 mg Atorvastatin Calcium (Lipitor -) 10 mg PO HS [facility] Last Admin: 10/15/16 21:44 Dose: 10 mg Budesonide/Formoterol Fumarate (Symbicort 160/4.5mcg -) 2 puff IH BID [facility] Last Admin: 10/16/16 11:32 Dose: 2 puff Calcium Acetate (Phoslo -) 667 mg PO TIDCM [facility] Last Admin: 10/16/16 11:24 Dose: 667 mg Diltiazem HCl (Cardizem -) 30 mg PO Q6HPO [facility] Last Admin: 10/16/16 11:23 Dose: 30 mg Ferrous Sulfate (Feosol -) 325 mg PO DAILY [facility] Last Admin: 10/16/16 11:24 Dose: 325 mg Furosemide (Lasix Injection -) 80 mg IVPB DAILY [facility] Last Admin: 10/16/16 11:23 Dose: 80 mg Metoprolol Tartrate (Lopressor -) 25 mg PO TID [facility] Last Admin: 10/16/16 06:06 Dose: 25 mg Pantoprazole Sodium (Protonix -) 20 mg PO DAILY [facility] Last Admin: 10/16/16 11:24 Dose: 20 mg Polyethylene Glycol (Miralax (For Daily Use) -) 17 gm PO DAILY PRN PRN Reason: CONSTIPATION Last Admin: 10/05/16 08:55 Dose: 17 gm Prednisone (Deltasone -) 20 mg PO DAILY [facility] Last Admin: 10/16/16 11:23 Dose: 20 mg Ranolazine (Ranexa -) 500 mg PO BID [facility] Last Admin: 10/16/16 11:23 Dose: 500 mg Roflumilast (Daliresp -) 500 mcg PO DAILY [facility] Last Admin: 10/16/16 11:24 Dose: 500 mcg Sertraline HCl (Zoloft -) 150 mg PO DAILY [facility] Last Admin: 10/16/16 11:23 Dose: 150 mg Tiotropium [place] (Spiriva -) 1 puff IH DAILY [facility] Last Admin: 10/16/16 11:32 Dose: 1 puff - Objective Vital Signs: Vital Signs Temperature 97.6 F 10/16/16 07:50 Pulse Rate 115 H 10/16/16 07:50 Respiratory Rate 18 10/16/16 07:50 Blood Pressure 117/67 10/16/16 07:50 O2 Sat by Pulse Oximetry (%) 95 10/15/16 20:43 Constitutional: Yes: No Distress, Calm Neck: Yes: Supple Cardiovascular: Yes: Pulse Irregular Respiratory: Yes: Regular, Diminished, On Nasal O2 Gastrointestinal: Yes: Normal Bowel Sounds, Soft, Abdomen, Obese Edema: No Labs: CBC, BMP 10/15/16 06:30 10/16/16 06:20 INR, PTT INR 1.45 (0.82-1.09) H 09/25/16 09:13 Problem List - Problems (1) COPD (chronic obstructive pulmonary disease) Code(s): J44.9 - CHRONIC OBSTRUCTIVE PULMONARY DISEASE, UNSPECIFIED Qualifiers : COPD type: unspecified COPD Qualified Code(s): J44.9 - Chronic obstructive pulmonary disease, unspecified (2) HTN (hypertension) Code(s): I10 - ESSENTIAL (PRIMARY) HYPERTENSION Qualifiers: Hypertension type: essential hypertension Qualified Code(s): I10 - Essential (primary) hypertension (3) Hypercholesterolemia Code(s): E78.00 - PURE HYPERCHOLESTEROLEMIA, UNSPECIFIED (4) PAF (paroxysmal atrial fibrillation) Code(s): I48.0 - PAROXYSMAL ATRIAL FIBRILLATION (5) Pulmonary hypertension Code(s): I27.2 - OTHER SECONDARY PULMONARY HYPERTENSION (6) [id number] kidney injury Code(s): N17.9 - ACUTE KIDNEY FAILURE, UNSPECIFIED N18.9 - CHRONIC KIDNEY DISEASE, UNSPECIFIED Qualifiers: Acute renal failure type: unspecified Chronic kidney disease stage: stage 3 (moderate) Qualified Code(s): N17.9 - Acute kidney failure, unspecified; N18.9 - Chronic kidney disease, unspecified (7) Acute on chronic diastolic heart failure Code(s): I50.33 - ACUTE ON CHRONIC DIASTOLIC (CONGESTIVE) HEART FAILURE (8) History of amiodarone therapy Code(s): Z92.29 - PERSONAL HISTORY OF OTHER DRUG THERAPY (9) Anemia Code(s): D64.9 - ANEMIA, UNSPECIFIED Qualifiers: Anemia type: due to chronic kidney disease Assessment/Plan LVEF on nuclear perfusion is inaccurate due to abnormal gating secondary to rapid AF - echocardiography demonstrates preserved LV function 1. Toxic metabolic encephelopathy referable to progressive uremia 2. Dyspnea secondary to acute on chronic LV diastolic failure and COPD exacerbation 3. CAD post PCI/stent angina pectoris - demand ischemic injury 4. O2 dependent COPD/emphysema 5. Rule out Amiodarone-associated pulmonary toxicity 6. Persistent atrial fibrillation with variable ventricular response 7. HTN/HCVD 8. Hypercholesterolemia 9. Moderate mitral valve and tricuspid valve regurgitation with severe pulmonary hypertension 10. Oliguric acute on CKD with worsening uremia 11. Anemia PLAN: 1. Continue Eliquis 2.5 bid, Lopressor 25 tid, Cardizem 30 q6 to be titrated and Atorvastatin 10 qhs 3. Continue Ranexa 500 bid, but with caution due to renal insufficiency. Consider NTP if develops chest pain 3. Diuretic IV and plan for HD with monitor renal function and electrolytes - as per Renal service 4. Bronchodilators, Daliresp, O2 to maintain saO2 and slow oral steroid taper with GI prophylaxis 5. PT, OOB to chair and rehab
--- NOTE | 2016-10-16 12:27 | PN ---
Progress Note, Physician Chief Complaint: The patient in bed. Delirious. Daughter by her bed. Discussed again dialysis, and she agreed to try it for a short while. - Current Medication List Current Medications: Active Medications Albuterol Sulfate (Ventolin 0.083% Nebulizer Soln -) 1 amp NEB Q4H PRN PRN Reason: SHORT OF BREATH/WHEEZING Last Admin: 10/15/16 06:45 Dose: 1 amp Apixaban (Eliquis -) 2.5 mg PO BID [facility] Last Admin: 10/16/16 11:24 Dose: 2.5 mg Atorvastatin Calcium (Lipitor -) 10 mg PO HS [facility] Last Admin: 10/15/16 21:44 Dose: 10 mg Budesonide/Formoterol Fumarate (Symbicort 160/4.5mcg -) 2 puff IH BID [facility] Last Admin: 10/16/16 11:32 Dose: 2 puff Calcium Acetate (Phoslo -) 667 mg PO TIDCM [facility] Last Admin: 10/16/16 11:24 Dose: 667 mg Diltiazem HCl (Cardizem -) 30 mg PO Q6HPO [facility] Last Admin: 10/16/16 11:23 Dose: 30 mg Ferrous Sulfate (Feosol -) 325 mg PO DAILY [facility] Last Admin: 10/16/16 11:24 Dose: 325 mg Furosemide (Lasix Injection -) 80 mg IVPB DAILY [facility] Last Admin: 10/16/16 11:23 Dose: 80 mg Metoprolol Tartrate (Lopressor -) 25 mg PO TID [facility] Last Admin: 10/16/16 06:06 Dose: 25 mg Pantoprazole Sodium (Protonix -) 20 mg PO DAILY [facility] Last Admin: 10/16/16 11:24 Dose: 20 mg Polyethylene Glycol (Miralax (For Daily Use) -) 17 gm PO DAILY PRN PRN Reason: CONSTIPATION Last Admin: 10/05/16 08:55 Dose: 17 gm Prednisone (Deltasone -) 20 mg PO DAILY [facility] Last Admin: 10/16/16 11:23 Dose: 20 mg Ranolazine (Ranexa -) 500 mg PO BID [facility] Last Admin: 10/16/16 11:23 Dose: 500 mg Roflumilast (Daliresp -) 500 mcg PO DAILY [facility] Last Admin: 10/16/16 11:24 Dose: 500 mcg Sertraline HCl (Zoloft -) 150 mg PO DAILY [facility] Last Admin: 10/16/16 11:23 Dose: 150 mg Tiotropium [place] (Spiriva -) 1 puff IH DAILY [facility] Last Admin: 10/16/16 11:32 Dose: 1 puff - Objective Vital Signs: Vital Signs Temperature 97.6 F 10/16/16 07:50 Pulse Rate 115 H 10/16/16 07:50 Respiratory Rate 18 10/16/16 07:50 Blood Pressure 117/67 10/16/16 07:50 O2 Sat by Pulse Oximetry (%) 95 10/15/16 20:43 Constitutional: Yes: Other (periods of confusion) HENT: Yes: Normocephalic Cardiovascular: Yes: S1, S2 Respiratory: Yes: Diminished Gastrointestinal: Yes: Normal Bowel Sounds, Abdomen, Obese Genitourinary: No: CVA Tenderness - Left, CVA Tenderness - Right Musculoskeletal: No: Joint Stiffness Labs: CBC, BMP 10/15/16 06:30 10/16/16 06:20 INR, PTT INR 1.45 (0.82-1.09) H 09/25/16 09:13 Problem List - Problems (1) Acute on chronic diastolic heart failure Code(s): I50.33 - ACUTE ON CHRONIC DIASTOLIC (CONGESTIVE) HEART FAILURE (2) Acute on chronic respiratory failure with hypoxemia Code(s): J96.21 - ACUTE AND CHRONIC RESPIRATORY FAILURE WITH HYPOXIA (3) [id number] kidney injury Code(s): N17.9 - ACUTE KIDNEY FAILURE, UNSPECIFIED N18.9 - CHRONIC KIDNEY DISEASE, UNSPECIFIED Qualifiers: Acute renal failure type: unspecified Chronic kidney disease stage: stage 3 (moderate) Qualified Code(s): N17.9 - Acute kidney failure, unspecified; N18.9 - Chronic kidney disease, unspecified (4) Anemia Code(s): D64.9 - ANEMIA, UNSPECIFIED Qualifiers: Anemia type: due to chronic kidney disease (5) CHF (congestive heart failure) Code(s): I50.9 - HEART FAILURE, UNSPECIFIED Qualifiers: Congestive heart failure type: unspecified congestive heart failure type Congestive heart failure chronicity: unspecified congestive heart failure chronicity Qualified Code(s): I50.9 - Heart failure, unspecified (6) MENA (acute kidney injury) Code(s): N17.9 - ACUTE KIDNEY FAILURE, UNSPECIFIED (7) HTN (hypertension) Code(s): I10 - ESSENTIAL (PRIMARY) HYPERTENSION Qualifiers: Hypertension type: essential hypertension Qualified Code(s): I10 - Essential (primary) hypertension (8) Uremia Code(s): N19 - UNSPECIFIED KIDNEY FAILURE Assessment/Plan The patient has acute resp failure superimposed on COPD. Congestive Heart failure. Exacerbation of COPD. Valvular Heart disease. Coronary artery disease. Diabetes mellitus. Hypertension. Remains oliguric The patient agreed for dialysis. Daughter by her side. In view of her consent: Will arrange for placement of acute dialysis catheter Acute HD with UF today, and possibly Three days in a row. Discussed with Dr. Guillen re: placement fo the hemocatheter Will follow with you. Alma Rao MD
--- NOTE | 2016-10-16 15:04 | PROC ---
Central Line Insertion - Procedure Note TIME OUT performed prior to this procedure with verbal confirmation of correct patient identity, correct side, agreement of the procedure, correct patient position, availability of necessary equipment. The consent obtained form daughter who is the HCP. Complete and accurate and placed in patient's paper chart. Risk of possible infection and bleeding have been discussed with the patient and daughter. Safety precautions based on patient history or medication use has been addressed. Indication: Other (Needs HD) Central Line: Dialysis Cath, Dual Lumen Position: Supine Area prepped with Chlorhexidine solution then draped using sterile barrier protection. Anesthesia: Lidocaine 1% Technique used: Seldinger Ultrasound Guided Assistance: No Site: Right Femoral Dark venous non-pulsatile flow noted from hub of needle. The catheter was introduced. Guide wire removed intact. Each port aspirated then flushed with sterile normal saline and capped. Line secured to skin with nylon suture. Biopatch placed around base of line. Sterile occlusive dressing applied. No complications. Patient tolerated the procedure well. HD notified.
[2016-10-16 16:53] LABS: BASOPHIL 0.1 % (0-2.0); MCH 24.8 pg (25.7-33.7); MCHC 30.2 g/dl (32.0-36.0); MEAN PLT VOLUME 9.8 fl (7.5-11.1); NEUTROPHILS 94.7 % (42.8-82.8); PLATELET COUNT 201 K/MM3 (134-434); RDW 19.1 % (11.6-15.6); WHITE BLOOD COUNT 17.4 K/mm3 (4.0-10.0)
[2016-10-16 20:11] LABS: ANION GAP 7 (8-16); CALCIUM 8.4 mg/dL (8.5-10.1); CO2 32 mmol/L (21-32); GLUCOSE,RANDOM 103 mg/dL (74-106)
[2016-10-16 20:34] LABS: CREATININE 1.7 mg/dL (0.55-1.02)
[2016-10-16] MEDS: ATORVASTATIN CA 10 MG TABLET (FP) PO SCH (21:08)
[2016-10-16] MEDS: ALBUTEROL SO4 0.083% IH SOL 2.5 MG/3 ML VIAL.NEB. NEB PRN (22:00)
[2016-10-16 23:31] VITALS: PULSE 104
--- NOTE | 2016-10-16 23:31 | PN ---
Progress Note, Physician - Current Medication List Current Medications: Active Medications Albuterol Sulfate (Ventolin 0.083% Nebulizer Soln -) 1 amp NEB Q4H PRN PRN Reason: SHORT OF BREATH/WHEEZING Last Admin: 10/16/16 22:00 Dose: 1 amp Apixaban (Eliquis -) 2.5 mg PO BID [facility] Last Admin: 10/16/16 21:08 Dose: 2.5 mg Atorvastatin Calcium (Lipitor -) 10 mg PO HS [facility] Last Admin: 10/16/16 21:08 Dose: 10 mg Budesonide/Formoterol Fumarate (Symbicort 160/4.5mcg -) 2 puff IH BID [facility] Last Admin: 10/16/16 21:08 Dose: 2 puff Calcium Acetate (Phoslo -) 667 mg PO TIDCM [facility] Last Admin: 10/16/16 18:26 Dose: 667 mg Diltiazem HCl (Cardizem -) 30 mg PO Q6HPO [facility] Last Admin: 10/16/16 18:26 Dose: 30 mg Ferrous Sulfate (Feosol -) 325 mg PO DAILY [facility] Last Admin: 10/16/16 11:24 Dose: 325 mg Furosemide (Lasix Injection -) 80 mg IVPB DAILY [facility] Last Admin: 10/16/16 11:23 Dose: 80 mg Metoprolol Tartrate (Lopressor -) 25 mg PO TID [facility] Last Admin: 10/16/16 21:08 Dose: 25 mg Pantoprazole Sodium (Protonix -) 20 mg PO DAILY [facility] Last Admin: 10/16/16 11:24 Dose: 20 mg Polyethylene Glycol (Miralax (For Daily Use) -) 17 gm PO DAILY PRN PRN Reason: CONSTIPATION Last Admin: 10/05/16 08:55 Dose: 17 gm Prednisone (Deltasone -) 20 mg PO DAILY [facility] Last Admin: 10/16/16 11:23 Dose: 20 mg Ranolazine (Ranexa -) 500 mg PO BID [facility] Last Admin: 10/16/16 21:08 Dose: 500 mg Roflumilast (Daliresp -) 500 mcg PO DAILY [facility] Last Admin: 10/16/16 11:24 Dose: 500 mcg Sertraline HCl (Zoloft -) 150 mg PO DAILY [facility] Last Admin: 10/16/16 11:23 Dose: 150 mg Tiotropium [place] (Spiriva -) 1 puff IH DAILY [facility] Last Admin: 10/16/16 11:32 Dose: 1 puff - Objective Vital Signs: Vital Signs Temperature 98.0 F 10/16/16 22:00 Pulse Rate 104 H 10/16/16 22:00 Respiratory Rate 18 10/16/16 22:00 Blood Pressure 108/68 10/16/16 22:00 O2 Sat by Pulse Oximetry (%) 95 10/16/16 21:00 Labs: CBC, BMP 10/16/16 15:30 10/16/16 17:30 INR, PTT INR 1.45 (0.82-1.09) H 09/25/16 09:13 Problem List - Problems (1) [id number] kidney injury Code(s): N17.9 - ACUTE KIDNEY FAILURE, UNSPECIFIED N18.9 - CHRONIC KIDNEY DISEASE, UNSPECIFIED Qualifiers: Acute renal failure type: unspecified Chronic kidney disease stage: stage 3 (moderate) Qualified Code(s): N17.9 - Acute kidney failure, unspecified; N18.9 - Chronic kidney disease, unspecified (2) Acute on chronic diastolic heart failure Code(s): I50.33 - ACUTE ON CHRONIC DIASTOLIC (CONGESTIVE) HEART FAILURE (3) COPD (chronic obstructive pulmonary disease) Code(s): J44.9 - CHRONIC OBSTRUCTIVE PULMONARY DISEASE, UNSPECIFIED Qualifiers : COPD type: unspecified COPD Qualified Code(s): J44.9 - Chronic obstructive pulmonary disease, unspecified (4) Anemia Code(s): D64.9 - ANEMIA, UNSPECIFIED Qualifiers: Anemia type: due to chronic kidney disease (5) HTN (hypertension) Code(s): I10 - ESSENTIAL (PRIMARY) HYPERTENSION Qualifiers: Hypertension type: essential hypertension Qualified Code(s): I10 - Essential (primary) hypertension (6) Hypercholesterolemia Code(s): E78.00 - PURE HYPERCHOLESTEROLEMIA, UNSPECIFIED (7) PAF (paroxysmal atrial fibrillation) Code(s): I48.0 - PAROXYSMAL ATRIAL FIBRILLATION (8) Dyspnea Code(s): R06.00 - DYSPNEA, UNSPECIFIED Qualifiers: Dyspnea type: unspecified Qualified Code(s): R06.00 - Dyspnea, unspecified
[2016-10-17] MEDS: dilTIAZem HCL 30 MG TABLET (FP) PO SCH ×2 (00:25→05:57)
[2016-10-17 05:45] VITALS: BP 104/67; TEMP 98.4
[2016-10-17] MEDS: METOPROLOL TARTRATE 25 MG TABLET (FP) PO SCH (05:57)
[2016-10-17] MEDS: ALBUTEROL SO4 0.083% IH SOL 2.5 MG/3 ML VIAL.NEB. NEB PRN (06:02)
--- NOTE | 2016-10-17 07:37 | HOSP ---
Physical Examination Vital Signs: Vital Signs Temperature 98.4 F 10/17/16 05:44 Pulse Rate 104 H 10/17/16 05:44 Respiratory Rate 20 10/17/16 05:44 Blood Pressure 104/67 10/17/16 05:44 O2 Sat by Pulse Oximetry (%) 95 10/16/16 21:00 Labs: CBC, BMP 10/16/16 15:30 10/16/16 17:30 Hospitalist Encounter Assessment: Called to see patient for unresponsiveness. On examination the patient did not respond to verbal or physical stimuli. Absent heart and breath sounds. Absent peripheral pulses. Pupils are fixed and dilated. Patient Pronounced at 06 :58. Dr. Kelley was called. Daughter was notified. Visit type - Emergency Visit Emergency Visit: Yes ED Registration Date: 09/25/16 Care time: The patient presented to the Emergency Department on the above date and was hospitalized for further evaluation of their emergent condition. - New Patient This patient is new to me today: Yes Date on this admission: 10/17/16 - Critical Care Critical Care patient: No
== END 2016-10-17 10:21 | disposition expired | DRG 291 ==
LOC: JER 08:45 → JERBED 12:55 → J4W 18:05 → J6S 10-13 19:07
PROVIDERS: ADMIT Internal Medicine; ATTEND Internal Medicine
PROC: 3E0F7GC Introduction of Other Therapeutic Substance into Respiratory Tract, Via Natural or Artificial Opening (ICD-10-PCS; 2016-09-25)
PROC: 05HM33Z Insertion of Infusion Device into Right Internal Jugular Vein, Percutaneous Approach (ICD-10-PCS; principal; 2016-10-16)
PROC: 5A1D60Z (ICD-10-PCS; 2016-10-16)
DX: I13.0 Hypertensive heart and chronic kidney disease with heart failure and stage 1 through stage 4 chronic kidney disease, or unspecified chronic kidney disease (principal); I50.33 Acute on chronic diastolic (congestive) heart failure; G92 Toxic encephalopathy; J96.21 Acute and chronic respiratory failure with hypoxia; N17.9 Acute kidney failure, unspecified; J44.1 Chronic obstructive pulmonary disease with (acute) exacerbation; E87.2 Acidosis; E87.0 Hyperosmolality and hypernatremia; E11.22 Type 2 diabetes mellitus with diabetic chronic kidney disease; I25.10 Atherosclerotic heart disease of native coronary artery without angina pectoris; D63.1 Anemia in chronic kidney disease; I27.2 Other secondary pulmonary hypertension; I36.1 Nonrheumatic tricuspid (valve) insufficiency; I25.119 Atherosclerotic heart disease of native coronary artery with unspecified angina pectoris; Z98.61 Coronary angioplasty status; Z99.81 Dependence on supplemental oxygen; I34.0 Nonrheumatic mitral (valve) insufficiency; E83.39 Other disorders of phosphorus metabolism; R07.89 Other chest pain; N18.3 Chronic kidney disease, stage 3 (moderate); I48.0 Paroxysmal atrial fibrillation; E78.5 Hyperlipidemia, unspecified
CPT/HCPCS: 36415; 36600; 70450-TC; 71010-TC; 71020-TC; 71250-TC; 76775-TC; 78452-TC; 80048; 80053; 81003; 81015; 82550; 82570; 82728; 82803; 83036; 83540; 83550; 83735; 83880; 84100; 84155; 84156; 84165; 84300; 84443; 84484; 84540; 85025; 85610; 86038; 86225; 86593; 86803; 87340; 93005; 93010; 93017; 93306-TC; 94640; 97116-GP; 97161-GP; 99284-25; A9502